=== PATIENT | male | born 1930 | race Caucasian/White ===

== ENCOUNTER 2017-02-26 22:25 | Inpatient (IN) ==
[2017-02-26 23:54] LABS: Basophils % 0.1 %; Hematocrit 45.5 % (37.5-50.1); Hemoglobin 15.6 g/dL (12.9-16.9); Immature Granulocytes % 0.7 % (0-4); Lymphocytes # 0.9 K/mcL (0.6-4.6); Mean Corpuscular HGB Conc 34.3 g/dL (31.6-35.5); Mean Corpuscular Hemoglobin 31.6 pg (28.0-33.3); Mean Corpuscular Volume 92.1 fL (83.0-100.0); Mean Platelet Volume 10.2 fL (9.4-12.4); Monocytes # 1.9 K/mcL (0.0-1.3); Monocytes % 13.5 %; Neutrophils # 11.4 K/mcL (1.6-8.9); Platelet Count 189 K/mcL (140-400); Red Blood Count 4.94 M/mcL (4.19-5.50); Segmented Neutrophils % 79.7 %
[2017-02-27 00:01] LABS: INR 1.5; Prothrombin Time 16.1 Seconds (9.4-12.1)
[2017-02-27 00:04] LABS: Activated Partial Thrombo Time 33.9 Seconds (26.0-36.0)
--- NOTE | 2017-02-27 00:05 | Emergency Department Note ---
Disposition Clinical Impression: Weakness, Elevated troponin Disposition: Home, Self-Care Condition: Good Time of Disposition: 00:29 Weakness HPI - General Chief complaint: ED Weakness Stated complaint: Weakness Can't Walk Time Seen by Provider: 02/26/17 23:20 Source: family Mode of arrival: ambulatory Limitations: no limitations Nursing Notes Reviewed: Yes Vital Signs Reviewed: Yes - History of Present Illness HPI Narrative: 86-year-old male with history of atrial fibrillation and stroke presents with worsening malaise, weakness, and poor appetite over the last 2-5 days. He lives with his elderly and is unable to bear weight to transfer. Family reports that he has a history of right-sided weakness which seems to be gradually worse over these last several days. He also was noted by a separate family member to have an episode of slurred speech 5 days ago which resolved spontaneously. He has had persistent confusion from his baseline over these last few days as well. He has a mild nonproductive cough. He has no chest pain or shortness breath. He does have nausea without vomiting. He does not have any abdominal pain or chest pain. He has difficulty with urination at baseline in which he will struggle to go, but then will finally completely empty his bladder. Also he has a history of chronic constipation and has not had a bowel movement for the last few days. He has not had any recent antibiotics or hospitalization. He was last hospitalized 2 years ago for a fall with a spinal fracture. Pt Subjective Complaint: generalized weakness/fatigue Pain Scale: 0 - Related Data Home Medications Medication Instructions Recorded Confirmed Amlodipine [Amlodipine Besylate] 11/13/15 Apixaban [Eliquis] 11/13/15 Aspirin [Adult Low Dose Aspirin EC] 11/13/15 Furosemide [Lasix] 11/13/15 Metformin 11/13/15 Metoprolol 11/13/15 Niacin 11/13/15 Omeprazole [PriLOSEC] 11/13/15 Oxybutynin [Ditropan] 11/13/15 Oxybutynin [Ditropan] 11/13/15 Simvastatin 11/13/15 Previous Rx's Medication Instructions Recorded Cephalexin [Keflex] 500 mg PO QID 10 Days 01/14/16 Terbinafine HCl [Athlete's Foot] 30 gm TP BID 31 Days 01/14/16 Allergies Allergy/AdvReac Type Severity Reaction Status Date / Time No Known Allergies Allergy Verified 02/26/17 22:36 All systems ED: reviewed and negative except as stated. Past Medical History - Past Medical History Attestation: Yes The following information was validated with the patient. Source: patient Medical history: Reports: CVA, diabetes - Social History Smoking Status: Never smoker Smokeless Tobacco Status: No Alcohol use: Reports: none Physical Exam - Head Head exam: atraumatic, normocephalic, normal inspection - Eye Eye exam: Present: normal appearance, PERRL, EOMI - ENT ENT exam: normal exam, normal oropharynx, mucous membranes moist - Neck Neck exam: Present: normal inspection, full ROM, trachea midline - Chest Chest inspection: Present: normal inspection, symmetric chest wall rise - Respiratory Respiratory exam: Clear to auscultation bilaterally without wheezes rales or rhonchi Cardiovascular Cardiovascular exam: Present: regular rate, normal rhythm, normal heart sounds - Abdominal Exam Abdominal exam: Present: soft, Non-Tender. Absent: tenderness, distention, guarding, rebound, rigidity - Extremities Exam Extremities exam: Present: normal inspection, full ROM - Expanded Lower Extremity Exam Hip/Pelvis exam: Present: normal inspection, full ROM - Back Exam Back exam: Present: normal inspection, full ROM. Absent: tenderness, CVA tenderness (R), CVA tenderness (L) - Neurological Exam Neurological exam: Present: alert, oriented X3, CN II-XII intact. Motor 4 out of 5 in the right lower extremity. 5 out of 5 in all other extremities. No drift. Normal sensory exam in all extremities. No dysarthria, aphasia, or facial droop. - Psychiatric Psychiatric exam: Present: normal affect, normal mood - Skin Skin exam: Present: warm, dry, intact, normal color - General General appearance: alert, in no apparent distress Course - Reevaluation(s) Reevaluation #1: Patient noted to have elevated troponin to 0.4. No CP/SOB. EKG stable from prior. He received aspirin. Head CT and urinalysis are pending, but patient is signed out to Dr. Lange for admission. Time: 00:31 Vital Signs Temperature 98.7 F 02/26/17 22:28 Pulse Rate 94 02/26/17 22:28 Respiratory Rate 18 02/26/17 22:28 Blood Pressure 166/78 02/26/17 22:28 O2 Sat by Pulse Oximetry 97 02/26/17 22:28 Temperature 98.9 F 02/27/17 05:24 Pulse Rate 90 02/27/17 05:24 Respiratory Rate 15 02/27/17 05:24 Blood Pressure 164/80 02/27/17 05:24 O2 Sat by Pulse Oximetry 97 02/27/17 05:24 Oxygen Delivery Oxygen Delivery Room Air Weakness - Lab Data Result diagrams: 02/26/17 23:45 02/26/17 23:45 Lab Results 02/26/17 02/26/17 02/26/17 Range/Units 22:30 23:45 23:45 WBC 14.3 H (4.3-11.1) K/mcL RBC 4.94 (4.19-5.50) M/mcL Hgb 15.6 (12.9-16.9) g/dL Hct 45.5 (37.5-50.1) % MCV 92.1 (83.0-100.0) fL MCH 31.6 (28.0-33.3) pg MCHC 34.3 (31.6-35.5) g/dL RDW 14.0 (11.5-14.5) % Plt Count 189 (140-400) K/mcL MPV 10.2 (9.4-12.4) fL Immature Gran % 0.7 (0-4) % Seg Neutrophils % 79.7 % Lymphocytes % 6.0 % Monocytes % 13.5 % Eosinophils % 0.0 % Basophils % 0.1 % Neutrophils # 11.4 H (1.6-8.9) K/mcL Lymphocytes # 0.9 (0.6-4.6) K/mcL Monocytes # 1.9 H (0.0-1.3) K/mcL Eosinophils # 0.0 (0.0-0.6) K/mcL Basophils # 0.0 (0.0-0.2) K/mcL PT (9.4-12.1) Seconds INR APTT (26.0-36.0) Seconds Sodium 134 L (136-145) mEq/L Potassium 4.8 H (3.5-4.5) mEq/L Chloride 99 (98-109) mEq/L Carbon Dioxide 24 (19-29) mEq/L BUN 18 (8-26) mg/dL Creatinine 1.29 H (0.72-1.25) mg/dL Est GFR ( Amer) > 60 (> 60) Est GFR (Non-Af Amer) 53 L (> 60) BUN/Creatinine Ratio 14 (6-26) Glucose 394 H (70-99) mg/dL POC Glucose 316 H (58-89) Calculated Osmolality 296 (280-300) Calcium 10.9 H (8.6-10.8) mg/dL Total Bilirubin 1.8 H (0.2-1.2) mg/dL AST 37 H (5-34) Units/L ALT 35 (0-55) Units/L Alkaline Phosphatase 65 (38-126) Units/L Troponin I (0-0.03) ng/mL Serum Total Protein 7.5 (6.0-8.3) g/dL Albumin 3.7 (3.5-5.0) g/dL Globulin 3.8 H (2.4-3.5) g/dL Albumin/Globulin Ratio 1.0 L (1.1-2.2) Urine Color (Yellow) Urine Clarity (Clear) Urine pH (5.0-8.0) pH Units Ur Specific Exchange (1.010-1.025) Urine Protein (Neg-Trace) mg/dL Urine Glucose (UA) (Normal) mg/dL Urine Ketones (Negative) mg/dL Urine Blood (Negative) Urine Nitrite (Negative) Urine Bilirubin (Negative) Urine Urobilinogen (Normal) mg/dL Ur Leukocyte Esterase (Negative) Urine Microscopic RBC (0-3) per hpf Urine Microscopic WBC (0-3) per hpf Ur Squamous Epith Cells (None-Few) per lpf Urine Bacteria (None-Few) per hpf Hyaline Casts (None-Few) per lpf Ur Culture Indicated? (NO) 02/26/17 02/26/17 02/27/17 Range/Units 23:45 23:45 00:01 WBC (4.3-11.1) K/mcL RBC (4.19-5.50) M/mcL Hgb (12.9-16.9) g/dL Hct (37.5-50.1) % MCV (83.0-100.0) fL MCH (28.0-33.3) pg MCHC (31.6-35.5) g/dL RDW (11.5-14.5) % Plt Count (140-400) K/mcL MPV (9.4-12.4) fL Immature Gran % (0-4) % Seg Neutrophils % % Lymphocytes % % Monocytes % % Eosinophils % % Basophils % % Neutrophils # (1.6-8.9) K/mcL Lymphocytes # (0.6-4.6) K/mcL Monocytes # (0.0-1.3) K/mcL Eosinophils # (0.0-0.6) K/mcL Basophils # (0.0-0.2) K/mcL PT 16.1 H (9.4-12.1) Seconds INR 1.5 APTT 33.9 (26.0-36.0) Seconds Sodium (136-145) mEq/L Potassium (3.5-4.5) mEq/L Chloride (98-109) mEq/L Carbon Dioxide (19-29) mEq/L BUN (8-26) mg/dL Creatinine (0.72-1.25) mg/dL Est GFR ( Amer) (> 60) Est GFR (Non-Af Amer) (> 60) BUN/Creatinine Ratio (6-26) Glucose (70-99) mg/dL POC Glucose (58-89) Calculated Osmolality (280-300) Calcium (8.6-10.8) mg/dL Total Bilirubin (0.2-1.2) mg/dL AST (5-34) Units/L ALT (0-55) Units/L Alkaline Phosphatase (38-126) Units/L Troponin I 0.46 H* (0-0.03) ng/mL Serum Total Protein (6.0-8.3) g/dL Albumin (3.5-5.0) g/dL Globulin (2.4-3.5) g/dL Albumin/Globulin Ratio (1.1-2.2) Urine Color Yellow (Yellow) Urine Clarity Clear (Clear) Urine pH 6.0 (5.0-8.0) pH Units Ur Specific Exchange 1.023 (1.010-1.025) Urine Protein 30 H (Neg-Trace) mg/dL Urine Glucose (UA) >=1000 H (Normal) mg/dL Urine Ketones Negative (Negative) mg/dL Urine Blood Trace H (Negative) Urine Nitrite Negative (Negative) Urine Bilirubin Negative (Negative) Urine Urobilinogen Normal (Normal) mg/dL Ur Leukocyte Esterase Negative (Negative) Urine Microscopic RBC 3-5 H (0-3) per hpf Urine Microscopic WBC 0-3 (0-3) per hpf Ur Squamous Epith Cells Few (None-Few) per lpf Urine Bacteria None Seen (None-Few) per hpf Hyaline Casts None Seen (None-Few) per lpf Ur Culture Indicated? NO (NO) - EKG Data EKG attestation: Yes I reviewed and interpreted this EKG. EKG results narrative: EKG shows normal sinus rhythm with normal axis and intervals. There is no ST elevation or depression. There are diffuse nonspecific ST changes. These are essentially the same as 04/08/2015. Patient was in atrial flutter at that time however. Attestation Statement - Attestation Attestation: I, Ravi Corbin, examined this patient and my medical decision-making was reviewed with the SMALL ENGINE SPECIALIST/PA/Advanced Practice Nurse/Resident Physician. I agree with the documented findings, disposition and treatment plan as described except to the extent set forth below. 86 yo male presents with concerns of weakness, fatigue and chest pain. Patient is a poor historian and is unable to give a history regarding his symptoms. Family states that he had an acute episode of chest pain a few hours prior to arrival. He states that he had pressure in his chest he became nauseated and did not vomit there is no other associated diaphoresis. Patient did not syncopized. Patient had apparent slurred speech 5 days ago that the family was concerned about possible stroke however he was not evaluated at time and is now at his baseline. Head CT was negative for acute bleed or mass. Laboratory evaluation shows elevated troponin. Patient had a EKG which showed normal sinus rhythm with a rate of 94 without evidence of STEMI. Patient given aspirin in the emergency department. He is on Eliquis and was not started on Heparin in the ED.
[2017-02-27 00:11] LABS: Alanine Aminotransferase 35 Units/L (0-55); Albumin 3.7 g/dL (3.5-5.0); Alkaline Phosphatase 65 Units/L (38-126); Aspartate Amino Transferase 37 Units/L (5-34); BUN/Creatinine Ratio 14 (6-26); Bilirubin,Total 1.8 mg/dL (0.2-1.2); Blood Urea Nitrogen 18 mg/dL (8-26); Calcium 10.9 mg/dL (8.6-10.8); Carbon Dioxide 24 mEq/L (19-29); Chloride 99 mEq/L (98-109); Globulin 3.8 g/dL (2.4-3.5); Glucose 394 mg/dL (70-99); Osmolality,Calculated 296 (280-300); Sodium 134 mEq/L (136-145); Total Protein 7.5 g/dL (6.0-8.3); eGFR For African Americans > 60 (> 60); eGFR For Non-African Americans 53 (> 60)
[2017-02-27 00:12] LABS: Potassium 4.8 mEq/L (3.5-4.5)
[2017-02-27] MEDS ORDERED: Insulin Regular, Human 100 UNIT/ML SQ ONE (00:18)
[2017-02-27] MEDS ORDERED: Aspirin 81 MG TAB.CHEW PO ONE (00:20)
[2017-02-27 00:47] LABS: Bilirubin,Urine Negative (Negative); Blood,Urine Trace (Negative); Clarity,Urine Clear (Clear); Color,Urine Yellow (Yellow); Glucose,Urine (UA) >=1000 mg/dL (Normal); Ketones,Urine Negative (Negative); Leukocyte Esterase,Urine Negative (Negative); Nitrite,Urine Negative (Negative); Protein,Urine 30 mg/dL (Neg-Trace); Specific Gravity,Urine 1.023 (1.010-1.025); Urobilinogen,Urine Normal (Normal)
[2017-02-27 00:50] LABS: Bacteria,Urine None Seen per hpf (None-Few); Hyaline Casts,Urine None Seen per lpf (None-Few); Squamous Epithelial Cell,Urine Few per lpf (None-Few); WBC,Urine 0-3 per hpf (0-3)
[2017-02-27] MEDS ORDERED: Ondansetron 4 MG/2 ML VIAL IVP PRN (04:57)
[2017-02-27] MEDS ORDERED: *HR* Morphine 2 MG/ML SYRINGE IVP PRN (04:57)
[2017-02-27] MEDS ORDERED: D5% in Water 1,000 ML IVC PRN (04:57)
[2017-02-27] MEDS ORDERED: Acetaminophen 325 MG TABLET PO PRN (04:57)
[2017-02-27] MEDS ORDERED: Nitroglycerin 0.4 MG TAB.SUBL SL PRN (04:57)
[2017-02-27] MEDS ORDERED: *HR* Metoprolol 5 MG/5 ML VIAL IVP PRN ×3 (04:57→18:08)
[2017-02-27] MEDS ORDERED: Naloxone 0.4 MG/ML INJ IVP PRN (04:57)
[2017-02-27] MEDS ORDERED: *HR* OxyCODONE Immed Rel 5 MG TABLET PO PRN (04:57)
[2017-02-27] MEDS ORDERED: Dextrose Gel 15 GM PO PRN ×2 (04:57)
[2017-02-27] MEDS ORDERED: *HR* Dextrose 50 % in Water (Syg) 50 ML SYRINGE IVP PRN (04:57)
[2017-02-27] MEDS ORDERED: 0.9 % Sodium Chloride 1,000 ML IVC SCH (05:00)
--- NOTE | 2017-02-27 05:16 | Internal Med History&Physical ---
Date of Encounter: 02/27/17 Time of Encounter: 05:00 Assessment and Plan (1) Generalized muscle weakness Current visit: Yes Status: Acute . (2) Complete immobility due to severe physical disability or frailty Current visit: Yes Status: Acute . (3) Demand ischemia of myocardium Current visit: Yes Status: Acute . (4) Non-ST elevation myocardial infarction (NSTEMI) due to mismatch of myocardial oxygen supply and demand Current visit: Yes Status: Acute . (5) CAD (coronary artery disease), [place] coronary artery Current visit: Yes Status: Acute . Qualifiers: [place] vs. transplanted heart: [place] heart Associated angina: angina presence unspecified Qualified Code(s): I25.10 - Atherosclerotic heart disease of [place] coronary artery without angina pectoris (6) Hx of CABG Current visit: Yes Status: Acute . (7) Atrial fibrillation and flutter Current visit: Yes Status: Acute . (8) FTT (failure to thrive) in adult Current visit: Yes Status: Acute . (9) Cerebrovascular accident, old Current visit: Yes Status: Acute . Internal Medicine - H&P: HPI Chief complaint: Generalized weakness. Unable to walk. Admitted From: Emergency Dept Plans for Post Hospital Care: Home History of present illness: Mr. Parr is a 86 year old male with history significant for CVA (left frontal and pontine infarcts; small vessel disease)/TIAs, PAD/complete occlusion MICHELE/60% stenosis LICA, CAD/CABG/AMI, type II DM, GERD/ s/p ugi bleed, hypertension, dyslipidemia, paroxysmal atrial fibrillation-flutter, OA/ OP/L3 compression fracture, a disturbance with multiple falls, generalized weakness/deconditioning, former smoker, etc.. The patient is admitted to [facility] the emergency department where he presented with concerns of the progressive generalized weakness and inability to walk. The patient has a known history of atrial fibrillation flutter as well as some previous CVA with associated gait disturbance and right-sided weakness. The patient reports worsening malaise generalized weakness and easy fatigability diminishing appetite over the last 5 days or more. He has found progressively that he has been unable to weight-bear or to transfer. Previous to this he was able to motivate himself about his home with a walker. Independent during the same five-day period of time he experienced a period of intermittent but very severe right chest pressure/pain. These episodes would wax and wane but persisted over a three-day period of time. Associated with shortness of air lightheadedness and a general feeling of malaise. Family member witnessed an episode of slurring of speech during that same period of time possible 5 days prior to this presentation which seemed to resolve spontaneously. He was witnessed also to be more confused from his baseline over these same several days.. Some nausea without vomiting a nonproductive cough. Experienced his usual prostatism with urinary retention and chronic constipation. Denied any fevers chills or sweats and denies nervousness a period time any significant changes in medication regimen or compliance. Findings in the ED: Vital signs were stable. Patient afebrile. WBC 14.3 hemoglobin 15.6 platelets 189,000. Differential showed an increase in neutrophils and monocytes. Metabolic panel benign. Noted sodium of 134 potassium 4.8. Creatinine was 1.29 with BUN of 18. GFR 53. Glucose 394 osmolality 296. Calcium 10.9. Total bilirubin 1.8. AST 37. Troponin 0.46. PT 16.1 INR 1.5 PTT 32.9. EKG showed atrial flutter. Controlled rate at 94. Sinus rhythm with normal axis and intervals. No acute ischemic changes. Chest x-ray demonstrated no acute or active cardiopulmonary process. Sternotomy wires unchanged. Atherosclerotic calcifications of the thoracic aorta noted. No evidence of effusion pneumothorax or osseous abnormalities. Lungs clear. Preliminary impression suggests failure to thrive in the adult with significant history of CVA with right repair versus and gait disturbance with progressive downward spiral in independence in activities of daily living. Unable to use walker effectively for day-to-day activities due to the feeling of generalized weakness. Denies any significant mechanical falls during this period. Denies any loss of bowel or bladder function biting of lip but seizure-like activity vision deficits unilateral weakness. CVA/TIA events be investigated. etc. Concurrently patient also reports an episode of 3 days of consecutive intermittent severity right-sided chest pain/pressure. This associated with the shortness of air and a feeling of malaise. Symptoms are concerning for ACS/UA in a patient with increased risk due to diffuse vasculopathy. Screening studies do note SIRS criteria present at admission. The patient is at risk for further acute clinical decline immobility given his advanced age, frailty, findings presenting complaints and comorbid conditions. Workup and treatment will proceed comprehensively. The patient was visited and interviewed and examined. Cumulative laboratory and radiographic data base will be considered and discussed. Pertinent ancillary medical records including ECW and PCI documentation when available was reviewed and considered. Given the patient's presenting concerns, past medical history, clinical findings and symptoms, he is admitted at this time will undergo further evaluation and disposition. Orders were written as per the computerized physician service order clerk system.......................................................................... .................... Consultative opinions will be sought as clinical circumstances justify. Additional consultative opinion has been requested of cardiology and neurology. Pain management needs will be addressed. Laboratory=radiographic data base will be updated as appropriate. Studies include: Cultures of blood urine sputum, pt/inr, aptt, ddimer, cardiac injury panel, BNP, UA, metabolic and hematologic panel, magnesium, phosphorus, ionized calcium, thyroid panel, lipid profile, A1c, C-peptide, CRP,sedimentation rate, blood gas, lactic acid, serologies, etc. Precautions: Aspiration, fall, delirium protocol/surveillance initiated. Orthostatic vital signs. Bladder scan. Postvoid residual. Telemetry with continuous hemodynamic monitoring and pulse oximetry initiated. Empiric antibiotic coverage: pending diagnostic/culture data. Special studies: CT chest/head, MRI head/brain, chest x-ray, telemetry, EKG, echocardiogram. Pulmonary toilet: Incentive spirometry, aerosol bronchodilator, mucolytic, antitussive, supplemental oxygen. Corticosteroid therapy. CPAP/BiPAP supplemental oxygen delivery employed. Aerosol Mucomyst therapy may be employed. Fluid and electrolyte repletion efforts will proceed. Careful attention to fluid balance and renal recovery will be emphasized. Avoidance of nephrotoxic exposure and adverse drug drug interaction in the setting of impaired renal function will be monitored closely. Acute coronary syndrome protocol/surveillance initiated. Aspirin, statin, beta noreen, BERNICE inhibitor. Nitrates. Morphine. Supplemental oxygen. Intravenous heparin drip (low dose ACS) protocol was initiated. Acute [employer]ING [employer]GER injury protocol/surveillance initiated. DVT and PUD prophylaxis initiated: PPI therapy, intermittent pneumatic cuffs/ TEDs. Early ambulation will be encouraged. Immunization updates recommended. Influenza and pneumococcal vaccinations as part of ongoing preventative healthcare recommendations strongly recommended. Smoking cessation counseling briefly addressed. Patient is a former smoker. Advanced care directive discussion briefly addressed. Patient does not declare any healthcare restrictions at this time. Cardiovascular risk appraisal and cardiovascular risk reduction efforts will be emphasized. Physical=occupational therapy consulted to evaluate patient's functional capacity and progress mobility as his circumstances permit. Sliding scale insulin coverage, ADA dietary restraint and schedule an as-needed basis fingerstick glucose assessments were initiated. Nutrition/diabetes education counseling may be considered as circumstances justify. Outpatient medication schedules will be reviewed, confirmed and facilitated as appropriate. Reconciliation of home treatments including adjustments, substitutions and reintroduction into the treatment regimen will address necessary maintenance therapies for chronic pre-existing medical conditions. Plan of care has been reviewed and discussed in detail with the patient. Questions addressed. Hospital course dictated by clinical findings, treatment response and potential consultative interventions. Patient is at risk for further acute clinical decline and morbidity due to advanced age/frailty, presenting chief complaints and comorbid conditions. Condition is serious. Prognosis is guarded. CODE STATUS is reported as full. Past Med Surg Social Fam HX - Past Medical History Source: old records reviewed Medical history: arthritis, atrial fibrillation, CHF, coronary artery disease, CVA, diabetes, GI bleed, hyperlipidemia, hypertension, myocardial infarction, osteoporosis, peripheral artery disease, renal disease (SHANE/urge incontinence. BPH/prostatism.), TIA, other (Unsteadiness of gait/repeated falls.) Psychiatric history: anxiety - Past Surgical History Surgical History: coronary bypass (CABG), other - Social History Smoking Status: Former smoker Smokeless Tobacco Status: No Alcohol use: none, unknown Drug use: none Occupational status: retired Current living situation: Home, With Family Activity Level: Uses cane/walker, Mostly sedentary Recent Out of Country Travel Within the Last 8 Weeks: No Exposure or Possible Exposure to Illness During Travel: No Internal Medicine - H&P: Meds Amlodipine [Amlodipine Besylate] 11/13/15 [History] Apixaban [Eliquis] 11/13/15 [History] Aspirin [Adult Low Dose Aspirin EC] 11/13/15 [History] Furosemide [Lasix] 11/13/15 [History] Metformin 11/13/15 [History] Metoprolol 11/13/15 [History] Niacin 11/13/15 [History] Omeprazole [PriLOSEC] 11/13/15 [History] Oxybutynin [Ditropan] 11/13/15 [History] Oxybutynin [Ditropan] 11/13/15 [History] Simvastatin 11/13/15 [History] Cephalexin [Keflex] 500 mg PO QID 10 Days 01/14/16 [Rx] Terbinafine HCl [Athlete's Foot] 30 gm TP BID 31 Days 01/14/16 [Rx] Allergies No Known Allergies Allergy (Verified 02/26/17 22:36) All Systems PM: A 10-system review of systems was performed and is negative for pertinent findings except as documented above in the HPI. - Constitutional Constitutional: as per HPI, malaise, weakness, other, no chills, no fever(s), no night sweats - EENT Eyes: as per HPI, no change in vision, no discharge, no pain, no photophobia Ears: as per HPI, no ear discharge, no ear pain, no tinnitus Nose, mouth and throat: as per HPI, no dysphagia, no nasal discharge, no neck pain, no sore throat - Cardiovascular Cardiovascular ROS IM: as per HPI, chest pain, dyspnea, other, no diaphoresis, no lightheadedness, no palpitations, no syncope - Respiratory Respiratory: as per HPI, no cough, no dyspnea, no wheezing, no excessive phlegm production - Gastrointestinal Gastrointestinal: as per HPI, no abdominal pain, no diarrhea, no hematemesis, no hematochezia, no melena, no nausea, no vomiting - Genitourinary Genitourinary ROS male: as per HPI - Musculoskeletal Musculoskeletal ROS IM: as per HPI, no numbness, no tingling - Integumentary Integumentary IM: as per HPI, no rash, no unusual bruising - Neurological Neurological ROS: as per HPI, no confusion, no convulsions, no focal weakness, no numbness, no tingling, no tremor(s) - Psychiatric Psychiatric: as per HPI - Endocrine Endocrine IM: as per HPI - Hematologic/Lymphatic Hematologic/Lymphatic: as per HPI, no easy bruising - Allergic/Immunologic Allergic/Immunologic: as per HPI - Constitutional Vitals: Temp Pulse Resp BP Pulse Ox 99.6 F 91 17 181/87 96 02/27/17 01:53 02/27/17 01:53 02/27/17 01:53 02/27/17 01:53 02/27/17 02:07 Vital Signs Temp Pulse Resp BP Pulse Ox 02/27/17 02:07 96 02/27/17 01:53 99.6 F 91 17 181/87 96 02/27/17 01:05 16 192/91 02/26/17 22:28 98.7 F 94 18 166/78 97 Intake and Output 02/26/17 02/26/17 02/27/17 15:59 23:59 07:59 Other: Stool Characteristics Normal for Patient Weight 81.647 kg 86.1 kg Blood Glucose* 316 Patient Weight 02/27/17 23:59 Weight 86.1 kg General appearance: Present: cooperative, mild distress, A&O X 3, answers questions appropriately - Head Head exam: Present: atraumatic, normocephalic - Eye Eye exam: Present: EOMI, PERRL, conjuntiva pink, sclera anicteric Pupils: Present: normal accommodation, PERRL - ENT ENT exam: Present: mucous membranes moist, normal oropharynx - Neck Neck exam general surgery: Present: full ROM, supple, trachea midline. Absent: lymphadenopathy, nuchal rigidity - Respiratory Respiratory exam: Present: decreased breath sounds, CTAB. Absent: accessory muscle use, rales, rhonchi, stridor, wheezes - Cardiovascular Cardiovascular exam: Present: distant heart sounds, RRR, +S1, +S2, tachycardia. Absent: diastolic murmur, gallop, rubs, systolic murmur - GI/Abdominal GI/Abdominal exam: Present: normal bowel sounds, soft, no peritoneal signs. Absent: distended, tenderness - Extremities Exam Extremities exam: Present: full ROM, warm, radial pulses palpable and symetrical. Absent: calf tenderness, cyanotic, pedal edema - Neurological Exam Neurological exam: Present: alert, CN II-XII intact, oriented X3, no focal deficits. Absent: pronater drift, facial droop, speech deficit - Psychiatric Psychiatric exam: Present: normal affect, normal mood - Skin Skin exam: Present: dry, intact, warm. Absent: petechiae, rash, urticaria, vesicles Internal Med - H&P Results - Labs CBC & Chem 7: 02/26/17 23:45 02/26/17 23:45 Labs: Short CBC 02/26/17 Range/Units 23:45 WBC 14.3 H (4.3-11.1) K/mcL Hgb 15.6 (12.9-16.9) g/dL Hct 45.5 (37.5-50.1) % Plt Count 189 (140-400) K/mcL Neutrophils # 11.4 H (1.6-8.9) K/mcL BMP 02/26/17 Range/Units 23:45 Sodium 134 L (136-145) mEq/L Potassium 4.8 H (3.5-4.5) mEq/L Chloride 99 (98-109) mEq/L Carbon Dioxide 24 (19-29) mEq/L BUN 18 (8-26) mg/dL Creatinine 1.29 H (0.72-1.25) mg/dL Glucose 394 H (70-99) mg/dL Calcium 10.9 H (8.6-10.8) mg/dL Cardiac Enzymes 02/26/17 Range/Units 23:45 Troponin I 0.46 H* (0-0.03) ng/mL Liver Function 02/26/17 Range/Units 23:45 Total Bilirubin 1.8 H (0.2-1.2) mg/dL AST 37 H (5-34) Units/L ALT 35 (0-55) Units/L Alkaline Phosphatase 65 (38-126) Units/L Albumin 3.7 (3.5-5.0) g/dL Urine 02/27/17 Range/Units 00:01 Urine Color Yellow (Yellow) Urine Clarity Clear (Clear) Urine pH 6.0 (5.0-8.0) pH Units Ur Specific [place] 1.023 (1.010-1.025) Urine Protein 30 H (Neg-Trace) mg/dL Urine Glucose (UA) >=1000 H (Normal) mg/dL Abnormal lab results WBC 14.3 K/mcL (4.3-11.1) H 02/26/17 23:45 Neutrophils # 11.4 K/mcL (1.6-8.9) H 02/26/17 23:45 Monocytes # 1.9 K/mcL (0.0-1.3) H 02/26/17 23:45 PT 16.1 Seconds (9.4-12.1) H 02/26/17 23:45 Sodium 134 mEq/L (136-145) L 02/26/17 23:45 Potassium 4.8 mEq/L (3.5-4.5) H 02/26/17 23:45 Creatinine 1.29 mg/dL (0.72-1.25) H 02/26/17 23:45 Est GFR (Non-Af Amer) 53 (> 60) L 02/26/17 23:45 Glucose 394 mg/dL (70-99) H 02/26/17 23:45 POC Glucose 316 (58-89) H 02/26/17 22:30 Calcium 10.9 mg/dL (8.6-10.8) H 02/26/17 23:45 Total Bilirubin 1.8 mg/dL (0.2-1.2) H 02/26/17 23:45 AST 37 Units/L (5-34) H 02/26/17 23:45 Troponin I 0.46 ng/mL (0-0.03) H* 02/26/17 23:45 Globulin 3.8 g/dL (2.4-3.5) H 02/26/17 23:45 Albumin/Globulin Ratio 1.0 (1.1-2.2) L 02/26/17 23:45 Urine Protein 30 mg/dL (Neg-Trace) H 02/27/17 00:01 Urine Glucose (UA) >=1000 mg/dL (Normal) H 02/27/17 00:01 Urine Blood Trace (Negative) H 02/27/17 00:01 Urine Microscopic RBC 3-5 per hpf (0-3) H 02/27/17 00:01 Laboratory Results WBC 14.3 K/mcL (4.3-11.1) H 02/26/17 23:45 RBC 4.94 M/mcL (4.19-5.50) 02/26/17 23:45 Hgb 15.6 g/dL (12.9-16.9) 02/26/17 23:45 Hct 45.5 % (37.5-50.1) 02/26/17 23:45 MCV 92.1 fL (83.0-100.0) 02/26/17 23:45 MCH 31.6 pg (28.0-33.3) 02/26/17 23:45 MCHC 34.3 g/dL (31.6-35.5) 02/26/17 23:45 RDW 14.0 % (11.5-14.5) 02/26/17 23:45 Plt Count 189 K/mcL (140-400) 02/26/17 23:45 MPV 10.2 fL (9.4-12.4) 02/26/17 23:45 Immature Gran % 0.7 % (0-4) 02/26/17 23:45 Seg Neutrophils % 79.7 % 02/26/17 23:45 Lymphocytes % 6.0 % 02/26/17 23:45 Monocytes % 13.5 % 02/26/17 23:45 Eosinophils % 0.0 % 02/26/17 23:45 Basophils % 0.1 % 02/26/17 23:45 Neutrophils # 11.4 K/mcL (1.6-8.9) H 02/26/17 23:45 Lymphocytes # 0.9 K/mcL (0.6-4.6) 02/26/17 23:45 Monocytes # 1.9 K/mcL (0.0-1.3) H 02/26/17 23:45 Eosinophils # 0.0 K/mcL (0.0-0.6) 02/26/17 23:45 Basophils # 0.0 K/mcL (0.0-0.2) 02/26/17 23:45 PT 16.1 Seconds (9.4-12.1) H 02/26/17 23:45 INR 1.5 02/26/17 23:45 APTT 33.9 Seconds (26.0-36.0) 02/26/17 23:45 Sodium 134 mEq/L (136-145) L 02/26/17 23:45 Potassium 4.8 mEq/L (3.5-4.5) H 02/26/17 23:45 Chloride 99 mEq/L (98-109) 02/26/17 23:45 Carbon Dioxide 24 mEq/L (19-29) 02/26/17 23:45 BUN 18 mg/dL (8-26) 02/26/17 23:45 Creatinine 1.29 mg/dL (0.72-1.25) H 02/26/17 23:45 Est GFR ( Amer) > 60 (> 60) 02/26/17 23:45 Est GFR (Non-Af Amer) 53 (> 60) L 02/26/17 23:45 BUN/Creatinine Ratio 14 (6-26) 02/26/17 23:45 Glucose 394 mg/dL (70-99) H 02/26/17 23:45 POC Glucose 316 (58-89) H 02/26/17 22:30 Calculated Osmolality 296 (280-300) 02/26/17 23:45 Calcium 10.9 mg/dL (8.6-10.8) H 02/26/17 23:45 Total Bilirubin 1.8 mg/dL (0.2-1.2) H 02/26/17 23:45 AST 37 Units/L (5-34) H 02/26/17 23:45 ALT 35 Units/L (0-55) 02/26/17 23:45 Alkaline Phosphatase 65 Units/L (38-126) 02/26/17 23:45 Troponin I 0.46 ng/mL (0-0.03) H* 02/26/17 23:45 Serum Total Protein 7.5 g/dL (6.0-8.3) 02/26/17 23:45 Albumin 3.7 g/dL (3.5-5.0) 02/26/17 23:45 Globulin 3.8 g/dL (2.4-3.5) H 02/26/17 23:45 Albumin/Globulin Ratio 1.0 (1.1-2.2) L 02/26/17 23:45 Urine Color Yellow (Yellow) 02/27/17 00:01 Urine Clarity Clear (Clear) 02/27/17 00:01 Urine pH 6.0 pH Units (5.0-8.0) 02/27/17 00:01 Ur Specific [place] 1.023 (1.010-1.025) 02/27/17 00:01 Urine Protein 30 mg/dL (Neg-Trace) H 02/27/17 00:01 Urine Glucose (UA) >=1000 mg/dL (Normal) H 02/27/17 00:01 Urine Ketones Negative mg/dL (Negative) 02/27/17 00: Urine Blood Trace (Negative) H 02/27/17 00:01 Urine Nitrite Negative (Negative) 02/27/17 00:01 Urine Bilirubin Negative (Negative) 02/27/17 00:01 Urine Urobilinogen Normal mg/dL (Normal) 02/27/17 00:01 Ur Leukocyte Esterase Negative (Negative) 02/27/17 00:01 Urine Microscopic RBC 3-5 per hpf (0-3) H 02/27/17 00:01 Urine Microscopic WBC 0-3 per hpf (0-3) 02/27/17 00:01 Ur Squamous Epith Cells Few per lpf (None-Few) 02/27/17 00:01 Urine Bacteria None Seen per hpf (None-Few) 02/27/17 00:01 Hyaline Casts None Seen per lpf (None-Few) 02/27/17 00:01 Ur Culture Indicated? NO (NO) 02/27/17 00:01 Impressions Chest X-Ray 02/26/17 22:45 IMPRESSION: No acute cardiopulmonary abnormality. D/ / Vadim Jackson MD / Vadim Jackson MD Interpreting Provider: Vadim Jackson MD Head CT 02/27/17 23:50 IMPRESSION: No acute intracranial abnormality. D/ / Bess Solorzano MD / Bess Solorzano MD Interpreting Provider: Bess Solorzano MD - Impressions ITS Impressions Head CT 02/27/17 23:50
[2017-02-27 05:58] LABS: Magnesium 1.8 mg/dL (1.6-2.6); Phosphorous 1.4 mg/dL (2.3-4.7)
[2017-02-27] MEDS ORDERED: *HR* Enoxaparin 60 MG/0.6 ML SYRINGE SQ SCH (06:00)
[2017-02-27 06:10] LABS: Hemoglobin A1C 6.3 %
[2017-02-27] MEDS ORDERED: *HR* Heparin 5,000 UNIT/ML VIAL IVP PRN ×2 (06:24)
[2017-02-27] MEDS ORDERED: *HR* Heparin 5,000 UNIT/ML VIAL IVP STA (06:24)
[2017-02-27] MEDS ORDERED: Heparin 25,000 UNIT/500 ML D5W 25,000 UNIT/500 ML MLS IVC STA (06:24)
[2017-02-27] MEDS: Insulin LISPRO 300 UNITS/3 ML VIAL SQ SCH ×4 (09:12→22:35)
[2017-02-27] MEDS: Aspirin 81 MG TAB.CHEW PO SCH (09:15)
--- NOTE | 2017-02-27 10:19 | Cardiology Consult Note ---
<ReecePina J - Last Filed: 02/27/17 11:16> Date of Encounter: 02/27/17 Time of Encounter: 09:30 Assessment and Plan (1) Weakness Current Visit: Yes Status: Acute Per cardiology: -Patient admitted with progressively worsening weakness over the past several months. -Per family, weakness has become severe past week. -Of note, family states patient has not been eating or drinking well lately. -Management per primary service. (2) GRACIA (acute kidney injury) Current Visit: Yes Status: Acute Per cardiology: -GRACIA with creatinine 1.29. -Baseline creatinine 0.7-0.9 -May be due to poor diet and poor fluid intake. -Management per primary service. (3) Elevated troponin Current Visit: Yes Status: Acute Per cardiology: -Patient with elevated troponin in the setting of GRACIA, leukocytosis, and hypertension. -Troponins 0.46, 0.27. -Denies current chest pain, -Atypical chest pain at home, admits to chest pain at home that occurs a couple times per week and occurs at rest. -Denies excertional chest pain. Denies increased shortness of breath. -Admits to increased fatigue/weakness. -History of CAD with CABG x 3 vessels at [place] in 2000. states had balloon angioplasty prior to CABG. -On asa, statin, beta noreen, and heparin drip. -Echo pending. -BPs 160-190s systolic. -Do not suspect NSTEMI, suspect demand ischemia related to GRACIA, leukocytosis, and HYpertension. No cardiac rehab warranted at this time. -Further recommendations pending echocardiogram. (4) CAD (coronary artery disease), [place] coronary artery Current Visit: Yes Status: Chronic Per cardiology: -Patient follows with . Last seen in office 05/2016. -Known CAD with CABG x 3 vessels 2000. Balloon angioplasty prior to CABG. -On asa, statin, beta noreen. -Denies current chest pain. -Echocardiogram 06/2016 with LVEF 60%, mild concentric left ventricular hypertrophy, indeterminate diastolic function, moderately dilated left atrium, mild MR, mild TR, no pulmonary hypertension, all wall segments with normal motion. -Echo pending. -Further recommendations pending echo. Qualifiers: [place] vs. transplanted heart: [place] heart Associated angina: angina presence unspecified Qualified Code(s): I25.10 - Atherosclerotic heart disease of [place] coronary artery without angina pectoris (5) Hypertension Current Visit: Yes Status: Chronic Per cardiology: -Known history of HTN -Currently on lopressor 12.5mg BID. -BPs 160-190s systolic. - states BPs at home labile. -Will increase beta noreen and will titrate for better BP control. Qualifiers: Hypertension type: essential hypertension Qualified Code(s): I10 - Essential (primary) hypertension (6) Atrial flutter, paroxysmal Current Visit: Yes Status: Chronic Per cardiology: -Known history of atrial flutter. - states has had atrial flutter on and off since CABG. -On eliquis at home, not getting this amdission, however is on heparin drip. states has only missed last nights dose of eliquis due to being in ER. - admits to recent falls. Denies active bleeding or blood loss. -Echo pending. -Further recommendations pending echo. -Need to address continuance of long-term anticoagulation prior to discharge. (7) Elevated brain natriuretic peptide (BNP) level Current Visit: Yes Status: Acute Per cardiology: -Elevated BNP. -Chest x-ray without any acute process. -Chest CT without over heart failure. -Euvolemic on exam. (8) Tobacco abuse Current Visit: Yes Status: Chronic Per cardiology: -Patient uses chewing tobacco. - states he uses 1 can per day for as long as she can remember. -I spent 3 minutes reviewing tobacco cessation education with patient and family. Discussion w patient/family: The assessment and plan as outlined above was discussed with the patient and/or family members who expressed understanding and agreement. All questions were answered. Thank you for involving us in the care of your patient. Please call with any questions. Discussed and reviewed with . History of Present Illness Consult date: 02/27/17 Requesting physician: Heber Patel Consult reason: ACS/NSTEMI Chief complaint: weakness History of present illness: Mr. Parr is a 86 year old male with a relevant past medical history of CVA with right sided residual weakness, atrial fibrillation, CAD s/p CABG 2000 with 3 vessel bypass, HTN, DM, hyperlipidemia, CHF. Patient was admitted for progressive weakness. Patient seen and examined with and son at bedside. Majority of information obtained is from patient's . states over the last few months, patient has gotten progressively weaker with major decline in function. states patient used to be able to walk to bathroom with assistance of walker, however lately has not been able to. states patient has also been getting confused. states patient always remembers person and place, but gets confused regarding time. states patient has also been falling several times per month. states in the month of January he has fallen twice, one time while in the bathroom and one time fell out if his chair. states anytime patient gets out of his chair she now stands behind him while he's using his walker. states over the past week, his weakness has been so severe that he has been unable to walk at all. reports blood pressures labile at home. reports that patient complains of chest pain while at rest that happens a couple times per week. Patient and deny increased shortness of breath. states patient has been more fatigued lately. states patient has not been eating or drinking much lately. states patient will not eat a meal anymore. States he only wants to eat a few small snacks per day. states he has also had poor oral intake in regards to water. states that the patient tells her that he is full and not thirsty. Past Med Surg Social Fam HX - Past Medical History Attestation: Yes The following information was validated with the patient. Source: patient, old records reviewed, obtained from family Medical history: arthritis, atrial fibrillation, CHF, coronary artery disease, CVA, diabetes, GI bleed, hyperlipidemia, hypertension, myocardial infarction, osteoporosis, peripheral artery disease, renal disease (SHANE/urge incontinence. BPH/prostatism.), TIA, other (Unsteadiness of gait/repeated falls.) Psychiatric history: anxiety - Past Surgical History Surgical History: coronary bypass (CABG), other - Social History Smoking Status: Former smoker Smokeless Tobacco Status: No Alcohol use: none, unknown Drug use: none Medications and Allergies Amlodipine [Norvasc] 5 mg PO DAILY 02/27/17 [History] Apixaban [Eliquis] 2.5 mg PO BID 02/27/17 [History] Cyanocobalamin (B-12) [Vitamin B12] 1,000 mcg SQ Q14D MDD fridays02/27/17 [ History] Furosemide [Lasix] 40 mg PO DAILY PRN 02/27/17 [History] Metformin [Glucophage] 1,000 mg PO BIDWM 02/27/17 [History] Metoprolol [Lopressor] 50 mg PO BID 02/27/17 [History] Multivit-Min/FA/Lycopen/Lutein [Centrum Silver Men Tablet] 1 each PO DAILY 02/27 [History] Niacin [Niacor] 500 mg PO DAILY 02/27/17 [History] Omeprazole [PriLOSEC] 40 mg PO DAILY 02/27/17 [History] Oxybutynin [Ditropan] 5 mg PO BID 02/27/17 [History] Vitamin E Acid Succinate [Vitamin E] 400 units PO DAILY 02/27/17 [History] Allergies No Known Allergies Allergy (Verified 02/26/17 22:36) All Systems Review: A 10-system review of systems was performed and is negative for pertinent findings except as documented above in the HPI. - Constitutional Constitutional: fatigue, weakness - Cardiovascular Cardiovascular: as per HPI, chest pain at rest, dyspnea on exertion Physical Examination Vital Signs, Last 4 Hours Temp Pulse Resp BP Pulse Ox 02/27/17 06:46 98.7 F 90 16 174/78 95 General: Conversant, No Apparent Distress HEENT: Atraumatic, Normocephaly, Mucus Membranes Moist Neck: No JVD, Normal carotid pulses Cardiac: Reg Rate and Rhythm, Normal S1 and S2, No Murmur Lungs: Normal Breath Sounds, No Wheeze, Rales, Rhonchi Neuro: Alert and responsive, No focal deficits noted Abdomen: Soft, Non-Tender Skin: No rashes noted on visualized skin Musculoskeletal: No Chest Wall Tenderness Extremities: No Clubbing, No Cyanosis, No Edema, Normal Pulses Results 02/26/17 23:45 02/26/17 23:45 Lab Results Impressions Chest X-Ray 02/26/17 22:45 IMPRESSION: No acute cardiopulmonary abnormality. D/ / Vadim Jackson MD / Vadim Jackson MD Interpreting Provider: Vadim Jackson MD Chest CT 02/27/17 08:30 IMPRESSION: 1. No acute intrathoracic abnormality. 2. Atherosclerosis. 3. Cholelithiasis. D/ / 02/27/2017 09:26:06 [facility] Provider: Oscar Delarosa MD Head CT 02/27/17 23:50 IMPRESSION: No acute intracranial abnormality. D/ / Bess Solorzano MD / Bess Solorzano MD Interpreting Provider: Bess Solorzano MD Active Medications Acetaminophen (Tylenol) 650 mg PO Q6HR PRN PRN Reason: Mild Pain (1-3) Stop: 08/29/17 04:58 Aspirin (Aspirin) 81 mg PO DAILY RODRIGUEZ Stop: 08/29/17 09:01 Last Admin: 02/27/17 09:15 Dose: 81 mg Dextrose/Water (Dextrose 50% (Syg)) 25 ml IVP AD PRN PRN Reason: Hypoglycemia Stop: 08/29/17 04:58 Docusate Sodium (Colace) 100 mg PO BID PRN PRN Reason: Constipation Stop: 08/29/17 04:58 Glucagon (Glucagen) 1 mg IM ONCE PRN PRN Reason: Hypoglycemia Stop: 08/29/17 04:58 Glucose (Gluctose) 15 gm PO ONCE PRN PRN Reason: Hypoglycemia Stop: 08/29/17 04:58 Glucose (Gluctose) 30 gm PO ONCE PRN PRN Reason: Hypoglycemia Stop: 08/29/17 04:58 Heparin Sodium (Porcine) (Heparin) 4,000 unit IVP Q6HR PRN PRN Reason: SEE COMMENTS Stop: 08/29/17 06:25 Heparin Sodium (Porcine) (Heparin) 2,000 unit IVP Q6H PRN PRN Reason: SEE COMMENTS Stop: 08/29/17 06:25 Dextrose (Dextrose 5%) 1,000 mls @ 100 mls/hr IVC .Q10H PRN PRN Reason: HYPOGLYCEMIA Stop: 08/29/17 04:58 Heparin Sodium/Dextrose (Heparin 25,000 Unit/500 Ml D5w) 25,000 unit in 500 mls @ 20.664 mls/hr IVC .Q24H STA; 12 UNIT/KG/HR PRN Reason: Protocol Stop: 02/28/17 06:23 Sodium Chloride (0.9 % Sodium Chloride) 1,000 mls @ 90 mls/hr IVC .Q11H7M [facility] Stop: 08/29/17 08:33 Insulin Detemir (Levemir) 12 unit 0.15 unit/kg (12 unit) SQ [facility] Stop: 08/29/17 21:01 Insulin Human Lispro (Humalog) 0 units SQ TIDAC [facility] PRN Reason: Protocol Stop: 08/29/17 07:31 Last Admin: 02/27/17 09:12 Dose: Not Given Insulin Human Lispro (Humalog) 0 units SQ [facility] PRN Reason: Protocol Stop: 08/29/17 21:01 Metoprolol Tartrate (Lopressor) 5 mg IVP Q6HR PRN PRN Reason: SEE COMMENTS Stop: 08/29/17 04:58 Metoprolol Tartrate (Lopressor) 12.5 mg PO BID [facility] Stop: 08/29/17 09:01 Last Admin: 02/27/17 09:15 Dose: 12.5 mg Morphine Sulfate (Morphine Sulfate) 2 mg IVP Q4HR PRN PRN Reason: Severe Pain (7-10) Stop: 08/29/17 04:58 Naloxone HCl (Narcan) 0.4 mg IVP Q2MIN PRN PRN Reason: Opioid Reversal Stop: 08/29/17 04:58 Nitroglycerin (Nitroglycerin) 0.4 mg SL Q5MIN PRN PRN Reason: Chest Pain Stop: 08/29/17 04:58 Nitroglycerin (Nitroglycerin) 0.5 inch TP Q6HNTG [facility] Stop: 08/29/17 12:01 Omeprazole (Prilosec) 40 mg PO DAILY@0630 [facility] PRN Reason: Protocol Stop: 08/29/17 06:31 Last Admin: 02/27/17 09:15 Dose: 40 mg Ondansetron HCl (Zofran) 4 mg IVP Q8HR PRN PRN Reason: Nausea And Vomiting Stop: 08/29/17 04:58 Oxycodone HCl (Roxicodone) 5 mg PO Q6HR PRN PRN Reason: Moderate Pain (4-6) Stop: 08/29/17 04:58 Simvastatin (Zocor) 40 mg PO [facility] Stop: 08/29/17 21:01 Laboratory Tests 04/22/15 01/05/17 01/05/17 05:10 09:42 09:42 WBC 6.4 Hgb Creatinine 0.91 0.99 Troponin I B-Natriuretic Peptide 02/26/17 02/26/17 02/26/17 23:45 23:45 23:45 WBC 14.3 H Hgb 15.6 Creatinine 1.29 H Troponin I 0.46 H* B-Natriuretic Peptide 02/27/17 02/27/17 05:33 05:33 WBC Hgb Creatinine Troponin I 0.27 H* B-Natriuretic Peptide 336 H - Imaging and Cardiology Chest Xray: report reviewed Echo: pending, report reviewed Other Results: CT head and CT chest reviewed - EKG Interpretation EKG results cardiology: personally reviewed (ECG with sinus rhythm, HR 94. Previous ECG reviewed with atrial flutter.), other (Telemetry reviewed with average HR 90, sinus rhythm. PVCs noted and 1 couplet PVCs noted.) Consult Discharge Plan - Plan Referrals: Dave Mayo Jr, MD [Primary Care Provider] - 03/07/17 10:00 am <Caren Glynn - Last Filed: 02/27/17 15:00> Date of Encounter: 02/27/17 Assessment and Plan Discussion w patient/family: The assessment and plan as outlined above was discussed with the patient and/or family members who expressed understanding and agreement. All questions were answered. Thank you for involving us in the care of your patient. Please call with any questions. History of Present Illness History of present illness: Mr. Parr is a 86 year old male All Systems Review: A 10-system review of systems was performed and is negative for pertinent findings except as documented above in the HPI. Results 02/26/17 23:45 02/26/17 23:45 - Attending Attestation I examined this patient and my medical decision-making was reviewed with the TEACHERS ASSISTANT/PA/Advanced Practice Nurse/Resident Physician. I agree with the documented findings, disposition and treatment plan. Mr. Parr presents with progressive weakness over the past few months and failure to thrive over the past week with poor oral intake. On admit, he incidentally had elevated troponin in setting of ARF and atypical chest pain. Troponin elevation is challenging to interpret in this setting. We have recommended an echo to help risk stratify. He will remain on heparin gtt, statin, BB and asa. Further recommendations to follow testing.
--- NOTE | 2017-02-27 10:46 | Electrocardiograph Report ---
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
[2017-02-27] MEDS: Nitroglycerin 1 INCH/GM PACKET TP SCH (11:25)
[2017-02-27] MEDS: 0.9 % Sodium Chloride 1,000 ML IVC SCH (11:25)
--- NOTE | 2017-02-27 15:23 | Event Note ---
Addendum entered and electronically signed by Chelsea Rodriguez DO 16:11: Home dose of Norvasc also restarted for HTN. Original Note: <Chelsea Rodriguez - Last Filed: 02/27/17 14:52> Date of Encounter: 02/27/17 Time of Encounter: 14:52 Patient admitted this morning for progressive generalized weakness. A/P 1.Generalized muscle weakness -PT/OT, social work consulted. Awaiting recommendations. Likely discharge to SNF /ECF. 2. Leukocytosis -WBC 14.3 -continue to monitor 3. Elevated troponin -appreciate cardiology input -most likely demand ischemia -on ASA, statin, b-noreen -on heparin drip -echo pending 4. GRACIA -Cr 1.29, baseline 0.8-1.0 -IVF, continue to monitor 5. HTN - restart home dose of lopressor 6. CAD, [place] artery -patient of Dr. Andre 7. atrial flutter, paroxysmal -home medication of Eliquis, currently being held due to heparin drip 8. Hx of CABG - 2000, 3 vessel at [place] <Po Rodriguez - Last Filed: 02/27/17 16:44> Date of Encounter: 02/27/17 I examined this patient and my medical decision-making was reviewed with the LITERARY WRITER/PA/Advanced Practice Nurse/Resident Physician. I agree with the documented findings, disposition and treatment plan as described except to the extent set forth below. Elderly gentleman, Admitted with non-ST elevation myocardial infarction, troponin trending down, likely secondary to demand ischemia. Has generalized weakness and debility Plan: Physical therapy evaluation. Possible transfer to inpatient rehabilitation/senior living facility
[2017-02-27] MEDS: amLODIPine 5 MG TABLET PO SCH (16:42)
[2017-02-27] MEDS: Insulin DETEMIR 100 UNIT/ML X5UNITS SQ SCH (20:03)
[2017-02-27] MEDS ORDERED: *HR* LORazepam 0.5 MG TABLET PO PRN (23:15)
--- NOTE | 2017-02-28 00:18 | Event Note ---
Date of Encounter: 02/28/17 Time of Encounter: 00:18 Paged regarding "patient shaking like he is cold and family is concerned" Went and assessed patient at bedside. and son present. Patient resting comfortably in bed. Speaking and following commands. Covered with several blankets and shiving intermittently. Patient stated that he felt cold despite the blankets. Patient denied feeling warm, CASIANO, SOB, CP, N, V, D, urinary complaints. Patient did not appear in distress. Physical exam benign: Head, neck exam WNL, eyes PEERL, HR RRR, no murmurs, lungs CTAB, no rashes. WBC 14, RR 16, HR 80's to 90's, . Later paged about axillary temp of 103. Rectal temp 104. WBC came back 2.5 at that time. Sepsis workup initiated. Patient started on IV abx, blood cultures drawn, IV fluids cont, lactate drawn, neutropenic precautions ordered, patient placed on cooling blanket, IV electrolytes replenished, tylenol administed. Lab called to confirm WBC, later corrected to 8. Fever persisted. UA negative, CT chest shows no acute changes suggestive of pneumonia, unknown source of infection. No her catheter. Noticed blood pressure low on documentation. Rechecked around 5pm, noted to be around 140/70. Patient was more alert than before. Checked the whole outer body and mouth for signs of skin infections. Non noted. Denies ear pain or pain anywhere on body. Patient did have L powerglide line placed yesterday. Could be source of fever. The area is not red or indurated. Would remove, however, patient is receiving multiple IV medications, fluids and support. His vitals and labs are improving. So, I feel it is best to keep it in for now so patient gets treatment and have day team make decision on new line placement. Plan -Continue sepsis protocol:fluids, IV abx. Awaiting Blood cultures. -Consider removing neutropenic precautions -Continue rectal tylenol q6h till patient temp <100.5 -Consider removing power glide line.
[2017-02-28 00:57] LABS: Hematocrit 37.4 % (37.5-50.1); Immature Platelets 4.6 % (1.1-6.1); Mean Corpuscular HGB Conc 34.8 g/dL (31.6-35.5); Mean Corpuscular Hemoglobin 31.7 pg (28.0-33.3); Mean Corpuscular Volume 91.2 fL (83.0-100.0); Mean Platelet Volume 9.9 fL (9.4-12.4); Platelet Count 143 K/mcL (140-400)
[2017-02-28] MEDS ORDERED: Vancomycin (wt based) 1,000 MG VIAL IVPB SCH (01:00)
[2017-02-28 01:12] LABS: Alanine Aminotransferase 23 Units/L (0-55); Albumin/Globulin Ratio 0.9 (1.1-2.2); Alkaline Phosphatase 85 Units/L (38-126); Aspartate Amino Transferase 25 Units/L (5-34); BUN/Creatinine Ratio 20 (6-26); Bilirubin,Total 2.2 mg/dL (0.2-1.2); Blood Urea Nitrogen 15 mg/dL (8-26); Carbon Dioxide 23 mEq/L (19-29); Chloride 108 mEq/L (98-109); Creatine Kinase 245 Units/L (30-200); Globulin 2.5 g/dL (2.4-3.5); Glucose 134 mg/dL (70-99); Magnesium 0.9 mg/dL (1.6-2.6); Osmolality,Calculated 285 (280-300); Phosphorous 1.4 mg/dL (2.3-4.7); Sodium 136 mEq/L (136-145); eGFR For African Americans > 60 (> 60); eGFR For Non-African Americans > 60 (> 60)
[2017-02-28 01:14] LABS: Calcium 8.2 mg/dL (8.6-10.8); Potassium 3.1 mEq/L (3.5-4.5); Total Protein 4.8 g/dL (6.0-8.3)
[2017-02-28 01:15] LABS: Albumin 2.3 g/dL (3.5-5.0)
[2017-02-28 01:25] LABS: Large Platelets Present (Not Present); Platelet Estimate Normal (Normal)
[2017-02-28] MEDS ORDERED: Vancomycin 1,750 MG in D5% in Water 500 ML IVPB SCH (01:30)
[2017-02-28] MEDS: Piperacillin/Tazobactam 3.375 GM in D5% in Water (Mini-Bag+) 100 ML IVPB SCH ×4 (01:50→23:31)
[2017-02-28] MEDS ORDERED: Magnesium Sulfate 2 GM in D5% in Water 100 ML IVPB ONE (02:14)
[2017-02-28] MEDS ORDERED: Pantoprazole 40 MG VIAL IVP ONE (02:15)
[2017-02-28 02:57] LABS: Lymphocytes # 0.3 K/mcL (0.6-4.6); Neutrophils # 8.3 K/mcL (1.6-8.9)
[2017-02-28] MEDS: Ibuprofen 600 MG TABLET PO ONE ×2 (03:10→04:05)
[2017-02-28] MEDS ORDERED: Acetaminophen 650 MG RECTAL SUPP RC PRN (03:28)
[2017-02-28 05:11] LABS: INR 1.6; Prothrombin Time 17.7 Seconds (9.4-12.1)
[2017-02-28 05:14] LABS: Hematocrit 35.1 % (37.5-50.1); Hemoglobin 12.1 g/dL (12.9-16.9); Mean Corpuscular HGB Conc 34.5 g/dL (31.6-35.5); Mean Corpuscular Hemoglobin 32.7 pg (28.0-33.3); Mean Corpuscular Volume 94.9 fL (83.0-100.0); Platelet Count 137 K/mcL (140-400); Red Cell Distribution Width 14.4 % (11.5-14.5)
[2017-02-28 06:01] LABS: Activated Partial Thrombo Time 112.7 Seconds (26.0-36.0)
[2017-02-28 06:17] LABS: Heparin anti-factor XA UFH 1.04 IU/mL (0.30-0.70)
[2017-02-28 06:39] LABS: BUN/Creatinine Ratio 16 (6-26); Blood Urea Nitrogen 20 mg/dL (8-26); Carbon Dioxide 22 mEq/L (19-29); Chloride 101 mEq/L (98-109); Creatine Kinase 271 Units/L (30-200); Glucose 189 mg/dL (70-99); Osmolality,Calculated 282 (280-300); Potassium 3.8 mEq/L (3.5-4.5); Sodium 132 mEq/L (136-145); eGFR For African Americans > 60 (> 60); eGFR For Non-African Americans 53 (> 60)
[2017-02-28 06:40] LABS: Calcium 9.9 mg/dL (8.6-10.8); Phosphorous 2.3 mg/dL (2.3-4.7)
[2017-02-28] MEDS: Nitroglycerin 1 INCH/GM PACKET TP SCH ×2 (07:55→11:02)
[2017-02-28] MEDS: amLODIPine 5 MG TABLET PO SCH (07:59)
[2017-02-28] MEDS: Insulin LISPRO 300 UNITS/3 ML VIAL SQ SCH ×4 (07:59→23:28)
[2017-02-28] MEDS: Aspirin 81 MG TAB.CHEW PO SCH (07:59)
[2017-02-28] MEDS ORDERED: Piperacillin/Tazobactam 3.375 GM in D5% in Water (Mini-Bag+) 100 ML IVPB SCH (08:00)
[2017-02-28] MEDS: 0.9 % Sodium Chloride 1,000 ML IVC SCH (08:04)
--- NOTE | 2017-02-28 10:01 | Internal Med Progress Note ---
<Chelsea Rodriguez - Last Filed: 02/28/17 09:56> Date of Encounter: 02/28/17 Time of Encounter: 09:57 - Assessment and plan (1) Generalized muscle weakness Current Visit: Yes Status: Acute Assessment and plan: PT/OT, social work consulted. Awaiting recommendations. Likely discharge to SNF/ ECF. Palliative consulted, appreciate recommendations (2) Fever Current Visit: Yes Status: Acute Assessment and plan: Developed fever last night (02/27), MAXIMUM TEMPERATURE 104.3 rectally Most recent temperature 100.[address] from last night shows no acute intracranial abnormality Portable chest x-ray to check for aspiration pneumonia Qualifiers: Fever type: unspecified Qualified Code(s): R50.9 - Fever, unspecified (3) Leukocytosis Current Visit: Yes Status: Acute Assessment and plan: WBC 12.4 bandemia present Also of note, patient's hemoglobin has dropped from 15.6-12.1, platelets have dropped from 189-137 Qualifiers: Leukocytosis type: bandemia Qualified Code(s): D72.825 - Bandemia (4) GRACIA (acute kidney injury) Current Visit: Yes Status: Acute Assessment and plan: Cr 1.29, baseline 0.8-1.0 IVF, continue to monitor (5) Elevated troponin Current Visit: Yes Status: Acute Assessment and plan: appreciate cardiology input most likely demand ischemia on ASA, statin, b-noreen echo pending (6) Right hip pain Current Visit: Yes Status: Acute Assessment and plan: Patient had right hip pain during evaluation by physical therapy. Family states that he fell on this hip approximately 2 weeks ago. X-ray shows diffuse bony mineralization, which slightly limits evaluation for subtle fractures. Otherwise no definite acute fracture or subluxation. (7) Hypertension Current Visit: Yes Status: Chronic Assessment and plan: Continue home Lopressor and Norvasc PRN IV Lopressor Qualifiers: Hypertension type: essential hypertension Qualified Code(s): I10 - Essential (primary) hypertension (8) CAD (coronary artery disease), [place] coronary artery Current Visit: Yes Status: Chronic Assessment and plan: Patient of Dr. Andre Qualifiers: [place] vs. 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 CBC this morning shows bandemia. - Constitutional Vitals: Temp Pulse Resp BP Pulse Ox 100.2 F H 89 16 104/61 99 02/28/17 06:56 02/28/17 06:56 02/28/17 06:56 02/28/17 06:56 02/28/17 06:56 General appearance: Present: cooperative, mild distress, answers questions appropriately - Head Head exam: Present: atraumatic, normocephalic - Eye Eye exam: Present: PERRL, conjuntiva pink, sclera anicteric Pupils: Present: PERRL - Neck Neck exam general surgery: Present: supple - Respiratory Respiratory exam: Present: CTAB - Cardiovascular Cardiovascular exam: Present: RRR, +S1, +S2 - GI/Abdominal GI/Abdominal exam: Present: normal bowel sounds, soft. Absent: tenderness - Extremities Exam Extremities exam: Present: warm. Absent: calf tenderness, cyanotic, pedal edema - Neurological Exam Neurological exam: Present: alert, CN II-XII intact - Skin Skin exam: Present: dry, intact Internal Medicine: Result - Labs CBC & Chem 7: 02/28/17 04:45 02/28/17 06:09 Labs: Short CBC 02/28/17 02/28/17 Range/Units 00:30 04:45 WBC 8.6 12.4 H (4.3-11.1) K/mcL Hgb 13.0 D 12.1 L (12.9-16.9) g/dL Hct 37.4 L 35.1 L (37.5-50.1) % Plt Count 143 137 L (140-400) K/mcL Neutrophils # 8.3 (1.6-8.9) K/mcL BMP 02/28/17 02/28/17 00:30 06:09 Sodium 136 132 L Potassium 3.1 L D 3.8 Chloride 108 101 Carbon Dioxide 23 22 BUN 15 20 Creatinine 0.75 1.29 H D Glucose 134 H 189 H Calcium 8.2 L D 9.9 D Cardiac Enzymes 02/28/17 Range/Units 00:20 Troponin I 0.17 H* (0-0.03) ng/mL Liver Function 02/28/17 Range/Units 00:30 Total Bilirubin 2.2 H (0.2-1.2) mg/dL AST 25 (5-34) Units/L ALT 23 (0-55) Units/L Alkaline Phosphatase 85 (38-126) Units/L Albumin 2.3 L D (3.5-5.0) g/dL - ABG Interpretation ABG results: PT/INR, D-dimer PT 17.7 Seconds (9.4-12.1) H 02/28/17 04:45 - Impressions Impressions Hip X-Ray 02/27/17 16:05 IMPRESSION: Diffuse bony mineralization, which slightly limits evaluation for subtle fractures. Otherwise no definite acute fracture or subluxation. D/ / Juni Mcmahon MD / Juni Mcmahon MD Interpreting Provider: Juni Mcmahon MD Consult Discharge Plan - Plan Referrals: Dave Mayo Jr, MD [Primary Care Provider] - <Po Rodriguez P - Last Filed: 02/28/17 16:40> Date of Encounter: 02/28/17 - Constitutional Vitals: Temp Pulse Resp BP Pulse Ox 98.2 F 89 16 139/76 97 02/28/17 11:01 02/28/17 11:07 02/28/17 11:07 02/28/17 11:07 02/28/17 11:07 Internal Medicine: Result - Labs CBC & Chem 7: 02/28/17 04:45 02/28/17 06:09 Labs: Short CBC 02/28/17 02/28/17 Range/Units 00:30 04:45 WBC 8.6 12.4 H (4.3-11.1) K/mcL Hgb 13.0 D 12.1 L (12.9-16.9) g/dL Hct 37.4 L 35.1 L (37.5-50.1) % Plt Count 143 137 L (140-400) K/mcL Neutrophils # 8.3 (1.6-8.9) K/mcL BMP 02/28/17 02/28/17 00:30 06:09 Sodium 136 132 L Potassium 3.1 L D 3.8 Chloride 108 101 Carbon Dioxide 23 22 BUN 15 20 Creatinine 0.75 1.29 H D Glucose 134 H 189 H Calcium 8.2 L D 9.9 D Cardiac Enzymes 02/28/17 Range/Units 00:20 Troponin I 0.17 H* (0-0.03) ng/mL Liver Function 02/28/17 Range/Units 00:30 Total Bilirubin 2.2 H (0.2-1.2) mg/dL AST 25 (5-34) Units/L ALT 23 (0-55) Units/L Alkaline Phosphatase 85 (38-126) Units/L Albumin 2.3 L D (3.5-5.0) g/dL - ABG Interpretation ABG results: PT/INR, D-dimer PT 17.7 Seconds (9.4-12.1) H 02/28/17 04:45 - Impressions Impressions Hip X-Ray 02/27/17 16:05 IMPRESSION: Diffuse bony mineralization, which slightly limits evaluation for subtle fractures. Otherwise no definite acute fracture or subluxation. D/ / Juni Mcmahon MD / Juni Mcmahon MD Interpreting Provider: Juni Mcmahon MD Chest X-Ray 02/28/17 09:56 IMPRESSION: 1. Low lung volumes without focal consolidations. D/ / 02/28/2017 13:41:09 Kaykay Barber MD / swati Interpreting Provider: Kaykay Barber MD - Attending Attestation I examined this patient and my medical decision-making was reviewed with the [employer] ENGINEER/PA/Advanced Practice Nurse/Resident Physician. I agree with the documented findings, disposition and treatment plan as described except to the extent set forth below. Events noted. Chart reviewed. Spoke with family at length. Palliative care on the board. We will continue present treatment for now. let family decided choice for placement with help of social services coordinator
[2017-02-28 10:26] LABS: Folate 14.3 ng/mL (7.0-31.4)
--- NOTE | 2017-02-28 10:59 | Palliative - Consult Note ---
Date of Encounter: 02/28/17 Time of Encounter: 09:00 - Assessment and Plan (1) Nutrient intake below expected requirement Current Visit: Yes Status: Acute Assessment and plan: Patient reports loss of appetite. Family states that patient likes Ensure. Family reports last known weight was 187 lbs. Current weight 189.2. Protein 4.8 and albumin 2.3. Consult dietary for recommendations. (2) Tobacco abuse Current Visit: Yes Status: Chronic Assessment and plan: Patient heavy oral tobacco user. Reports desire for [place]. Will add low dose nicotine patch for urge management. (3) Right hip pain Current Visit: No Status: Acute Assessment and plan: Patient with hip discomfort. Patient denies at present but reports an ache with stiffness and weakness with mobility. Right hip x-ray revealed bony mineralization with slight limitations. Patient reports management at home with tylenol. Patient with PRN Oxycodone for mild and Morphine IV for sever pain. PT consult supports rehab. (4) Goals of care, counseling/discussion Current Visit: Yes Status: Acute Assessment and plan: Patient alert and open for discussion. Family at bedside providing input for GOC. Goals for patient is to return home with family but patient and family realize that patient would benefit from ECF rehab. Goal if for patient to be able to ambulate safely and with little assist. Patient with good ROM but states that due to his spinal stenosis his lower legs give out at times. Daughter reports having advanced directives and will bring in copies for review and placement into medical file. Patient is DNRCC-A, DNI. Family agrees to ECF placement for rehab with ultimate goal to return home. PT and OT eval supports this decision. Will discuss with SS for placement. Will continue to follow. Palliative-CN HPI - Data of Consult Patient: new to practice Consult date: 02/28/17 Requesting Physician: Po Rodriguez MD Primary Care Provider: Dave Mayo Jr, MD - Consult Narrative Palliative Care/Comfort Measures: Palliative care Reason for consult: Goals of Care History of present illness: Mr. Parr is a 86 year old male admitted with weakness, FTT. Upon this consult the patient is alert and oriented with slight [place]. There are numerous family members at bedside assisting with health history information. The patient currently resides at home in the care of his Belen. Belen is elderly with numerous health issues and has had an increased problem in caring for the patient at home. One daughter and son report that the patient has had a decreased appetite and inability to ambulate safely at home. The family reports that the patient suffered a fall at home about a month ago. Patient is currently medically managed by Dr. Mayo. Patient with a history of spinal stenosis, CVA with residual right sided weakness, osteoporosis, CAD, HTN, DM, CHF. Recent Echo shows an EF 60% with mild left hypertrophy, moderately dilated left atrium. The patient experienced elevated temperature last night which has no resolved. AM white count 8.6 with bandemia. This palliative care consult is for goals of care. CC: Po Rodriguez MD Past Med Surg Social Fam HX - Past Medical History Source: patient, obtained from family Medical history: arthritis, atrial fibrillation, CHF, coronary artery disease, CVA, diabetes, GI bleed, hyperlipidemia, hypertension, myocardial infarction, osteoporosis, peripheral artery disease, renal disease (SHANE/urge incontinence. BPH/prostatism.), TIA, other (Unsteadiness of gait/repeated falls. Spinal stenosis) Psychiatric history: anxiety - Past Surgical History Surgical History: coronary bypass (CABG), other - Social History Smoking Status: Former smoker Smokeless Tobacco Status: No Alcohol use: none, unknown Drug use: none Occupational status: retired Current living situation: Home, With Family Activity Level: Uses cane/walker Recent Out of Country Travel Within the Last 8 Weeks: No Exposure or Possible Exposure to Illness During Travel: No Medications and Allergies Amlodipine [Norvasc] 5 mg PO DAILY 02/27/17 [History] Apixaban [Eliquis] 2.5 mg PO BID 02/27/17 [History] Cyanocobalamin (B-12) [Vitamin B12] 1,000 mcg SQ Q14D MDD fridays02/27/17 [ History] Furosemide [Lasix] 40 mg PO DAILY PRN 02/27/17 [History] Metformin [Glucophage] 1,000 mg PO BIDWM 02/27/17 [History] Metoprolol [Lopressor] 50 mg PO BID 02/27/17 [History] Multivit-Min/FA/Lycopen/Lutein [Centrum Silver Men Tablet] 1 each PO DAILY 02/27 [History] Niacin [Niacor] 500 mg PO DAILY 02/27/17 [History] Omeprazole [PriLOSEC] 40 mg PO DAILY 02/27/17 [History] Oxybutynin [Ditropan] 5 mg PO BID 02/27/17 [History] Vitamin E Acid Succinate [Vitamin E] 400 units PO DAILY 02/27/17 [History] Allergies No Known Allergies Allergy (Verified 02/26/17 22:36) All systems: reviewed and no additional remarkable complaints except as stated ( weakness, loss of appetite, weak ambulation) - Constitutional Constitutional ROS PAL: decreased appetite - EENT Eyes: requires corrective lenses Ears: decreased hearing - Cardiovascular Cardiovascular ROS: irregular heart rhythm - Genitourinary Genitourinary ROS male: urinary frequency - Musculoskeletal Musculoskeletal ROS IM: back pain, muscle weakness - Neurological Neurological ROS: weakness Palliative Care-Exam - Constitutional Vitals: Temp Pulse Resp BP Pulse Ox 100.2 F H 89 16 104/61 99 02/28/17 06:56 02/28/17 06:56 02/28/17 06:56 02/28/17 06:56 02/28/17 06:56 General appearance: Present: cooperative, no acute distress - Head Head Exam: Present: atraumatic, normal inspection, normocephalic - Eye Eye exam: Present: PERRL Pupils: Present: PERRL - ENT ENT exam: Present: mucous membranes moist - Neck Neck exam: Present: full ROM - Respiratory Respiratory exam: Present: decreased breath sounds, CTAB - Expanded Respiratory Exam Location: decreased breath sounds: Left, Right, Lower - Cardiovascular Cardiovascular exam: Present: RRR, +S1, +S2 - Expanded Cardiovascular Exam Peripheral pulses: 1+: Femoral (L) PM, Femoral (R) PM, Posterior Tibialis (L), Posterior Tibialis (R), 2+: Carotid (L) PM, Carotid (R) PM, Radial (L), Radial ( R), Dorsalis Pedis (L) PM, Dorsalis Pedis (R) PM - GI/Abdominal Exam GI/Abdominal exam: Present: soft - Rectal Rectal Exam: Present: deferred - External exam: Present: normal external exam - Extremities Exam Extremities exam: Present: full ROM - Expanded Upper Extremities Exam Shoulder exam: Present: full ROM Upper Arm exam: Present: full ROM Elbow exam: Present: full ROM Hand wrist exam: Present: full ROM - Expanded Lower Extremities Exam Upper Leg exam: Present: full ROM - Back Exam Back exam: Present: full ROM, tenderness, vertebral tenderness - Neurological Exam Neurological exam: Present: alert, CN II-XII intact, oriented X3, reflexes normal - Psychiatric Psychiatric exam: Present: normal affect - Skin Skin exam: Present: pallor, warm Internal Medicine - CN: Reslt - Labs CBC & Chem 7: 02/28/17 04:45 02/28/17 06:09 Labs: Short CBC 02/28/17 02/28/17 Range/Units 00:30 04:45 WBC 8.6 12.4 H (4.3-11.1) K/mcL Hgb 13.0 D 12.1 L (12.9-16.9) g/dL Hct 37.4 L 35.1 L (37.5-50.1) % Plt Count 143 137 L (140-400) K/mcL Neutrophils # 8.3 (1.6-8.9) K/mcL BMP 02/28/17 02/28/17 00:30 06:09 Sodium 136 132 L Potassium 3.1 L D 3.8 Chloride 108 101 Carbon Dioxide 23 22 BUN 15 20 Creatinine 0.75 1.29 H D Glucose 134 H 189 H Calcium 8.2 L D 9.9 D Cardiac Enzymes 02/28/17 Range/Units 00:20 Troponin I 0.17 H* (0-0.03) ng/mL Liver Function 02/28/17 Range/Units 00:30 Total Bilirubin 2.2 H (0.2-1.2) mg/dL AST 25 (5-34) Units/L ALT 23 (0-55) Units/L Alkaline Phosphatase 85 (38-126) Units/L Albumin 2.3 L D (3.5-5.0) g/dL - ABG Interpretation ABG results: PT/INR, D-dimer PT 17.7 Seconds (9.4-12.1) H 02/28/17 04:45 - Impressions Impressions Hip X-Ray 02/27/17 16:05 IMPRESSION: Diffuse bony mineralization, which slightly limits evaluation for subtle fractures. Otherwise no definite acute fracture or subluxation. D/ / Juni Mcmahon MD / Juni Mcmahon MD Interpreting Provider: Juni Mcmahon MD Consult Discharge Plan - Plan Referrals: Dave Mayo Jr, MD [Primary Care Provider] - 03/07/17 10:00 am Palliative Quality Palliative Quality: Screen for Code Status: Yes, Screen for Goals of Care: Yes, Screen for Pain: Yes, If Pain Regimen Started, Initiate Bowel Regimen: Yes, Screen for Nausea/Vomitting: Yes Code Status: 02/27/17 18:52 CODE [Resuscitation Status: Active] [RES] Routine Comment: Resuscitation Status: [id number]
[2017-02-28] MEDS ORDERED: Acetaminophen 325 MG TABLET PO PRN (12:29)
--- NOTE | 2017-02-28 12:42 | ECHO - Doppler Report ---
Echocardiogram Name: Jose G Parr Date of Study: 02/27/2017 Date: 1930 Ht: 71.0 in Medical Record#: [id number] Age: 86 Wt: 189.0 lb Gender: Male BSA: 2.06 Order #: [id number] Location: [facility] Room #: [id number] Reading Physician: Kevin Andre DO, FACLuann, JOSSUE, ANUSHA Cambering Machine Operator: Ania Portillo Ordering Physician: Heber Patel MD Primary Physician: Dave Mayo MD Indications: ACS Impressions: LVEF 55%. Normal LV chamber size and function. Mild concentric left ventricular hypertrophy. Indeterminate diastolic function. Atypical septal motion consistent with post-operative status. Normal right ventricular size. Grossly, right ventricular function appeared mildly reduced. No evidence of pulmonary hypertension. No significant valvular dysfunction. Findings: Study Quality * Technically sub-optimal due to poor echocardiographic windows. ECG Findings * Unable to clearly determine the rhythm. Left Ventricle * LVEF 55%. * Normal LV chamber size and function. * Mild concentric left ventricular hypertrophy. * Indeterminate diastolic function. * Atypical septal motion consistent with post-operative status. Right Ventricle * Normal right ventricular size. Grossly, right ventricular function appeared mildly reduced. Left Atrium * Moderate to severely dilated left atrium. Right Atrium * Moderately dilated right atrium. Interatrial Septum * Interatrial septum not well evaluated. Aortic Valve * Trileaflet aortic valve with normal function. * No aortic stenosis. * Trace aortic regurgitation. Mitral Valve * Normal mitral valve structure and function. * No mitral stenosis. * Trace mitral regurgitation. Tricuspid Valve * Normal tricuspid valve structure and function. * Trace tricuspid regurgitation. * No evidence of pulmonary hypertension. Pulmonic Valve * Normal pulmonic valve structure and function. * Trace pulmonic regurgitation. Aorta * Normally sized aortic root. Pericardium * The pericardium appears normal. IVC * Normal IVC dimensions and inspiratory collapse. Pulmonary Artery * Normal visualized portions of the main pulmonary artery. History Hypertension Diabetes Hypercholesteremia Family History of CAD History of CAD/PTCA Myocardial Infarction Coronary Artery Bypass Graft Congestive Heart Failure 07/14/2016 a Previous Echo was performed. Measurements: BP: 174/ 78 2D Normal Values RVIDd: 3.50 cm <2.7 cm IVSd: 1.30 cm 0.6 - 1.0 cm LVIDd: 4.50 cm 3.7 - 5.6 cm LVPWd: 1.30 cm 0.6 - 1.1 cm LVIDs: 3.20 cm 1.5 - 3.6 cm AO: 3.20 cm < 4.0 cm LA: 4.90 cm 2.0 - 4.0cm %FS: 28.90 cm >25 % LA volume: 83 Mitral Valve Peak E:1.09 m/sec Peak A:.54 m/sec E/A Ratio:2 Peak E' Lat Noah:10 cm/s Peak E' Med Noah:4.19 cm/s E/E' Lat Ratio:10.9 E/E' Med Ratio:26 Aortic Valve AI pressure Half-time: 972.00 msec Tricuspid Valve TV Regurg Peak Grad: 29.00mmHg TV Regurg Peak Noah: 2.71m/sec Updated by Kevin Andre DO, LAUREN, ANUSHA MARCUM on 02/28/2017 12:36:49 PM electronically signed on 02/28/2017 12:37:55 PM with status of [employer] [place]: 1=Normal, 2=Hypokinesis, 3=Akinesis, 4=Dyskinesis, 5=Aneurysmal, 6=Hyperkinetic, X=Not Visualized (Blank)=Missing
--- NOTE | 2017-02-28 14:09 | Cardiology Progress Note ---
Date of Encounter: 02/28/17 Time of Encounter: 13:30 Assessment and Plan (1) Weakness Current Visit: Yes Status: Acute Per cardiology: -Patient admitted with progressively worsening weakness over the past several months. -Per family, weakness has become severe past week. -Of note, family states patient has not been eating or drinking well lately. -Palliative care consulted and code status has been changed to DNR-CCA/DNI. -Management per primary service. (2) GRACIA (acute kidney injury) Current Visit: Yes Status: Acute Per cardiology: -GRACIA with creatinine 1.29. -Baseline creatinine 0.7-0.9 -May be due to poor diet and poor fluid intake. -Management per primary service. (3) Elevated troponin Current Visit: Yes Status: Acute Per cardiology: -Patient with elevated troponin in the setting of GRACIA, leukocytosis, and hypertension. -Troponins 0.46, 0.27, 0.18, 0.17. -Denies current chest pain, -Atypical chest pain at home, admits to chest pain at home that occurs a couple times per week and occurs at rest. -Denies excertional chest pain. Denies increased shortness of breath. -Admits to increased fatigue/weakness at home. -History of CAD with CABG x 3 vessels at [place] in 2000. states had balloon angioplasty prior to CABG. -On asa, statin, beta noreen. Heparin drip has been discontinued per primary service. -Echo 02/27/17 with LVEF 55%, mild concentric left ventricular hypertrophy, indeterminate diastolic function, right ventricular function appeared mildly reduced, no evidence of pulmonary hypertension, no significant valvular dysfunction. -BPs 100-140s systolic. -Do not suspect NSTEMI, suspect demand ischemia related to GRACIA, leukocytosis, and HYpertension. No cardiac rehab warranted at this time. -No further evaluation warranted. -Cardiology will sign off and will follow up as outpatient. Follow up set. (4) CAD (coronary artery disease), [place] coronary artery Current Visit: Yes Status: Chronic Per cardiology: -Patient follows with . Last seen in office 05/2016. -Known CAD with CABG x 3 vessels 2000. Balloon angioplasty prior to CABG. -On asa, statin, beta noreen. -Denies current chest pain. -Echocardiogram 06/2016 with LVEF 60%, mild concentric left ventricular hypertrophy, indeterminate diastolic function, moderately dilated left atrium, mild MR, mild TR, no pulmonary hypertension, all wall segments with normal motion. -Echo as above. Qualifiers: [place] vs. transplanted heart: [place] heart Associated angina: angina presence unspecified Qualified Code(s): I25.10 - Atherosclerotic heart disease of [place] coronary artery without angina pectoris (5) Hypertension Current Visit: Yes Status: Chronic Per cardiology: -Known history of HTN -Currently on beta noreen and calcium channel noreen. -BPs 100-140s systolic. - states BPs at home labile. Qualifiers: Hypertension type: essential hypertension Qualified Code(s): I10 - Essential (primary) hypertension (6) Atrial flutter, paroxysmal Current Visit: Yes Status: Chronic Per cardiology: -Known history of atrial flutter. - states has had atrial flutter on and off since CABG. -On eliquis at home, not getting this amdission, however was on heparin drip, now discontinued. - admits to recent falls. Denies active bleeding or blood loss. - is not currently at bedside. Will discuss with when she arrives regarding skilled nursing anticoagulation. (7) Elevated brain natriuretic peptide (BNP) level Current Visit: Yes Status: Acute Per cardiology: -Elevated BNP. -Chest x-ray without any acute process. -Chest CT without over heart failure. -Euvolemic on exam. (8) Tobacco abuse Current Visit: Yes Status: Chronic Per cardiology: -Patient uses chewing tobacco. - states he uses 1 can per day for as long as she can remember. -I spent 3 minutes reviewing tobacco cessation education with patient and family. Discussion w patient/family: The assessment and plan as outlined above was discussed with the patient and/or family members who expressed understanding and agreement. All questions were answered. Thank you for involving us in the care of your patient. Please call with any questions. Discussed and reviewed with . Subjective Principal diagnosis: weakness Interval history: was admitted for progressive weakness. Troponin was mildly elevated. Echo performed. Overnight, patient had elevated temperature of 104 rectally. Palliative care has been consulted and code status has been changed to DNR-CCA/DNI. Patient denies current chest pain or increased shortness of breath. Objective Vital Signs, Last 4 Hours Temp Pulse Resp BP Pulse Ox 02/28/17 11:07 89 16 139/76 97 02/28/17 11:01 98.2 F General: Conversant, No Apparent Distress HEENT: Atraumatic, Normocephaly, Mucus Membranes Moist Neck: No JVD Cardiac: Reg Rate and Rhythm, Normal S1 and S2, No Murmur Lungs: Normal Breath Sounds, No Wheeze, Rales, Rhonchi Neuro: Alert and responsive, No focal deficits noted (Oriented to person and place. ) Abdomen: Soft, Non-Tender Skin: No rashes noted on visualized skin Musculoskeletal: No Chest Wall Tenderness Extremities: No Clubbing, No Cyanosis, No Edema, Normal Pulses Results 02/28/17 04:45 02/28/17 06:09 Lab Results Impressions Chest CT 02/27/17 08:30 IMPRESSION: 1. No acute intrathoracic abnormality. 2. Atherosclerosis. 3. Cholelithiasis. D/ : / 02/27/2017 09:26:06 Oscar Delarosa MD / rod Interpreting Provider: Oscar Delarosa MD Hip X-Ray 02/27/17 16:05 IMPRESSION: Diffuse bony mineralization, which slightly limits evaluation for subtle fractures. Otherwise no definite acute fracture or subluxation. D/ / Juni Mcmahon MD / Juni Mcmahon MD Interpreting Provider: Juni Mcmahon MD Chest X-Ray 02/28/17 09:56 IMPRESSION: 1. Low lung volumes without focal consolidations. D/ / 02/28/2017 13:41:09 Kaykay Barber MD / swati Interpreting Provider: Kaykay Barber MD Active Medications Acetaminophen (Tylenol) 650 mg PO Q6HR PRN PRN Reason: Mild Pain (1-3) OR FEVER Stop: 08/29/17 04:58 Amlodipine Besylate (Norvasc) 5 mg PO DAILY RODRIGUEZ PRN Reason: Protocol Stop: 08/29/17 16:16 Last Admin: 02/28/17 07:59 Dose: Not Given Aspirin (Aspirin) 81 mg PO DAILY [facility] Stop: 08/29/17 09:01 Last Admin: 02/28/17 07:59 Dose: Not Given Dextrose/Water (Dextrose 50% (Syg)) 25 ml IVP AD PRN PRN Reason: Hypoglycemia Stop: 08/29/17 04:58 Docusate Sodium (Colace) 100 mg PO BID PRN PRN Reason: Constipation Stop: 08/29/17 04:58 Glucagon (Glucagen) 1 mg IM ONCE PRN PRN Reason: Hypoglycemia Stop: 08/29/17 04:58 Glucose (Gluctose) 15 gm PO ONCE PRN PRN Reason: Hypoglycemia Stop: 08/29/17 04:58 Glucose (Gluctose) 30 gm PO ONCE PRN PRN Reason: Hypoglycemia Stop: 08/29/17 04:58 Dextrose (Dextrose 5%) 1,000 mls @ 100 mls/hr IVC .Q10H PRN PRN Reason: HYPOGLYCEMIA Stop: 08/29/17 04:58 Sodium Chloride (0.9 % Sodium Chloride) 1,000 mls @ 90 mls/hr IVC .Q11H7M [facility] Stop: 08/29/17 08:33 Last Admin: 02/28/17 08:04 Dose: 90 mls/hr Piperacillin Sod/Tazobactam (Sod 3.375 gm/ Dextrose) 100 mls @ 25 mls/hr IVPB Q8HR [facility] Stop: 08/30/17 01:07 Last Admin: 02/28/17 08:05 Dose: 25 mls/hr Vancomycin HCl 1,250 mg/ (Dextrose) 250 mls @ 166.67 mls/hr IVPB Q24H [facility] Stop: 08/31/17 01:01 Insulin Detemir (Levemir) 12 unit 0.15 unit/kg (12 unit) SQ HS [facility] Stop: 08/29/17 21:01 Last Admin: 02/27/17 20:03 Dose: 12 unit Insulin Human Lispro (Humalog) 0 units SQ TIDAC [facility] PRN Reason: Protocol Stop: 08/29/17 07:31 Last Admin: 02/28/17 11:03 Dose: Not Given Insulin Human Lispro (Humalog) 0 units SQ HS [facility] PRN Reason: Protocol Stop: 08/29/17 21:01 Last Admin: 02/27/17 22:35 Dose: Not Given Lorazepam (Ativan) 0.5 mg PO Q4HR PRN PRN Reason: Anxiety Stop: 08/29/17 23:16 Metoprolol Tartrate (Lopressor) 50 mg PO BID [facility] Stop: 08/29/17 21:01 Last Admin: 02/28/17 07:59 Dose: Not Given Metoprolol Tartrate (Lopressor) 5 mg IVP Q6HR PRN PRN Reason: SEE COMMENTS Stop: 08/29/17 04:58 Morphine Sulfate (Morphine Sulfate) 2 mg IVP Q4HR PRN PRN Reason: Severe Pain (7-10) Stop: 08/29/17 04:58 Naloxone HCl (Narcan) 0.4 mg IVP Q2MIN PRN PRN Reason: Opioid Reversal Stop: 08/29/17 04:58 Nicotine (Nicoderm) 14 mg TD DAILY [facility] PRN Reason: Protocol Stop: 08/30/17 11:46 Nitroglycerin (Nitroglycerin) 0.4 mg SL Q5MIN PRN PRN Reason: Chest Pain Stop: 08/29/17 04:58 Omeprazole (Prilosec) 40 mg PO DAILY@0630 [facility] PRN Reason: Protocol Stop: 08/29/17 06:31 Last Admin: 02/28/17 07:55 Dose: Not Given Ondansetron HCl (Zofran) 4 mg IVP Q8HR PRN PRN Reason: Nausea And Vomiting Stop: 08/29/17 04:58 Oxycodone HCl (Roxicodone) 5 mg PO Q6HR PRN PRN Reason: Moderate Pain (4-6) Stop: 08/29/17 04:58 Simvastatin (Zocor) 40 mg PO HS [facility] Stop: 08/29/17 21:01 Last Admin: 02/27/17 19:51 Dose: 40 mg Laboratory Tests 02/26/17 02/26/17 02/26/17 23:45 23:45 23:45 WBC 14.3 H Hgb Hct Potassium Creatinine 1.29 H Troponin I 0.46 H* 02/27/17 02/27/17 02/28/17 05:33 10:36 00:20 WBC Hgb Hct Potassium Creatinine Troponin I 0.27 H* 0.18 H* 0.17 H* 02/28/17 02/28/17 02/28/17 00:30 04:45 06:09 WBC 12.4 H Hgb 13.0 D Hct 37.4 L Potassium 3.8 Creatinine 1.29 H D Troponin I - Imaging and Cardiology Chest Xray: report reviewed Echo: report reviewed Other Results: CT chest, CT head report reviewed. - EKG Interpretation EKG results cardiology: other (Telemetry reviewed with average HR 91, sinus rhythm,) Consult Discharge Plan - Plan Referrals: Dave Mayo Jr, MD [Primary Care Provider] -
[2017-02-28] MEDS: Nicotine 14 MG PATCH.TD24 TD SCH (15:18)
[2017-02-28] MEDS: APIXABAN 5 MG TABLET PO SCH (19:53)
[2017-02-28] MEDS: Insulin DETEMIR 100 UNIT/ML X5UNITS SQ SCH (19:53)
[2017-02-28] MEDS ORDERED: Levofloxacin 500 MG/100 ML 500 MG/100 ML BAG IVPB ONE (20:00)
[2017-02-28 20:23] LABS: blaKPC Carbapenem-Resist Gene Not Detected (Not Detect)
[2017-02-28 20:24] LABS: Acinetobacter baumannii by PCR Not Detected (Not Detect); Enterococcus by PCR Not Detected (Not Detect); Staphylococcus aureus by PCR Not Detected (Not Detect); Streptococcus agalactiae(B)PCR Not Detected (Not Detect); Streptococcus by PCR Not Detected (Not Detect); Streptococcus pneumoniae PCR Not Detected (Not Detect); Streptococcus pyogenes (A) PCR Not Detected (Not Detect)
[2017-02-28 20:25] LABS: Candida albicans by PCR Not Detected (Not Detect); Candida glabrata by PCR Not Detected (Not Detect); Candida krusei by PCR Not Detected (Not Detect); Candida parapsilosis by PCR Not Detected (Not Detect); Candida tropicalis by PCR Not Detected (Not Detect); Escherichia coli by PCR Not Detected (Not Detect); Klebsiella oxytoca by PCR Not Detected (Not Detect); Klebsiella pneumoniae by PCR Not Detected (Not Detect); Pseudomonas aeruginosa by PCR Not Detected (Not Detect); Serratia marcescens by PCR Not Detected (Not Detect)
[2017-03-01] MEDS ORDERED: Vancomycin 1,250 MG in D5% in Water 250 ML IVPB SCH (01:00)
[2017-03-01] MEDS: 0.9 % Sodium Chloride 1,000 ML IVC SCH (06:14)
[2017-03-01 06:21] LABS: Prothrombin Time 16.8 Seconds (9.4-12.1)
[2017-03-01 06:22] LABS: Activated Partial Thrombo Time 30.7 Seconds (26.0-36.0); INR 1.5
[2017-03-01 06:36] LABS: Hemoglobin 11.7 g/dL (12.9-16.9); Mean Corpuscular HGB Conc 34.4 g/dL (31.6-35.5); Mean Corpuscular Hemoglobin 32.5 pg (28.0-33.3); Mean Corpuscular Volume 94.4 fL (83.0-100.0); Mean Platelet Volume 11.2 fL (9.4-12.4); Platelet Count 131 K/mcL (140-400); Red Cell Distribution Width 14.2 % (11.5-14.5)
[2017-03-01 06:56] LABS: BUN/Creatinine Ratio 24 (6-26); Blood Urea Nitrogen 25 mg/dL (8-26); Calcium 9.4 mg/dL (8.6-10.8); Carbon Dioxide 23 mEq/L (19-29); Chloride 98 mEq/L (98-109); Glucose 129 mg/dL (70-99); Osmolality,Calculated 276 (280-300); Potassium 3.6 mEq/L (3.5-4.5); Sodium 130 mEq/L (136-145); eGFR For African Americans > 60 (> 60); eGFR For Non-African Americans > 60 (> 60)
[2017-03-01] MEDS: APIXABAN 5 MG TABLET PO SCH (07:53)
[2017-03-01] MEDS: amLODIPine 5 MG TABLET PO SCH (08:05)
[2017-03-01] MEDS: Aspirin 81 MG TAB.CHEW PO SCH (08:05)
[2017-03-01] MEDS: Piperacillin/Tazobactam 3.375 GM in D5% in Water (Mini-Bag+) 100 ML IVPB SCH ×2 (08:06→17:59)
[2017-03-01] MEDS: Nicotine 14 MG PATCH.TD24 TD SCH (08:07)
[2017-03-01] MEDS: Insulin LISPRO 300 UNITS/3 ML VIAL SQ SCH ×3 (08:07→17:32)
[2017-03-01 09:29] LABS: Alanine Aminotransferase 56 Units/L (0-55); Albumin 2.4 g/dL (3.5-5.0); Albumin/Globulin Ratio 0.7 (1.1-2.2); Alkaline Phosphatase 85 Units/L (38-126); Aspartate Amino Transferase 51 Units/L (5-34); Bilirubin,Direct 1.2 mg/dL (0.0-0.5); Bilirubin,Indirect 0.8 mg/dL (0.0-1.2); Globulin 3.4 g/dL (2.4-3.5)
[2017-03-01 09:31] LABS: Total Protein 5.8 g/dL (6.0-8.3)
--- NOTE | 2017-03-01 10:51 | Internal Med Progress Note ---
<Chelsea Rodriguez - Last Filed: 03/01/17 10:58> Date of Encounter: 03/01/17 Time of Encounter: 10:49 - Assessment and plan (1) Sepsis Current Visit: Yes Status: Acute Assessment and plan: Due to Enterobacter cloacae bacteremia IVF IV antibiotics: Vancomycin, Zosyn, Levaquin 2 --Plan to de-escalate antibiotics tomorrow pending no additional bacterial growth of blood cultures GI consultation obtained for MRCP --CT abdomen showed cholelithiasis. There is possible mild, diffuse gallbladder wall thickening. No biliary duct dilation. Small, nonobstructing stone is noted in the distal common bile duct. Qualifiers: Sepsis type: sepsis due to unspecified organism Qualified Code(s): A41.9 - Sepsis, unspecified organism (2) Bacteremia due to Enterobacter species Current Visit: Yes Status: Acute Assessment and plan: Blood cultures positive for Enterobacter cloacae (3) Generalized muscle weakness Current Visit: Yes Status: Acute Assessment and plan: PT/OT, social work consulted. --Recommend discharge to SNF. Palliative consulted, appreciate recommendations (4) Fever Current Visit: Yes Status: Acute Assessment and plan: Developed fever overnight 5/2; MAXIMUM TEMPERATURE 104.3 rectally Most recent temperature 102.[address] shows no acute intracranial abnormality chest x-ray negative Rectal Tylenol when necessary Qualifiers: Fever type: unspecified Qualified Code(s): R50.9 - Fever, unspecified (5) Leukocytosis Current Visit: Yes Status: Resolved Assessment and plan: resolved Qualifiers: Leukocytosis type: bandemia Qualified Code(s): D72.825 - Bandemia (6) GRACIA (acute kidney injury) Current Visit: Yes Status: Resolved Assessment and plan: resolved (7) Elevated troponin Current Visit: Yes Status: Acute Assessment and plan: appreciate cardiology input most likely demand ischemia on ASA, statin, b-noreen Echo: LVEF 55%, mild concentric left ventricular hypertrophy, indeterminate diastolic function, right ventricular function appeared mildly reduced, no evidence of pulmonary hypertension, no significant valvular dysfunction. (8) Right hip pain Current Visit: No Status: Acute Assessment and plan: Patient had right hip pain during evaluation by physical therapy. Family states that he fell on this hip approximately 2 weeks ago. X-ray shows diffuse bony mineralization, which slightly limits evaluation for subtle fractures. Otherwise no definite acute fracture or subluxation. Supportive care: Pain management (9) Hypertension Current Visit: Yes Status: Chronic Assessment and plan: Continue home Lopressor and Norvasc PRN IV Lopressor Qualifiers: Hypertension type: essential hypertension Qualified Code(s): I10 - Essential (primary) hypertension (10) CAD (coronary artery disease), [place] coronary artery Current Visit: Yes Status: Chronic Assessment and plan: Patient of Dr. Andre Qualifiers: [place] vs. transplanted heart: [place] heart Associated angina: angina presence unspecified Qualified Code(s): I25.10 - Atherosclerotic heart disease of [place] coronary artery without angina pectoris (11) Atrial flutter, paroxysmal Current Visit: Yes Status: Chronic Assessment and plan: Home medication Eliquis --Restarted 5/3 PM dose (12) Hx of CABG Current Visit: Yes Status: Acute Assessment and plan: 2000, three-vessel at [place] (13) Anemia Current Visit: Yes Status: Acute Assessment and plan: Hemoglobin has progressively declined since admission 15.6>13.0>12.1>11.7 May be in part dilutional Continue to monitor Qualifiers: Anemia type: unspecified type Qualified Code(s): D64.9 - Anemia, unspecified (14) Thrombocytopenia Current Visit: Yes Status: Acute Assessment and plan: Platelet count has dropped daily since admission 189>143>137>131 May be in part dilutional Continue to monitor - Subjective Interval history: Patient with fever with rigors this morning, MAXIMUM TEMPERATURE in the past 24 hours 102.4 axillary. - Constitutional Vitals: Temp Pulse Resp BP Pulse Ox 102.4 F H 141 22 180/110 99 03/01/17 06:54 03/01/17 06:54 03/01/17 06:54 03/01/17 06:54 03/01/17 06:54 General appearance: Present: cooperative, mild distress, answers questions appropriately - Head Head exam: Present: atraumatic, normocephalic - Eye Eye exam: Present: PERRL, conjuntiva pink, sclera anicteric Pupils: Present: PERRL - Neck Neck exam general surgery: Present: supple - Respiratory Respiratory exam: Present: CTAB - Cardiovascular Cardiovascular exam: Present: irregular rhythm, +S1, +S2, tachycardia - GI/Abdominal GI/Abdominal exam: Present: soft. Absent: tenderness - Extremities Exam Extremities exam: Present: warm. Absent: calf tenderness, cyanotic, pedal edema - Neurological Exam Neurological exam: Present: alert - Skin Skin exam: Present: diaphoretic Internal Medicine: Result - Labs CBC & Chem 7: 03/01/17 05:15 03/01/17 05:15 Labs: Short CBC 03/01/17 Range/Units 05:15 WBC 10.8 (4.3-11.1) K/mcL Hgb 11.7 L (12.9-16.9) g/dL Hct 34.0 L (37.5-50.1) % Plt Count 131 L (140-400) K/mcL BMP 03/01/17 05:15 Sodium 130 L Potassium 3.6 Chloride 98 Carbon Dioxide 23 BUN 25 Creatinine 1.03 Glucose 129 H Calcium 9.4 Liver Function 03/01/17 Range/Units 05:15 Total Bilirubin 2.0 H (0.2-1.2) mg/dL Direct Bilirubin 1.2 H (0.0-0.5) mg/dL AST 51 H (5-34) Units/L ALT 56 H (0-55) Units/L Alkaline Phosphatase 85 (38-126) Units/L Albumin 2.4 L (3.5-5.0) g/dL - ABG Interpretation ABG results: PT/INR, D-dimer PT 16.8 Seconds (9.4-12.1) H 03/01/17 04:00 - Impressions Impressions Chest X-Ray 02/28/17 09:56 IMPRESSION: 1. Low lung volumes without focal consolidations. D/ / 02/28/2017 13:41:09 Kaykay Barber MD / swati Interpreting Provider: Kaykay Barber MD Soft Tissue Neck CT 02/28/17 17:28 IMPRESSION: No acute abnormality of the soft tissue structures of the neck. Extensive atherosclerotic disease. D/ / Debbie Magana MD / Debbie Magana MD Interpreting Provider: Debbie Magana MD Abdomen/Pelvis CT 02/28/17 17:29 IMPRESSION: 1. Cholelithiasis. Small, nonobstructing stone is noted in the distal common bile duct. No biliary duct dilatation. There is possible mild, diffuse gallbladder wall thickening. If there are clinical symptoms of acute cholecystitis, consider right upper quadrant ultrasound for further evaluation. 2. No acute inflammatory process in the chest. D/ / 02/28/2017 19:53:43 Belkis Blanco MD / swati Interpreting Provider: Belkis Blanco MD Chest CT 02/28/17 17:29 IMPRESSION: 1. Cholelithiasis. Small, nonobstructing stone is noted in the distal common bile duct. No biliary duct dilatation. There is possible mild, diffuse gallbladder wall thickening. If there are clinical symptoms of acute cholecystitis, consider right upper quadrant ultrasound for further evaluation. 2. No acute inflammatory process in the chest. D/ / 02/28/2017 19:53:43 Belkis Blanco MD / swati Interpreting Provider: Belkis Blanco MD Consult Discharge Plan - Plan Referrals: Dave Mayo Jr, MD [Primary Care Provider] - <Po Rodriguez P - Last Filed: 03/01/17 17:43> Date of Encounter: 03/01/17 - Constitutional Vitals: Temp Pulse Resp BP Pulse Ox 97.9 F 106 18 127/87 93 03/01/17 17:22 03/01/17 17:22 03/01/17 17:22 03/01/17 17:22 03/01/17 17:22 Internal Medicine: Result - Labs CBC & Chem 7: 03/01/17 05:15 03/01/17 05:15 Labs: Short CBC 03/01/17 Range/Units 05:15 WBC 10.8 (4.3-11.1) K/mcL Hgb 11.7 L (12.9-16.9) g/dL Hct 34.0 L (37.5-50.1) % Plt Count 131 L (140-400) K/mcL BMP 03/01/17 05:15 Sodium 130 L Potassium 3.6 Chloride 98 Carbon Dioxide 23 BUN 25 Creatinine 1.03 Glucose 129 H Calcium 9.4 Liver Function 03/01/17 Range/Units 05:15 Total Bilirubin 2.0 H (0.2-1.2) mg/dL Direct Bilirubin 1.2 H (0.0-0.5) mg/dL AST 51 H (5-34) Units/L ALT 56 H (0-55) Units/L Alkaline Phosphatase 85 (38-126) Units/L Albumin 2.4 L (3.5-5.0) g/dL - ABG Interpretation ABG results: PT/INR, D-dimer PT 16.8 Seconds (9.4-12.1) H 03/01/17 04:00 - Impressions Impressions Chest X-Ray 02/28/17 09:56 IMPRESSION: 1. Low lung volumes without focal consolidations. D/ / 02/28/2017 13:41:09 Kaykay Barber MD / swati Interpreting Provider: Kaykay Barber MD Soft Tissue Neck CT 02/28/17 17:28 IMPRESSION: No acute abnormality of the soft tissue structures of the neck. Extensive atherosclerotic disease. D/ / Debbie Magana MD / Debbie Magana MD Interpreting Provider: Debbie Magana MD Abdomen/Pelvis CT 02/28/17 17:29 IMPRESSION: 1. Cholelithiasis. Small, nonobstructing stone is noted in the distal common bile duct. No biliary duct dilatation. There is possible mild, diffuse gallbladder wall thickening. If there are clinical symptoms of acute cholecystitis, consider right upper quadrant ultrasound for further evaluation. 2. No acute inflammatory process in the chest. D/ / 02/28/2017 19:53:43 Belkis Blanco MD / swati Interpreting Provider: Belkis Blanco MD Chest CT 02/28/17 17:29 IMPRESSION: 1. Cholelithiasis. Small, nonobstructing stone is noted in the distal common bile duct. No biliary duct dilatation. There is possible mild, diffuse gallbladder wall thickening. If there are clinical symptoms of acute cholecystitis, consider right upper quadrant ultrasound for further evaluation. 2. No acute inflammatory process in the chest. D/ / 02/28/2017 19:53:43 Belkis Blanco MD / swati Interpreting Provider: Belkis Blanco MD Abdomen MRI 03/01/17 10:20 IMPRESSION: 1. Choledocholithiasis without significant biliary ductal dilatation. 2. Cholelithiasis with mild gallbladder wall thickening and mild pericholecystic edema. If there is concern for acute cholecystitis, suggest HIDA scan for further evaluation. 3. Small cystic lesions scattered throughout the pancreas measuring up to 6 mm are nonspecific but could relate to side-branch IPMNs, cysts, and/or sequelae of prior pancreatitis. Consider follow-up MRI in 1 year. Findings were discussed with Dr. Tobin at 5 p.m. on 03/01/2017. D/ / Leonardo Sam MD / Leonardo Sam MD Interpreting Provider: Leonardo Sam MD - Attending Attestation I examined this patient and my medical decision-making was reviewed with the ELECTRICAL INSTALLER/PA/Advanced Practice Nurse/Resident Physician. I agree with the documented findings, disposition and treatment plan as described except to the extent set forth below. Noted that gastroenterology/surgery on the board. We will follow the recommendations.
[2017-03-01] MEDS ORDERED: SODIUM CHLORIDE/NAHCO3/KCL/PEG 4,000 ML SOLN.RECON PO ONE (11:22)
[2017-03-01] MEDS: D5% in 0.9% NACL 1,000 ML IVC SCH (11:55)
--- NOTE | 2017-03-01 15:40 | Anesthesia Evaluation PreOp ---
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 echo 3f 55, nl rv) [employer] History: CVA (r side weakness), TIA, Other (L3 fx) Other Medical History: Renal (GRACIA), Diabetes Type II, GERD Anesthesia History: No Prior Anesthetic Complications, Past Anesthesia (cabg) Alcohol Use: none, unknown Drug use: none Medications and Allergies Amlodipine [Norvasc] 5 mg PO DAILY 02/27/17 [History] Apixaban [Eliquis] 2.5 mg PO BID 02/27/17 [History] Cyanocobalamin (B-12) [Vitamin B12] 1,000 mcg SQ Q14D MDD fridays02/27/17 [ History] Furosemide [Lasix] 40 mg PO DAILY PRN 02/27/17 [History] Metformin [Glucophage] 1,000 mg PO BIDWM 02/27/17 [History] Metoprolol [Lopressor] 50 mg PO BID 02/27/17 [History] Multivit-Min/FA/Lycopen/Lutein [Centrum Silver Men Tablet] 1 each PO DAILY 02/27 [History] Niacin [Niacor] 500 mg PO DAILY 02/27/17 [History] Omeprazole [PriLOSEC] 40 mg PO DAILY 02/27/17 [History] Oxybutynin [Ditropan] 5 mg PO BID 02/27/17 [History] Vitamin E Acid Succinate [Vitamin E] 400 units PO DAILY 02/27/17 [History] Allergies No Known Allergies Allergy (Verified 02/26/17 22:36) - Meds/Allergy Pre-op Review Medications Reviewed: Yes Allergies Reviewed: Yes Beta Blockers on Current Med List: Yes If Beta Blockers taken, Date/Time (Last Dose taken): metoprolol at 06:46 Anesthesia Results - Labs 03/01/17 05:15 03/01/17 05:15 - Imaging EKG: report reviewed (sr, lat/inf ischemia) Anesthesia Exam Height: 1.8 Weight: 89 NPO (# of Hours): >8 Anesthesia Assess/Plan ASA Score: 3 Modified Coral Scale for Level of Consciousness: Cooperative, oriented, and tranquil Anesthetic Plan: General Monitoring Plan: Standard Monitors Recovery Plan: PACU <Ravi Rodriguez - Last Filed: 03/01/17 21:16> Date of Encounter: 03/01/17 - Past History Cardiac History: [place] (16 years ago), Cardiac Surgery (16 years ago) - Meds/Allergy Pre-op Review If Beta Blockers taken, Date/Time (Last Dose taken): metoprolol at 06:46 2016 Anesthesia Results - Labs 03/01/17 05:15 03/01/17 05:15 Echo 03/01 Ef-55% Intermediate Diastolic Dysfunction Min valvular dx - Imaging EKG: report reviewed Anesthesia Exam O2 Sat Weight 89.3 kg O2 Sat by Pulse Oximetry 93 O2 Sat by Pulse Oximetry 93 O2 Sat by Pulse Oximetry 92 O2 Sat by Pulse Oximetry 99 O2 Sat by Pulse Oximetry 95 Vital Signs Temp Pulse Resp BP Pulse Ox 98.7 F 94 18 166/78 97 02/26/17 22:28 02/26/17 22:28 02/26/17 22:28 02/26/17 22:28 02/26/17 22:28 Vital Signs/O2 Sat, Most Current Temp Pulse Resp BP Pulse Ox 98.4 F 97 17 124/97 93 03/01/17 19:00 03/01/17 19:00 03/01/17 19:00 03/01/17 19:00 03/01/17 19:00 Height: 5'11'' Pain Scale: 0 - HEENT Pupil (Motor): Pupils equal, EOMI - [employer] LOC: Confused [employer] Motor: Normal RUE, Normal LUE, Normal RLE, Normal LLE, Normal Face [employer] Sensory: Normal: RUE, LUE, RLE, LLE, Face - Cardiac Rhythm: Regular Murmur: None JVD: No Carotid Bruit: No - Pulmonary Breath Sounds: bilateral Clear Respiratory Effort: Symmetrical
--- NOTE | 2017-03-01 17:25 | General Surgery Consult Note ---
Date of Encounter: 03/01/17 Time of Encounter: 17:00 History of Present Illness Consult date: 03/01/17 Requesting physician: Chelsea Rodriguez History of present illness: General Surgery : MRCP personally reviewed with [facility] - evidence cholelithiasis and choledocholithiasis Brief history - full consult to be completed later 86 yo admitted 02/27/17 after presenting to the emergency department with worsening malaise, weakness and poor appetite over the prior several days. 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 Laboratories on admission notable for leukocytosis 14.3; hemoglobin 15.6, hematocrit 45.5; platelet count 189,000. PT 16.1 with INR of 1.5. Bilirubin 1.8 with AST 37, ALP 35, alk phosphatase 65. Troponins were also elevated. The elevated troponins were suggestive of a non-ST elevated myocardial infarction (NSTEMI), however, cardiology has evaluated the patient and diagnosed a demand ischemia related to acute kidney injury, leukocytosis, and hypertension. Over the course of the patient's hospitalization, the patient has demonstrated persistent hyperbilirubinemia and radiographs show cholelithiasis with suggestion of a nonobstructing stone in the common bile duct. Cholelithiasis and choledocholithiasis was confirmed on MRCP completed this afternoon. The patient also demonstrates gram-negative kira bacteremia consistent with an ascending cholangitis likely due to the choledocholithiasis for which the patient is on vancomycin and Zosyn. Consultations with GI and general surgery have been placed. The choledocholithiasis should be addressed via ERCP per gastroenterology. This will facilitate decompression and drainage. Once the patient is deemed medically stable, cholecystectomy will be considered. Labs as of today show resolution of the leukocytosis to 10.8; hemoglobin 11.7 hematocrit 34.0, platelet count has fallen to 131,000. Some of this is reflective of the ascending cholangitis and bacteremia as well as IV fluids (dilution). The patient most recently has a PT of 16.8 and INR of 1.5. Electrolytes are notable for hyponatremia of 130, Renal function appears to have responded to IV fluids with BUN returning to normal at 25, creatinine 1.03 and estimated GFR greater than 60. Bilirubin remains elevated, 2.0, AST 51, AST 56, alkaline phosphatase 85 - consistent with the cholelythiasis, choledocholithiasis and ascending cholangitis. Recommendations: Proceed with ERCP per Dr. Hancock Surgery will follow with you. Past Med Surg Social Fam HX - Past Medical History Medical history: arthritis, atrial fibrillation, CHF, coronary artery disease, CVA, diabetes, GI bleed, hyperlipidemia, hypertension, myocardial infarction, osteoporosis, peripheral artery disease, renal disease (SHANE/urge incontinence. BPH/prostatism.), TIA, other (Unsteadiness of gait/repeated falls. Spinal stenosis) Psychiatric history: anxiety - Past Surgical History Surgical History: coronary bypass (CABG), other - Social History Smoking Status: Former smoker Smokeless Tobacco Status: No Alcohol use: none, unknown Drug use: none Medications and Allergies Amlodipine [Norvasc] 5 mg PO DAILY 02/27/17 [History] Apixaban [Eliquis] 2.5 mg PO BID 02/27/17 [History] Cyanocobalamin (B-12) [Vitamin B12] 1,000 mcg SQ Q14D MDD fridays02/27/17 [ History] Furosemide [Lasix] 40 mg PO DAILY PRN 02/27/17 [History] Metformin [Glucophage] 1,000 mg PO BIDWM 02/27/17 [History] Metoprolol [Lopressor] 50 mg PO BID 02/27/17 [History] Multivit-Min/FA/Lycopen/Lutein [Centrum Silver Men Tablet] 1 each PO DAILY 02/27 [History] Niacin [Niacor] 500 mg PO DAILY 02/27/17 [History] Omeprazole [PriLOSEC] 40 mg PO DAILY 02/27/17 [History] Oxybutynin [Ditropan] 5 mg PO BID 02/27/17 [History] Vitamin E Acid Succinate [Vitamin E] 400 units PO DAILY 02/27/17 [History] Allergies No Known Allergies Allergy (Verified 02/26/17 22:36) Review of Systems All systems PM: A 10-system review of systems was performed and is negative for pertinent findings except as documented above in the HPI. General Surgery Exam Initial Vital Signs Temp Pulse Resp BP Pulse Ox 98.7 F 94 18 166/78 97 02/26/17 22:28 02/26/17 22:28 02/26/17 22:28 02/26/17 22:28 02/26/17 22:28 Exam Initial Vital Signs Temp Pulse Resp BP Pulse Ox 98.7 F 94 18 166/78 97 02/26/17 22:28 02/26/17 22:28 02/26/17 22:28 02/26/17 22:28 02/26/17 22:28 Results - Labs 03/01/17 05:15 03/01/17 05:15 Abnormal lab results RBC 3.60 M/mcL (4.19-5.50) L 03/01/17 05:15 Hgb 11.7 g/dL (12.9-16.9) L 03/01/17 05:15 Hct 34.0 % (37.5-50.1) L 03/01/17 05:15 Plt Count 131 K/mcL (140-400) L 03/01/17 05:15 Band Neutrophils % 14.0 % (0-4) H 02/28/17 00:30 Lymphocytes # 0.3 K/mcL (0.6-4.6) L 02/28/17 00:30 Monocytes # 1.9 K/mcL (0.0-1.3) H 02/26/17 23:45 Large Platelets Present (Not Present) A 02/28/17 00:30 PT 16.8 Seconds (9.4-12.1) H 03/01/17 04:00 Heparin Anti-Xa, Unfract 1.04 IU/mL (0.30-0.70) H* 02/28/17 04:45 Sodium 130 mEq/L (136-145) L 03/01/17 05:15 Glucose 129 mg/dL (70-99) H 03/01/17 05:15 Hemoglobin A1c 6.3 % (-5.6) H 02/27/17 05:33 Calculated Osmolality 276 (280-300) L 03/01/17 05:15 Magnesium 0.9 mg/dL (1.6-2.6) L 02/28/17 00:30 Total Bilirubin 2.0 mg/dL (0.2-1.2) H 03/01/17 05:15 Direct Bilirubin 1.2 mg/dL (0.0-0.5) H 03/01/17 05:15 AST 51 Units/L (5-34) H 03/01/17 05:15 ALT 56 Units/L (0-55) H 03/01/17 05:15 Creatine Kinase 271 Units/L (30-200) H 02/28/17 06:09 Troponin I 0.17 ng/mL (0-0.03) H* 02/28/17 00:20 B-Natriuretic Peptide 336 pg/mL (0-100) H 02/27/17 05:33 Serum Total Protein 5.8 g/dL (6.0-8.3) L D 03/01/17 05:15 Albumin 2.4 g/dL (3.5-5.0) L 03/01/17 05:15 Albumin/Globulin Ratio 0.7 (1.1-2.2) L 03/01/17 05:15 Vitamin B12 1231 pg/mL (213-816) H 02/28/17 06:09 Urine Protein 30 mg/dL (Neg-Trace) H 02/27/17 00:01 Urine Glucose (UA) >=1000 mg/dL (Normal) H 02/27/17 00:01 Urine Blood Trace (Negative) H 02/27/17 00:01 Urine Microscopic RBC 3-5 per hpf (0-3) H 02/27/17 00:01 Enterobacteriac sp PCR DETECTED (Not Detect) A 02/28/17 01:07 E. cloacae complex PCR DETECTED (Not Detect) A 02/28/17 01:07 Diabetes panel 03/01/17 Range/Units 05:15 Sodium 130 L (136-145) mEq/L Potassium 3.6 (3.5-4.5) mEq/L Chloride 98 (98-109) mEq/L Carbon Dioxide 23 (19-29) mEq/L BUN 25 (8-26) mg/dL Creatinine 1.03 (0.72-1.25) mg/dL Glucose 129 H (70-99) mg/dL Calcium 9.4 (8.6-10.8) mg/dL AST 51 H (5-34) Units/L ALT 56 H (0-55) Units/L Alkaline Phosphatase 85 (38-126) Units/L Albumin 2.4 L (3.5-5.0) g/dL Calcium panel 03/01/17 Range/Units 05:15 Calcium 9.4 (8.6-10.8) mg/dL Albumin 2.4 L (3.5-5.0) g/dL Pituitary panel 03/01/17 Range/Units 05:15 Sodium 130 L (136-145) mEq/L Potassium 3.6 (3.5-4.5) mEq/L Chloride 98 (98-109) mEq/L Carbon Dioxide 23 (19-29) mEq/L BUN 25 (8-26) mg/dL Creatinine 1.03 (0.72-1.25) mg/dL Glucose 129 H (70-99) mg/dL Calcium 9.4 (8.6-10.8) mg/dL Adrenal panel 03/01/17 Range/Units 05:15 Sodium 130 L (136-145) mEq/L Potassium 3.6 (3.5-4.5) mEq/L Chloride 98 (98-109) mEq/L Carbon Dioxide 23 (19-29) mEq/L BUN 25 (8-26) mg/dL Creatinine 1.03 (0.72-1.25) mg/dL Glucose 129 H (70-99) mg/dL Calcium 9.4 (8.6-10.8) mg/dL Total Bilirubin 2.0 H (0.2-1.2) mg/dL AST 51 H (5-34) Units/L ALT 56 H (0-55) Units/L Alkaline Phosphatase 85 (38-126) Units/L Albumin 2.4 L (3.5-5.0) g/dL All other labs normal. Consult Discharge Plan - Plan Referrals: Dave Mayo Jr, MD [Primary Care Provider] -
--- NOTE | 2017-03-01 18:31 | Event Note ---
Date of Encounter: 03/01/17 Time of Encounter: 18:00 Pt seen, full consult to follow. Pt with CBD stone/cholcystitis prob cholangitis. For ERCP tonight. Procedure including risks explained to the family ( bleeding ) as patient on Eliquis
[2017-03-01] MEDS ORDERED: Indomethacin 50 MG SUPP.RECT RC ONE ×2 (18:49→21:35)
[2017-03-01] MEDS ORDERED: Levofloxacin 250 MG/50 ML 250 MG/50 ML BAG IVPB SCH (20:00)
[2017-03-01] MEDS ORDERED: *HR* Propofol 200 MG/20 ML VIAL IVP ONE (20:59)
[2017-03-01] MEDS ORDERED: *HR* FentaNYL (PF) 100 MCG/2 ML VIAL ONE (20:59)
[2017-03-01] MEDS ORDERED: Lidocaine -MPF 2% 2 ML VIAL ONE (21:48)
[2017-03-01] MEDS ORDERED: *HR* Succinylcholine 200 MG/10 ML VIAL IVP ONE (21:48)
[2017-03-01] MEDS ORDERED: Ondansetron 4 MG/2 ML VIAL ONE (21:48)
[2017-03-01] MEDS ORDERED: Dexamethasone 4 MG/ML VIAL ONE (21:48)
--- NOTE | 2017-03-01 22:51 | Anesthesia Evaluation Post Op ---
Date of Encounter: 03/01/17 Time of Encounter: 22:50 - Vital Signs Vital Signs: Vital Signs/O2 Sat, Most Current Temp Pulse Resp BP Pulse Ox 98.4 F 97 17 124/97 93 03/01/17 19:00 03/01/17 19:00 03/01/17 19:00 03/01/17 19:00 03/01/17 19:00 - Lungs Lungs: Clear Ascult./Percussion - Airway Airway: Non-obstructed - Cardiovascular Regular Rate - Mental Status Mental Status: Confused, Baseline Status - Pain Pain Scale: 0 Pain Scale used: Numeric (1 - 10) - Nausea Vomiting Nausea Vomiting: Not Present - Hydration Hydration: NPO, Has not voided - Discharge PostOp Status: Transfer Patient to floor
[2017-03-02] MEDS: Levofloxacin 750 MG/150 ML 750 MG/150 ML BAG IVPB SCH ×2 (00:20→20:07)
[2017-03-02] MEDS: Piperacillin/Tazobactam 3.375 GM in D5% in Water (Mini-Bag+) 100 ML IVPB SCH ×3 (00:22→16:58)
[2017-03-02] MEDS ORDERED: *HR* Metoprolol 5 MG/5 ML VIAL IVP ONE ×2 (01:48→02:05)
[2017-03-02] MEDS: Insulin LISPRO 300 UNITS/3 ML VIAL SQ SCH ×5 (02:02→20:49)
[2017-03-02] MEDS: APIXABAN 5 MG TABLET PO SCH ×2 (02:02→08:24)
[2017-03-02] MEDS: Insulin DETEMIR 100 UNIT/ML X5UNITS SQ SCH ×2 (02:03→20:49)
[2017-03-02] MEDS: Vancomycin 1,500 MG in D5% in Water 250 ML IVPB SCH (02:28)
[2017-03-02 06:20] LABS: Hematocrit 35.4 % (37.5-50.1); Hemoglobin 11.9 g/dL (12.9-16.9); Mean Corpuscular HGB Conc 33.6 g/dL (31.6-35.5); Mean Corpuscular Hemoglobin 31.2 pg (28.0-33.3); Mean Corpuscular Volume 92.7 fL (83.0-100.0); Mean Platelet Volume 11.1 fL (9.4-12.4); Platelet Count 127 K/mcL (140-400); Red Blood Count 3.82 M/mcL (4.19-5.50); Red Cell Distribution Width 14.4 % (11.5-14.5)
[2017-03-02 06:29] LABS: INR 1.5; Prothrombin Time 16.6 Seconds (9.4-12.1)
[2017-03-02 06:30] LABS: BUN/Creatinine Ratio 25 (6-26); Blood Urea Nitrogen 34 mg/dL (8-26); Calcium 9.5 mg/dL (8.6-10.8); Carbon Dioxide 22 mEq/L (19-29); Chloride 99 mEq/L (98-109); Glucose 275 mg/dL (70-99); Osmolality,Calculated 289 (280-300); Potassium 4.3 mEq/L (3.5-4.5); Sodium 131 mEq/L (136-145); eGFR For African Americans > 60 (> 60); eGFR For Non-African Americans 51 (> 60)
[2017-03-02 06:33] LABS: Activated Partial Thrombo Time 32.6 Seconds (26.0-36.0)
[2017-03-02 07:00] LABS: Alanine Aminotransferase 72 Units/L (0-55); Albumin 2.2 g/dL (3.5-5.0); Albumin/Globulin Ratio 0.6 (1.1-2.2); Alkaline Phosphatase 126 Units/L (38-126); Aspartate Amino Transferase 73 Units/L (5-34); Bilirubin,Direct 2.5 mg/dL (0.0-0.5); Bilirubin,Indirect 0.7 mg/dL (0.0-1.2); Bilirubin,Total 3.2 mg/dL (0.2-1.2); Globulin 3.6 g/dL (2.4-3.5); Total Protein 5.8 g/dL (6.0-8.3)
[2017-03-02] MEDS: Aspirin 81 MG TAB.CHEW PO SCH (08:22)
[2017-03-02] MEDS: amLODIPine 5 MG TABLET PO SCH (08:24)
[2017-03-02] MEDS: Nicotine 14 MG PATCH.TD24 TD SCH (08:34)
--- NOTE | 2017-03-02 10:58 | Gastroenterology Consult Note ---
<Arash Joe - Last Filed: 03/02/17 10:56> Date of Encounter: 03/02/17 Time of Encounter: 10:00 - Assessment and plan (1) Choledocholithiasis Current Visit: Yes Status: Acute Assessment and plan: ERCP with filling defect consistent with stone seen on cholangiogram, choledocholithiasis was found, complete removal accomplished with biliary sphincterotomy and balloon extraction, one temporary stent placed in the CBD. Recommend gallbladder surgery per Dr. Tobin. Repeat ERCP in 6-8 weeks for stent removal. Continue to monitor LFTs daily. (2) Sepsis Current Visit: Yes Status: Acute Assessment and plan: Continue antibiotics. WBC increased to 12.7 today. Qualifiers: Sepsis type: sepsis due to unspecified organism Qualified Code(s): A41.9 - Sepsis, unspecified organism (3) Anemia Current Visit: Yes Status: Acute Assessment and plan: Continue to monitor CBC and transfuse PRBC as needed. Qualifiers: Anemia type: unspecified type Qualified Code(s): D64.9 - Anemia, unspecified - Time Spent With Patient Total time spent is greater than 50% in coordination of care (as documented) at patient's floor/unit and/or counseling patient: GI History of Present Illness - Data of Consult Patient: new to practice Consult date: 03/02/17 Requesting Physician: Po Rodriguez MD - Consult Narrative Reason for consult: choledocholithiasis History of present illness: Mr. Parr is a 86 year old male with PMHx of arthritis, Afib, CHF, CAD, CABG , CVA, DM, GI bleed, HLD, HTN, RI, TIA who was admitted with weakness and failure to thrive. Admission labs showed WBC 14.3, Hgb 15.6, Plt 189, TB 1.8, AST, 37, ALT 65, Alk phos 65. He reports some nausea and vomiting but denies fevers or chills. CT A/P shows cholelithiasis with small nonobstructing stone in the distal CBD, no biliary duct dilation, mild diffuse gallbladder wall thickening. MRCP consistent with choledocholithiasis without significant biliary ductal dilation. Small cystic lesions scattered throughout the pancreas measuring up to 6 mm which are nonspecific but could relate to side branch IPMNs , cysts, and/or sequela of prior pancreatitis. We were consulted for ERCP. Procedures: EGD 08/31/2011 Dr. Zamorano: Normal NSAIDs: None Anticoagulation: Eliquis Past Med Surg Social Fam HX - Past Medical History Medical history: arthritis, atrial fibrillation, CHF, coronary artery disease, CVA, diabetes, GI bleed, hyperlipidemia, hypertension, myocardial infarction, osteoporosis, peripheral artery disease, renal disease (SHANE/urge incontinence. BPH/prostatism.), TIA, other (Unsteadiness of gait/repeated falls. Spinal stenosis) Psychiatric history: anxiety - Past Surgical History Surgical History: coronary bypass (CABG), other - Social History Smoking Status: Former smoker Smokeless Tobacco Status: No Alcohol use: none, unknown Drug use: none - Gastrointestinal Gastrointestinal: Present: as per HPI - Constitutional Constitutional: as per HPI - EENT Eyes: as per HPI Ears: Present: as per HPI Nose, mouth and throat: Present: as per HPI - Cardiovascular Cardiovascular ROS: Present: as per HPI - Respiratory Respiratory IM: Present: as per HPI - Genitourinary Genitourinary: Absent: change in color, Urinary frequency - Neurological ROS Neurological GI: Present: as per HPI - Hematologic/Lymphatic Hematologic/Lymphatic pediatric: Present: as per HPI - Musculoskeletal Musculoskeletal ROS GI: Present: as per HPI - Integumentary Integumentary GI: Present: as per HPI - Psychiatric ROS Psychiatric GI: Present: as per HPI - Endocrine Endocrine IM: Present: as per HPI - Constitutional Vitals: Temp Pulse Resp BP Pulse Ox 97.5 F L 130 16 165/110 94 03/02/17 10:33 03/02/17 10:33 03/02/17 10:33 03/02/17 10:33 03/02/17 10:33 General appearance: Present: cooperative, A&O X 3, no acute distress, answers questions appropriately - Head Head exam: Present: atraumatic, normocephalic - Eye Eye exam: Present: normal appearance, sclera anicteric - ENT ENT exam: Present: mucous membranes dry - Neck Neck exam general surgery: Present: normal inspection, trachea midline - Respiratory Respiratory exam: Present: decreased breath sounds, CTAB. Absent: rales, rhonchi - Cardiovascular Cardiovascular exam: Present: RRR, +S1, +S2 - GI/Abdominal GI/Abdominal exam: Present: soft, no peritoneal signs. Absent: distended, firm , guarding, tenderness - Rectal Rectal exam: Present: deferred - Extremities Exam Extremities exam: Present: warm - Neurological Exam Neurological exam: Present: no focal deficits - Psychiatric Psychiatric exam: Present: normal affect, normal mood - Skin Skin exam: Present: dry, intact, normal color, warm Results - Labs CBC & Chem 7: 03/02/17 05:53 03/02/17 05:53 Labs: Last Result Calcium 9.5 mg/dL (8.6-10.8) 03/02/17 05:53 Troponin I 0.17 ng/mL (0-0.03) H* 02/28/17 00:20 Vitamin B12 1231 pg/mL (213-816) H 02/28/17 06:09 Folate 14.3 ng/mL (7.0-31.4) 02/28/17 06:09 Entire Visit Hgb 11.9 g/dL (12.9-16.9) L 03/02/17 05:53 Hct 35.4 % (37.5-50.1) L 03/02/17 05:53 PT 16.6 Seconds (9.4-12.1) H 03/02/17 05:53 Total Bilirubin 3.2 mg/dL (0.2-1.2) H D 03/02/17 05:53 AST 73 Units/L (5-34) H 03/02/17 05:53 ALT 72 Units/L (0-55) H 03/02/17 05:53 Folate 14.3 ng/mL (7.0-31.4) 02/28/17 06:09 E. coli (PCR) Not Detected (Not Detect) 02/28/17 01:07 - ABG ABG results: PT/INR, D-dimer PT 16.6 Seconds (9.4-12.1) H 03/02/17 05:53 - Impressions Impressions Abdomen/Pelvis CT 02/28/17 17:29 IMPRESSION: 1. Cholelithiasis. Small, nonobstructing stone is noted in the distal common bile duct. No biliary duct dilatation. There is possible mild, diffuse gallbladder wall thickening. If there are clinical symptoms of acute cholecystitis, consider right upper quadrant ultrasound for further evaluation. 2. No acute inflammatory process in the chest. D/ / 02/28/2017 19:53:43 Belkis Blanco MD / swati Interpreting Provider: Belkis Blanco MD Chest CT 02/28/17 17:29 IMPRESSION: 1. Cholelithiasis. Small, nonobstructing stone is noted in the distal common bile duct. No biliary duct dilatation. There is possible mild, diffuse gallbladder wall thickening. If there are clinical symptoms of acute cholecystitis, consider right upper quadrant ultrasound for further evaluation. 2. No acute inflammatory process in the chest. D/ / 02/28/2017 19:53:43 Belkis Blanco MD / swati Interpreting Provider: Belkis Blanco MD Abdomen MRI 03/01/17 10:20 IMPRESSION: 1. Choledocholithiasis without significant biliary ductal dilatation. 2. Cholelithiasis with mild gallbladder wall thickening and mild pericholecystic edema. If there is concern for acute cholecystitis, suggest HIDA scan for further evaluation. 3. Small cystic lesions scattered throughout the pancreas measuring up to 6 mm are nonspecific but could relate to side-branch IPMNs, cysts, and/or sequelae of prior pancreatitis. Consider follow-up MRI in 1 year. Findings were discussed with Dr. Tobin at 5 p.m. on 03/01/2017. D/ / Leonardo Sam MD / Leonardo Sam MD Interpreting Provider: Leonardo Sam MD Head CT 03/01/17 17:15 IMPRESSION: No acute intracranial abnormality. No significant change compared to prior CT. D/ / Juni Mcmahon MD / Juni Mcmahon MD Interpreting Provider: Juni Mcmahon MD Cath/Invasive Procedure 03/01/17 21:35 IMPRESSION: Intraprocedural fluoroscopic spot images as above. See separate procedure report for more information. D/ / Brad Ng MD / Brad Ng MD Interpreting Provider: Brad Ng MD Consult Discharge Plan - Plan Referrals: Dave Mayo Jr, MD [Primary Care Provider] - <SantiPardeepCelina - Last Filed: 03/02/17 12:07> Date of Encounter: 03/02/17 Time of Encounter: 11:00 - Time Spent With Patient Total time spent is greater than 50% in coordination of care (as documented) at patient's floor/unit and/or counseling patient: GI History of Present Illness - Data of Consult Requesting Physician: Po Rodriguez MD - Consult Narrative History of present illness: Mr. Parr is a 86 year old male - Constitutional Vitals: Temp Pulse Resp BP Pulse Ox 97.5 F L 130 16 165/110 94 03/02/17 10:33 03/02/17 10:33 03/02/17 10:33 03/02/17 10:33 03/02/17 10:33 Results - Labs CBC & Chem 7: 03/02/17 05:53 03/02/17 05:53 Labs: Last Result Calcium 9.5 mg/dL (8.6-10.8) 03/02/17 05:53 Troponin I 0.17 ng/mL (0-0.03) H* 02/28/17 00:20 Vitamin B12 1231 pg/mL (213-816) H 02/28/17 06:09 Folate 14.3 ng/mL (7.0-31.4) 02/28/17 06:09 Entire Visit Hgb 11.9 g/dL (12.9-16.9) L 03/02/17 05:53 Hct 35.4 % (37.5-50.1) L 03/02/17 05:53 PT 16.6 Seconds (9.4-12.1) H 03/02/17 05:53 Total Bilirubin 3.2 mg/dL (0.2-1.2) H D 03/02/17 05:53 AST 73 Units/L (5-34) H 03/02/17 05:53 ALT 72 Units/L (0-55) H 03/02/17 05:53 Folate 14.3 ng/mL (7.0-31.4) 02/28/17 06:09 E. coli (PCR) Not Detected (Not Detect) 02/28/17 01:07 - ABG ABG results: PT/INR, D-dimer PT 16.6 Seconds (9.4-12.1) H 03/02/17 05:53 - Impressions Impressions Abdomen/Pelvis CT 02/28/17 17:29 IMPRESSION: 1. Cholelithiasis. Small, nonobstructing stone is noted in the distal common bile duct. No biliary duct dilatation. There is possible mild, diffuse gallbladder wall thickening. If there are clinical symptoms of acute cholecystitis, consider right upper quadrant ultrasound for further evaluation. 2. No acute inflammatory process in the chest. D/ / 02/28/2017 19:53:43 Belkis Blanco MD / swati Interpreting Provider: Belkis Blanco MD Chest CT 02/28/17 17:29 IMPRESSION: 1. Cholelithiasis. Small, nonobstructing stone is noted in the distal common bile duct. No biliary duct dilatation. There is possible mild, diffuse gallbladder wall thickening. If there are clinical symptoms of acute cholecystitis, consider right upper quadrant ultrasound for further evaluation. 2. No acute inflammatory process in the chest. D/ / 02/28/2017 19:53:43 Belkis Blanco MD / swati Interpreting Provider: Belkis Blanco MD Abdomen MRI 03/01/17 10:20 IMPRESSION: 1. Choledocholithiasis without significant biliary ductal dilatation. 2. Cholelithiasis with mild gallbladder wall thickening and mild pericholecystic edema. If there is concern for acute cholecystitis, suggest HIDA scan for further evaluation. 3. Small cystic lesions scattered throughout the pancreas measuring up to 6 mm are nonspecific but could relate to side-branch IPMNs, cysts, and/or sequelae of prior pancreatitis. Consider follow-up MRI in 1 year. Findings were discussed with Dr. Tobin at 5 p.m. on 03/01/2017. D/ / Leonardo Sam MD / Leonardo Sam MD Interpreting Provider: Leonardo Sam MD Head CT 03/01/17 17:15 IMPRESSION: No acute intracranial abnormality. No significant change compared to prior CT. D/ / Juin Mcmahon MD / Juni Mcmahon MD Interpreting Provider: Juni Mcmahon MD Cath/Invasive Procedure 03/01/17 21:35 IMPRESSION: Intraprocedural fluoroscopic spot images as above. See separate procedure report for more information. D/ / Brad Ng MD / Brad Ng MD Interpreting Provider: Brad Ng MD - Attending Attestation I examined this patient and my medical decision-making was reviewed with the SPECIAL PROCEDURES NURSE/PA/Advanced Practice Nurse/Resident Physician. I agree with the documented findings, disposition and treatment plan as described except to the extent set forth below.
[2017-03-02] MEDS: *HR* Metoprolol 5 MG/5 ML VIAL IVP PRN ×2 (11:00→16:57)
--- NOTE | 2017-03-02 12:44 | Palliative Progress Note ---
Date of Encounter: 03/02/17 Time of Encounter: 11:30 - Assessment and plan (1) Right hip pain Current Visit: No Status: Acute Assessment and plan: Currently denies pain. Right hip pain is a chronic complaint. No use of morphine or oxycodone in the last 24 hours. (2) Nutrient intake below expected requirement Current Visit: Yes Status: Acute Assessment and plan: Dietitian following. NPO at this time pending evaluation from surgeon. (3) Goals of care, counseling/discussion Current Visit: Yes Status: Acute Assessment and plan: Plan for ECF for rehab upon discharge. adult services librarian following. Established code status of DNR/DNI. (4) Constipation by delayed colonic transit Current Visit: Yes Status: Acute Assessment and plan: Soft formed BM yesterday. Continue to monitor. May need to add stimulant if constipation becomes a problem again. - Time Spent With Patient Total time spent is greater than 50% in coordination of care (as documented) at patient's floor/unit and/or counseling patient: - Subjective Interval history: Mr. Parr is sitting up in bed with family at bedside. Denies pain, shortness of breath/difficulty breathing. Notes from MRCP reviewed. - Constitutional Vitals: Abnormal lab results WBC 12.7 K/mcL (4.3-11.1) H 03/02/17 05:53 RBC 3.82 M/mcL (4.19-5.50) L 03/02/17 05:53 Hgb 11.9 g/dL (12.9-16.9) L 03/02/17 05:53 Hct 35.4 % (37.5-50.1) L 03/02/17 05:53 Plt Count 127 K/mcL (140-400) L 03/02/17 05:53 Band Neutrophils % 14.0 % (0-4) H 02/28/17 00:30 Lymphocytes # 0.3 K/mcL (0.6-4.6) L 02/28/17 00:30 Monocytes # 1.9 K/mcL (0.0-1.3) H 02/26/17 23:45 Large Platelets Present (Not Present) A 02/28/17 00:30 PT 16.6 Seconds (9.4-12.1) H 03/02/17 05:53 Heparin Anti-Xa, Unfract 1.04 IU/mL (0.30-0.70) H* 02/28/17 04:45 Sodium 131 mEq/L (136-145) L 03/02/17 05:53 BUN 34 mg/dL (8-26) H 03/02/17 05:53 Creatinine 1.34 mg/dL (0.72-1.25) H 03/02/17 05:53 Est GFR (Non-Af Amer) 51 (> 60) L 03/02/17 05:53 Glucose 275 mg/dL (70-99) H 03/02/17 05:53 POC Glucose 137 (58-89) H 03/01/17 23:27 Hemoglobin A1c 6.3 % (-5.6) H 02/27/17 05:33 Magnesium 0.9 mg/dL (1.6-2.6) L 02/28/17 00:30 Total Bilirubin 3.2 mg/dL (0.2-1.2) H D 03/02/17 05:53 Direct Bilirubin 2.5 mg/dL (0.0-0.5) H 03/02/17 05:53 AST 73 Units/L (5-34) H 03/02/17 05:53 ALT 72 Units/L (0-55) H 03/02/17 05:53 Creatine Kinase 271 Units/L (30-200) H 02/28/17 06:09 Troponin I 0.17 ng/mL (0-0.03) H* 02/28/17 00:20 B-Natriuretic Peptide 336 pg/mL (0-100) H 02/27/17 05:33 Serum Total Protein 5.8 g/dL (6.0-8.3) L 03/02/17 05:53 Albumin 2.2 g/dL (3.5-5.0) L 03/02/17 05:53 Globulin 3.6 g/dL (2.4-3.5) H 03/02/17 05:53 Albumin/Globulin Ratio 0.6 (1.1-2.2) L 03/02/17 05:53 Vitamin B12 1231 pg/mL (213-816) H 02/28/17 06:09 Urine Protein 30 mg/dL (Neg-Trace) H 02/27/17 00:01 Urine Glucose (UA) >=1000 mg/dL (Normal) H 02/27/17 00:01 Urine Blood Trace (Negative) H 02/27/17 00:01 Urine Microscopic RBC 3-5 per hpf (0-3) H 02/27/17 00:01 Enterobacteriac sp PCR DETECTED (Not Detect) A 02/28/17 01:07 E. cloacae complex PCR DETECTED (Not Detect) A 02/28/17 01:07 General appearance: Present: cooperative, no acute distress - Eye Eye exam: Present: EOMI - Respiratory Respiratory exam: Present: rales (left lower lobe.). Absent: accessory muscle use, prolonged expiratory phase, tachypnea - Cardiovascular Cardiovascular exam: Present: RRR, tachycardia (rate 134) - GI/Abdominal GI/Abdominal exam: Present: normal bowel sounds, soft. Absent: distended, firm , guarding, tenderness - Extremities Exam Extremities exam: Present: normal inspection. Absent: pedal edema - Neurological Exam Neurological exam: Present: alert, oriented X3, no focal deficits, strengths equal and symetr throughout - Psychiatric Psychiatric exam: Absent: agitated, anxious, depressed - Skin Skin exam: Present: dry, warm Palliative Quality Palliative Quality: Screen for Code Status: Yes, Screen for Goals of Care: Yes, Screen for Pain: Yes, If Pain Regimen Started, Initiate Bowel Regimen: Yes, Screen for Nausea/Vomitting: Yes Code Status: 02/27/17 18:52 CODE [Resuscitation Status: Active] [RES] Routine Comment: Resuscitation Status: [id number] - Labs CBC & Chem 7: 03/02/17 05:53 03/02/17 05:53 Labs: Laboratory Results - last 24 hr 02/28/17 03/01/17 03/01/17 06:09 07:00 11:12 WBC RBC Hgb Hct MCV MCH MCHC RDW Plt Count MPV PT INR APTT Sodium Potassium Chloride Carbon Dioxide BUN Creatinine Est GFR ( Amer) Est GFR (Non-Af Amer) BUN/Creatinine Ratio Glucose POC Glucose 108 H 76 Calculated Osmolality Calcium Total Bilirubin Direct Bilirubin Indirect Bilirubin AST ALT Alkaline Phosphatase Serum Total Protein Albumin Globulin Albumin/Globulin Ratio Vancomycin Trough Copper 82 03/01/17 03/01/17 03/02/17 17:07 23:27 00:35 WBC RBC Hgb Hct MCV MCH MCHC RDW Plt Count MPV PT INR APTT Sodium Potassium Chloride Carbon Dioxide BUN Creatinine Est GFR ( Amer) Est GFR (Non-Af Amer) BUN/Creatinine Ratio Glucose POC Glucose 128 H 137 H Calculated Osmolality Calcium Total Bilirubin Direct Bilirubin Indirect Bilirubin AST ALT Alkaline Phosphatase Serum Total Protein Albumin Globulin Albumin/Globulin Ratio Vancomycin Trough 12.6 Copper 03/02/17 03/02/17 03/02/17 05:53 05:53 05:53 WBC 12.7 H RBC 3.82 L Hgb 11.9 L Hct 35.4 L MCV 92.7 MCH 31.2 MCHC 33.6 RDW 14.4 Plt Count 127 L MPV 11.1 PT 16.6 H INR 1.5 APTT 32.6 Sodium 131 L Potassium 4.3 Chloride 99 Carbon Dioxide 22 BUN 34 H Creatinine 1.34 H Est GFR ( Amer) > 60 Est GFR (Non-Af Amer) 51 L BUN/Creatinine Ratio 25 Glucose 275 H POC Glucose Calculated Osmolality 289 Calcium 9.5 Total Bilirubin 3.2 H D Direct Bilirubin 2.5 H Indirect Bilirubin 0.7 AST 73 H ALT 72 H Alkaline Phosphatase 126 Serum Total Protein 5.8 L Albumin 2.2 L Globulin 3.6 H Albumin/Globulin Ratio 0.6 L Vancomycin Trough Copper - Impressions Impressions Abdomen/Pelvis CT 02/28/17 17:29 IMPRESSION: 1. Cholelithiasis. Small, nonobstructing stone is noted in the distal common bile duct. No biliary duct dilatation. There is possible mild, diffuse gallbladder wall thickening. If there are clinical symptoms of acute cholecystitis, consider right upper quadrant ultrasound for further evaluation. 2. No acute inflammatory process in the chest. D/ / 02/28/2017 19:53:43 Belkis Blanco MD / swati Interpreting Provider: Belkis Blanco MD Chest CT 02/28/17 17:29 IMPRESSION: 1. Cholelithiasis. Small, nonobstructing stone is noted in the distal common bile duct. No biliary duct dilatation. There is possible mild, diffuse gallbladder wall thickening. If there are clinical symptoms of acute cholecystitis, consider right upper quadrant ultrasound for further evaluation. 2. No acute inflammatory process in the chest. D/ / 02/28/2017 19:53:43 Belkis Blanco MD / swati Interpreting Provider: Belkis Blanco MD Abdomen MRI 03/01/17 10:20 IMPRESSION: 1. Choledocholithiasis without significant biliary ductal dilatation. 2. Cholelithiasis with mild gallbladder wall thickening and mild pericholecystic edema. If there is concern for acute cholecystitis, suggest HIDA scan for further evaluation. 3. Small cystic lesions scattered throughout the pancreas measuring up to 6 mm are nonspecific but could relate to side-branch IPMNs, cysts, and/or sequelae of prior pancreatitis. Consider follow-up MRI in 1 year. Findings were discussed with Dr. Tobin at 5 p.m. on 03/01/2017. D/ / Leonardo Sam MD / Leonardo Sam MD Interpreting Provider: Leonardo Sam MD Head CT 03/01/17 17:15 IMPRESSION: No acute intracranial abnormality. No significant change compared to prior CT. D/ / Juni Mcmahon MD / Juni Mcmahon MD Interpreting Provider: Juni Mcmahon MD Cath/Invasive Procedure 03/01/17 21:35 IMPRESSION: Intraprocedural fluoroscopic spot images as above. See separate procedure report for more information. D/ / Brad Ng MD / Brad Ng MD Interpreting Provider: Brad Ng MD - ABG Interpretation ABG results: PT/INR, D-dimer PT 16.6 Seconds (9.4-12.1) H 03/02/17 05:53 Consult Discharge Plan - Plan Referrals: Dave Mayo Jr, MD [Primary Care Provider] -
--- NOTE | 2017-03-02 13:14 | Internal Med Progress Note ---
<Chelsea Rodriguze - Last Filed: 03/02/17 13:16> Date of Encounter: 03/02/17 Time of Encounter: 13:14 - Assessment and plan (1) Sepsis Current Visit: Yes Status: Acute Assessment and plan: Due to Enterobacter cloacae bacteremia IVF IV antibiotics: Vancomycin, Zosyn, Levaquin ERCP yesterday with complete removal of stones via biliary sphincterotomy and balloon extraction, also temporary stent placed in common bile duct. GI recommend cholecystectomy (per Dr. Tobin) and repeat ERCP in 6-8 weeks for stent removal. Qualifiers: Sepsis type: sepsis due to unspecified organism Qualified Code(s): A41.9 - Sepsis, unspecified organism (2) Bacteremia due to Enterobacter species Current Visit: Yes Status: Acute Assessment and plan: Blood cultures positive for Enterobacter cloacae (3) Generalized muscle weakness Current Visit: Yes Status: Acute Assessment and plan: Plan for ECF for rehabilitation upon discharge to [facility] (4) Fever Current Visit: Yes Status: Resolved Assessment and plan: Resolved Qualifiers: Fever type: unspecified Qualified Code(s): R50.9 - Fever, unspecified (5) Leukocytosis Current Visit: Yes Status: Resolved Assessment and plan: WBC 12.7 today Patient on broad-spectrum antibiotics for sepsis due to bacteremia Qualifiers: Leukocytosis type: bandemia Qualified Code(s): D72.825 - Bandemia (6) GRACIA (acute kidney injury) Current Visit: Yes Status: Resolved Assessment and plan: Resolved (7) Elevated troponin Current Visit: Yes Status: Acute Assessment and plan: appreciate cardiology input most likely demand ischemia on ASA, statin, b-noreen Echo: LVEF 55%, mild concentric left ventricular hypertrophy, indeterminate diastolic function, right ventricular function appeared mildly reduced, no evidence of pulmonary hypertension, no significant valvular dysfunction. (8) Right hip pain Current Visit: No Status: Acute Assessment and plan: Patient had right hip pain during evaluation by physical therapy. Family states that he fell on this hip approximately 2 weeks ago. X-ray shows diffuse bony mineralization, which slightly limits evaluation for subtle fractures. Otherwise no definite acute fracture or subluxation. Supportive care: Pain management (9) Hypertension Current Visit: Yes Status: Chronic Assessment and plan: Continue home Lopressor and Norvasc PRN IV Lopressor Qualifiers: Hypertension type: essential hypertension Qualified Code(s): I10 - Essential (primary) hypertension (10) CAD (coronary artery disease), [place] coronary artery Current Visit: Yes Status: Chronic Assessment and plan: Patient of Dr. Andre Qualifiers: [place] vs. 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 Feeling much improved since yesterday. - Constitutional Vitals: Temp Pulse Resp BP Pulse Ox 97.5 F L 130 16 165/110 94 03/02/17 10:33 03/02/17 10:33 03/02/17 10:33 03/02/17 10:33 03/02/17 10:33 General appearance: Present: cooperative, mild distress, answers questions appropriately - Head Head exam: Present: atraumatic, normocephalic - Eye Eye exam: Present: PERRL, conjuntiva pink, sclera anicteric Pupils: Present: PERRL - ENT ENT exam: Present: mucous membranes moist - Neck Neck exam general surgery: Present: supple - Respiratory Respiratory exam: Present: CTAB - Cardiovascular Cardiovascular exam: Present: RRR, +S1, +S2, tachycardia - GI/Abdominal GI/Abdominal exam: Present: soft. Absent: tenderness - Extremities Exam Extremities exam: Present: warm. Absent: calf tenderness, cyanotic, pedal edema - Neurological Exam Neurological exam: Present: CN II-XII intact, oriented X3, no focal deficits. Absent: pronater drift, facial droop, speech deficit - Skin Skin exam: Present: dry, intact Internal Medicine: Result - Labs CBC & Chem 7: 03/02/17 05:53 03/02/17 05:53 Labs: Short CBC 03/02/17 Range/Units 05:53 WBC 12.7 H (4.3-11.1) K/mcL Hgb 11.9 L (12.9-16.9) g/dL Hct 35.4 L (37.5-50.1) % Plt Count 127 L (140-400) K/mcL BMP 03/02/17 05:53 Sodium 131 L Potassium 4.3 Chloride 99 Carbon Dioxide 22 BUN 34 H Creatinine 1.34 H Glucose 275 H Calcium 9.5 Liver Function 03/02/17 Range/Units 05:53 Total Bilirubin 3.2 H D (0.2-1.2) mg/dL Direct Bilirubin 2.5 H (0.0-0.5) mg/dL AST 73 H (5-34) Units/L ALT 72 H (0-55) Units/L Alkaline Phosphatase 126 (38-126) Units/L Albumin 2.2 L (3.5-5.0) g/dL - ABG Interpretation ABG results: PT/INR, D-dimer PT 16.6 Seconds (9.4-12.1) H 03/02/17 05:53 - Impressions Impressions Abdomen/Pelvis CT 02/28/17 17:29 IMPRESSION: 1. Cholelithiasis. Small, nonobstructing stone is noted in the distal common bile duct. No biliary duct dilatation. There is possible mild, diffuse gallbladder wall thickening. If there are clinical symptoms of acute cholecystitis, consider right upper quadrant ultrasound for further evaluation. 2. No acute inflammatory process in the chest. D/ / 02/28/2017 19:53:43 Belkis Blanco MD / swati Interpreting Provider: Belkis Blanco MD Chest CT 02/28/17 17:29 IMPRESSION: 1. Cholelithiasis. Small, nonobstructing stone is noted in the distal common bile duct. No biliary duct dilatation. There is possible mild, diffuse gallbladder wall thickening. If there are clinical symptoms of acute cholecystitis, consider right upper quadrant ultrasound for further evaluation. 2. No acute inflammatory process in the chest. D/ / 02/28/2017 19:53:43 Belkis Blanco MD / swati Interpreting Provider: Belkis Blanco MD Abdomen MRI 03/01/17 10:20 IMPRESSION: 1. Choledocholithiasis without significant biliary ductal dilatation. 2. Cholelithiasis with mild gallbladder wall thickening and mild pericholecystic edema. If there is concern for acute cholecystitis, suggest HIDA scan for further evaluation. 3. Small cystic lesions scattered throughout the pancreas measuring up to 6 mm are nonspecific but could relate to side-branch IPMNs, cysts, and/or sequelae of prior pancreatitis. Consider follow-up MRI in 1 year. Findings were discussed with Dr. Tobin at 5 p.m. on 03/01/2017. D/ / Leonardo Sam MD / Leonardo Sam MD Interpreting Provider: Leonardo Sam MD Head CT 03/01/17 17:15 IMPRESSION: No acute intracranial abnormality. No significant change compared to prior CT. D/ / Juni Mcmahon MD / Juni Mcmahon MD Interpreting Provider: Juni Mcmahon MD Cath/Invasive Procedure 03/01/17 21:35 IMPRESSION: Intraprocedural fluoroscopic spot images as above. See separate procedure report for more information. D/ / Brad Ng MD / Brad Ng MD Interpreting Provider: Brad Ng MD Consult Discharge Plan - Plan Referrals: Dave Mayo Jr, MD [Primary Care Provider] - <Jennifer,Po P - Last Filed: 03/02/17 16:53> Date of Encounter: 03/02/17 - Constitutional Vitals: Temp Pulse Resp BP Pulse Ox 98.7 F 130 16 184/101 97 03/02/17 15:20 03/02/17 15:20 03/02/17 15:20 03/02/17 15:20 03/02/17 15:20 Internal Medicine: Result - Labs CBC & Chem 7: 03/02/17 05:53 03/02/17 05:53 Labs: Short CBC 03/02/17 Range/Units 05:53 WBC 12.7 H (4.3-11.1) K/mcL Hgb 11.9 L (12.9-16.9) g/dL Hct 35.4 L (37.5-50.1) % Plt Count 127 L (140-400) K/mcL BMP 03/02/17 05:53 Sodium 131 L Potassium 4.3 Chloride 99 Carbon Dioxide 22 BUN 34 H Creatinine 1.34 H Glucose 275 H Calcium 9.5 Liver Function 03/02/17 Range/Units 05:53 Total Bilirubin 3.2 H D (0.2-1.2) mg/dL Direct Bilirubin 2.5 H (0.0-0.5) mg/dL AST 73 H (5-34) Units/L ALT 72 H (0-55) Units/L Alkaline Phosphatase 126 (38-126) Units/L Albumin 2.2 L (3.5-5.0) g/dL - ABG Interpretation ABG results: PT/INR, D-dimer PT 16.6 Seconds (9.4-12.1) H 03/02/17 05:53 - Impressions Impressions Abdomen/Pelvis CT 02/28/17 17:29 IMPRESSION: 1. Cholelithiasis. Small, nonobstructing stone is noted in the distal common bile duct. No biliary duct dilatation. There is possible mild, diffuse gallbladder wall thickening. If there are clinical symptoms of acute cholecystitis, consider right upper quadrant ultrasound for further evaluation. 2. No acute inflammatory process in the chest. D/ / 02/28/2017 19:53:43 Belkis Blanco MD / swati Interpreting Provider: Belkis Blanco MD Chest CT 02/28/17 17:29 IMPRESSION: 1. Cholelithiasis. Small, nonobstructing stone is noted in the distal common bile duct. No biliary duct dilatation. There is possible mild, diffuse gallbladder wall thickening. If there are clinical symptoms of acute cholecystitis, consider right upper quadrant ultrasound for further evaluation. 2. No acute inflammatory process in the chest. D/ / 02/28/2017 19:53:43 Belkis Blanco MD / swati Interpreting Provider: Belkis Blanco MD Abdomen MRI 03/01/17 10:20 IMPRESSION: 1. Choledocholithiasis without significant biliary ductal dilatation. 2. Cholelithiasis with mild gallbladder wall thickening and mild pericholecystic edema. If there is concern for acute cholecystitis, suggest HIDA scan for further evaluation. 3. Small cystic lesions scattered throughout the pancreas measuring up to 6 mm are nonspecific but could relate to side-branch IPMNs, cysts, and/or sequelae of prior pancreatitis. Consider follow-up MRI in 1 year. Findings were discussed with Dr. Tobin at 5 p.m. on 03/01/2017. D/ / Leonardo Sam MD / Leonardo Sam MD Interpreting Provider: Leonardo Sam MD Head CT 03/01/17 17:15 IMPRESSION: No acute intracranial abnormality. No significant change compared to prior CT. D/ / Juni Mcmahon MD / Juni Mcmahon MD Interpreting Provider: Juni Mcmahon MD Cath/Invasive Procedure 03/01/17 21:35 IMPRESSION: Intraprocedural fluoroscopic spot images as above. See separate procedure report for more information. D/ / Brad Ng MD / Brad Ng MD Interpreting Provider: Brad Ng MD - Attending Attestation I examined this patient and my medical decision-making was reviewed with the SUPERVISING LAW ENFORCEMENT ANALYST/PA/Advanced Practice Nurse/Resident Physician. I agree with the documented findings, disposition and treatment plan as described except to the extent set forth below. Patient seen and examined. Chart is reviewed. Patient underwent ERCP yesterday. Patient improved dramatically as compared to yesterday. Surgery on board. We will follow surgical recommendations
--- NOTE | 2017-03-02 17:47 | Electrocardiograph Report ---
[place] [id number] Test Date: 2017-03-02 Pat Name: Jose G Parr Department: 111 Room: 2NE16 Gender: M Memory Care Program Director: [facility] : 1930 Requested By: Blair Lange Order Number: [id number] Reading MD: Latoya Lomax Measurements Intervals [place] Rate: 130 P: [place]: 0 QRS: 60 QRSD: 94 T: 13 QT: 289 QTc: 366 Interpretive Statements ATRIAL FLUTTER/TACHYCARDIA WITH RAPID VENTRICULAR RESPONSE NONSPECIFIC ST \T\ T-WAVE ABNORMALITY ABNORMAL RHYTHM ECG Electronically Signed On 03-02-2017 17:45:31 EDT by Latoya Lomax
--- NOTE | 2017-03-02 19:37 | General Surgery Progress Note ---
Date of Encounter: 03/02/17 Time of Encounter: 17:35 Subjective Patient reports: feels better Narrative: General Surgery: called to see patient by Jennifer to discuss surgical intervention. The patient underwent ERCP with choledocholithiasis last evening. As a result of that manipulation, white count increased to 12.7, hemoglobin remained stable at 11.9 with hematocrit of 5.4. Platelet count was also diminished at 127,000. Electrolytes were stable but BUN had increased to 34 and creatinine 1.34. Estimated GFR was also diminished at 51. Total bilirubin increased to 3.2; AST 73, a LT 72, alkaline phosphatase 126. PT-INR are still elevated at 16.6/1.5 respectively. Review of orders indicated the patient was still receiving Apixaban BID. I presented to the patient's hospital room where a multitude of family members were present. I discussed surgical plans with the patient and the attendant family. I have recommended continued medical management allowing the ascending cholangitis resolved now that drainage has been accomplished via ERCP. A.m. laboratories will be checked , the patient will be examined, and if the patient is medically stable surgical intervention will be considered. The patient is a reasonable candidate for laparoscopic cholecystectomy with the patient and his family are aware that open cholecystectomy may become necessary. Risks of such surgery include hemorrhage, infection, abdominal abscess, bile leak, injury to adjacent ducts, vessels, organs, and bowel. Postcholecystectomy diarrhea is also possible. The patient has significant cardiac comorbidities increasing his risk of dysrhythmia, DE and cardiac arrest. Patient also has a history of stroke with an increased risk of an intraoperative stroke. The patient is currently anticoagulated (Apixaban). This will be discontinued pending surgery in the next few days. I will continue to follow this patient with you and make further recommendations in the AM. Objective Vital Signs - Last 8 Hours Temp Pulse Resp BP Pulse Ox 03/02/17 15:20 98.7 F 130 16 184/101 97 Intake and Output 03/02/17 03/02/17 03/02/17 07:59 15:59 23:59 Intake Total 100 / 100 100 / 100 20 / 20 Output Total 0 / 0 Balance 100 / 100 100 / 100 20 / 20 Intake: IV Fluids 100 / 100 100 / 100 Zosyn 3.375 GM In 100 / 100 100 / 100 Dextrose 5% (Minibag+) 100 ML 100 ML @ 25 mls/hr IVPB Q8HR [id number] Rx#: [id number] Oral 0 / 0 20 / 20 Output: Urine 0 / 0 Other: Meal NPO Dinner Percent of Meal Consumed 15% # Urine Diapers 1 1 1 Weight 90.2 kg Blood Glucose* 235 269 227 Patient Weight 03/02/17 23:59 Weight 90.2 kg - Labs 03/02/17 05:53 03/02/17 05:53 Diabetes panel 03/02/17 Range/Units 05:53 Sodium 131 L (136-145) mEq/L Potassium 4.3 (3.5-4.5) mEq/L Chloride 99 (98-109) mEq/L Carbon Dioxide 22 (19-29) mEq/L BUN 34 H (8-26) mg/dL Creatinine 1.34 H (0.72-1.25) mg/dL Glucose 275 H (70-99) mg/dL Calcium 9.5 (8.6-10.8) mg/dL AST 73 H (5-34) Units/L ALT 72 H (0-55) Units/L Alkaline Phosphatase 126 (38-126) Units/L Albumin 2.2 L (3.5-5.0) g/dL Calcium panel 03/02/17 Range/Units 05:53 Calcium 9.5 (8.6-10.8) mg/dL Albumin 2.2 L (3.5-5.0) g/dL Pituitary panel 03/02/17 Range/Units 05:53 Sodium 131 L (136-145) mEq/L Potassium 4.3 (3.5-4.5) mEq/L Chloride 99 (98-109) mEq/L Carbon Dioxide 22 (19-29) mEq/L BUN 34 H (8-26) mg/dL Creatinine 1.34 H (0.72-1.25) mg/dL Glucose 275 H (70-99) mg/dL Calcium 9.5 (8.6-10.8) mg/dL Adrenal panel 03/02/17 Range/Units 05:53 Sodium 131 L (136-145) mEq/L Potassium 4.3 (3.5-4.5) mEq/L Chloride 99 (98-109) mEq/L Carbon Dioxide 22 (19-29) mEq/L BUN 34 H (8-26) mg/dL Creatinine 1.34 H (0.72-1.25) mg/dL Glucose 275 H (70-99) mg/dL Calcium 9.5 (8.6-10.8) mg/dL Total Bilirubin 3.2 H D (0.2-1.2) mg/dL AST 73 H (5-34) Units/L ALT 72 H (0-55) Units/L Alkaline Phosphatase 126 (38-126) Units/L Albumin 2.2 L (3.5-5.0) g/dL Consult Discharge Plan - Plan Referrals: Dave Mayo Jr, MD [Primary Care Provider] -
[2017-03-03] MEDS: Piperacillin/Tazobactam 3.375 GM in D5% in Water (Mini-Bag+) 100 ML IVPB SCH ×3 (00:19→16:48)
[2017-03-03] MEDS: *HR* Metoprolol 5 MG/5 ML VIAL IVP PRN (03:05)
[2017-03-03] MEDS: Vancomycin 1,500 MG in D5% in Water 250 ML IVPB SCH (03:05)
[2017-03-03 04:38] LABS: Hematocrit 33.9 % (37.5-50.1); Hemoglobin 11.6 g/dL (12.9-16.9); Mean Corpuscular HGB Conc 34.2 g/dL (31.6-35.5); Mean Corpuscular Hemoglobin 31.5 pg (28.0-33.3); Mean Corpuscular Volume 92.1 fL (83.0-100.0); Platelet Count 135 K/mcL (140-400); Red Blood Count 3.68 M/mcL (4.19-5.50)
[2017-03-03 04:42] LABS: INR 1.5
[2017-03-03] MEDS ORDERED: dilTIAZem HCl 60 MG TABLET PO ONE (04:43)
[2017-03-03 04:45] LABS: Activated Partial Thrombo Time 28.1 Seconds (26.0-36.0)
[2017-03-03 04:53] LABS: Amylase 10 Units/L (25-125); Lipase 8 Units/L (8-78)
[2017-03-03 04:54] LABS: Alanine Aminotransferase 54 Units/L (0-55); Albumin 2.1 g/dL (3.5-5.0); Albumin/Globulin Ratio 0.6 (1.1-2.2); Alkaline Phosphatase 119 Units/L (38-126); Aspartate Amino Transferase 34 Units/L (5-34); BUN/Creatinine Ratio 24 (6-26); Blood Urea Nitrogen 27 mg/dL (8-26); Calcium 9.4 mg/dL (8.6-10.8); Carbon Dioxide 25 mEq/L (19-29); Chloride 99 mEq/L (98-109); Globulin 3.4 g/dL (2.4-3.5); Glucose 250 mg/dL (70-99); Osmolality,Calculated 284 (280-300); Potassium 3.9 mEq/L (3.5-4.5); Sodium 130 mEq/L (136-145); Total Protein 5.5 g/dL (6.0-8.3); eGFR For African Americans > 60 (> 60); eGFR For Non-African Americans > 60 (> 60)
[2017-03-03] MEDS ORDERED: *HR* Metoprolol 5 MG/5 ML VIAL IVP ONE ×2 (06:16→06:18)
[2017-03-03 06:41] LABS: Magnesium 1.7 mg/dL (1.6-2.6)
[2017-03-03] MEDS: Insulin LISPRO 300 UNITS/3 ML VIAL SQ SCH ×4 (07:53→21:02)
[2017-03-03] MEDS: Aspirin 81 MG TAB.CHEW PO SCH (07:54)
[2017-03-03] MEDS: amLODIPine 5 MG TABLET PO SCH (07:55)
[2017-03-03] MEDS: Nicotine 14 MG PATCH.TD24 TD SCH (07:58)
--- NOTE | 2017-03-03 10:23 | General Surgery Progress Note ---
Date of Encounter: 03/03/17 Time of Encounter: 09:05 Subjective Patient reports: no new complaints, feels better Narrative: General Surgery : progress note / consultation Brief history: 86-year-old male admitted, 02/27/17, to presenting to [facility] with worsening malaise, weakness, anorexia with poor oral intake over the prior several days leading up to his presentation. The patient was found to be dehydrated with significant elevation BUN, creatinine with diminished estimated GFR. The patient had elevated LFTs including hyperbilirubinemia. Troponins were also elevated. The patient was admitted and managed medically with reversal of the acute kidney injury and resulting improvement of BUN, creatinine, and estimated GFR. The elevated troponins were evaluated by cardiology and deemed to be related to demand ischemia related to the GRACIA, hepatobiliary disease and hypertension. A gram negative kira bacteremia was also diagnosed consistent with ascending cholangitis due to choledocholithiasis. Patient underwent ERCP with choledocholithotomy, 03/02/2017. LFTs have normalized but hyperbilirubinemia persists. Since the ERCp, the patient has felt well with no abdominal pain, N/V, fevers or chills. The patient is tolerating diet. The malaise and weakness have diminished. CT on admission which was personally reviewed and demonstrated bilateral lower lobe dependent atelectasis; normal-appearing stomach, small bowel, and colon; appendix was visualized and appeared normal; there was no identified free fluid in the abdomen or pelvis; cholelithiasis with a small nonobstructing stone noted in the distal common bile duct without associated biliary duct dilatation; possible mild diffuse gallbladder wall thickening was also described. On MRCP ( which was also personally reviewed with [facility]) the mild gallbladder wall thickening was confirmed along with mild pericholecystic edema. Multiple filling defects were evident in the distal common duct as well as multiple stones within the gallbladder. Surgical Consultation was placed along with Gastroenterology to assist in the care/management of this patient. The ERCP has been completed with choledocholithotomy as noted above. The patient tolerated the procedure well and is now awaiting cholecystectomy. Unfortunately, Apixaban , had been resumed. The anticoagulation will delay surgery until 03/04/2017. 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 Surgical history: Balloon angioplasty followed by CABG, 2000; inguinal hernia surgery in the remote past Allergies: No known drug allergies Medications: Home meds were previously enumerated Social history: Patient is , lives at home with the ally; he admits to smoking a pipe about 40 years ago; he continues to use smokeless tobacco. Patient admits to a rare alcoholic beverage, no illicit drug use On physical examination: Elderly, frail, 86-year-old male, currently in no acute distress. He still appears to be slightly jaundiced (scleral icterus) The patient is afebrile, 97.6; pulse currently 84 but has been as high as 136 early this a.m.; it is irregularly irregular. Respirations 18, BP 158/91. The patient was significantly hypertensive early this AM with recorded BP 174 /107 Lungs: Clear Cardiac: Rate irregularly irregular as noted above Abdomen: Soft, nontender; no obvious intra-abdominal masses, no rebound. Active bowel sounds. Extremities: No obvious clubbing cyanosis or edema. Current Laboratories: White count 13.3, hemoglobin 11.6, hematocrit 33.9; platelet count 135,000 (thrombocytopenia improving) Sodium 130, potassium 3.9, BUN 27, creatinine 1.13, estimated GFR greater than 60 Magnesium 1.7, total bilirubin 2.0, AST 34, ALP 54, alkaline phosphatase 119 PT/INR 16.0/1.5 Impression: 86 yo with multiple medical comorbidities referred to surgical services after presenting to the emergency department with worsening malaise, weakness, anorexia with associated dehydration, GRACIA, gram-negative bacteremia due to a ascending cholangitis due to choledocholithiasis. The choledocholithiasis has been addressed. Patient status has improved as a result. The patient is awaiting cholecystectomy. The patient is a reasonable candidate for laparoscopic cholecystectomy but understands that an open cholecystectomy may become necessary. Surgery include hemorrhage, infection, intra-abdominal abscess, bile leak, injury to adjacent ducts, vessels, organs, or bowel. Postcholecystectomy diarrhea may result. Patient is also considered at increased risk of cardiac dysrhythmia, recurrent AZ, respiratory failure, stroke and recurrent kidney failure. This is discussed in great detail with the patient and his attendant family (several family members present, including the patient 's ). The administration of Apixaban increases the risk of intra operative and post op hemorrhage. The medication has been stopped as of last evening - surgery to be delayed until AM to reduce the risk of hemorrhage but minimize the time off anticoagulation and the risk of a recurrent stroke. The patient expressed understanding and is willing to proceed with surgery in the AM. The family present also expressed understanding of the treatment plan. Consent has been obtained Objective Vital Signs - Last 8 Hours Temp Pulse Resp BP Pulse Ox 03/03/17 06:59 97.6 F 133 15 152/91 97 03/03/17 05:00 132 142/83 95 03/03/17 03:45 84 181/103 03/03/17 03:40 97.6 F 132 174/107 96 Intake and Output 03/02/17 03/03/17 03/03/17 23:59 07:59 15:59 Intake Total 120 / 120 100 / 100 250 / 250 Output Total 0 / 0 0 / 0 Balance 120 / 120 100 / 100 250 / 250 Intake: IV Fluids 100 / 100 100 / 100 250 / 250 Zosyn 3.375 GM In 100 / 100 100 / 100 Dextrose 5% (Minibag+) 100 ML 100 ML @ 25 mls/hr IVPB Q8HR [facility] Rx#: [id number] Vancocin 1,500 MG In 250 / 250 Dextrose 5% 250 ML @ 166. 667 mls/hr IVPB Q24H [facility] Rx#:[id number] Oral 20 / 20 0 / 0 Output: Urine 0 / 0 0 / 0 Other: Meal Dinner Percent of Meal Consumed 15% Stool Size Smear Stool Color Brown # Urine Diapers 1 1 # Bowel Movement Diapers 1 Weight 90.5 kg Blood Glucose* 270 248 Patient Weight 03/03/17 23:59 Weight 90.5 kg - Labs 03/03/17 04:14 03/03/17 04:14 Diabetes panel 03/03/17 Range/Units 04:14 Sodium 130 L (136-145) mEq/L Potassium 3.9 (3.5-4.5) mEq/L Chloride 99 (98-109) mEq/L Carbon Dioxide 25 (19-29) mEq/L BUN 27 H (8-26) mg/dL Creatinine 1.13 (0.72-1.25) mg/dL Glucose 250 H (70-99) mg/dL Calcium 9.4 (8.6-10.8) mg/dL AST 34 (5-34) Units/L ALT 54 (0-55) Units/L Alkaline Phosphatase 119 (38-126) Units/L Albumin 2.1 L (3.5-5.0) g/dL Calcium panel 03/03/17 Range/Units 04:14 Calcium 9.4 (8.6-10.8) mg/dL Albumin 2.1 L (3.5-5.0) g/dL Pituitary panel 03/03/17 Range/Units 04:14 Sodium 130 L (136-145) mEq/L Potassium 3.9 (3.5-4.5) mEq/L Chloride 99 (98-109) mEq/L Carbon Dioxide 25 (19-29) mEq/L BUN 27 H (8-26) mg/dL Creatinine 1.13 (0.72-1.25) mg/dL Glucose 250 H (70-99) mg/dL Calcium 9.4 (8.6-10.8) mg/dL Adrenal panel 03/03/17 Range/Units 04:14 Sodium 130 L (136-145) mEq/L Potassium 3.9 (3.5-4.5) mEq/L Chloride 99 (98-109) mEq/L Carbon Dioxide 25 (19-29) mEq/L BUN 27 H (8-26) mg/dL Creatinine 1.13 (0.72-1.25) mg/dL Glucose 250 H (70-99) mg/dL Calcium 9.4 (8.6-10.8) mg/dL Total Bilirubin 2.0 H (0.2-1.2) mg/dL AST 34 (5-34) Units/L ALT 54 (0-55) Units/L Alkaline Phosphatase 119 (38-126) Units/L Albumin 2.1 L (3.5-5.0) g/dL - VTE Documentation of Mechanical Device: Intermittent pneumatic compression device Consult Discharge Plan - Plan Referrals: Dave Mayo Jr, MD [Primary Care Provider] -
[2017-03-03] MEDS: D5% in 0.9% NACL 1,000 ML IVC SCH (10:30)
[2017-03-03] MEDS ORDERED: Aminoglycoside Consult 1 EACH MC ONE (12:00)
--- NOTE | 2017-03-03 12:28 | Internal Med Progress Note ---
Date of Encounter: 03/03/17 Time of Encounter: 12:17 - Assessment and plan (1) Sepsis Current Visit: Yes Status: Acute Assessment and plan: Due to Enterobacter cloacae bacteremia IVF IV antibiotics: Vancomycin, Zosyn, Levaquin ERCP yesterday with complete removal of stones via biliary sphincterotomy and balloon extraction, also temporary stent placed in common bile duct. GI recommend cholecystectomy (per Dr. Tobin) and repeat ERCP in 6-8 weeks for stent removal. 03/03/2017 Day 4: Zosyn/levofloxacin Status post ERCP with stent placement. Vancomycin stopped today in view of absence of gram-positive organisms in the blood. Enterobacter cloaca bacteremia: Likely source gallbladder. Noted that patient is scheduled for surgery tomorrow. Qualifiers: Sepsis type: sepsis due to unspecified organism Qualified Code(s): A41.9 - Sepsis, unspecified organism (2) Atrial fibrillation and flutter Current Visit: Yes Status: Acute Assessment and plan: Reconsults with cardiology for further recommendations (3) Bacteremia due to Enterobacter species Current Visit: Yes Status: Acute Assessment and plan: Blood cultures positive for Enterobacter cloacae (4) Hypertension Current Visit: Yes Status: Chronic Assessment and plan: Continue home Lopressor and Norvasc PRN IV Lopressor DVT prophylaxis: EPCD. Medical decision making: This patient has a moderate to severe risk of worsening in spite of being on appropriate treatment due to underlying multiple comorbidities. Qualifiers: Hypertension type: essential hypertension Qualified Code(s): I10 - Essential (primary) hypertension - Subjective Interval history: Patient seen and examined. Chart reviewed. The gentleman denies any abdominal pain, nausea, vomiting, dizziness or diarrhea - Constitutional Vitals: Temp Pulse Resp BP Pulse Ox 97.6 F 89 15 150/76 99 03/03/17 11:22 03/03/17 11:22 03/03/17 11:22 03/03/17 11:22 03/03/17 11:22 General appearance: Present: cooperative, mild distress, answers questions appropriately - Head Head exam: Present: atraumatic, normocephalic - Eye Eye exam: Present: PERRL, conjuntiva pink, sclera anicteric Pupils: Present: PERRL - Neck Neck exam general surgery: Present: supple, trachea midline. Absent: lymphadenopathy - Respiratory Respiratory exam: Present: CTAB. Absent: accessory muscle use, rales, rhonchi, wheezes - Cardiovascular Cardiovascular exam: Present: RRR, +S1, +S2. Absent: diastolic murmur, gallop, rubs, systolic murmur - GI/Abdominal GI/Abdominal exam: Present: normal bowel sounds, soft, no peritoneal signs. Absent: distended, tenderness - Extremities Exam Extremities exam: Present: warm, radial pulses palpable and symetrical. Absent : calf tenderness, cyanotic, pedal edema - Neurological Exam Neurological exam: Present: CN II-XII intact, oriented X3, no focal deficits. Absent: pronater drift, facial droop, speech deficit - Skin Skin exam: Present: dry, intact Internal Medicine: Result - Labs CBC & Chem 7: 03/03/17 04:14 03/03/17 04:14 Labs: Short CBC 03/03/17 Range/Units 04:14 WBC 13.3 H (4.3-11.1) K/mcL Hgb 11.6 L (12.9-16.9) g/dL Hct 33.9 L (37.5-50.1) % Plt Count 135 L (140-400) K/mcL BMP 03/03/17 04:14 Sodium 130 L Potassium 3.9 Chloride 99 Carbon Dioxide 25 BUN 27 H Creatinine 1.13 Glucose 250 H Calcium 9.4 Liver Function 03/03/17 Range/Units 04:14 Total Bilirubin 2.0 H (0.2-1.2) mg/dL AST 34 (5-34) Units/L ALT 54 (0-55) Units/L Alkaline Phosphatase 119 (38-126) Units/L Albumin 2.1 L (3.5-5.0) g/dL - ABG Interpretation ABG results: PT/INR, D-dimer PT 16.0 Seconds (9.4-12.1) H 03/03/17 04:14 - VTE Documentation of Mechanical Device: Intermittent pneumatic compression device Consult Discharge Plan - Plan Referrals: Dave Mayo Jr, MD [Primary Care Provider] -
--- NOTE | 2017-03-03 14:18 | Cardiology Progress Note ---
Date of Encounter: 03/03/17 Time of Encounter: 14:20 Assessment and Plan (1) Sepsis Current Visit: Yes Status: Acute Per Cardiology: Management per primary service. Has Enterobacter cloacae bacteremia-- ERCP yesterday with "complete removal of stones via biliary sphincterotomy and balloon extraction, also temporary stent placed in common bile duct. GI recommend cholecystectomy (per Dr. Tobin) and repeat ERCP in 6-8 weeks for stent removal". On Zosyn/levofloxacin. Pending surgery tomorrow. Qualifiers: Sepsis type: sepsis due to unspecified organism Qualified Code(s): A41.9 - Sepsis, unspecified organism (2) Atrial flutter, paroxysmal Current Visit: Yes Status: Chronic Per cardiology: Seen by Cardiology during stay-- re-consulted for aflutter with rvr. Known history of atrial flutter. states has had atrial flutter on and off since CABG. Upon review of records, it appears patient has not received his by mouth beta noreen intermittently the past few days. Per discussion with family, it appears due to patient not taking by mouth due to procedures and mental status changes. Currently rate controlled in the 90s with average heart rate the past 4 hours 89. Will increase Lopressor to 75 mg by mouth twice a day. Current systolic blood pressures in the 150s to 160s. Recommend titrate beta noreen to optimize heart rate and blood pressure control. Highly recommend if patient not taking by mouth BB to utilize IV beta noreen or possibly IV Cardizem drip if warranted. Anticipate may have recurrent A. fib flutter with RVR with pending surgery and interruption in medical regimen. Regarding long-term AC-- previous records reviewed: "Discussed with regarding long-term anticoagulation. Patient had [id number] score of 7 (age, HTN, CVA, DM, and vascular disease). 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 Plan is for patient to go to nursing facility after discharge. Explained to of increased risk of stroke with atrial fibrillation while off anticoagulation. also educated on increased risk of bleeding while on anticoagulation. At this point, wishes to continue with home dose eliquis, especially since patient will being going to nursing facility and will have 24 hour monitoring. Eliquis restarted." and family agreeable to hold anticoagulation for now and aware of increased stroke risk. They prefer to resume postoperatively. (3) CAD (coronary artery disease), jamul coronary artery Current Visit: Yes Status: Chronic Per cardiology: Patient follows with Dr. Andre. Last seen in office 05/2016. Known CAD with CABG x 3 vessels 2000. Balloon angioplasty prior to CABG. On asa, statin, beta noreen. Denies current chest pain. Echocardiogram 06/2016 with LVEF 60%, mild concentric left ventricular hypertrophy, indeterminate diastolic function, moderately dilated left atrium, mild MR, mild TR, no pulmonary hypertension, all wall segments with normal motion. On statin, asa, and BB. Qualifiers: [place] vs. transplanted heart: jamul heart Associated angina: angina presence unspecified Qualified Code(s): I25.10 - Atherosclerotic heart disease of jamul coronary artery without angina pectoris Discussion w patient/family: The assessment and plan as outlined above was discussed with the patient and/or family members who expressed understanding and agreement. All questions were answered. Thank you for involving us in the care of your patient. Please call with any questions. Palliative care following, patient is DNR/CCA/DNI. Discussed and reviewed with Dr. Glynn. Subjective Principal diagnosis: a-flutter Interval history: Cardiology asked to reevaluate patient for recurrent a flutter with RVR. Patient seen with family at bedside. Majority of history obtained from and sons. The report recurrent atrial flutter with RVR yesterday. The report he missed some pills over the past day or 2 due to procedures and patient mental status change with not taking medicines. They report he underwent ERCP yesterday with pending gallbladder removal tomorrow. They indicate anticoagulation currently on hold. Patient denies any chest pain, short of breath, palpitations. Currently alert and oriented 3. Rate controlled atrial flutter in the 80s to 90s on telemetry currently. Objective Vital Signs, Last 4 Hours Temp Pulse Resp BP Pulse Ox 03/03/17 11:22 97.6 F 89 15 150/76 99 General: Conversant, No Apparent Distress HEENT: Atraumatic, Normocephaly Cardiac: Reg Rate and Rhythm, Normal S1 and S2, No Murmur Lungs: Normal Breath Sounds, No Wheeze, Rales, Rhonchi Extremities: No Edema Results 03/03/17 04:14 03/03/17 04:14 Lab Results Laboratory Tests 03/03/17 03/03/17 04:14 04:14 INR 1.5 Potassium 3.9 Magnesium 1.7 ITS Impressions Chest X-Ray 02/26/17 22:45 IMPRESSION: No acute cardiopulmonary abnormality. D/ / Vadim Jackson MD / Vadim Jackson MD Interpreting Provider: Vadim Jackson MD Chest CT 02/27/17 08:30 IMPRESSION: 1. No acute intrathoracic abnormality. 2. Atherosclerosis. 3. Cholelithiasis. D/ / 02/27/2017 09:26:06 Oscar Delarosa MD / rod Interpreting Provider: Oscar Delarosa MD Hip X-Ray 02/27/17 16:05 IMPRESSION: Diffuse bony mineralization, which slightly limits evaluation for subtle fractures. Otherwise no definite acute fracture or subluxation. D/ / Juni Mcmahon MD / Juni Mcmahon MD Interpreting Provider: Juni Mcmahon MD Head CT 02/27/17 23:50 IMPRESSION: No acute intracranial abnormality. D/ / Bess Solorzano MD / Bess Solorzano MD Interpreting Provider: Bess Solorzano MD Chest X-Ray 02/28/17 09:56 IMPRESSION: 1. Low lung volumes without focal consolidations. D/ / 02/28/2017 13:41:09 Kaykay Barber MD / swati Interpreting Provider: Kaykay Barber MD Soft Tissue Neck CT 02/28/17 17:28 IMPRESSION: No acute abnormality of the soft tissue structures of the neck. Extensive atherosclerotic disease. D/ / Debbie Magana MD / Debbie Magana MD Interpreting Provider: Debbie Magana MD Abdomen/Pelvis CT 02/28/17 17:29 IMPRESSION: 1. Cholelithiasis. Small, nonobstructing stone is noted in the distal common bile duct. No biliary duct dilatation. There is possible mild, diffuse gallbladder wall thickening. If there are clinical symptoms of acute cholecystitis, consider right upper quadrant ultrasound for further evaluation. 2. No acute inflammatory process in the chest. D/ / 02/28/2017 19:53:43 Belkis Blanco MD / swati Interpreting Provider: Belkis Blanco MD Chest CT 02/28/17 17:29 IMPRESSION: 1. Cholelithiasis. Small, nonobstructing stone is noted in the distal common bile duct. No biliary duct dilatation. There is possible mild, diffuse gallbladder wall thickening. If there are clinical symptoms of acute cholecystitis, consider right upper quadrant ultrasound for further evaluation. 2. No acute inflammatory process in the chest. D/ / 02/28/2017 19:53:43 Belkis Blanco MD / swati Interpreting Provider: Belkis Blanco MD Abdomen MRI 03/01/17 10:20 IMPRESSION: 1. Choledocholithiasis without significant biliary ductal dilatation. 2. Cholelithiasis with mild gallbladder wall thickening and mild pericholecystic edema. If there is concern for acute cholecystitis, suggest HIDA scan for further evaluation. 3. Small cystic lesions scattered throughout the pancreas measuring up to 6 mm are nonspecific but could relate to side-branch IPMNs, cysts, and/or sequelae of prior pancreatitis. Consider follow-up MRI in 1 year. Findings were discussed with Dr. Tobin at 5 p.m. on 03/01/2017. D/ / Leonardo Sam MD / Leonardo Sam MD Interpreting Provider: Leonardo Sam MD Head CT 03/01/17 17:15 IMPRESSION: No acute intracranial abnormality. No significant change compared to prior CT. D/ / Juni Mcmahon MD / Juni Mcmahon MD Interpreting Provider: Juni Mcmahon MD Cath/Invasive Procedure 03/01/17 21:35 IMPRESSION: Intraprocedural fluoroscopic spot images as above. See separate procedure report for more information. D/ / Brad Ng MD / Brad Ng MD Interpreting Provider: Brad Ng MD Intake & Output 02/28/17 03/01/17 03/02/17 03/03/17 23:59 23:59 23:59 23:59 Intake Total 1990.1 / 1990.1 300 / 300 720 / 720 1640 / 1640 Output Total 250 / 250 0 / 0 0 / 0 0 / 0 Balance 1741.1 / 1741.1 300 / 300 720 / 720 1640 / 1640 Weight 89.3 kg 90.2 kg 90.5 kg Active Medications Acetaminophen (Tylenol) 650 mg PO Q6HR PRN PRN Reason: Mild Pain (1-3) OR FEVER Stop: 08/29/17 04:58 Last Admin: 03/01/17 07:02 Dose: 650 mg Amlodipine Besylate (Norvasc) 5 mg PO DAILY [facility] PRN Reason: Protocol Stop: 08/29/17 16:16 Last Admin: 03/03/17 07:55 Dose: 5 mg Aspirin (Aspirin) 81 mg PO DAILY [facility] Stop: 08/29/17 09:01 Last Admin: 03/03/17 07:54 Dose: 81 mg Dextrose/Water (Dextrose 50% (Syg)) 25 ml IVP AD PRN PRN Reason: Hypoglycemia Stop: 08/29/17 04:58 Docusate Sodium (Colace) 100 mg PO BID PRN PRN Reason: Constipation Stop: 08/29/17 04:58 Last Admin: 03/01/17 07:52 Dose: 100 mg Glucagon (Glucagen) 1 mg IM ONCE PRN PRN Reason: Hypoglycemia Stop: 08/29/17 04:58 Glucose (Gluctose) 15 gm PO ONCE PRN PRN Reason: Hypoglycemia Stop: 08/29/17 04:58 Glucose (Gluctose) 30 gm PO ONCE PRN PRN Reason: Hypoglycemia Stop: 08/29/17 04:58 Hydralazine HCl (Hydralazine) 10 mg IVP Q6HR PRN PRN Reason: Hypertension Stop: 09/02/17 03:53 Last Admin: 03/03/17 04:07 Dose: 10 mg Dextrose (Dextrose 5%) 1,000 mls @ 100 mls/hr IVC .Q10H PRN PRN Reason: HYPOGLYCEMIA Stop: 08/29/17 04:58 Piperacillin Sod/Tazobactam (Sod 3.375 gm/ Dextrose) 100 mls @ 25 mls/hr IVPB Q8HR [facility] Stop: 08/30/17 01:07 Last Admin: 03/03/17 07:53 Dose: 25 mls/hr Dextrose/Sodium Chloride (D5% And 0.9% Nacl 1000 Ml) 1,000 mls @ 70 mls/hr IVC .[id number] [facility] Stop: 08/31/17 11:31 Last Admin: 03/03/17 10:30 Dose: 70 mls/hr Levofloxacin/Dextrose (Levaquin Premix 750mg/150 Ml) 750 mg in 150 mls @ 100 mls/hr IVPB Q48H [facility] PRN Reason: Protocol Stop: 09/03/17 20:01 Insulin Detemir (Levemir) 12 unit 0.15 unit/kg (12 unit) SQ HS [facility] Stop: 08/29/17 21:01 Last Admin: 03/02/17 20:49 Dose: 12 unit Insulin Human Lispro (Humalog) 0 units SQ TIDAC [facility] PRN Reason: Protocol Stop: 08/29/17 07:31 Last Admin: 03/03/17 11:36 Dose: 8 units Insulin Human Lispro (Humalog) 0 units SQ HS [facility] PRN Reason: Protocol Stop: 08/29/17 21:01 Last Admin: 03/02/17 20:49 Dose: 5 units Lorazepam (Ativan) 0.5 mg PO Q4HR PRN PRN Reason: Anxiety Stop: 08/29/17 23:16 Metoprolol Tartrate (Lopressor) 50 mg PO BID [facility] Stop: 08/29/17 21:01 Last Admin: 03/03/17 07:54 Dose: 50 mg Metoprolol Tartrate (Lopressor) 5 mg IVP Q6HR PRN PRN Reason: SBP >160 or HR >100 Stop: 08/29/17 04:58 Last Admin: 03/03/17 03:05 Dose: 5 mg Morphine Sulfate (Morphine Sulfate) 2 mg IVP Q4HR PRN PRN Reason: Severe Pain (7-10) Stop: 08/29/17 04:58 Last Admin: 02/28/17 17:35 Dose: 2 mg Naloxone HCl (Narcan) 0.4 mg IVP Q2MIN PRN PRN Reason: Opioid Reversal Stop: 08/29/17 04:58 Nicotine (Nicoderm) 14 mg TD DAILY [facility] PRN Reason: Protocol Stop: 08/30/17 11:46 Last Admin: 03/03/17 07:58 Dose: 14 mg Nitroglycerin (Nitroglycerin) 0.4 mg SL Q5MIN PRN PRN Reason: Chest Pain Stop: 08/29/17 04:58 Omeprazole (Prilosec) 40 mg PO DAILY@0630 [facility] PRN Reason: Protocol Stop: 08/29/17 06:31 Last Admin: 03/03/17 04:54 Dose: 40 mg Ondansetron HCl (Zofran) 4 mg IVP Q8HR PRN PRN Reason: Nausea And Vomiting Stop: 08/29/17 04:58 Last Admin: 03/01/17 09:03 Dose: 4 mg Oxycodone HCl (Roxicodone) 5 mg PO Q6HR PRN PRN Reason: Moderate Pain (4-6) Stop: 08/29/17 04:58 Simvastatin (Zocor) 40 mg PO HS [facility] Stop: 08/29/17 21:01 Last Admin: 03/02/17 20:08 Dose: 40 mg - EKG Interpretation EKG results cardiology: other (Telemetry reviewed and shows atrial flutter, average heart rate the past 4 hours 89. Appears to be atrial flutter in the 90s currently.) - VTE Documentation of Mechanical Device: Intermittent pneumatic compression device Consult Discharge Plan - Plan Referrals: Dave Mayo Jr, MD [Primary Care Provider] -
[2017-03-03] MEDS: Insulin DETEMIR 100 UNIT/ML X5UNITS SQ SCH (21:01)
[2017-03-04] MEDS: Piperacillin/Tazobactam 3.375 GM in D5% in Water (Mini-Bag+) 100 ML IVPB SCH ×3 (00:03→17:10)
[2017-03-04] MEDS: D5% in 0.9% NACL 1,000 ML IVC SCH (01:42)
[2017-03-04 03:45] LABS: Hematocrit 33.7 % (37.5-50.1); Hemoglobin 11.4 g/dL (12.9-16.9); Mean Corpuscular HGB Conc 33.8 g/dL (31.6-35.5); Mean Corpuscular Hemoglobin 31.1 pg (28.0-33.3); Mean Corpuscular Volume 91.8 fL (83.0-100.0); Mean Platelet Volume 10.4 fL (9.4-12.4); Platelet Count 140 K/mcL (140-400); Red Blood Count 3.67 M/mcL (4.19-5.50); Red Cell Distribution Width 13.9 % (11.5-14.5)
[2017-03-04 03:53] LABS: INR 1.3; Prothrombin Time 14.3 Seconds (9.4-12.1)
[2017-03-04 03:55] LABS: Activated Partial Thrombo Time 28.2 Seconds (26.0-36.0)
[2017-03-04 03:58] LABS: Alanine Aminotransferase 84 Units/L (0-55); Albumin/Globulin Ratio 0.6 (1.1-2.2); Alkaline Phosphatase 193 Units/L (38-126); Aspartate Amino Transferase 75 Units/L (5-34); BUN/Creatinine Ratio 21 (6-26); Bilirubin,Total 2.9 mg/dL (0.2-1.2); Blood Urea Nitrogen 18 mg/dL (8-26); Calcium 9.4 mg/dL (8.6-10.8); Carbon Dioxide 27 mEq/L (19-29); Chloride 104 mEq/L (98-109); Globulin 3.2 g/dL (2.4-3.5); Glucose 134 mg/dL (70-99); Osmolality,Calculated 284 (280-300); Potassium 3.9 mEq/L (3.5-4.5); Sodium 135 mEq/L (136-145); Total Protein 5.2 g/dL (6.0-8.3); eGFR For African Americans > 60 (> 60); eGFR For Non-African Americans > 60 (> 60)
[2017-03-04 03:59] LABS: Albumin/Globulin Ratio 0.6 (1.1-2.2); Bilirubin,Direct 2.1 mg/dL (0.0-0.5); Bilirubin,Indirect 0.8 mg/dL (0.0-1.2); Bilirubin,Total 2.9 mg/dL (0.2-1.2); Globulin 3.1 g/dL (2.4-3.5); Total Protein 5.1 g/dL (6.0-8.3)
[2017-03-04] MEDS ORDERED: *HR* Propofol 200 MG/20 ML VIAL IVP ONE (07:16)
[2017-03-04] MEDS ORDERED: *HR* FentaNYL (PF) 100 MCG/2 ML VIAL ONE (07:16)
[2017-03-04] MEDS ORDERED: *HR* Succinylcholine 200 MG/10 ML VIAL IVP ONE (07:17)
[2017-03-04] MEDS ORDERED: Dexamethasone 4 MG/ML VIAL ONE (07:17)
[2017-03-04] MEDS ORDERED: Ondansetron 4 MG/2 ML VIAL ONE (07:17)
[2017-03-04] MEDS ORDERED: *HR* Phenylephrine 10 MG/ML VIAL ONE (07:17)
[2017-03-04] MEDS ORDERED: Lidocaine -MPF 2% 2 ML VIAL ONE (07:17)
[2017-03-04] MEDS ORDERED: *HR* Rocuronium Bromide 50 MG/5 ML VIAL ONE (07:17)
[2017-03-04] MEDS ORDERED: Neostigmine Methylsulfate 3 MG/3 ML SYRINGE ONE (07:17)
[2017-03-04] MEDS ORDERED: Bupivacaine/EPI 1:200k 0.25%PF 30 ML VIAL ONE (07:27)
[2017-03-04] MEDS: *HR* Metoprolol 5 MG/5 ML VIAL IVP PRN ×4 (07:27→14:31)
--- NOTE | 2017-03-04 07:35 | Anesthesia Evaluation PreOp ---
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: CVA (residual right sided weakness) Other Medical History: Diabetes Type II, GERD Anesthesia History: No Prior Anesthetic Complications, Past Anesthesia Alcohol Use: none, unknown Drug use: none Medications and Allergies Amlodipine [Norvasc] 5 mg PO DAILY 02/27/17 [History] Apixaban [Eliquis] 2.5 mg PO BID 02/27/17 [History] Cyanocobalamin (B-12) [Vitamin B12] 1,000 mcg SQ Q14D MDD fridays02/27/17 [ History] Furosemide [Lasix] 40 mg PO DAILY PRN 02/27/17 [History] Metformin [Glucophage] 1,000 mg PO BIDWM 02/27/17 [History] Metoprolol [Lopressor] 50 mg PO BID 02/27/17 [History] Multivit-Min/FA/Lycopen/Lutein [Centrum Silver Men Tablet] 1 each PO DAILY 02/27 [History] Niacin [Niacor] 500 mg PO DAILY 02/27/17 [History] Omeprazole [PriLOSEC] 40 mg PO DAILY 02/27/17 [History] Oxybutynin [Ditropan] 5 mg PO BID 02/27/17 [History] Vitamin E Acid Succinate [Vitamin E] 400 units PO DAILY 02/27/17 [History] Allergies No Known Allergies Allergy (Verified 02/26/17 22:36) - Meds/Allergy Pre-op Review Medications Reviewed: Yes Allergies Reviewed: Yes Beta Blockers on Current Med List: Yes If Beta Blockers taken, Date/Time (Last Dose taken): 03/04/2017 at 0727 Anesthesia Results - Labs 03/04/17 03:20 03/04/17 03:20 Laboratory Tests 03/04/17 03:20 PT 14.3 H INR 1.3 APTT 28.2 - Imaging EKG: report reviewed (03/02/2017 A-Flutter/Tachycardia with RVR, NSST abnormality) Additional studies: 02/27/2017 Echo LVEF 55% mild concentric LVH indeterminate diastolic function atypical septal motion c/w post-operative status no significant valvular dysfunction Anesthesia Exam Vital Signs/O2 Sat/Glucose, Most Recent Temp Pulse Resp BP Pulse Ox 99.0 F 93 15 173/97 97 03/04/17 07:00 03/04/17 07:00 03/04/17 07:00 03/04/17 07:00 03/04/17 07:00 Blood Glucose* 118 Height: 5'11''/1.8 m Weight: 203 lbs/92.1 kg NPO (# of Hours): 8 Pain Scale: 0 - HEENT Pupil (Motor): EOMI Mallampati: II Teeth: Edentulous Denture Type: Upper: Complete, Lower: Complete Oral Opening: Greater than 3 - RESEARCH ADMINISTRATOR LOC: Oriented RESEARCH ADMINISTRATOR Motor: Normal LUE, Normal LLE, Normal Face, Deficit RUE, Deficit RLE RESEARCH ADMINISTRATOR Sensory: Normal: RUE, LUE, RLE, LLE, Face - Cardiac Rhythm: Regular Murmur: None - Pulmonary Breath Sounds: bilateral Clear Respiratory Effort: Symmetrical Anesthesia Assess/Plan ASA Score: 4 Modified Coral Scale for Level of Consciousness: Cooperative, oriented, and tranquil Anesthetic Plan: General, Precautions (Patient and understand that he is at increased risk for perioperative complications including myocardial infarct, arrhythmias, CVA, post op vent support/ICU stay, and . Patient and wish to proceed.) Monitoring Plan: Standard Monitors Recovery Plan: PACU
[2017-03-04] MEDS ORDERED: *HR* Morphine 2 MG/ML SYRINGE IVP PRN (07:58)
--- NOTE | 2017-03-04 08:41 | Internal Med Progress Note ---
Date of Encounter: 03/04/17 Time of Encounter: 07:15 - Assessment and plan (1) Sepsis Current Visit: Yes Status: Acute Assessment and plan: Due to Enterobacter cloacae bacteremia IVF IV antibiotics: Vancomycin, Zosyn, Levaquin ERCP yesterday with complete removal of stones via biliary sphincterotomy and balloon extraction, also temporary stent placed in common bile duct. GI recommend cholecystectomy (per Dr. Tobni) and repeat ERCP in 6-8 weeks for stent removal. 03/03/2017 Day 4: Zosyn/levofloxacin Status post ERCP with stent placement. Vancomycin stopped today in view of absence of gram-positive organisms in the blood. Enterobacter cloaca bacteremia: Likely source gallbladder. Noted that patient is scheduled for surgery tomorrow. 03/04/2017 Day 5 : Zosyn/Levofloxacin Status post ERCP with stent placement. Noted that patient does not have any abdominal tenderness. Patient has worsening bilirubin and transaminitis. Patient is scheduled for surgery today. We will monitor closely after the surgery. Patient is stated intravenous metoprolol before going to surgery. We will try to get by mouth medications appropriately after surgery Qualifiers: Sepsis type: sepsis due to unspecified organism Qualified Code(s): A41.9 - Sepsis, unspecified organism (2) Atrial fibrillation and flutter Current Visit: Yes Status: Acute Assessment and plan: Reconsults with cardiology for further recommendations (3) Bacteremia due to Enterobacter species Current Visit: Yes Status: Acute Assessment and plan: Blood cultures positive for Enterobacter cloacae (4) Hypertension Current Visit: Yes Status: Chronic Assessment and plan: Continue home Lopressor and Norvasc PRN IV Lopressor DVT prophylaxis: EPCD. Medical decision making: This patient has a moderate to severe risk of worsening in spite of being on appropriate treatment due to underlying multiple comorbidities. Qualifiers: Hypertension type: essential hypertension Qualified Code(s): I10 - Essential (primary) hypertension - Subjective Interval history: Patient seen and examined. Chart reviewed. The gentleman denies any abdominal pain, nausea, vomiting, dizziness or diarrhea 03/04/2017 Seen and examined. Chart reviewed. Patient denies chest pain, shortness of breath, abdominal pain, nausea or vomiting. Noted that patient is getting ready to go for surgery. - Constitutional Vitals: Temp Pulse Resp BP Pulse Ox 99.0 F 93 15 173/97 97 03/04/17 07:00 03/04/17 07:00 03/04/17 07:00 03/04/17 07:00 03/04/17 07:00 General appearance: Present: cooperative, mild distress, answers questions appropriately - Head Head exam: Present: atraumatic, normocephalic - Eye Eye exam: Present: PERRL, conjuntiva pink, sclera anicteric Pupils: Present: PERRL - Neck Neck exam general surgery: Present: supple, trachea midline. Absent: lymphadenopathy - Respiratory Respiratory exam: Present: CTAB. Absent: accessory muscle use, rales, rhonchi, wheezes - Cardiovascular Cardiovascular exam: Present: RRR, +S1, +S2. Absent: diastolic murmur, gallop, rubs, systolic murmur - GI/Abdominal GI/Abdominal exam: Present: normal bowel sounds, soft, no peritoneal signs. Absent: distended, tenderness - Extremities Exam Extremities exam: Present: warm, radial pulses palpable and symetrical. Absent : calf tenderness, cyanotic, pedal edema - Neurological Exam Neurological exam: Present: CN II-XII intact, oriented X3, no focal deficits. Absent: pronater drift, facial droop, speech deficit - Skin Skin exam: Present: dry, intact Internal Medicine: Result - Labs CBC & Chem 7: 03/04/17 03:20 03/04/17 03:20 Labs: Short CBC 03/04/17 Range/Units 03:20 WBC 10.1 (4.3-11.1) K/mcL Hgb 11.4 L (12.9-16.9) g/dL Hct 33.7 L (37.5-50.1) % Plt Count 140 (140-400) K/mcL BMP 03/04/17 03:20 Sodium 135 L Potassium 3.9 Chloride 104 Carbon Dioxide 27 BUN 18 Creatinine 0.86 Glucose 134 H Calcium 9.4 Liver Function 03/04/17 03/04/17 Range/Units 03:20 03:20 Total Bilirubin 2.9 H 2.9 H (0.2-1.2) mg/dL Direct Bilirubin 2.1 H (0.0-0.5) mg/dL AST 76 H 75 H (5-34) Units/L ALT 85 H 84 H (0-55) Units/L Alkaline Phosphatase 193 H 193 H (38-126) Units/L Albumin 2.0 L 2.0 L (3.5-5.0) g/dL - ABG Interpretation ABG results: PT/INR, D-dimer PT 14.3 Seconds (9.4-12.1) H 03/04/17 03:20 - VTE Documentation of Mechanical Device: Intermittent pneumatic compression device Consult Discharge Plan - Plan Referrals: Dave Mayo Jr, MD [Primary Care Provider] -
--- NOTE | 2017-03-04 09:01 | Cardiology Progress Note ---
Date of Encounter: 03/04/17 Time of Encounter: 06:50 Assessment and Plan (1) Sepsis Current Visit: Yes Status: Acute Per Cardiology: Management per primary service. Has Enterobacter cloacae bacteremia-- ERCP "complete removal of stones via biliary sphincterotomy and balloon extraction, also temporary stent placed in common bile duct. GI recommend cholecystectomy ( per Dr. Tobin) and repeat ERCP in 6-8 weeks for stent removal". On Zosyn/ levofloxacin. For surgery today. Qualifiers: Sepsis type: sepsis due to unspecified organism Qualified Code(s): A41.9 - Sepsis, unspecified organism (2) Atrial flutter, paroxysmal Current Visit: Yes Status: Chronic Per cardiology: Seen by Cardiology during stay-- re-consulted for aflutter with rvr. Known history of atrial flutter. states has had atrial flutter on and off since CABG. Upon review of records, it appears patient has not received his by mouth beta noreen intermittently the past few days. Per discussion with family, it appears due to patient not taking by mouth due to procedures and mental status changes. Currently rate controlled in the 90s with average heart rate the past 12 hrs 91, aflutter. On Lopressor to 75 mg by mouth twice a day. PO meds on hold for surgery-- IV Lopressor 5mg given this am (SBP 170's). Recommend titrate beta noreen to optimize heart rate and blood pressure control. Highly recommend if patient not taking by mouth BB to utilize IV beta noreen or possibly IV Cardizem drip if warranted. Anticipate may have recurrent A. fib flutter with RVR with pending surgery and interruption in medical regimen. Will continue to monitor rate control after surgery, resume PO meds when able. Regarding emt intermediate AC-- previous records reviewed: "Discussed with regarding emt intermediate anticoagulation. Patient had [id number] score of 7 (age, HTN, CVA, DM, and vascular disease). Ideally would continue jail anticoagulation, however patient has been falling. Plan is for patient to go to nursing facility after discharge. Explained to of increased risk of stroke with atrial fibrillation while off anticoagulation. also educated on increased risk of bleeding while on anticoagulation. At this point, wishes to continue with home dose eliquis, especially since patient will being going to nursing facility and will have 24 hour monitoring. Eliquis restarted." and family agreeable to hold anticoagulation for now and aware of increased stroke risk. They prefer to resume postoperatively. (3) CAD (coronary artery disease), [place] coronary artery Current Visit: Yes Status: Chronic Per cardiology: Patient follows with Dr. Andre. Last seen in office 05/2016. Known CAD with CABG x 3 vessels 2000. Balloon angioplasty prior to CABG. On asa, statin, beta noreen. Denies current chest pain. Echocardiogram 06/2016 with LVEF 60%, mild concentric left ventricular hypertrophy, indeterminate diastolic function, moderately dilated left atrium, mild MR, mild TR, no pulmonary hypertension, all wall segments with normal motion. On statin, asa, and BB. Qualifiers: [place] vs. transplanted heart: [place] heart Associated angina: angina presence unspecified Qualified Code(s): I25.10 - Atherosclerotic heart disease of [place] coronary artery without angina pectoris Discussion w patient/family: The assessment and plan as outlined above was discussed with the patient and/or family members who expressed understanding and agreement. All questions were answered. Thank you for involving us in the care of your patient. Please call with any questions. Palliative care following, patient is DNR/CCA/DNI. Discussed and reviewed with Dr. Glynn. Subjective Principal diagnosis: a-flutter Interval history: Patient seen with family at bedside. Patient prepping for OR. Patient denies any chest pain, short of breath, palpitations. Currently alert and oriented 3. Rate controlled atrial flutter in the 80s to 90s on telemetry currently. Objective Vital Signs, Last 4 Hours Temp Pulse Resp BP Pulse Ox 03/04/17 07:00 99.0 F 93 15 173/97 97 General: Conversant, No Apparent Distress Cardiac: No Murmur, Other (irregularly irregular) Lungs: Normal Breath Sounds, No Wheeze, Rales, Rhonchi Results 03/04/17 03:20 03/04/17 03:20 Lab Results Laboratory Tests 03/04/17 03:20 Hgb 11.4 L Hct 33.7 L Active Medications Acetaminophen (Tylenol) 650 mg PO Q6HR PRN PRN Reason: Mild Pain (1-3) OR FEVER Stop: 08/29/17 04:58 Last Admin: 03/01/17 07:02 Dose: 650 mg Amlodipine Besylate (Norvasc) 5 mg PO DAILY RODRIGUEZ PRN Reason: Protocol Stop: 08/29/17 16:16 Last Admin: 03/03/17 07:55 Dose: 5 mg Aspirin (Aspirin) 81 mg PO DAILY [facility] Stop: 08/29/17 09:01 Last Admin: 03/03/17 07:54 Dose: 81 mg Dextrose/Water (Dextrose 50% (Syg)) 25 ml IVP AD PRN PRN Reason: Hypoglycemia Stop: 08/29/17 04:58 Docusate Sodium (Colace) 100 mg PO BID PRN PRN Reason: Constipation Stop: 08/29/17 04:58 Last Admin: 03/01/17 07:52 Dose: 100 mg Glucagon (Glucagen) 1 mg IM ONCE PRN PRN Reason: Hypoglycemia Stop: 08/29/17 04:58 Glucose (Gluctose) 15 gm PO ONCE PRN PRN Reason: Hypoglycemia Stop: 08/29/17 04:58 Glucose (Gluctose) 30 gm PO ONCE PRN PRN Reason: Hypoglycemia Stop: 08/29/17 04:58 Dextrose (Dextrose 5%) 1,000 mls @ 100 mls/hr IVC .Q10H PRN PRN Reason: HYPOGLYCEMIA Stop: 08/29/17 04:58 Piperacillin Sod/Tazobactam (Sod 3.375 gm/ Dextrose) 100 mls @ 25 mls/hr IVPB Q8HR [facility] Stop: 08/30/17 01:07 Last Infusion: 03/04/17 08:33 Dose: Infused Dextrose/Sodium Chloride (D5% And 0.9% Nacl 1000 Ml) 1,000 mls @ 70 mls/hr IVC .[id number] [facility] Stop: 08/31/17 11:31 Last Admin: 03/04/17 01:42 Dose: 70 mls/hr Levofloxacin/Dextrose (Levaquin Premix 750mg/150 Ml) 750 mg in 150 mls @ 100 mls/hr IVPB Q48H [facility] PRN Reason: Protocol Stop: 09/03/17 20:01 Insulin Detemir (Levemir) 12 unit 0.15 unit/kg (12 unit) SQ HS [facility] Stop: 08/29/17 21:01 Last Admin: 03/03/17 21:01 Dose: 12 unit Insulin Human Lispro (Humalog) 0 units SQ TIDAC [facility] PRN Reason: Protocol Stop: 08/29/17 07:31 Last Admin: 03/03/17 16:54 Dose: 6 units Insulin Human Lispro (Humalog) 0 units SQ HS [facility] PRN Reason: Protocol Stop: 08/29/17 21:01 Last Admin: 03/03/17 21:02 Dose: Not Given Lorazepam (Ativan) 0.5 mg PO Q4HR PRN PRN Reason: Anxiety Stop: 08/29/17 23:16 Metoprolol Tartrate (Lopressor) 5 mg IVP Q6HR PRN PRN Reason: SBP >160 or HR >100 Stop: 08/29/17 04:58 Last Admin: 03/04/17 07:27 Dose: 5 mg Metoprolol Tartrate (Lopressor) 75 mg PO BID [facility] Stop: 08/29/17 21:01 Last Admin: 03/03/17 21:01 Dose: 75 mg Morphine Sulfate (Morphine Sulfate) 2 mg IVP Q4HR PRN PRN Reason: Severe Pain (7-10) Stop: 08/29/17 04:58 Last Admin: 02/28/17 17:35 Dose: 2 mg Morphine Sulfate (Morphine Sulfate) 2 mg IVP Q5MIN PRN; Protocol PRN Reason: Pain Stop: 09/03/17 07:59 Naloxone HCl (Narcan) 0.4 mg IVP Q2MIN PRN PRN Reason: Opioid Reversal Stop: 08/29/17 04:58 Nicotine (Nicoderm) 14 mg TD DAILY [facility] PRN Reason: Protocol Stop: 08/30/17 11:46 Last Admin: 03/03/17 07:58 Dose: 14 mg Nitroglycerin (Nitroglycerin) 0.4 mg SL Q5MIN PRN PRN Reason: Chest Pain Stop: 08/29/17 04:58 Omeprazole (Prilosec) 40 mg PO DAILY@0630 [facility] PRN Reason: Protocol Stop: 08/29/17 06:31 Last Admin: 03/03/17 04:54 Dose: 40 mg Ondansetron HCl (Zofran) 4 mg IVP Q8HR PRN PRN Reason: Nausea And Vomiting Stop: 08/29/17 04:58 Last Admin: 03/01/17 09:03 Dose: 4 mg Oxycodone HCl (Roxicodone) 5 mg PO Q6HR PRN PRN Reason: Moderate Pain (4-6) Stop: 08/29/17 04:58 Simvastatin (Zocor) 40 mg PO HS RODRIGUEZ Stop: 08/29/17 21:01 Last Admin: 03/03/17 21:01 Dose: 40 mg - EKG Interpretation EKG results cardiology: other (Tele shows avg hr 91, aflutter) - VTE Documentation of Mechanical Device: Intermittent pneumatic compression device Consult Discharge Plan - Plan Referrals: Dave Mayo Jr, MD [Primary Care Provider] -
[2017-03-04] MEDS ORDERED: *HR* Morphine 10 MG/ML VIAL ONE (09:11)
[2017-03-04] MEDS ORDERED: *HR* Metoprolol 5 MG/5 ML VIAL IVP ONE ×2 (09:19→10:06)
[2017-03-04] MEDS ORDERED: Ringers Solution, Lactated 500 ML IVC ONE (09:51)
--- NOTE | 2017-03-04 10:02 | Operative Note ---
Date of procedure: 03/04/17 Pre-op diagnosis: Acute cholecystitis, cholelithiasis, ascending cholangitis Post-op diagnosis: same Procedure: Laparoscopic cholecystectomy Complications: None apparent Anesthesia: GETA Local Anesthetics: 0.25% Sensorcaine HCL with Epinephrine 1:200,000 SubQ (cc) ( 30 mL) Surgeon: Rony Tobin Estimated blood loss (cc): 150 IV fluids (cc): 700 Specimen: Gallbladder; aerobic and anaerobic cultures gallbladder contents Condition: stable Disposition: PACU Procedure in Detail: The patient was brought to the operating room where he was placed supine upon the operating room table. The patient was appropriately identified as to person and procedure. The accuracy of this information was confirmed by the procedure team. The patient was then intubated and anesthetized under the supervision of Dr. Alejandro Ivy. The abdomen was prepped and draped in usual sterile fashion. Several milliliters of 0.25% bupivacaine with 1-200,000 units epinephrine was infiltrated into the infraumbilical skin. A small transverse incision was made, dissection was carried to the fascia. Additional bupivacaine with epinephrine was infiltrated into the fascia. The fascia was then incised, grasped, and elevated. An 11 mm Xcel port was established. The rigid laparoscope was placed within the obturator to visualize passage through the layers of the anterior abdominal wall. Once the abdominal cavity was accessed, the obturator was replaced by the rigid laparoscope, the abdomen was insufflated with gaseous carbon dioxide. There was no obvious visible injury from establishing this port. Under direct visualization 3 additional ports were placed along the right costal margin in the subxiphoid, midclavicular, and anterior axillary line. Each of these port sites was infiltrated with the bupivacaine with epinephrine solution. On exposure of the gallbladder, it was acutely inflamed and hemorrhagic. It was necessary to aspirate approximately 90 mL of a turbid bile and pus. Aerobic and anaerobic cultures of this fluid were obtained and sent to microbiology. The gallbladder was grasped with endoscopic Kochers and retracted cephalad. The acute inflammatory changes extended to the luna hepatis. 2 facilitate exposure was necessary to place a 12 mm port midway between the xiphoid and the umbilicus. This would facilitate use of an endoscopic paddle retractor to expose the luna hepatis. The hepatoduodenal ligament was dissected, the cystic duct was identified and skeletonized. Cystic duct was clipped twice distally, once proximally and divided. The cystic artery was identified, twice proximally, once distally and divided. The gallbladder was then dissected from the liver bed using Ethicon Harmonic percy. Once from the liver bed, the gallbladder was placed in an endoscopic pouch and removed through the infraumbilical opening. It was necessary to widen the infraumbilical opening to allow extraction of an acutely inflamed thick walled gallbladder containing multiple large stones. The specimen was collected and sent to pathology. The liver bed was inspected for adequate hemostasis. Accumulated fluid and clot was removed with the endoscopic suction device. Hemostasis was aided with the application of Raad hemostatic agent to the liver bed. Once hemostasis was assured, the instrumentation was removed, the pneumoperitoneum was evacuated. The fascia of the infraumbilical opening was closed with interrupted [id number] 0 Vicryl using S retractors. The skin edges of the port sites were then approximated with subcuticular 4-0 Vicryl. The incisions were sealed with Dermabond dermal adhesive. The patient was taken to recovery in stable condition. Needle, sponge, and instrument counts were correct at the close of the case. Total volume of 0.25% bupivacaine with 1-200,000 units epinephrine used during the surgery, 30 mL.
--- NOTE | 2017-03-04 10:29 | Anesthesia Evaluation Post Op ---
Date of Encounter: 03/04/17 Time of Encounter: 10:29 - Vital Signs Vital Signs: Vital Signs/O2 Sat, Most Current Temp Pulse Resp BP Pulse Ox 97.4 F L 134 16 140/90 94 03/04/17 09:49 03/04/17 10:19 03/04/17 10:19 03/04/17 10:19 03/04/17 10:19 - Lungs Lungs: Clear Ascult./Percussion - Airway Airway: Non-obstructed - Cardiovascular Regular Rate - Mental Status Mental Status: Alert & Oriented, Answers Appropriately - Pain Pain Scale: 0 Pain Scale used: Numeric (1 - 10) - Nausea Vomiting Nausea Vomiting: Not Present - Hydration Hydration: NPO, Has not voided - Discharge PostOp Status: Transfer Patient to floor
[2017-03-04] MEDS: Insulin LISPRO 300 UNITS/3 ML VIAL SQ SCH ×3 (11:01→21:32)
[2017-03-04] MEDS: Aspirin 81 MG TAB.CHEW PO SCH (11:02)
[2017-03-04] MEDS: amLODIPine 5 MG TABLET PO SCH (11:02)
[2017-03-04] MEDS: Nicotine 14 MG PATCH.TD24 TD SCH (11:02)
[2017-03-04] MEDS ORDERED: Naloxone 0.4 MG/ML INJ IVP PRN (11:07)
[2017-03-04] MEDS ORDERED: *HR* HYDROmorphone (PF) 1 MG/ML SYRINGE IVP PRN (11:07)
[2017-03-04] MEDS ORDERED: D5% in Water 1,000 ML IVC PRN (11:07)
[2017-03-04] MEDS ORDERED: *HR* OxyCODONE/APAP 5/325 TABLET PO PRN (11:07)
[2017-03-04] MEDS ORDERED: *HR* Dextrose 50 % in Water (Syg) 50 ML SYRINGE IVP PRN (11:07)
[2017-03-04] MEDS ORDERED: Ondansetron 4 MG/2 ML VIAL IVP PRN (11:07)
[2017-03-04] MEDS ORDERED: Acetaminophen 325 MG TABLET PO PRN (11:07)
[2017-03-04] MEDS ORDERED: *HR* LORazepam 0.5 MG TABLET PO PRN (11:07)
[2017-03-04] MEDS ORDERED: Nitroglycerin 0.4 MG TAB.SUBL SL PRN (11:07)
[2017-03-04] MEDS ORDERED: Dextrose Gel 15 GM PO PRN ×2 (11:07)
[2017-03-04] MEDS: Albuterol 2.5 MG/3 ML NEBULIZER IH SCH ×3 (11:29→21:02)
[2017-03-04] MEDS ORDERED: Insulin LISPRO 300 UNITS/3 ML VIAL SQ SCH (13:45)
--- NOTE | 2017-03-04 13:58 | Event Note ---
Date of Encounter: 03/04/17 Time of Encounter: 13:30 - Cardiology Event Note Patient reevaluated and is status post surgery. Denies any concerns or complaints. Noted to be a flutter with RVR in the 130s. Discussed with primary service recommend resume by mouth meds if able. If not, proceed with IV beta noreen for rate control. Consider Cardizem drip if needed. We'll continue to monitor. Recommend resume anticoagulation once okay per surgery.
[2017-03-04] MEDS: Ringers Solution, Lactated 1,000 ML IVC SCH (14:22)
--- NOTE | 2017-03-04 17:56 | Electrocardiograph Report ---
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
[2017-03-04] MEDS ORDERED: Levofloxacin 750 MG/150 ML 750 MG/150 ML BAG IVPB SCH (20:00)
[2017-03-04] MEDS: Insulin DETEMIR 100 UNIT/ML X5UNITS SQ SCH (21:32)
[2017-03-05] MEDS: Piperacillin/Tazobactam 3.375 GM in D5% in Water (Mini-Bag+) 100 ML IVPB SCH ×4 (00:38→23:50)
[2017-03-05] MEDS ORDERED: Melatonin 3 MG TABLET PO PRN (01:02)
[2017-03-05] MEDS: Ringers Solution, Lactated 1,000 ML IVC SCH (03:11)
[2017-03-05] MEDS: Albuterol 2.5 MG/3 ML NEBULIZER IH SCH ×4 (04:49→21:52)
[2017-03-05 05:14] LABS: INR 1.4; Prothrombin Time 15.3 Seconds (9.4-12.1)
[2017-03-05 05:37] LABS: Alanine Aminotransferase 86 Units/L (0-55); Albumin/Globulin Ratio 0.6 (1.1-2.2); Alkaline Phosphatase 178 Units/L (38-126); Aspartate Amino Transferase 55 Units/L (5-34); BUN/Creatinine Ratio 22 (6-26); Bilirubin,Total 2.1 mg/dL (0.2-1.2); Blood Urea Nitrogen 22 mg/dL (8-26); Calcium 9.3 mg/dL (8.6-10.8); Carbon Dioxide 25 mEq/L (19-29); Chloride 105 mEq/L (98-109); Glucose 239 mg/dL (70-99); Osmolality,Calculated 289 (280-300); Potassium 4.5 mEq/L (3.5-4.5); Sodium 134 mEq/L (136-145); Total Protein 4.9 g/dL (6.0-8.3); eGFR For African Americans > 60 (> 60); eGFR For Non-African Americans > 60 (> 60)
[2017-03-05 05:38] LABS: Albumin 1.9 g/dL (3.5-5.0)
[2017-03-05] MEDS: Aspirin 81 MG TAB.CHEW PO SCH (08:13)
[2017-03-05] MEDS: amLODIPine 5 MG TABLET PO SCH (08:14)
[2017-03-05] MEDS: Nicotine 14 MG PATCH.TD24 TD SCH (08:15)
[2017-03-05] MEDS: Insulin LISPRO 300 UNITS/3 ML VIAL SQ SCH ×4 (08:16→21:09)
[2017-03-05 08:34] LABS: Basophils % 0.4 %; Eosinophils # 0.1 K/mcL (0.0-0.6); Eosinophils % 0.8 %; Hematocrit 32.1 % (37.5-50.1); Hemoglobin 10.8 g/dL (12.9-16.9); Immature Granulocytes % 3.5 % (0-4); Lymphocytes # 1.4 K/mcL (0.6-4.6); Lymphocytes % 12.9 %; Mean Corpuscular HGB Conc 33.6 g/dL (31.6-35.5); Mean Corpuscular Hemoglobin 31.5 pg (28.0-33.3); Mean Corpuscular Volume 93.6 fL (83.0-100.0); Mean Platelet Volume 10.7 fL (9.4-12.4); Monocytes # 1.3 K/mcL (0.0-1.3); Monocytes % 11.8 %; Neutrophils # 7.8 K/mcL (1.6-8.9); Platelet Count 184 K/mcL (140-400); Red Blood Count 3.43 M/mcL (4.19-5.50); Red Cell Distribution Width 14.2 % (11.5-14.5); Segmented Neutrophils % 70.6 %
--- NOTE | 2017-03-05 08:42 | Internal Med Progress Note ---
Date of Encounter: 03/05/17 Time of Encounter: 08:37 - Assessment and plan (1) Sepsis Current Visit: Yes Status: Acute Assessment and plan: Due to Enterobacter cloacae bacteremia IVF IV antibiotics: Vancomycin, Zosyn, Levaquin ERCP yesterday with complete removal of stones via biliary sphincterotomy and balloon extraction, also temporary stent placed in common bile duct. GI recommend cholecystectomy (per Dr. Tobin) and repeat ERCP in 6-8 weeks for stent removal. 03/03/2017 Day 4: Zosyn/levofloxacin Status post ERCP with stent placement. Vancomycin stopped today in view of absence of gram-positive organisms in the blood. Enterobacter cloaca bacteremia: Likely source gallbladder. Noted that patient is scheduled for surgery tomorrow. 03/04/2017 Day 5 : Zosyn/Levofloxacin Status post ERCP with stent placement. Noted that patient does not have any abdominal tenderness. Patient has worsening bilirubin and transaminitis. Patient is scheduled for surgery today. We will monitor closely after the surgery. Patient is stated intravenous metoprolol before going to surgery. We will try to get by mouth medications appropriately after surgery 03/05/2017 admitted with generalized weakness Blood culture positive for Enterobacter cloacae : likely source hepatobillary. Day 6 : Zosyn /Levofloxacin S/P ERCP with sent for Decompression : Day 3 S/P cholecystectomy : Day 1 Dr Tobin on board. Diet resumed. Denies any abdominal pain, nausea, vomiting or diarrhea. Bowel sounds present. IV fluids stopped. Encourage oral intake. Physical therapy to see patient. Qualifiers: Sepsis type: sepsis due to unspecified organism Qualified Code(s): A41.9 - Sepsis, unspecified organism (2) Atrial fibrillation and flutter Current Visit: Yes Status: Acute Assessment and plan: Reconsults with cardiology for further recommendations 03/05/2017 cardiology on board medications ajustment by cardiology anticoagulation : per surgeryand cardiology/on EPCD for DVT prophylaxis. (3) Bacteremia due to Enterobacter species Current Visit: Yes Status: Acute Assessment and plan: Blood cultures positive for Enterobacter cloacae (4) Hypertension Current Visit: Yes Status: Chronic Assessment and plan: Continue home Lopressor and Norvasc PRN IV Lopressor DVT prophylaxis: EPCD. Medical decision making: This patient has a moderate to severe risk of worsening in spite of being on appropriate treatment due to underlying multiple comorbidities. Qualifiers: Hypertension type: essential hypertension Qualified Code(s): I10 - Essential (primary) hypertension - Subjective Interval history: Patient seen and examined. Chart reviewed. The gentleman denies any abdominal pain, nausea, vomiting, dizziness or diarrhea 03/04/2017 Seen and examined. Chart reviewed. Patient denies chest pain, shortness of breath, abdominal pain, nausea or vomiting. Noted that patient is getting ready to go for surgery. 03/05/2017 Seen and examined. Chart reviewed. Patient is comfortably lying in the bed. Patient denies abdominal pain, nausea, vomiting and diarrhea. Family at bedside. - Constitutional Vitals: Temp Pulse Resp BP Pulse Ox 98.4 F 87 16 150/70 94 03/05/17 06:49 03/05/17 06:49 03/05/17 06:49 03/05/17 06:49 03/05/17 06:49 General appearance: Present: cooperative, A&O X 3, answers questions appropriately - Head Head exam: Present: atraumatic, normocephalic - Eye Eye exam: Present: PERRL, conjuntiva pink, sclera anicteric Pupils: Present: PERRL - Neck Neck exam general surgery: Present: supple, trachea midline. Absent: lymphadenopathy - Respiratory Respiratory exam: Present: CTAB. Absent: accessory muscle use, rales, rhonchi, wheezes - Cardiovascular Cardiovascular exam: Present: RRR, +S1, +S2. Absent: diastolic murmur, gallop, rubs, systolic murmur - GI/Abdominal GI/Abdominal exam: Present: normal bowel sounds, soft, no peritoneal signs. Absent: distended, tenderness - Extremities Exam Extremities exam: Present: warm, radial pulses palpable and symetrical. Absent : calf tenderness, cyanotic, pedal edema - Neurological Exam Neurological exam: Present: CN II-XII intact, oriented X3, no focal deficits. Absent: pronater drift, facial droop, speech deficit - Skin Skin exam: Present: dry, intact Internal Medicine: Result - Labs CBC & Chem 7: 03/05/17 08:25 03/05/17 04:13 Labs: Short CBC 03/05/17 Range/Units 08:25 WBC 11.0 (4.3-11.1) K/mcL Hgb 10.8 L (12.9-16.9) g/dL Hct 32.1 L (37.5-50.1) % Plt Count 184 (140-400) K/mcL Neutrophils # 7.8 (1.6-8.9) K/mcL BMP 03/05/17 04:13 Sodium 134 L Potassium 4.5 Chloride 105 Carbon Dioxide 25 BUN 22 Creatinine 0.99 Glucose 239 H Calcium 9.3 Liver Function 03/05/17 Range/Units 04:13 Total Bilirubin 2.1 H (0.2-1.2) mg/dL AST 55 H (5-34) Units/L ALT 86 H (0-55) Units/L Alkaline Phosphatase 178 H (38-126) Units/L Albumin 1.9 L (3.5-5.0) g/dL - ABG Interpretation ABG results: PT/INR, D-dimer PT 15.3 Seconds (9.4-12.1) H 03/05/17 04:13 - VTE Documentation of Mechanical Device: Intermittent pneumatic compression device Consult Discharge Plan - Plan Referrals: Dave Mayo Jr, MD [Primary Care Provider] -
--- NOTE | 2017-03-05 09:23 | Cardiology Progress Note ---
Date of Encounter: 03/05/17 Time of Encounter: 08:30 Assessment and Plan (1) Bacteremia due to Enterobacter species Current Visit: Yes Status: Acute Per cardiology: -Bacteremia noted per blood cultures. -Patient is status post cholecystecomy on 03/04/17. -Patient now taking po medications. -PO medications were held due to impending surgery and procedures, may be contributing to tachycardia. -Management per primary and surgical services. (2) Atrial flutter, paroxysmal Current Visit: Yes Status: Chronic Per cardiology: -Seen by Cardiology during stay, re-consulted for aflutter with rvr. -Known history of atrial flutter. states has had atrial flutter on and off since CABG. -Upon review of records, it appears patient had not been receiving his by mouth beta noreen intermittently the past few days, possibly due to procedure and surgery. -Currently rate controlled, average HR 86, atrial flutter. On Lopressor to 75 mg by mouth twice a day. -Regarding [facility] AC-- previous records reviewed: "Discussed with regarding buttermaker anticoagulation. Patient had [id number] score of 7 (age, HTN, CVA, DM, and vascular disease). Ideally would continue buttermaker anticoagulation, however patient has been falling. Plan is for patient to go to nursing facility after discharge. Explained to of increased risk of stroke with atrial fibrillation while off anticoagulation. also educated on increased risk of bleeding while on anticoagulation. At this point, wishes to continue with home dose eliquis, especially since patient will being going to nursing facility and will have 24 hour monitoring. Eliquis restarted." - and family agreeable to hold anticoagulation for now and aware of increased stroke risk. They prefer to resume postoperatively. -Recommend titrate beta noreen to optimize heart rate and blood pressure control. -Recommend resuming eliquis, once deemed appropriate from surgery services. -Cardiology will sign off and will follow in outpatient setting, follow up set. (3) Weakness Current Visit: Yes Status: Acute Per cardiology: -Patient admitted with progressively worsening weakness over the past several months. -Per family, weakness has become severe past week. -Of note, family states patient has not been eating or drinking well lately. -Palliative care consulted and code status has been changed to DNR-CCA/DNI. -Management per primary service. (4) CAD (coronary artery disease), [place] coronary artery Current Visit: Yes Status: Chronic Per cardiology: -Patient follows with Dr. Andre. Last seen in office 05/2016. -Known CAD with CABG x 3 vessels 2000. Balloon angioplasty prior to CABG. -On asa, statin, beta noreen. -Denies current chest pain. -Echocardiogram 06/2016 with LVEF 60%, mild concentric left ventricular hypertrophy, indeterminate diastolic function, moderately dilated left atrium, mild MR, mild TR, no pulmonary hypertension, all wall segments with normal motion. -Will continue to follow in outpatient setting. Qualifiers: [place] vs. transplanted heart: [place] heart Associated angina: angina presence unspecified Qualified Code(s): I25.10 - Atherosclerotic heart disease of [place] coronary artery without angina pectoris Discussion w patient/family: The assessment and plan as outlined above was discussed with the patient and/or family members who expressed understanding and agreement. All questions were answered. Thank you for involving us in the care of your patient. Please call with any questions. Discussed and reviewed with Dr.John Lomax. Subjective Principal diagnosis: a-flutter Interval history: was admitted for progressive weakness. Troponin was mildly elevated. Echo performed. Cardiology had previously signed off and was re- consulted for a.flutter with RVR. Patient is status post cholecystectomy 03/04/17 , some of patient's PO medications had been held for pending surgery. Overnight , average HR 86. Patient states he is feeling well this morning. Family state he is eating well and taking oral medications now. Objective Vital Signs, Last 4 Hours Temp Pulse Resp BP Pulse Ox 03/05/17 06:49 98.4 F 87 16 150/70 94 General: Conversant, No Apparent Distress HEENT: Atraumatic, Normocephaly, Mucus Membranes Moist Neck: No JVD, Normal carotid pulses Cardiac: Other (Irregularly, irregular) Lungs: Normal Breath Sounds, No Wheeze, Rales, Rhonchi Neuro: Alert and responsive, Other (Oriented to person and place. ) Abdomen: Soft, Non-Tender Skin: No rashes noted on visualized skin Musculoskeletal: No Chest Wall Tenderness Extremities: No Clubbing, No Cyanosis, No Edema, Normal Pulses Results 03/05/17 08:25 03/05/17 04:13 Lab Results Active Medications Acetaminophen (Tylenol) 650 mg PO Q6HR PRN PRN Reason: Pain Stop: 11/01/17 04:58 Albuterol Sulfate (Proventil Neb) 2.5 mg IH [id number] RODRIGUEZ PRN Reason: Protocol Stop: 09/03/17 11:08 Last Admin: 03/05/17 04:49 Dose: 2.5 mg Amlodipine Besylate (Norvasc) 5 mg PO DAILY RODRIGUEZ PRN Reason: Protocol Stop: 08/29/17 16:16 Last Admin: 03/05/17 08:14 Dose: 5 mg Aspirin (Aspirin) 81 mg PO DAILY [facility] Stop: 08/29/17 09:01 Last Admin: 03/05/17 08:13 Dose: 81 mg Dextrose/Water (Dextrose 50% (Syg)) 25 ml IVP AD PRN PRN Reason: Hypoglycemia Stop: 08/29/17 04:58 Docusate Sodium (Colace) 100 mg PO BID PRN PRN Reason: Constipation Stop: 08/29/17 04:58 Glucagon (Glucagen) 1 mg IM ONCE PRN PRN Reason: Hypoglycemia Stop: 08/29/17 04:58 Glucose (Gluctose) 15 gm PO ONCE PRN PRN Reason: Hypoglycemia Stop: 08/29/17 04:58 Glucose (Gluctose) 30 gm PO ONCE PRN PRN Reason: Hypoglycemia Stop: 09/03/17 11:08 Hydromorphone HCl (Dilaudid) 0.5 mg IVP Q1H PRN PRN Reason: pain not relieved by oral meds Stop: 09/03/17 11:08 Dextrose (Dextrose 5%) 1,000 mls @ 100 mls/hr IVC .Q10H PRN PRN Reason: HYPOGLYCEMIA Stop: 08/29/17 04:58 Piperacillin Sod/Tazobactam (Sod 3.375 gm/ Dextrose) 100 mls @ 25 mls/hr IVPB Q8H [facility] Stop: 09/03/17 16:01 Last Admin: 03/05/17 08:15 Dose: 25 mls/hr Lactated Ringer's (Lactated Ringers) 1,000 mls @ 80 mls/hr IVC .[id number] [facility] Stop: 09/03/17 11:08 Last Admin: 03/05/17 03:11 Dose: 80 mls/hr Insulin Detemir (Levemir) 12 unit 0.15 unit/kg (12 unit) SQ HS RODRIGUEZ Stop: 08/29/17 21:01 Last Admin: 03/04/17 21:32 Dose: 12 unit Insulin Human Lispro (Humalog) 0 units SQ TIDAC RODRIGUEZ PRN Reason: Protocol Stop: 09/03/17 16:31 Last Admin: 03/05/17 08:16 Dose: 6 units Insulin Human Lispro (Humalog) 0 units SQ HS RODRIGUEZ PRN Reason: Protocol Stop: 09/03/17 21:01 Last Admin: 03/04/17 21:32 Dose: 5 units Lorazepam (Ativan) 0.5 mg PO Q4HR PRN PRN Reason: Anxiety Stop: 08/29/17 23:16 Last Admin: 03/04/17 21:31 Dose: 0.5 mg Melatonin (Melatonin) 3 mg PO HS PRN PRN Reason: Insomnia Stop: 09/04/17 01:03 Last Admin: 03/05/17 01:24 Dose: 3 mg Metoprolol Tartrate (Lopressor) 5 mg IVP Q6HR PRN PRN Reason: SBP >160 or HR >100 Stop: 08/29/17 04:58 Last Admin: 03/04/17 14:31 Dose: 5 mg Metoprolol Tartrate (Lopressor) 75 mg PO BID [facility] Stop: 08/29/17 21:01 Last Admin: 03/05/17 08:14 Dose: 75 mg Naloxone HCl (Narcan) 0.4 mg IVP Q2MIN PRN PRN Reason: Opioid Reversal Stop: 08/29/17 04:58 Nicotine (Nicoderm) 14 mg TD DAILY [facility] PRN Reason: Protocol Stop: 08/30/17 11:46 Last Admin: 03/05/17 08:15 Dose: 14 mg Nitroglycerin (Nitroglycerin) 0.4 mg SL Q5MIN PRN PRN Reason: Chest Pain Stop: 08/29/17 04:58 Omeprazole (Prilosec) 40 mg PO DAILY@0630 [facility] PRN Reason: Protocol Stop: 08/29/17 06:31 Last Admin: 03/05/17 06:24 Dose: 40 mg Ondansetron HCl (Zofran) 4 mg IVP Q4H PRN PRN Reason: Nausea And Vomiting Stop: 08/29/17 04:58 Oxycodone/Acetaminophen (Percocet 5/325) 1 each PO Q6HR PRN PRN Reason: pain not relieved by Tylenol Stop: 09/03/17 11:08 Simvastatin (Zocor) 40 mg PO HS RODRIGUEZ Stop: 08/29/17 21:01 Last Admin: 03/04/17 21:31 Dose: 40 mg Laboratory Tests 03/05/17 03/05/17 04:13 08:25 Hgb 10.8 L Creatinine 0.99 - Imaging and Cardiology Chest Xray: report reviewed Echo: report reviewed - EKG Interpretation EKG results cardiology: personally reviewed (03/03/17 with a.flutter with RVR, HR 133. 5/11/14 with SR, HR 94.), other (Telemetry reviewed with average HR 86, atrial flutter. Maximum HR 98. Longest pause 1.5 seconds. PVCs and couplets noted. 1 triplet PVC noted.) - VTE Documentation of Mechanical Device: Intermittent pneumatic compression device Consult Discharge Plan - Plan Referrals: Dave Mayo Jr, MD [Primary Care Provider] -
--- NOTE | 2017-03-05 10:13 | Event Note ---
Date of Encounter: 03/05/17 Time of Encounter: 10:11 Mr. Parr is s/p lap birgit, POD 1. Alert and oriented today. Denies pain, shortness of breath, N/V. Family at bedside. PT evaluation pending. Plan for discharge to [facility] for rehab when medically stable. Code status established. Palliative care team will follow at a distance. Please call if needed. Thank you.
--- NOTE | 2017-03-05 13:34 | General Surgery Progress Note ---
Date of Encounter: 03/05/17 Time of Encounter: 13:26 Subjective Patient reports: feels better, pain is less Narrative: General Surgery - POD#1 - the patient feeling better, indicates pain has resolved. He does admit to pain with cough. afebrile, 97.8; pulse 91 irregula; respirations 16, blood pressure 1 lungs: Clear to auscultation abdomen: Soft, multiple tenderness particularly infraumbilical port site. Ports clean and dry and healing nicely. Active bowel sounds aboratories: White count 11.0;hemoglobin 10.8, hematocrit 32.1; platelet count 184,000 PT 15.3, INR 1.4 - increased despite no administration of anticoagulation sodium 134, potassium 4.5, b1 22, creatinine 0.99. accu-Chek 239 total bilirubin 2.1; AST 55,ALT 86; alkaline phosphatase 178 Impression: Acceptable postoperative state. hyponatremia without obvious sequelae thrombocytopenia resolved mild anemia related to IVF and minimal intra operative blood loss Anorexia without nausea or vomiting - common post op and expected to resolve with additiional healing. Atrial fibrillation - stable Recommendation: Defer resuming oral anticoagulation one more day Repeat labs in a.m. (LFTs) Increase activity as tolerated Possible transfer to ECF in AM - if continues to show appropriate recovery. Objective Vital Signs - Last 8 Hours Temp Pulse Resp BP Pulse Ox 03/05/17 11:26 97.8 F 91 16 149/78 96 03/05/17 06:49 98.4 F 87 16 150/70 94 Intake and Output 03/04/17 03/05/17 03/05/17 23:59 07:59 15:59 Intake Total 340 / 340 1100 / 1100 120 / 120 Output Total 100 / 100 100 / 100 Balance 240 / 240 1000 / 1000 120 / 120 Intake: IV Fluids 100 / 100 1100 / 1100 Lactated Ringers 1,000 ML 1000 / 1000 @ 80 mls/hr IVC .[id number] RODRIGUEZ Rx#:[id number] Zosyn 3.375 GM In 100 / 100 100 / 100 Dextrose 5% (Minibag+) 100 ML 100 ML @ 25 mls/hr IVPB Q8H RODRIGUEZ Rx#: [id number] Oral 240 / 240 120 / 120 Output: Urine 100 / 100 100 / 100 Other: Meal Dinner Breakfast Percent of Meal Consumed 25% 75% # Voids 4 # Urine Diapers 1 Weight 97.6 kg Blood Glucose* 290 218 169 Patient Weight 03/05/17 23:59 Weight 97.6 kg - Labs 03/05/17 08:25 03/05/17 04:13 Diabetes panel 03/05/17 Range/Units 04:13 Sodium 134 L (136-145) mEq/L Potassium 4.5 (3.5-4.5) mEq/L Chloride 105 (98-109) mEq/L Carbon Dioxide 25 (19-29) mEq/L BUN 22 (8-26) mg/dL Creatinine 0.99 (0.72-1.25) mg/dL Glucose 239 H (70-99) mg/dL Calcium 9.3 (8.6-10.8) mg/dL AST 55 H (5-34) Units/L ALT 86 H (0-55) Units/L Alkaline Phosphatase 178 H (38-126) Units/L Albumin 1.9 L (3.5-5.0) g/dL Calcium panel 03/05/17 Range/Units 04:13 Calcium 9.3 (8.6-10.8) mg/dL Albumin 1.9 L (3.5-5.0) g/dL Pituitary panel 03/05/17 Range/Units 04:13 Sodium 134 L (136-145) mEq/L Potassium 4.5 (3.5-4.5) mEq/L Chloride 105 (98-109) mEq/L Carbon Dioxide 25 (19-29) mEq/L BUN 22 (8-26) mg/dL Creatinine 0.99 (0.72-1.25) mg/dL Glucose 239 H (70-99) mg/dL Calcium 9.3 (8.6-10.8) mg/dL Adrenal panel 03/05/17 Range/Units 04:13 Sodium 134 L (136-145) mEq/L Potassium 4.5 (3.5-4.5) mEq/L Chloride 105 (98-109) mEq/L Carbon Dioxide 25 (19-29) mEq/L BUN 22 (8-26) mg/dL Creatinine 0.99 (0.72-1.25) mg/dL Glucose 239 H (70-99) mg/dL Calcium 9.3 (8.6-10.8) mg/dL Total Bilirubin 2.1 H (0.2-1.2) mg/dL AST 55 H (5-34) Units/L ALT 86 H (0-55) Units/L Alkaline Phosphatase 178 H (38-126) Units/L Albumin 1.9 L (3.5-5.0) g/dL - VTE Documentation of Mechanical Device: Intermittent pneumatic compression device Consult Discharge Plan - Plan Referrals: Dave Mayo Jr, MD [Primary Care Provider] -
[2017-03-05] MEDS: Insulin DETEMIR 100 UNIT/ML X5UNITS SQ SCH (21:09)
[2017-03-06] MEDS: Albuterol 2.5 MG/3 ML NEBULIZER IH SCH ×4 (03:33→22:37)
[2017-03-06 04:58] LABS: Basophils # 0.1 K/mcL (0.0-0.2); Basophils % 0.6 %; Eosinophils # 0.3 K/mcL (0.0-0.6); Eosinophils % 3.1 %; Hematocrit 31.1 % (37.5-50.1); Hemoglobin 10.4 g/dL (12.9-16.9); Immature Granulocytes % 7.3 % (0-4); Lymphocytes # 1.7 K/mcL (0.6-4.6); Mean Corpuscular HGB Conc 33.4 g/dL (31.6-35.5); Mean Corpuscular Hemoglobin 31.4 pg (28.0-33.3); Monocytes # 1.1 K/mcL (0.0-1.3); Monocytes % 11.2 %; Platelet Count 203 K/mcL (140-400); Red Blood Count 3.31 M/mcL (4.19-5.50); Segmented Neutrophils % 60.8 %
[2017-03-06 05:00] LABS: INR 1.3; Prothrombin Time 14.1 Seconds (9.4-12.1)
[2017-03-06 05:19] LABS: Alanine Aminotransferase 62 Units/L (0-55); Albumin/Globulin Ratio 0.6 (1.1-2.2); Alkaline Phosphatase 191 Units/L (38-126); Aspartate Amino Transferase 28 Units/L (5-34); BUN/Creatinine Ratio 21 (6-26); Bilirubin,Total 1.9 mg/dL (0.2-1.2); Blood Urea Nitrogen 18 mg/dL (8-26); Calcium 9.5 mg/dL (8.6-10.8); Carbon Dioxide 27 mEq/L (19-29); Chloride 105 mEq/L (98-109); Globulin 3.2 g/dL (2.4-3.5); Glucose 150 mg/dL (70-99); Osmolality,Calculated 285 (280-300); Sodium 135 mEq/L (136-145); Total Protein 5.2 g/dL (6.0-8.3); eGFR For African Americans > 60 (> 60); eGFR For Non-African Americans > 60 (> 60)
[2017-03-06 05:45] LABS: Platelet Estimate Normal (Normal)
[2017-03-06] MEDS: amLODIPine 5 MG TABLET PO SCH (08:39)
[2017-03-06] MEDS: Aspirin 81 MG TAB.CHEW PO SCH (08:39)
[2017-03-06] MEDS: Insulin LISPRO 300 UNITS/3 ML VIAL SQ SCH ×4 (08:40→22:01)
[2017-03-06] MEDS: Nicotine 14 MG PATCH.TD24 TD SCH (08:40)
[2017-03-06] MEDS: Piperacillin/Tazobactam 3.375 GM in D5% in Water (Mini-Bag+) 100 ML IVPB SCH ×2 (08:40→16:27)
[2017-03-06] MEDS ORDERED: Furosemide 20 MG/2 ML VIAL IVP ONE (13:47)
--- NOTE | 2017-03-06 14:26 | General Surgery Progress Note ---
Date of Encounter: 03/06/17 Time of Encounter: 13:30 Subjective Patient reports: feels better Narrative: General Surgery : POD #2 - patient feeling well, voicing no complaints. Blood pressure has been high Afebrile, 98.3; pulse 83 irreg, respirations 16, blood pressure currently 166 /90 - earlier this morning 173/84 and 183/93 Lungs: Clear to auscultation, no obvious abdominal pain with deep inspiration Abdomen: Soft, nontender. Active bowel sounds. Port sites clean and dry and healing nicely. Laboratories: White count 9.8, hemoglobin 10.4 with hematocrit 31.1. Platelet count 203,000. PT 14.1, INR 1.3 Sodium 135, potassium 4.0, BUN 18, Cr 0.85 Bili 1.9; AST has normalized to 28, ALP 62, alkaline phosphatase 191. Pathology: Pending Impression: Postoperative day 2, status post laparoscopic cholecystectomy for acute cholecystitis, cholelithiasis, ascending cholangitis - doing well postop Persistent Hyperbilirubinemia - improving slowly Abnormal LFTs - improving Atrial fibrillation - appears stable Hypertension - currently not well controlled Hyperglycemia/diabetes - better control with sliding scale and continued recovery Hypoproteinemia - improving with resumption and improvement oral intake Objective Vital Signs - Last 8 Hours Temp Pulse Resp BP Pulse Ox 03/06/17 11:01 98.3 F 83 16 166/90 98 03/06/17 10:56 16 94 03/06/17 07:04 98.1 F 94 16 183/93 98 Intake and Output 03/05/17 03/06/17 03/06/17 23:59 07:59 15:59 Intake Total 100 / 100 100 / 100 240 / 240 Output Total 0 / 0 0 / 0 Balance 100 / 100 100 / 100 240 / 240 Intake: IV Fluids 100 / 100 100 / 100 Zosyn 3.375 GM In 100 / 100 100 / 100 Dextrose 5% (Minibag+) 100 ML 100 ML @ 25 mls/hr IVPB Q8H RODRIGUEZ Rx#: [id number] Oral 0 / 0 0 / 0 240 / 240 Output: Urine 0 / 0 0 / 0 Other: Meal Dinner Lunch Percent of Meal Consumed 20% 75% # Urine Diapers 1 1 1 Weight 97 kg Blood Glucose* 197 122 178 Patient Weight 03/06/17 23:59 Weight 97 kg - Labs 03/06/17 04:30 03/06/17 04:30 Diabetes panel 03/06/17 Range/Units 04:30 Sodium 135 L (136-145) mEq/L Potassium 4.0 (3.5-4.5) mEq/L Chloride 105 (98-109) mEq/L Carbon Dioxide 27 (19-29) mEq/L BUN 18 (8-26) mg/dL Creatinine 0.85 (0.72-1.25) mg/dL Glucose 150 H (70-99) mg/dL Calcium 9.5 (8.6-10.8) mg/dL AST 28 (5-34) Units/L ALT 62 H (0-55) Units/L Alkaline Phosphatase 191 H (38-126) Units/L Albumin 2.0 L (3.5-5.0) g/dL Calcium panel 03/06/17 Range/Units 04:30 Calcium 9.5 (8.6-10.8) mg/dL Albumin 2.0 L (3.5-5.0) g/dL Pituitary panel 03/06/17 Range/Units 04:30 Sodium 135 L (136-145) mEq/L Potassium 4.0 (3.5-4.5) mEq/L Chloride 105 (98-109) mEq/L Carbon Dioxide 27 (19-29) mEq/L BUN 18 (8-26) mg/dL Creatinine 0.85 (0.72-1.25) mg/dL Glucose 150 H (70-99) mg/dL Calcium 9.5 (8.6-10.8) mg/dL Adrenal panel 03/06/17 Range/Units 04:30 Sodium 135 L (136-145) mEq/L Potassium 4.0 (3.5-4.5) mEq/L Chloride 105 (98-109) mEq/L Carbon Dioxide 27 (19-29) mEq/L BUN 18 (8-26) mg/dL Creatinine 0.85 (0.72-1.25) mg/dL Glucose 150 H (70-99) mg/dL Calcium 9.5 (8.6-10.8) mg/dL Total Bilirubin 1.9 H (0.2-1.2) mg/dL AST 28 (5-34) Units/L ALT 62 H (0-55) Units/L Alkaline Phosphatase 191 H (38-126) Units/L Albumin 2.0 L (3.5-5.0) g/dL - VTE Documentation of Mechanical Device: Intermittent pneumatic compression device Consult Discharge Plan - Plan Referrals: Dave Mayo Jr, MD [Primary Care Provider] -
--- NOTE | 2017-03-06 15:28 | Internal Med Progress Note ---
Date of Encounter: 03/06/17 Time of Encounter: 08:30 - Assessment and plan (1) Hypertension Current Visit: Yes Status: Chronic Assessment and plan: Uncontrolled today. Currently on PO Metoprolol and Norvasc. PRN Hydralazine. Lasix dose x 1 today. Qualifiers: Hypertension type: essential hypertension Qualified Code(s): I10 - Essential (primary) hypertension (2) Cholecystitis, acute Current Visit: Yes Status: Acute Assessment and plan: S/P cholecystectomy. Advancing diet. (3) Bacteremia due to Enterobacter species Current Visit: Yes Status: Acute Assessment and plan: Source felt to be biliary. Pt is s/p cholecystectomy and CBD stent placement. Repeat blood cx done today to assess for clearance. Continue IV abx pending results of these cultures. Anticipate change to PO Levaquin to complete total 14 days of abx. (4) Great toe pain Current Visit: Yes Status: Acute Assessment and plan: ? toenail versus other (? gout). Podiatry consult today. Qualifiers: Laterality: right Qualified Code(s): M79.674 - Pain in right toe(s) (5) Choledocholithiasis Current Visit: Yes Status: Acute Assessment and plan: S/P stent placement. (6) Anemia Current Visit: Yes Status: Acute Assessment and plan: Following H/H. Has remained stable over last few days. Qualifiers: Anemia type: other cause Other causes of anemia: chronic disease, other Qualified Code(s): D63.8 - Anemia in other chronic diseases classified elsewhere (7) Atrial fibrillation Current Visit: Yes Status: Chronic Assessment and plan: Restart anticoagulation today. Qualifiers: Atrial fibrillation type: chronic Qualified Code(s): I48.2 - Chronic atrial fibrillation - Subjective Interval history: Mr. Parr is currently admitted for acute Enterobacter bacteremia related to acute cholecystitis/biliary disease. He is high risk due to potential for continued/worsening infection, post op and IV medications. Mr. Parr has not been sleeping well at night and is sleeping this AM. He has a new issue of pain in his R great toe. Hurts just to touch the skin. No trauma noted. No fever or chills. Less abdominal pain. - Constitutional Vitals: Temp Pulse Resp BP Pulse Ox 98.3 F 83 16 166/90 98 03/06/17 11:01 03/06/17 11:01 03/06/17 11:01 03/06/17 11:01 03/06/17 11:01 General appearance: Present: cooperative, A&O X 3, answers questions appropriately - Head Head exam: Present: normocephalic - Eye Eye exam: Present: conjuntiva pink - ENT ENT exam: Present: mucous membranes moist - Respiratory Respiratory exam: Present: decreased breath sounds, CTAB. Absent: rhonchi, wheezes - Cardiovascular Cardiovascular exam: Present: RRR. Absent: systolic murmur, tachycardia - GI/Abdominal GI/Abdominal exam: Present: hypoactive bowel sounds, soft, tenderness - Extremities Exam Extremities exam: Present: warm. Absent: pedal edema Additional comments: Tender to palpation of R great toe - no obvious trauma or wound. No pain at MTP. Pulses palpable. - Neurological Exam Neurological exam: Present: alert, oriented X3 - Psychiatric Psychiatric exam: Present: normal affect, normal mood - Skin Skin exam: Present: warm. Absent: rash Internal Medicine: Result - Labs CBC & Chem 7: 03/06/17 04:30 03/06/17 04:30 Labs: Short CBC 03/06/17 Range/Units 04:30 WBC 9.8 (4.3-11.1) K/mcL Hgb 10.4 L (12.9-16.9) g/dL Hct 31.1 L (37.5-50.1) % Plt Count 203 (140-400) K/mcL Neutrophils # 6.0 (1.6-8.9) K/mcL BMP 03/06/17 04:30 Sodium 135 L Potassium 4.0 Chloride 105 Carbon Dioxide 27 BUN 18 Creatinine 0.85 Glucose 150 H Calcium 9.5 Liver Function 03/06/17 Range/Units 04:30 Total Bilirubin 1.9 H (0.2-1.2) mg/dL AST 28 (5-34) Units/L ALT 62 H (0-55) Units/L Alkaline Phosphatase 191 H (38-126) Units/L Albumin 2.0 L (3.5-5.0) g/dL - ABG Interpretation ABG results: PT/INR, D-dimer PT 14.1 Seconds (9.4-12.1) H 03/06/17 04:30 - VTE Documentation of Mechanical Device: Intermittent pneumatic compression device Consult Discharge Plan - Plan Referrals: Dave Mayo Jr, MD [Primary Care Provider] -
--- NOTE | 2017-03-06 16:29 | Podiatry Consult Note ---
Date of Encounter: 03/07/17 Time of Encounter: 15:50 Assessment and Plan (1) Pain of right great toe Current visit: Yes Status: Acute Right great toe pain secondary to onychomycosis of right great toe nail. Debridement of toe nail #1 right foot with nail gear grinder and nipper to alleviate pressure and prevent ulceration, no complications. Pain alleviated after debridement of toe nail. Recommend patient f/u with Rope Laying Machine Operator for next scheduled nail care appointment in [place] or with Podiatry here at [facility]. Per patient has a Rope Laying Machine Operator in [place] and will f/u with them. 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 Parr is a 86 year old male admitted to [facility] for generalized weakness. Patient has a medical history significant for arthritis, afib, CHF, CAD, CVA, DM , GI Bleed, hyperlipidemia, HTN, VA, Osteoporosis, PAD, renal disease, TIE and anxiety. Patient is lying in bed with spouse, daughter and son in law at bedside. Podiatry was consulted for a painful right great toe nail that started one day ago. Patient denies any injury or trauma. Per patient has a Rope Laying Machine Operator in [place] he goes to for diabetic foot care. He was last seen one month ago. Past Med Surg Social Fam HX - Past Medical History Medical history: arthritis, atrial fibrillation, CHF, coronary artery disease, CVA, diabetes, GI bleed, hyperlipidemia, hypertension, myocardial infarction, osteoporosis, peripheral artery disease, renal disease (SHANE/urge incontinence. BPH/prostatism.), TIA, other (Unsteadiness of gait/repeated falls. Spinal stenosis) Psychiatric history: anxiety - Past Surgical History Surgical History: coronary bypass (CABG), other - Social History Smoking Status: Former smoker Smokeless Tobacco Status: No Alcohol use: none, unknown Drug use: none Medications and Allergies Amlodipine [Norvasc] 5 mg PO DAILY 02/27/17 [History] Apixaban [Eliquis] 2.5 mg PO BID 02/27/17 [History] Cyanocobalamin (B-12) [Vitamin B12] 1,000 mcg SQ Q14D MDD fridays02/27/17 [ History] Furosemide [Lasix] 40 mg PO DAILY PRN 02/27/17 [History] Metformin [Glucophage] 1,000 mg PO BIDWM 02/27/17 [History] Metoprolol [Lopressor] 50 mg PO BID 02/27/17 [History] Multivit-Min/FA/Lycopen/Lutein [Centrum Silver Men Tablet] 1 each PO DAILY 02/27 [History] Niacin [Niacor] 500 mg PO DAILY 02/27/17 [History] Omeprazole [PriLOSEC] 40 mg PO DAILY 02/27/17 [History] Oxybutynin [Ditropan] 5 mg PO BID 02/27/17 [History] Vitamin E Acid Succinate [Vitamin E] 400 units PO DAILY 02/27/17 [History] Allergies No Known Allergies Allergy (Verified 02/26/17 22:36) All Systems Reviewed: A 10-system review of systems was performed and is negative for pertinent findings except as documented above in the HPI. Physical Exam - Constitutional Vitals: Temp Pulse Resp BP Pulse Ox 98.9 F 94 16 170/91 99 03/06/17 16:15 03/06/17 16:15 03/06/17 16:15 03/06/17 16:15 03/06/17 16:15 General appearance: cooperative, no acute distress Exam: Dermatologic: NAIL PATHOLOGY: Nails #1 through #5 bilaterally are thick, discolored, and mycotic. No signs of bacterial infection.. No erythema, no swelling, no open area, no tenderness upon palpation to the right great toe. ULCER: No signs of ulceration or open wound of either foot Podiatry General Exam: General appearance: alert awake oriented X 1. Calm and pleasant, no acute distress.. Vascular: Pedal pulses +1/4 DP/PT , No evidence of cyanosis, pallor or rubor, Edema graded at 1+/4, Skin temperature warm, Homans Sign negative, capillary refill time is immediate to digits.. Neurologic: Intact epicritic sensation as evidenced by the SWMF 5.07. Musculoskeletal: Muscle strength 5/5 and equal bilaterally.. Integument: Skin with decreased turgor, decreased subcutaneous tissue, skin thin and shiny with trophic changes associated with comorbidities as described in history. Erythema to the posterior heel, left, no open area. Results - Labs Result Diagrams: 03/07/17 08:15 03/07/17 08:15 Labs: Abnormal lab results RBC 3.31 M/mcL (4.19-5.50) L 03/06/17 04:30 Hgb 10.4 g/dL (12.9-16.9) L 03/06/17 04:30 Hct 31.1 % (37.5-50.1) L 03/06/17 04:30 Immature Gran % 7.3 % (0-4) H 03/06/17 04:30 Band Neutrophils % 14.0 % (0-4) H 02/28/17 00:30 Large Platelets Present (Not Present) A 02/28/17 00:30 PT 14.1 Seconds (9.4-12.1) H 03/06/17 04:30 Heparin Anti-Xa, Unfract 1.04 IU/mL (0.30-0.70) H* 02/28/17 04:45 Sodium 135 mEq/L (136-145) L 03/06/17 04:30 Glucose 150 mg/dL (70-99) H 03/06/17 04:30 POC Glucose 178 (58-89) H 03/06/17 11:05 Hemoglobin A1c 6.3 % (-5.6) H 02/27/17 05:33 Total Bilirubin 1.9 mg/dL (0.2-1.2) H 03/06/17 04:30 Direct Bilirubin 2.1 mg/dL (0.0-0.5) H 03/04/17 03:20 ALT 62 Units/L (0-55) H 03/06/17 04:30 Alkaline Phosphatase 191 Units/L (38-126) H 03/06/17 04:30 Creatine Kinase 271 Units/L (30-200) H 02/28/17 06:09 Troponin I 0.17 ng/mL (0-0.03) H* 02/28/17 00:20 B-Natriuretic Peptide 336 pg/mL (0-100) H 02/27/17 05:33 Serum Total Protein 5.2 g/dL (6.0-8.3) L 03/06/17 04:30 Albumin 2.0 g/dL (3.5-5.0) L 03/06/17 04:30 Albumin/Globulin Ratio 0.6 (1.1-2.2) L 03/06/17 04:30 Amylase 10 Units/L (25-125) L 03/03/17 04:14 Vitamin B12 1231 pg/mL (213-816) H 02/28/17 06:09 Urine Protein 30 mg/dL (Neg-Trace) H 02/27/17 00:01 Urine Glucose (UA) >=1000 mg/dL (Normal) H 02/27/17 00:01 Urine Blood Trace (Negative) H 02/27/17 00:01 Urine Microscopic RBC 3-5 per hpf (0-3) H 02/27/17 00:01 Enterobacteriac sp PCR DETECTED (Not Detect) A 02/28/17 01:07 E. cloacae complex PCR DETECTED (Not Detect) A 02/28/17 01:07 H & H 03/06/17 Range/Units 04:30 Hgb 10.4 L (12.9-16.9) g/dL Hct 31.1 L (37.5-50.1) % All other labs normal. Consult Discharge Plan - Plan Referrals: Dave Mayo Jr, MD [Primary Care Provider] -
[2017-03-06] MEDS: *HR* Metoprolol 5 MG/5 ML VIAL IVP PRN (17:12)
[2017-03-06] MEDS: APIXABAN 5 MG TABLET PO SCH (21:59)
[2017-03-06] MEDS: Insulin DETEMIR 100 UNIT/ML X5UNITS SQ SCH (22:00)
[2017-03-07] MEDS: Piperacillin/Tazobactam 3.375 GM in D5% in Water (Mini-Bag+) 100 ML IVPB SCH ×3 (00:30→17:46)
[2017-03-07] MEDS: Albuterol 2.5 MG/3 ML NEBULIZER IH SCH ×3 (04:05→15:14)
[2017-03-07] MEDS: Insulin LISPRO 300 UNITS/3 ML VIAL SQ SCH ×4 (08:18→21:48)
[2017-03-07] MEDS: Aspirin 81 MG TAB.CHEW PO SCH (08:19)
[2017-03-07] MEDS: APIXABAN 5 MG TABLET PO SCH ×2 (08:19→21:45)
[2017-03-07] MEDS: amLODIPine 5 MG TABLET PO SCH (08:19)
[2017-03-07] MEDS: Nicotine 14 MG PATCH.TD24 TD SCH (08:20)
[2017-03-07 08:33] LABS: Hematocrit 33.1 % (37.5-50.1); Hemoglobin 11.3 g/dL (12.9-16.9); Mean Corpuscular HGB Conc 34.1 g/dL (31.6-35.5); Mean Corpuscular Hemoglobin 31.9 pg (28.0-33.3); Mean Corpuscular Volume 93.5 fL (83.0-100.0); Mean Platelet Volume 9.9 fL (9.4-12.4); Platelet Count 235 K/mcL (140-400); Red Blood Count 3.54 M/mcL (4.19-5.50); Red Cell Distribution Width 14.1 % (11.5-14.5)
[2017-03-07 08:49] LABS: Alanine Aminotransferase 49 Units/L (0-55); Albumin 2.1 g/dL (3.5-5.0); Albumin/Globulin Ratio 0.6 (1.1-2.2); Alkaline Phosphatase 216 Units/L (38-126); Aspartate Amino Transferase 22 Units/L (5-34); BUN/Creatinine Ratio 21 (6-26); Bilirubin,Total 1.6 mg/dL (0.2-1.2); Blood Urea Nitrogen 18 mg/dL (8-26); Calcium 9.7 mg/dL (8.6-10.8); Carbon Dioxide 27 mEq/L (19-29); Chloride 103 mEq/L (98-109); Globulin 3.3 g/dL (2.4-3.5); Glucose 171 mg/dL (70-99); Magnesium 1.6 mg/dL (1.6-2.6); Osmolality,Calculated 288 (280-300); Potassium 3.9 mEq/L (3.5-4.5); Sodium 136 mEq/L (136-145); Total Protein 5.4 g/dL (6.0-8.3); eGFR For African Americans > 60 (> 60); eGFR For Non-African Americans > 60 (> 60)
[2017-03-07 09:10] LABS: Eosinophils # 0.4 K/mcL (0.0-0.6); Lymphocytes # 1.5 K/mcL (0.6-4.6); Monocytes # 0.4 K/mcL (0.0-1.3); Neutrophils # 6.9 K/mcL (1.6-8.9); Platelet Estimate Normal (Normal); Reactive Lymphocytes Present (Not Present); Toxic Granulation Present (Not Present)
--- NOTE | 2017-03-07 11:38 | General Surgery Progress Note ---
Date of Encounter: 03/07/17 Time of Encounter: 11:32 Subjective Patient reports: no new complaints Narrative: General Surgery - POD #3 - patient feeling well, voicing no complaints. BP and pulse increased during the night - Cardizem initiated. Patient tolerating diet; no nausea, vomiting, or abdominal pain Lungs: clear Abdomen: Soft, minimal right upper quadrant abdominal tenderness, no obvious intra-abdominal masses. Active bowel sounds. Port sites continue to heal without swelling, erythema or drainage. Laboratories: White count 9.1, hemoglobin 11.3 with hematocrit 33.1; platelet count 235,000. Electrolytes, BUN, creatinine within normal limits; sodium 136 Bilirubin 1.6, AST 22, ALP 49, alkaline phosphatase 216 Pathology: Pending Impression: POD #3 - status post laparoscopic cholecystectomy for acute cholecystitis, cholelithiasis, ascending cholangitis. Patient continues to do well postoperatively. Post operative hyperbilirubinemia continues to improve Hyponatremia resolved LFTs have returned to normal Atrial fibrillation Hypertension - diltiazem initiated Hyperglycemia/diabetes - accuchecks 171 - 201 Repeat blood cultures pending Objective Vital Signs - Last 8 Hours Temp Pulse Resp BP Pulse Ox 03/07/17 09:45 16 95 03/07/17 06:49 98.5 F 94 16 139/77 95 03/07/17 04:05 18 95 Intake and Output 03/06/17 03/07/17 03/07/17 23:59 07:59 15:59 Intake Total 120 / 120 100 / 100 240 / 240 Balance 120 / 120 100 / 100 240 / 240 Intake: IV Fluids 0 / 0 100 / 100 Zosyn 3.375 GM In 0 / 0 100 / 100 Dextrose 5% (Minibag+) 100 ML 100 ML @ 25 mls/hr IVPB Q8H [facility] Rx#: [id number] Oral 120 / 120 0 / 0 240 / 240 Other: Meal Lunch Breakfast Percent of Meal Consumed 25% 75% # Urine Diapers 1 1 Weight 95.2 kg Blood Glucose* 194 201 Patient Weight 03/07/17 23:59 Weight 95.2 kg - Labs 03/07/17 08:15 03/07/17 08:15 Diabetes panel 03/07/17 Range/Units 08:15 Sodium 136 (136-145) mEq/L Potassium 3.9 (3.5-4.5) mEq/L Chloride 103 (98-109) mEq/L Carbon Dioxide 27 (19-29) mEq/L BUN 18 (8-26) mg/dL Creatinine 0.86 (0.72-1.25) mg/dL Glucose 171 H (70-99) mg/dL Calcium 9.7 (8.6-10.8) mg/dL AST 22 (5-34) Units/L ALT 49 (0-55) Units/L Alkaline Phosphatase 216 H (38-126) Units/L Albumin 2.1 L (3.5-5.0) g/dL Calcium panel 03/07/17 Range/Units 08:15 Calcium 9.7 (8.6-10.8) mg/dL Albumin 2.1 L (3.5-5.0) g/dL Pituitary panel 03/07/17 Range/Units 08:15 Sodium 136 (136-145) mEq/L Potassium 3.9 (3.5-4.5) mEq/L Chloride 103 (98-109) mEq/L Carbon Dioxide 27 (19-29) mEq/L BUN 18 (8-26) mg/dL Creatinine 0.86 (0.72-1.25) mg/dL Glucose 171 H (70-99) mg/dL Calcium 9.7 (8.6-10.8) mg/dL Adrenal panel 03/07/17 Range/Units 08:15 Sodium 136 (136-145) mEq/L Potassium 3.9 (3.5-4.5) mEq/L Chloride 103 (98-109) mEq/L Carbon Dioxide 27 (19-29) mEq/L BUN 18 (8-26) mg/dL Creatinine 0.86 (0.72-1.25) mg/dL Glucose 171 H (70-99) mg/dL Calcium 9.7 (8.6-10.8) mg/dL Total Bilirubin 1.6 H (0.2-1.2) mg/dL AST 22 (5-34) Units/L ALT 49 (0-55) Units/L Alkaline Phosphatase 216 H (38-126) Units/L Albumin 2.1 L (3.5-5.0) g/dL - VTE Documentation of Mechanical Device: Intermittent pneumatic compression device Consult Discharge Plan - Plan Referrals: Dave Mayo Jr, MD [Primary Care Provider] -
[2017-03-07] MEDS: Furosemide 40 MG TABLET PO SCH (13:12)
[2017-03-07] MEDS ORDERED: Albuterol 2.5 MG/3 ML NEBULIZER IH PRN (15:33)
--- NOTE | 2017-03-07 18:31 | Internal Med Progress Note ---
Date of Encounter: 03/07/17 Time of Encounter: 11:00 - Assessment and plan (1) Hypertension Current Visit: Yes Status: Chronic Assessment and plan: Better controlled today. Continue current management for now. Qualifiers: Hypertension type: essential hypertension Qualified Code(s): I10 - Essential (primary) hypertension (2) Cholecystitis, acute Current Visit: Yes Status: Acute Assessment and plan: S/P cholecystectomy. Stable at this time. (3) Bacteremia due to Enterobacter species Current Visit: Yes Status: Acute Assessment and plan: Source felt to be biliary. Pt is s/p cholecystectomy and CBD stent placement. Repeat blood cultures pending. If negative anticipate d/c to SNF with PO abx. (4) Great toe pain Current Visit: Yes Status: Acute Assessment and plan: Appreciate podiatry input. Feels better. Qualifiers: Laterality: right Qualified Code(s): M79.674 - Pain in right toe(s) (5) Choledocholithiasis Current Visit: Yes Status: Acute Assessment and plan: S/P stent placement. (6) Anemia Current Visit: Yes Status: Acute Assessment and plan: Following H/H. Has remained stable over last few days. Qualifiers: Anemia type: other cause Other causes of anemia: chronic disease, other Qualified Code(s): D63.8 - Anemia in other chronic diseases classified elsewhere (7) Atrial fibrillation Current Visit: Yes Status: Chronic Assessment and plan: Had recurrent flutter last night. Continue rate control Qualifiers: Atrial fibrillation type: chronic Qualified Code(s): I48.2 - Chronic atrial fibrillation - Subjective Interval history: Mr. Parr is currently admitted for acute Enterobacter bacteremia related to acute cholecystitis/biliary disease. He is high risk due to potential for continued/worsening infection, post op and IV medications. Mr. Parr is doing better today. 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 He had rapid a flutter last night but NSR now. Pain is controlled in abdomen. Awaiting blood cultures. - Constitutional Vitals: Temp Pulse Resp BP Pulse Ox 97.7 F 65 16 142/73 98 03/07/17 15:25 03/07/17 15:25 03/07/17 15:25 03/07/17 15:25 03/07/17 15:25 General appearance: Present: cooperative, A&O X 3, answers questions appropriately - Head Head exam: Present: normocephalic - Eye Eye exam: Present: conjuntiva pink - ENT ENT exam: Present: mucous membranes moist - Respiratory Respiratory exam: Present: decreased breath sounds, CTAB. Absent: wheezes - Cardiovascular Cardiovascular exam: Present: RRR. Absent: systolic murmur, tachycardia - GI/Abdominal GI/Abdominal exam: Present: soft, tenderness - Extremities Exam Extremities exam: Present: pedal edema, warm - Neurological Exam Neurological exam: Present: alert, oriented X3, no focal deficits - Psychiatric Psychiatric exam: Present: normal affect, normal mood - Skin Skin exam: Present: warm. Absent: rash Internal Medicine: Result - Labs CBC & Chem 7: 03/07/17 08:15 03/07/17 08:15 Labs: Short CBC 03/07/17 Range/Units 08:15 WBC 9.1 (4.3-11.1) K/mcL Hgb 11.3 L (12.9-16.9) g/dL Hct 33.1 L (37.5-50.1) % Plt Count 235 (140-400) K/mcL Neutrophils # 6.9 (1.6-8.9) K/mcL BMP 03/07/17 08:15 Sodium 136 Potassium 3.9 Chloride 103 Carbon Dioxide 27 BUN 18 Creatinine 0.86 Glucose 171 H Calcium 9.7 Liver Function 03/07/17 Range/Units 08:15 Total Bilirubin 1.6 H (0.2-1.2) mg/dL AST 22 (5-34) Units/L ALT 49 (0-55) Units/L Alkaline Phosphatase 216 H (38-126) Units/L Albumin 2.1 L (3.5-5.0) g/dL - ABG Interpretation ABG results: PT/INR, D-dimer PT 14.1 Seconds (9.4-12.1) H 03/06/17 04:30 - VTE Documentation of Mechanical Device: Intermittent pneumatic compression device Consult Discharge Plan - Plan Referrals: Dave Mayo Jr, MD [Primary Care Provider] - Kevin Andre DO [Partnered Physician] - 03/27/17 1:00 pm
[2017-03-07] MEDS: Insulin DETEMIR 100 UNIT/ML X5UNITS SQ SCH (21:47)
[2017-03-08] MEDS: Piperacillin/Tazobactam 3.375 GM in D5% in Water (Mini-Bag+) 100 ML IVPB SCH ×2 (00:50→09:43)
[2017-03-08 05:26] LABS: Hematocrit 34.9 % (37.5-50.1); Hemoglobin 11.8 g/dL (12.9-16.9); Mean Corpuscular HGB Conc 33.8 g/dL (31.6-35.5); Mean Corpuscular Volume 94.6 fL (83.0-100.0); Mean Platelet Volume 9.8 fL (9.4-12.4); Platelet Count 272 K/mcL (140-400); Red Blood Count 3.69 M/mcL (4.19-5.50); Red Cell Distribution Width 14.1 % (11.5-14.5)
[2017-03-08 05:33] LABS: Alanine Aminotransferase 48 Units/L (0-55); Albumin 2.2 g/dL (3.5-5.0); Albumin/Globulin Ratio 0.7 (1.1-2.2); Alkaline Phosphatase 253 Units/L (38-126); Aspartate Amino Transferase 27 Units/L (5-34); BUN/Creatinine Ratio 21 (6-26); Bilirubin,Total 1.3 mg/dL (0.2-1.2); Blood Urea Nitrogen 18 mg/dL (8-26); Calcium 9.7 mg/dL (8.6-10.8); Carbon Dioxide 28 mEq/L (19-29); Chloride 102 mEq/L (98-109); Globulin 3.2 g/dL (2.4-3.5); Glucose 171 mg/dL (70-99); Osmolality,Calculated 286 (280-300); Sodium 135 mEq/L (136-145); Total Protein 5.4 g/dL (6.0-8.3); eGFR For African Americans > 60 (> 60); eGFR For Non-African Americans > 60 (> 60)
--- NOTE | 2017-03-08 08:50 | Electrocardiograph Report ---
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
[2017-03-08] MEDS: Nicotine 14 MG PATCH.TD24 TD SCH (09:41)
[2017-03-08] MEDS: APIXABAN 5 MG TABLET PO SCH ×2 (09:42→22:11)
[2017-03-08] MEDS: Aspirin 81 MG TAB.CHEW PO SCH (09:42)
[2017-03-08] MEDS: Furosemide 40 MG TABLET PO SCH (09:42)
[2017-03-08] MEDS: amLODIPine 5 MG TABLET PO SCH (09:43)
[2017-03-08] MEDS: Insulin LISPRO 300 UNITS/3 ML VIAL SQ SCH ×4 (09:45→22:12)
--- NOTE | 2017-03-08 09:51 | Discharge Summary ---
Date of Encounter: 03/08/17 Time of Encounter: 07:45 - Discharge Diagnosis (1) Cholecystitis, acute Priority: Primary Status: Acute (2) Hypertension Priority: Secondary Status: Chronic Qualifiers: Hypertension type: essential hypertension Qualified Code(s): I10 - Essential (primary) hypertension (3) Bacteremia due to Enterobacter species Priority: Primary Status: Acute (4) Great toe pain Priority: Secondary Status: Acute Qualifiers: Laterality: right Qualified Code(s): M79.674 - Pain in right toe(s) (5) Choledocholithiasis Priority: Primary Status: Acute (6) Anemia Priority: Secondary Status: Acute Qualifiers: Anemia type: other cause Other causes of anemia: chronic disease, other Qualified Code(s): D63.8 - Anemia in other chronic diseases classified elsewhere (7) Atrial fibrillation Priority: Secondary Status: Chronic Qualifiers: Atrial fibrillation type: chronic Qualified Code(s): I48.2 - Chronic atrial fibrillation (8) Atrial flutter, paroxysmal Priority: Secondary Status: Chronic (9) CAD (coronary artery disease), [place] coronary artery Priority: Secondary Status: Chronic Qualifiers: [place] vs. 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: without long-term use Qualified Code(s): E11.65 - Type 2 diabetes mellitus with hyperglycemia (11) Sepsis Priority: Primary Status: Resolved Comments: Enterobacter cloacae Qualifiers: Sepsis type: sepsis due to unspecified organism Qualified Code(s): A41.9 - Sepsis, unspecified organism - Discharge Medications Prescriptions: LORazepam [Ativan] 0.5 mg PO Q4HR PRN #10 tablet PRN Reason: Anxiety OxyCODONE/APAP 5/325 [Percocet 5/325 MG] 1 each PO Q6HR PRN #10 tablet PRN Reason: pain not relieved by Tylenol Levofloxacin [Levaquin] 750 mg PO DAILY #5 tablet Home Medications: Apixaban [Eliquis] 2.5 mg PO BID 02/27/17 [History] Cyanocobalamin (B-12) [Vitamin B12] 1,000 mcg SQ Q14D MDD fridays02/27/17 [ History] Furosemide [Lasix] 40 mg PO DAILY PRN 02/27/17 [History] Multivit-Min/FA/Lycopen/Lutein [Centrum Silver Men Tablet] 1 each PO DAILY 02/27 [History] Omeprazole [PriLOSEC] 40 mg PO DAILY 02/27/17 [History] Oxybutynin [Ditropan] 5 mg PO BID 02/27/17 [History] Vitamin E Acid Succinate [Vitamin E] 400 units PO DAILY 02/27/17 [History] amLODIPine [Norvasc] 5 mg PO DAILY 02/27/17 [History] Acetaminophen [Tylenol] 650 mg PO Q6HR PRN #0 tablet 03/08/17 [Rx] Albuterol Neb [Proventil Neb] 2.5 mg IH [id number] PRN #0 inhsol 03/08/17 [Rx] Apixaban [Eliquis] 2.5 mg PO BID tablet 03/08/17 [Rx] Aspirin 81 mg PO DAILY tab.chew 03/08/17 [Rx] Docusate [Colace] 100 mg PO BID PRN #0 capsule 03/08/17 [Rx] Insulin DETEMIR [Levemir] 12 unit SQ HS [id number] 03/08/17 [Rx] LORazepam [Ativan] 0.5 mg PO Q4HR PRN #10 tablet 03/08/17 [Rx] Levofloxacin [Levaquin] 750 mg PO DAILY #5 tablet 03/08/17 [Rx] Metoprolol [Lopressor] 100 mg PO BID tablet 03/08/17 [Rx] Nicotine Patch [Nicoderm] 14 mg TD DAILY patch.td24 03/08/17 [Rx] Nitroglycerin 0.4 mg SL Q5MIN PRN #0 tab.subl 03/08/17 [Rx] OxyCODONE/APAP 5/325 [Percocet 5/325 MG] 1 each PO Q6HR PRN #10 tablet 03/08/17 [Rx] Simvastatin [Zocor] 40 mg PO HS tablet 03/08/17 [Rx] Allergies/Adverse Reactions: Allergies No Known Allergies Allergy (Verified 02/26/17 22:36) Procedures/tests Complete & Pending: Procedures Performed prior 72 hours Category Date Time Status ECG 12 lead ECG [ECG] Routine Y 03/06/17 17:30 Completed Date of admission: 02/27/17 12:28 Primary care physician: Dave Mayo Jr, MD Consults: 02/27/17 14:57 Consult to Lumber Racker [CONS] Routine Reason for SW Consult: discharge planning 02/28/17 08:06 Consult to Palliative Care [CONS] Routine Comment: Consulting Provider: Palliative Care Eliana Reason for Consult: Advanced age, NSTEMI, Frequent falls Call Completed: Yes 02/28/17 11:31 consult to seed potato arranger [Consult to Nutrition] [CONS] Routine Comment: Consulting Provider: NUTRITION Reason for Dietary Consult: PO Supplementation 03/01/17 13:02 Consult to Surgery [CONS] Routine Consulting Provider: Surgery Fern[facility] Surg - Crista Reason for Consult: Enterobacter cloacae bacterermia, cholelithiasis; GI on board, MRCP ordered Time Notified: 13:04 Call Completed: Yes 03/03/17 09:54 Consult to Cardiology [CONS] Routine Comment: Consulting Provider: Cardiology Eliana Reason for Consult: persistent A flutter Call Completed: Yes 03/06/17 11:21 Consult to Podiatry [CONS] Routine Consulting Provider: Podiatry [facility] Reason for Consult: ingrown toe nail. Call Completed: Yes Discharging clinician: Boone Merino Anticipated date of discharge: 03/08/17 - Patient Status Disposition: Transfer SNF Condition: Good Functional capacity at discharge: uses cane/walker Overall status at discharge: patient is progressing back to baseline - Discharge Instructions Follow Up With: Dave Mayo Jr, MD [Primary Care Provider] - Kevin Andre DO [Partnered Physician] - 03/27/17 1:00 pm - Diet and Activity Activity: as per physical therapy Diet: low fat, low cholesterol Hospital course: Mr. Parr is a 86 year old male brought to ED due to progressive weakness and inability to ambulate. He was evaluated and subsequently admitted for further work up. Mr. Parr was admitted to [facility]. He initially had a recorded temperature of 104.3 and blood cultures grew Enterobacter cloace. CT showed cholelithiasis and a stone in the distal CBD. He underwent ERCP and had stent placement. He was evaluated by Dr. Tobin and had cholecystectomy on 03/04/17 and tolerated it well. Mr Parr had issues with atrial flutter post operatively and medications were adjusted for rate control. Initially his Eliquis was held but was restarted on 03/06/17. He was continued on IV abx. Repeat blood cultures have been negative at 48hours. He did developed R great toe pain and was seen by podiatry with improvement after nail debridement. Mr. Parr slowly was improving. He was seen by PT/OT and needs SNF and he is agreeable. On 03/08/17 he is alert and oriented. He is afebrile with stable vitals. At this time he is ok for discharge to SNF. - Time Spent with Patient Total time spent providing and/or coordinating discharge services: 41min - Constitutional Vitals: Temp Pulse Resp BP Pulse Ox 98 F 83 16 186/85 96 03/08/17 06:39 03/08/17 06:39 03/08/17 06:39 03/08/17 06:39 03/08/17 06:39 General appearance: Present: cooperative, A&O X 3, answers questions appropriately - Head Head exam: Present: normocephalic - Eye Eye exam: Present: conjuntiva pink - ENT ENT exam: Present: mucous membranes moist - Respiratory Respiratory exam: Present: decreased breath sounds, CTAB - Cardiovascular Cardiovascular exam: Present: irregular rhythm. Absent: tachycardia - GI/Abdominal GI/Abdominal exam: Present: soft, tenderness - Extremities Exam Extremities exam: Present: pedal edema, warm - Neurological Exam Neurological exam: Present: alert, oriented X3 - Skin Skin exam: Present: warm. Absent: rash - VTE Documentation of Mechanical Device: Intermittent pneumatic compression device
--- NOTE | 2017-03-08 10:35 | Physician Discharge Referral ---
ExtendedCare Referral Info Provider in Charge: Boone Merino DO Provider in Charge after Transfer: PCP Institutional Level of Care: Skilled - Diagnosis (1) Cholecystitis, acute Priority: Primary Status: Acute (2) Hypertension Priority: Secondary Status: Chronic (3) Bacteremia due to Enterobacter species Priority: Primary Status: Acute (4) Great toe pain Priority: Secondary Status: Acute (5) Choledocholithiasis Priority: Primary Status: Acute (6) Anemia Priority: Secondary Status: Acute (7) Atrial fibrillation Priority: Secondary Status: Chronic (8) Atrial flutter, paroxysmal Priority: Secondary Status: Chronic (9) CAD (coronary artery disease), [place] coronary artery Priority: Secondary Status: Chronic (10) Diabetes mellitus Priority: Secondary Status: Acute (11) Sepsis Priority: Primary Status: Resolved Expected Duration of Placement: Less than 30 days Prognosis: Good Aware of Diagnosis: Patient, Family Aware of Prognosis: Patient, Family - Transfer Medications Prescriptions: LORazepam [Ativan] 0.5 mg PO Q4HR PRN #10 tablet PRN Reason: Anxiety OxyCODONE/APAP 5/325 [Percocet 5/325 MG] 1 each PO Q6HR PRN #10 tablet PRN Reason: pain not relieved by Tylenol Levofloxacin [Levaquin] 750 mg PO DAILY #5 tablet Home Medications: Apixaban [Eliquis] 2.5 mg PO BID 02/27/17 [History] Cyanocobalamin (B-12) [Vitamin B12] 1,000 mcg SQ Q14D MDD fridays02/27/17 [ History] Furosemide [Lasix] 40 mg PO DAILY PRN 02/27/17 [History] Multivit-Min/FA/Lycopen/Lutein [Centrum Silver Men Tablet] 1 each PO DAILY 02/27 [History] Omeprazole [PriLOSEC] 40 mg PO DAILY 02/27/17 [History] Oxybutynin [Ditropan] 5 mg PO BID 02/27/17 [History] Vitamin E Acid Succinate [Vitamin E] 400 units PO DAILY 02/27/17 [History] amLODIPine [Norvasc] 5 mg PO DAILY 02/27/17 [History] Acetaminophen [Tylenol] 650 mg PO Q6HR PRN #0 tablet 03/08/17 [Rx] Albuterol Neb [Proventil Neb] 2.5 mg IH [id number] PRN #0 inhsol 03/08/17 [Rx] Apixaban [Eliquis] 2.5 mg PO BID tablet 03/08/17 [Rx] Aspirin 81 mg PO DAILY tab.chew 03/08/17 [Rx] Docusate [Colace] 100 mg PO BID PRN #0 capsule 03/08/17 [Rx] Insulin DETEMIR [Levemir] 12 unit SQ HS [id number] 03/08/17 [Rx] LORazepam [Ativan] 0.5 mg PO Q4HR PRN #10 tablet 03/08/17 [Rx] Levofloxacin [Levaquin] 750 mg PO DAILY #5 tablet 03/08/17 [Rx] Metoprolol [Lopressor] 100 mg PO BID tablet 03/08/17 [Rx] Nicotine Patch [Nicoderm] 14 mg TD DAILY patch.td24 03/08/17 [Rx] Nitroglycerin 0.4 mg SL Q5MIN PRN #0 tab.subl 03/08/17 [Rx] OxyCODONE/APAP 5/325 [Percocet 5/325 MG] 1 each PO Q6HR PRN #10 tablet 03/08/17 [Rx] Simvastatin [Zocor] 40 mg PO HS tablet 03/08/17 [Rx] Allergies/Adverse Reactions: Allergies No Known Allergies Allergy (Verified 02/26/17 22:36) - Respiratory Orders Oxygen / L per min (Keep saturation greater than 90%) Smoking Cessation: Smoking cessation has been advised. For more information, call the [place] Tobacco Quit Line at 0-796-QKXM-NOW. - Lab Orders Lab Orders: 2 Step Mantoux Test per State regulation - Ancillary Orders May use pressure relief devices daily prn, May consult with Dentist, Wool Fleece Grader, Info Specialist PRN - Advance Directives Code Status: DNR-Arrest/Don't Intubate - History and Physical History/Physical reviewed & approved w/add comments: Pt s/p cholecystectomy. - Mobility Orders Ambulate - Rehabiliation Orders Rehab Potential: Good Rehab Orders: Evaluation for Physical Therapy, Evaluation for Occupational Therapy - Treatments Skin tear care topically daily PRN per policy, May check for fecal impaction rectally daily PRN, Fleet enema rectally every other day PRN cleansing purposes - Diet Orders No Concentrated Sweets, Cardiac CERTIFICATION: I certify that the transfer of the above named patient to an Extended Care Facility is necessary for the continuing treatment of the diagnosis listed. The above information is true and accurate reflection of patient's current condition. Confidential - Redisclosure prohibited without a patient's written consent.
[2017-03-08] MEDS ORDERED: levoFLOXacin 500 MG TABLET PO ONE ×2 (10:41→18:45)
--- NOTE | 2017-03-08 11:52 | General Surgery Progress Note ---
Date of Encounter: 03/08/17 Time of Encounter: 11:41 Subjective Patient reports: no new complaints Narrative: General Surgery: POD #4 - patient feeling well, voicing no complaints. The patient is currently sleeping, family indicates that he has been stable with no new complaints or abdominal pain. Recent blood cultures are reported negative for growth. Afebrile, a 7.8; pulse 65-94, irregular; respirations 15, blood pressure 139/ 81. SPO2 on room air 96%. Lungs: Clear Cardiac: Irregular rate, A. fib Abdomen: Soft, nontender. Active bowel sounds Laboratories: White count 9.1, hemoglobin 11.8 with hematocrit 34.9- improved as patient diuresis and the IV fluids administered during this hospitalization including resuscitation are being mobilized. Sodium 137, stable but low. Potassium 4.0, BUN 18, creatinine 0.87. Bilirubin continues to improve, 1.3; AST 27, ALT 48. Alkaline phosphatase continues to rise 253. Operative cultures of the purulent bile encountered within the gallbladder - normal skin ross, no pathogens identified. Likely a disparate findings as the cultures were obtained during the laparoscopic cholecystectomy via endoscopic aspirating needle. Impression: Postoperative day 4, status post laparoscopic cholecystectomy for acute cholecystitis, cholelithiasis and ascending cholangitis. Patient continues to improve. Rising alkaline phosphatase of uncertain etiology, will evaluate further via CT abd/pelvis prior to transfer to [facility] Stable hyponatremia, 135, without obvious sequela Atrial fibrillation - ventricular rate appears controlled Hypertension - better control with diltiazem Objective Vital Signs - Last 8 Hours Temp Pulse Resp BP Pulse Ox 03/08/17 06:39 98 F 83 16 186/85 96 03/08/17 05:00 98.1 F 90 17 167/86 95 Intake and Output 03/07/17 03/08/17 03/08/17 23:59 07:59 15:59 Intake Total 100 / 100 100 / 100 Output Total 400 / 400 Balance 100 / 100 -300 / -300 Intake: IV Fluids 100 / 100 100 / 100 Zosyn 3.375 GM In 100 / 100 100 / 100 Dextrose 5% (Minibag+) 100 ML 100 ML @ 25 mls/hr IVPB Q8H RODRIGUEZ Rx#: [id number] Output: Urine 400 / 400 Other: # Urine Diapers 1 Blood Glucose* 273 140 - Labs 03/08/17 04:35 03/08/17 04:35 Diabetes panel 03/08/17 Range/Units 04:35 Sodium 135 L (136-145) mEq/L Potassium 4.0 (3.5-4.5) mEq/L Chloride 102 (98-109) mEq/L Carbon Dioxide 28 (19-29) mEq/L BUN 18 (8-26) mg/dL Creatinine 0.87 (0.72-1.25) mg/dL Glucose 171 H (70-99) mg/dL Calcium 9.7 (8.6-10.8) mg/dL AST 27 (5-34) Units/L ALT 48 (0-55) Units/L Alkaline Phosphatase 253 H (38-126) Units/L Albumin 2.2 L (3.5-5.0) g/dL Calcium panel 03/08/17 Range/Units 04:35 Calcium 9.7 (8.6-10.8) mg/dL Albumin 2.2 L (3.5-5.0) g/dL Pituitary panel 03/08/17 Range/Units 04:35 Sodium 135 L (136-145) mEq/L Potassium 4.0 (3.5-4.5) mEq/L Chloride 102 (98-109) mEq/L Carbon Dioxide 28 (19-29) mEq/L BUN 18 (8-26) mg/dL Creatinine 0.87 (0.72-1.25) mg/dL Glucose 171 H (70-99) mg/dL Calcium 9.7 (8.6-10.8) mg/dL Adrenal panel 03/08/17 Range/Units 04:35 Sodium 135 L (136-145) mEq/L Potassium 4.0 (3.5-4.5) mEq/L Chloride 102 (98-109) mEq/L Carbon Dioxide 28 (19-29) mEq/L BUN 18 (8-26) mg/dL Creatinine 0.87 (0.72-1.25) mg/dL Glucose 171 H (70-99) mg/dL Calcium 9.7 (8.6-10.8) mg/dL Total Bilirubin 1.3 H (0.2-1.2) mg/dL AST 27 (5-34) Units/L ALT 48 (0-55) Units/L Alkaline Phosphatase 253 H (38-126) Units/L Albumin 2.2 L (3.5-5.0) g/dL - VTE Documentation of Mechanical Device: Intermittent pneumatic compression device Consult Discharge Plan - Plan Referrals: Rony Tobin MD [Non-Partnered Physician] - 03/16/17 2:50 pm Dave Mayo Jr, MD [Primary Care Provider] - Kevin Andre DO [Partnered Physician] - 03/27/17 1:00 pm Prescriptions: LORazepam [Ativan] 0.5 mg PO Q4HR PRN #10 tablet PRN Reason: Anxiety OxyCODONE/APAP 5/325 [Percocet 5/325 MG] 1 each PO Q6HR PRN #10 tablet PRN Reason: pain not relieved by Tylenol Levofloxacin [Levaquin] 750 mg PO DAILY #5 tablet
--- NOTE | 2017-03-08 16:40 | General Surgery Progress Note ---
Date of Encounter: 03/08/17 Time of Encounter: 16:34 Subjective Narrative: General Surgery - CT abd/pelvis personally reviewed with [facility]. Findings are consistent with laparoscopic cholecystectomy for acute cholecystitis, cholelithiasis with ascending cholangitis. Small bilateral pleural effusions with basilar atelectasis is noted. These are expected to resolve as the patient continues to heal. A small amount of heterogeneous material in the gallbladder fossa consistent with hematoma is noted. A trace amount of free fluid is seen around the liver consistent with the recent surgery. A stent is evident within the common bile duct. The reading radiologist felt that the findings were consistent with postsurgical changes, postsurgical hematoma but early developing abscess cannot be excluded. I am aware of these results. The findings are most consistent with hematoma due to the acute inflammatory changes within and surrounding the gallbladder at the time of surgery. Impression: The rising alkaline phosphatase is noted but does not appear related to the CT findings in the gallbladder fossa. The patient is deemed stable for transfer to ECF/rehab. The findings were discussed with family. Follow up with me as outpatient, 03/16/2017. Objective Intake and Output 03/08/17 03/08/17 03/08/17 07:59 15:59 23:59 Intake Total 100 / 100 Output Total 400 / 400 Balance -300 / -300 Intake: IV Fluids 100 / 100 Zosyn 3.375 GM In 100 / 100 Dextrose 5% (Minibag+) 100 ML 100 ML @ 25 mls/hr IVPB Q8H [id number] Rx#: [id number] Output: Urine 400 / 400 Other: # Urine Diapers 1 Blood Glucose* 140 - Labs 03/08/17 04:35 03/08/17 04:35 Diabetes panel 03/08/17 Range/Units 04:35 Sodium 135 L (136-145) mEq/L Potassium 4.0 (3.5-4.5) mEq/L Chloride 102 (98-109) mEq/L Carbon Dioxide 28 (19-29) mEq/L BUN 18 (8-26) mg/dL Creatinine 0.87 (0.72-1.25) mg/dL Glucose 171 H (70-99) mg/dL Calcium 9.7 (8.6-10.8) mg/dL AST 27 (5-34) Units/L ALT 48 (0-55) Units/L Alkaline Phosphatase 253 H (38-126) Units/L Albumin 2.2 L (3.5-5.0) g/dL Calcium panel 03/08/17 Range/Units 04:35 Calcium 9.7 (8.6-10.8) mg/dL Albumin 2.2 L (3.5-5.0) g/dL Pituitary panel 03/08/17 Range/Units 04:35 Sodium 135 L (136-145) mEq/L Potassium 4.0 (3.5-4.5) mEq/L Chloride 102 (98-109) mEq/L Carbon Dioxide 28 (19-29) mEq/L BUN 18 (8-26) mg/dL Creatinine 0.87 (0.72-1.25) mg/dL Glucose 171 H (70-99) mg/dL Calcium 9.7 (8.6-10.8) mg/dL Adrenal panel 03/08/17 Range/Units 04:35 Sodium 135 L (136-145) mEq/L Potassium 4.0 (3.5-4.5) mEq/L Chloride 102 (98-109) mEq/L Carbon Dioxide 28 (19-29) mEq/L BUN 18 (8-26) mg/dL Creatinine 0.87 (0.72-1.25) mg/dL Glucose 171 H (70-99) mg/dL Calcium 9.7 (8.6-10.8) mg/dL Total Bilirubin 1.3 H (0.2-1.2) mg/dL AST 27 (5-34) Units/L ALT 48 (0-55) Units/L Alkaline Phosphatase 253 H (38-126) Units/L Albumin 2.2 L (3.5-5.0) g/dL - VTE Documentation of Mechanical Device: Intermittent pneumatic compression device Consult Discharge Plan - Plan Referrals: Rony Tboin MD [Non-Partnered Physician] - 03/16/17 2:50 pm Dave Mayo Jr, MD [Primary Care Provider] - Kevin Andre DO [Partnered Physician] - 03/27/17 1:00 pm Prescriptions: LORazepam [Ativan] 0.5 mg PO Q4HR PRN #10 tablet PRN Reason: Anxiety OxyCODONE/APAP 5/325 [Percocet 5/325 MG] 1 each PO Q6HR PRN #10 tablet PRN Reason: pain not relieved by Tylenol Levofloxacin [Levaquin] 750 mg PO DAILY #5 tablet
[2017-03-08] MEDS: Insulin DETEMIR 100 UNIT/ML X5UNITS SQ SCH (23:59)
[2017-03-09 03:30] LABS: Hematocrit 35.7 % (37.5-50.1); Hemoglobin 12.1 g/dL (12.9-16.9); Mean Corpuscular HGB Conc 33.9 g/dL (31.6-35.5); Mean Corpuscular Hemoglobin 31.7 pg (28.0-33.3); Mean Corpuscular Volume 93.5 fL (83.0-100.0); Mean Platelet Volume 9.7 fL (9.4-12.4); Platelet Count 275 K/mcL (140-400); Red Blood Count 3.82 M/mcL (4.19-5.50); Red Cell Distribution Width 14.2 % (11.5-14.5)
[2017-03-09 03:40] LABS: Alanine Aminotransferase 43 Units/L (0-55); Albumin 2.4 g/dL (3.5-5.0); Albumin/Globulin Ratio 0.7 (1.1-2.2); Alkaline Phosphatase 263 Units/L (38-126); Aspartate Amino Transferase 32 Units/L (5-34); BUN/Creatinine Ratio 20 (6-26); Bilirubin,Total 1.4 mg/dL (0.2-1.2); Blood Urea Nitrogen 16 mg/dL (8-26); Calcium 10.3 mg/dL (8.6-10.8); Carbon Dioxide 26 mEq/L (19-29); Chloride 102 mEq/L (98-109); Globulin 3.6 g/dL (2.4-3.5); Glucose 97 mg/dL (70-99); Osmolality,Calculated 283 (280-300); Potassium 4.3 mEq/L (3.5-4.5); Sodium 136 mEq/L (136-145); eGFR For African Americans > 60 (> 60); eGFR For Non-African Americans > 60 (> 60)
[2017-03-09] MEDS: Nicotine 14 MG PATCH.TD24 TD SCH (08:06)
[2017-03-09] MEDS: Insulin LISPRO 300 UNITS/3 ML VIAL SQ SCH ×2 (08:06→12:06)
[2017-03-09] MEDS: APIXABAN 5 MG TABLET PO SCH (08:07)
[2017-03-09] MEDS: Furosemide 40 MG TABLET PO SCH (08:07)
[2017-03-09] MEDS: Aspirin 81 MG TAB.CHEW PO SCH (08:07)
[2017-03-09] MEDS: amLODIPine 5 MG TABLET PO SCH (08:08)
[2017-03-09] MEDS ORDERED: levoFLOXacin 750 MG TABLET PO ONE (10:37)
[2017-03-09 11:14] VITALS: BP 153/70
--- NOTE | 2017-03-09 14:10 | Internal Med Progress Note ---
Date of Encounter: 03/09/17 Time of Encounter: 09:00 - Assessment and plan (1) Cholecystitis, acute Current Visit: Yes Status: Resolved Assessment and plan: S/P cholecystectomy. Stable at this time. (2) Hypertension Current Visit: Yes Status: Chronic Assessment and plan: Better controlled today. Continue current management for now. Qualifiers: Hypertension type: essential hypertension Qualified Code(s): I10 - Essential (primary) hypertension (3) Bacteremia due to Enterobacter species Current Visit: Yes Status: Acute Assessment and plan: Source felt to be biliary. Pt is s/p cholecystectomy and CBD stent placement. Repeat blood cultures negative. (4) Great toe pain Current Visit: Yes Status: Resolved Assessment and plan: Appreciate podiatry input. Feels better. Qualifiers: Laterality: right Qualified Code(s): M79.674 - Pain in right toe(s) (5) Choledocholithiasis Current Visit: Yes Status: Resolved Assessment and plan: S/P stent placement. (6) Anemia Current Visit: Yes Status: Chronic Assessment and plan: Following H/H. Has remained stable over last few days. Qualifiers: Anemia type: other cause Other causes of anemia: chronic disease, other Qualified Code(s): D63.8 - Anemia in other chronic diseases classified elsewhere (7) Atrial fibrillation Current Visit: Yes Status: Chronic Assessment and plan: Monitor and rate control. Qualifiers: Atrial fibrillation type: chronic Qualified Code(s): I48.2 - Chronic atrial fibrillation (8) Atrial flutter, paroxysmal Current Visit: Yes Status: Chronic Assessment and plan: On Eliquis (9) CAD (coronary artery disease), [place] coronary artery Current Visit: Yes Status: Chronic Assessment and plan: Patient of Dr. Andre Qualifiers: [place] vs. transplanted heart: [place] heart Associated angina: angina presence unspecified Qualified Code(s): I25.10 - Atherosclerotic heart disease of [place] coronary artery without angina pectoris (10) Diabetes mellitus Current Visit: Yes Status: Acute Qualifiers: Diabetes mellitus type: type 2 Diabetes mellitus complication status: with hyperglycemia Diabetes mellitus usp insulin use: without longwall foreman use Qualified Code(s): E11.65 - Type 2 diabetes mellitus with hyperglycemia - Subjective Interval history: Mr. Parr is currently admitted for acute Enterobacter bacteremia related to acute cholecystitis/biliary disease. Mr. Parr feels OK. His CT last evening was consistent with postoperative changes. He had no issues last night. Family at bedside and agreeable with plan for d/c today. - Constitutional Vitals: Temp Pulse Resp BP Pulse Ox 98.5 F 54 15 153/70 95 03/09/17 11:07 03/09/17 11:07 03/09/17 11:07 03/09/17 11:07 03/09/17 11:07 General appearance: Present: cooperative, A&O X 3, answers questions appropriately - Head Head exam: Present: normocephalic - Eye Eye exam: Present: conjuntiva pink - ENT ENT exam: Present: mucous membranes moist - Respiratory Respiratory exam: Present: decreased breath sounds. Absent: wheezes - Cardiovascular Cardiovascular exam: Present: RRR. Absent: tachycardia - GI/Abdominal GI/Abdominal exam: Present: soft, no peritoneal signs - Extremities Exam Extremities exam: Present: warm. Absent: tenderness - Neurological Exam Neurological exam: Present: alert, oriented X3 - Psychiatric Psychiatric exam: Present: normal affect, normal mood - Skin Skin exam: Present: warm. Absent: rash Internal Medicine: Result - Labs CBC & Chem 7: 03/09/17 03:14 03/09/17 03:14 Labs: Short CBC 03/09/17 Range/Units 03:14 WBC 10.3 (4.3-11.1) K/mcL Hgb 12.1 L (12.9-16.9) g/dL Hct 35.7 L (37.5-50.1) % Plt Count 275 (140-400) K/mcL BMP 03/09/17 03:14 Sodium 136 Potassium 4.3 Chloride 102 Carbon Dioxide 26 BUN 16 Creatinine 0.82 Glucose 97 Calcium 10.3 Liver Function 03/09/17 Range/Units 03:14 Total Bilirubin 1.4 H (0.2-1.2) mg/dL AST 32 (5-34) Units/L ALT 43 (0-55) Units/L Alkaline Phosphatase 263 H (38-126) Units/L Albumin 2.4 L (3.5-5.0) g/dL - ABG Interpretation ABG results: PT/INR, D-dimer PT 14.1 Seconds (9.4-12.1) H 03/06/17 04:30 - Impressions Impressions Abdomen/Pelvis CT 03/08/17 14:30 IMPRESSION: There is a small amount of heterogeneous material in the gallbladder fossa containing foci of gas. Given the short interval postsurgical time frame these findings likely related to small amount of postsurgical hematoma. Early developing abscess not excluded. Stent is seen within the common bile duct. No evidence of biliary obstruction. There is a trace amount of free fluid anterior to the liver which is likely postsurgical. Bilateral pleural effusions and adjacent atelectasis, increased compared to prior. Enlarged heterogeneous prostate. D/ / Fiordaliza Solis MD / Fiordaliza Solis MD Interpreting Provider: Fiordaliza Solis MD - VTE Documentation of Mechanical Device: Intermittent pneumatic compression device Consult Discharge Plan - Plan Instructions: Coronary Artery Disease (DC), Atrial Flutter (DC) Referrals: Rony Tobin MD [Non-Partnered Physician] - 03/16/17 2:50 pm Dave Mayo Jr, MD [Primary Care Provider] - Kevin Andre DO [Partnered Physician] - 03/27/17 1:00 pm Prescriptions: LORazepam [Ativan] 0.5 mg PO Q4HR PRN #10 tablet PRN Reason: Anxiety OxyCODONE/APAP 5/325 [Percocet 5/325 MG] 1 each PO Q6HR PRN #10 tablet PRN Reason: pain not relieved by Tylenol Levofloxacin [Levaquin] 750 mg PO DAILY #5 tablet
== END 2017-03-09 14:45 | DRG 853 ==
LOC: EMEROO 22:25 → 2NENU 22:25 → SUATTDRO 02-27 12:28
PROVIDERS: ADMIT Internal Medicine; ATTEND Internal Medicine

== ENCOUNTER 2017-08-04 13:43 | Observation (INO) ==
[2017-08-04] MEDS ORDERED: Naloxone 0.4 MG/ML INJ IVP PRN (16:19)
[2017-08-04] MEDS ORDERED: Acetaminophen 325 MG TABLET PO PRN (16:19)
[2017-08-04] MEDS ORDERED: Nitroglycerin 0.4 MG TAB.SUBL SL PRN (16:28)
[2017-08-04] MEDS ORDERED: Furosemide 20 MG/2 ML VIAL IVP ONE (16:32)
[2017-08-04] MEDS ORDERED: Furosemide 40 MG TABLET PO PRN (16:36)
--- NOTE | 2017-08-04 16:41 | Internal Med History&Physical ---
Date of Encounter: 08/04/17 Time of Encounter: 16:37 Assessment and Plan (1) Atrial flutter with rapid ventricular response Current visit: Yes Status: Acute Patient presented to [place] ED with elevated HR, found to have Aflutter with RVR, HR 144. Patient has history of known afib/aflutter. Patient was given adenocard and started on Cardizem drip. He was transferred to [facility] and on arrival, HR in the 50s. Cardizem drip was stopped. Patient's reports his PCP recently reduced his metoprolol from 100mg BID to 25mg BID. Continuous chocolate dipper Continue home dose of Eliquis. Increase metoprolol to 50mg BID. Stop amlodipine and start Cardizem 120mg daily. Serial troponins. (2) Type 2 diabetes mellitus Current visit: Yes Status: Acute Hold metformin check blood sugars AHCS sliding scale correction dose ACHS hypoglycemic protocol. Qualifiers: Diabetes mellitus complication status: with unspecified complications Diabetes mellitus intermediate project manager insulin use: without custodial use Qualified Code( s): E11.8 - Type 2 diabetes mellitus with unspecified complications (3) CAD (coronary artery disease) Current visit: Yes Status: Acute Patient with CAD s/p CABG. Patient denies any chest pain today. Troponin 0.01. Continue aspirin, beta noreen, statin. Qualifiers: Coronary Disease-Associated Artery/Lesion type: [place] artery [place] vs. transplanted heart: [place] heart Associated angina: angina presence unspecified Qualified Code(s): I25.10 - Atherosclerotic heart disease of [place] coronary artery without angina pectoris (4) Constipation by delayed colonic transit Current visit: Yes Status: Acute (5) DVT prophylaxis Current visit: Yes Status: Acute anti-embolic stockings patient on Eliquis for afib, additional pharmacologic prophylaxis. Internal Medicine - H&P: HPI Chief complaint: elevated heart rate Admitted From: Hospital to Hospital Transfer Plans for Post Hospital Care: Home History of present illness: Mr. Parr is a 87 year old male with hyperlipidemia, hypertension, history of CVA, coronary artery disease status post CABG, CHF, atrial fibrillation, diabetes, presented to [facility] ED today with elevated heart rate. Patient's family reports that he was lightheaded on standing this morning. Patient denies any other symptoms. Home health nurse noted patient's heart rate is elevated and the squad was called. Patient denies headache, chest pain, outpatient, shortness of breath, nausea, vomiting, abdominal pain. He denies any fever, chills or sweats. He does report constipation and has not had a bowel movement in 3 days. Evaluation in [place] ED revealed patient was in a flutter with RVR with heart rate of 144 on EKG. Chest x-ray was stable portable study. BNP elevated at 336, but actually stable from previous value. Troponin was negative at 0.01. Other labs were grossly normal. Patient was given adenocard and started on a Cardizem drip at [place]. On arrival here, patient's HR was in the 50s and cardizem drip was stopped. On exam, patient alert and oriented in no acute distress. Heart had regular rate and rhythm, lungs were clear bilaterally with mild crackles in left base. Abdomen was nontender, with positive bowel sounds. No peripheral edema. Past Med Surg Social Fam HX - Past Medical History Medical history: arthritis, atrial fibrillation, CHF, coronary artery disease, CVA, diabetes, GI bleed, hyperlipidemia, hypertension, myocardial infarction, osteoporosis, peripheral artery disease, renal disease, TIA Psychiatric history: anxiety - Past Surgical History Surgical History: cholecystectomy, coronary bypass (CABG), herniorrhaphy, other - Social History Smoking Status: Former smoker Smokeless Tobacco Status: No Alcohol use: none, unknown Drug use: none - Family History Mother Living Status: Hx Family Cardiac Disorders: Yes Hx Family Endocrine Disorder: Yes (diabetes) Father Living Status: Hx Family Cardiac Disorders: Yes Internal Medicine - H&P: Meds Cyanocobalamin (B-12) [Vitamin B12] 1,000 mcg SQ Q14D MDD fridays02/27/17 [ History] Furosemide [Lasix] 40 mg PO DAILY PRN 02/27/17 [History] Multivit-Min/FA/Lycopen/Lutein [Centrum Silver Men Tablet] 1 each PO DAILY 02/27 [History] Omeprazole [PriLOSEC] 40 mg PO DAILY 02/27/17 [History] Oxybutynin [Ditropan] 5 mg PO BID 02/27/17 [History] amLODIPine [Norvasc] 5 mg PO BID 02/27/17 [History] Acetaminophen [Tylenol] 650 mg PO Q6HR PRN #0 tablet 03/08/17 [Rx] Apixaban [Eliquis] 2.5 mg PO BID tablet 03/08/17 [Rx] Docusate [Colace] 100 mg PO BID PRN #0 capsule 03/08/17 [Rx] Nitroglycerin 0.4 mg SL Q5MIN PRN #0 tab.subl 03/08/17 [Rx] Simvastatin [Zocor] 40 mg PO HS tablet 03/08/17 [Rx] Metoprolol [Lopressor] 100 mg PO BID 04/18/17 [History] metFORMIN [Glucophage] 500 mg PO BIDWM 04/18/17 [History] Niacin [Niaspan] 500 mg PO DAILY 05/11/17 [History] 3 Allergy/AdvReac Type Severity Reaction Status Date / Time No Known Allergies Allergy Verified 05/11/17 12:30 All Systems PM: A 10-system review of systems was performed and is negative for pertinent findings except as documented above in the HPI. - Constitutional Constitutional: no chills, no fever(s), no night sweats - EENT Eyes: no change in vision, no discharge, no pain, no photophobia Ears: no ear discharge, no ear pain, no tinnitus Nose, mouth and throat: no dysphagia, no nasal discharge, no neck pain, no sore throat - Cardiovascular Cardiovascular ROS IM: lightheadedness, no chest pain, no diaphoresis, no dyspnea, no palpitations, no syncope - Respiratory Respiratory: no cough, no dyspnea, no wheezing, no excessive phlegm production - Gastrointestinal Gastrointestinal: no abdominal pain, no diarrhea, no hematemesis, no hematochezia, no melena, no nausea, no vomiting - Musculoskeletal Musculoskeletal ROS IM: no numbness, no tingling - Integumentary Integumentary IM: no rash, no unusual bruising - Neurological Neurological ROS: no confusion, no convulsions, no focal weakness, no numbness, no tingling, no tremor(s) - Hematologic/Lymphatic Hematologic/Lymphatic: no easy bruising - Constitutional Vitals: Temp Pulse Resp BP Pulse Ox 97.3 F L 60 18 124/62 100 08/04/17 15:11 08/04/17 15:11 08/04/17 15:11 08/04/17 15:11 08/04/17 15:11 General appearance: Present: A&O X 3, pleasant, no acute distress - Head Head exam: Present: atraumatic, normocephalic - Eye Eye exam: Present: PERRL, conjuntiva pink, sclera anicteric Pupils: Present: PERRL - Neck Neck exam general surgery: Present: supple, trachea midline. Absent: lymphadenopathy - Respiratory Respiratory exam: Present: CTAB. Absent: accessory muscle use, rales, rhonchi, wheezes Additional comments: mild crackles left base - Cardiovascular Cardiovascular exam: Present: RRR, +S1, +S2. Absent: diastolic murmur, gallop, rubs, systolic murmur - GI/Abdominal GI/Abdominal exam: Present: normal bowel sounds, soft, no peritoneal signs. Absent: distended, tenderness - Extremities Exam Extremities exam: Present: warm, radial pulses palpable and symmetrical. Absent : calf tenderness, cyanotic, pedal edema - Neurological Exam Neurological exam: Present: CN II-XII intact, oriented X3, no focal deficits. Absent: pronater drift, facial droop, speech deficit - Skin Skin exam: Present: dry, intact Internal Med - H&P Results - Labs Labs: Labs from Eliana Escobedo Hgb 14.1 Hct 40.4 WBC 9.0 Plt 208 Na 136 K 4.0 Cl 105 CO2 21 BUN 13 Cr 0.91 Glu 120 BNP 336 Trop 0.01
[2017-08-04] MEDS ORDERED: Dextrose Gel 15 GM PO PRN ×2 (16:48)
[2017-08-04] MEDS ORDERED: *HR* Dextrose 50 % in Water (Syg) 50 ML SYRINGE IVP PRN (16:48)
[2017-08-04] MEDS ORDERED: D5% in Water 1,000 ML IVC PRN (16:48)
--- NOTE | 2017-08-04 16:54 | Event Note ---
Date of Encounter: 08/04/17 Time of Encounter: 16:51 Patient seen and examined with nurse practitioner. Patient presents with atrial flutter with rapid ventricular response. Will continue his home beta noreen dose which has been decreased in March of this year by his primary care physician because of side effects in the form of increased weakness and sleepiness. We will switch his Norvasc to Cardizem 120 mg daily. His own eloquence for stroke prophylaxis. He has few rales in the bases. Will give a dose of IV Lasix. We will get to view chest x-ray in the morning to rule out subtle pneumonia. He is to not incubate do not resuscitate. Observation admission
[2017-08-04] MEDS: APIXABAN 5 MG TABLET PO SCH (20:04)
[2017-08-04] MEDS: Nicotine 7 MG PATCH.TD24 TD SCH (20:06)
[2017-08-04] MEDS ORDERED: amLODIPine 5 MG TABLET PO SCH (21:00)
[2017-08-04] MEDS: Insulin LISPRO 300 UNITS/3 ML VIAL SQ SCH (22:00)
[2017-08-05] MEDS: APIXABAN 5 MG TABLET PO SCH ×2 (07:54→20:00)
[2017-08-05] MEDS: Sennosides 8.6 MG TABLET PO SCH (07:54)
[2017-08-05] MEDS: Diltiazem CD (24hr) 120 MG CAPSULE PO SCH (07:55)
[2017-08-05] MEDS: Insulin LISPRO 300 UNITS/3 ML VIAL SQ SCH ×4 (07:57→20:08)
[2017-08-05 08:03] LABS: Basophils % 0.2 %; Eosinophils # 0.2 K/mcL (0.0-0.6); Eosinophils % 2.6 %; Hemoglobin 11.9 g/dL (12.9-16.9); Immature Granulocytes % 0.2 % (0-4); Lymphocytes # 2.8 K/mcL (0.6-4.6); Lymphocytes % 32.2 %; Mean Corpuscular Volume 91.1 fL (83.0-100.0); Mean Platelet Volume 9.7 fL (9.4-12.4); Monocytes # 1.1 K/mcL (0.0-1.3); Monocytes % 12.6 %; Neutrophils # 4.5 K/mcL (1.6-8.9); Platelet Count 178 K/mcL (140-400); Red Blood Count 3.84 M/mcL (4.19-5.50); Red Cell Distribution Width 15.8 % (11.5-14.5); Segmented Neutrophils % 52.2 %
[2017-08-05 08:19] LABS: BUN/Creatinine Ratio 16 (6-26); Blood Urea Nitrogen 16 mg/dL (8-26); Calcium 10.7 mg/dL (8.6-10.8); Carbon Dioxide 22 mEq/L (19-29); Chloride 106 mEq/L (98-109); Chol/HDL Ratio 3.9 (0-4.9); Cholesterol 104 mg/dL (< 200); Glucose 113 mg/dL (70-99); HDL Cholesterol 27 mg/dL (40-59); LDL Cholesterol,Calculated 47 mg/dL (0-99); Osmolality,Calculated 284 (280-300); Sodium 136 mEq/L (136-145); Triglycerides 149 mg/dL (< 150); eGFR For African Americans > 60 (> 60); eGFR For Non-African Americans > 60 (> 60)
[2017-08-05] MEDS ORDERED: *HR* Metoprolol 5 MG/5 ML VIAL IVP ONE (08:36)
[2017-08-05] MEDS: *HR* Metoprolol 5 MG/5 ML VIAL IVP SCH ×2 (08:38→08:54)
[2017-08-05] MEDS ORDERED: Lactulose Oral Soln 20 GM/30 ML UDC PO ONE (09:25)
--- NOTE | 2017-08-05 09:28 | Internal Med Progress Note ---
Date of Encounter: 08/05/17 Time of Encounter: 09:26 - Assessment and plan (1) Atrial flutter with rapid ventricular response Current Visit: Yes Status: Acute Assessment and plan: Unclear trigger Cardizem drip drop his heart rate down to the 50s Continue metoprolol 100 mg twice a day, was started on Cardizem 120 mg daily Order a urinary analysis Cardiology consult Continue eliquis (2) Weakness Current Visit: No Status: Acute (3) Elevated troponin Current Visit: No Status: Acute Assessment and plan: Likely secondary to demand ischemia (4) Hx of CABG Current Visit: No Status: Acute (5) Hypertension Current Visit: No Status: Chronic Assessment and plan: Stable, amlodipine was discontinued Qualifiers: Hypertension type: essential hypertension Qualified Code(s): I10 - Essential (primary) hypertension (6) Type 2 diabetes mellitus Current Visit: Yes Status: Acute Assessment and plan: Insulin sliding scale Qualifiers: Diabetes mellitus complication status: with unspecified complications Diabetes mellitus mcfp insulin use: without manager long term care use Qualified Code( s): E11.8 - Type 2 diabetes mellitus with unspecified complications - Subjective Interval history: Very somnolent, not able to provide any history, was able to mention that he is not in pain, unable to complete review of systems - Constitutional Vitals: Temp Pulse Resp BP Pulse Ox 98.1 F 113 17 137/68 96 08/05/17 07:29 08/05/17 07:29 08/05/17 07:29 08/05/17 07:29 08/05/17 07:29 General appearance: Present: A&O X 0, pleasant, no acute distress - Head Head exam: Present: atraumatic, normocephalic - Eye Eye exam: Present: PERRL, conjuntiva pink, sclera anicteric Pupils: Present: PERRL - Neck Neck exam general surgery: Present: supple, trachea midline. Absent: lymphadenopathy - Respiratory Respiratory exam: Present: CTAB. Absent: accessory muscle use, rales, rhonchi, wheezes - Cardiovascular Cardiovascular exam: Present: irregular rhythm, RRR, +S1, +S2, tachycardia. Absent: diastolic murmur, gallop, rubs, systolic murmur - GI/Abdominal GI/Abdominal exam: Present: normal bowel sounds, soft, no peritoneal signs. Absent: distended, tenderness - Extremities Exam Extremities exam: Present: pedal edema (+1 pitting edema in both lower extremities), warm, radial pulses palpable and symmetrical. Absent: calf tenderness, cyanotic - Neurological Exam Neurological exam: Present: CN II-XII intact, no focal deficits. Absent: oriented X3, pronater drift, facial droop, speech deficit - Skin Skin exam: Present: dry, intact Internal Medicine: Result - Labs CBC & Chem 7: 08/05/17 07:53 08/05/17 07:53 Labs: Short CBC 08/05/17 Range/Units 07:53 WBC 8.6 (4.3-11.1) K/mcL Hgb 11.9 L D (12.9-16.9) g/dL Hct 35.0 L (37.5-50.1) % Plt Count 178 (140-400) K/mcL Neutrophils # 4.5 (1.6-8.9) K/mcL BMP 08/05/17 07:53 Sodium 136 Potassium 4.0 Chloride 106 Carbon Dioxide 22 BUN 16 Creatinine 0.97 Glucose 113 H Calcium 10.7 Cardiac Enzymes 08/04/17 08/04/17 08/05/17 Range/Units 16:55 22:57 07:53 Troponin I 0.04 H* 0.03 0.02 (0-0.03) ng/mL Consult Discharge Plan - Plan Referrals: Dave Mayo Jr, MD [Primary Care Provider] -
--- NOTE | 2017-08-05 13:09 | Cardiology Consult Note ---
Date of Encounter: 08/05/17 Time of Encounter: 13:10 Assessment and Plan (1) Atrial fibrillation and flutter Current Visit: No Status: Acute Per Cardiology: Known hx of Paroxysmal aflutter. Recurrent aflutter RVR this am, s/p 1 dose of IV Lopressor 5mg. Currently aflutter in the 70s. On Lopressor 50mg PO BID and Cardizem CD 120mg PO daily (new start). Home med of Lopressor 50mg PO BID. SBP 110's - 130's. Recommend titrate CCB and BB as needed and as able. Discussed with Dr. Singh, will s/o, re-consult PRN, will schedule f/u sooner. On Eliquis 2,5mg PO BID for AC. Has hx of CVA. H&H stable. 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 (3) Demand ischemia of myocardium Current Visit: No Status: Acute Per Cardiology: Initial troponin very mild 0.04, second 2 negative. Recent echo 02/2017 showed EF 55%, no significant valvular dysfxn, no PHTN. No cardiac rehab C/S warranted , do not suspect NSEMI. Suspect demand ischemia-- aflutter with RVR. (4) Hx of CABG Current Visit: No Status: Chronic Per Cardiology: Hx CAD with CABG x 3 2000. Hx of angioplasty prior to CABG. CP free. Discussion w patient/family: The assessment and plan as outlined above was discussed with the patient and/or family members who expressed understanding and agreement. All questions were answered. Thank you for involving us in the care of your patient. Please call with any questions. History of Present Illness Consult date: 08/05/17 Requesting physician: Kiran Hernandez Consult reason: Afib RVR History of present illness: Mr. Parr is a 87 year old male with a relevant PMH CVA with residual R sided weakness, atiral fib, CAD with hx CABG 2000 x 3, HTN, DM, HLD, CHF. Patient is DNR/DNI/CCA. Seen by Cardiology as C/S 02/2017. Last saw Dr. Andre as outpatient 06/2017. Cardiology c/s for AFib RVR. Patient seen with family at bedside. Majority of history obtained from . Patient and deny any chest pain, palpitations, shortness of breath. She confirms Lopressor 5omg PO BID home dose and Cardizem is new. She denies any awareness of any active bleeding or blood loss and confirms taking Eliquis at home. Report pending EGD possibly with GI for "belching". She reports he has pending urine cx as inpatient. Past Med Surg Social Fam HX - Past Medical History Attestation: Yes The following information was validated with the patient. Source: patient, old records reviewed, obtained from family Medical history: arthritis, atrial fibrillation, CHF, coronary artery disease, CVA, diabetes, GI bleed, hyperlipidemia, hypertension, myocardial infarction, osteoporosis, peripheral artery disease, renal disease, TIA Psychiatric history: anxiety - Past Surgical History Surgical History: cholecystectomy, coronary bypass (CABG), herniorrhaphy, other - Social History Smoking Status: Former smoker Smokeless Tobacco Status: No Alcohol use: none, unknown Drug use: none - Family History Mother Living Status: Hx Family Cardiac Disorders: Yes Hx Family Endocrine Disorder: Yes (diabetes) Father Living Status: Hx Family Cardiac Disorders: Yes Medications and Allergies Cyanocobalamin (B-12) [Vitamin B12] 1,000 mcg SQ Q14D MDD fridays02/27/17 [ History] Furosemide [Lasix] 40 mg PO DAILY PRN 02/27/17 [History] Multivit-Min/FA/Lycopen/Lutein [Centrum Silver Men Tablet] 1 each PO DAILY 02/27 [History] Omeprazole [PriLOSEC] 40 mg PO DAILY 02/27/17 [History] Oxybutynin [Ditropan] 5 mg PO BID 02/27/17 [History] amLODIPine [Norvasc] 5 mg PO BID 02/27/17 [History] Acetaminophen [Tylenol] 650 mg PO Q6HR PRN #0 tablet 03/08/17 [Rx] Apixaban [Eliquis] 2.5 mg PO BID tablet 03/08/17 [Rx] Docusate [Colace] 100 mg PO BID PRN #0 capsule 03/08/17 [Rx] Nitroglycerin 0.4 mg SL Q5MIN PRN #0 tab.subl 03/08/17 [Rx] Simvastatin [Zocor] 40 mg PO HS tablet 03/08/17 [Rx] Metoprolol [Lopressor] 100 mg PO BID 04/18/17 [History] metFORMIN [Glucophage] 500 mg PO BIDWM 04/18/17 [History] Niacin [Niaspan] 500 mg PO DAILY 05/11/17 [History] 3 Allergy/AdvReac Type Severity Reaction Status Date / Time No Known Allergies Allergy Verified 05/11/17 12:30 All Systems Review: A 10-system review of systems was performed and is negative for pertinent findings except as documented above in the HPI. - Constitutional Constitutional: fatigue - Cardiovascular Cardiovascular: as per HPI Physical Examination Vital Signs, Last 4 Hours Temp Pulse Resp BP Pulse Ox 08/05/17 11:43 98.5 F 98 18 112/72 97 General: Conversant, No Apparent Distress HEENT: Atraumatic, Normocephaly, Mucus Membranes Moist Neck: No JVD, Normal carotid pulses Cardiac: No Murmur, Other (irregularly irregular) Lungs: Normal Breath Sounds, No Wheeze, Rales, Rhonchi Neuro: Alert and responsive, Other (has right sided weakness, reports minimal activity, pleasent, A&Ox3 currently) Abdomen: Soft, Non-Tender Skin: No rashes noted on visualized skin Musculoskeletal: No Chest Wall Tenderness Extremities: No Edema, Normal Pulses Results 08/05/17 07:53 08/05/17 07:53 Lab Results Laboratory Tests 08/04/17 08/04/17 08/05/17 16:55 22:57 07:53 Creatinine 0.97 Est GFR (Non-Af Amer) > 60 Troponin I 0.04 H* 0.03 08/05/17 07:53 Creatinine Est GFR (Non-Af Amer) Troponin I 0.02 Intake & Output 08/02/17 08/03/17 08/04/17 08/05/17 23:59 23:59 23:59 23:59 Intake Total 0 / 0 240 / 240 Output Total 150 / 150 Balance -150 / -150 240 / 240 Weight 75.6 kg Active Medications Acetaminophen (Tylenol) 650 mg PO Q6HR PRN PRN Reason: Mild Pain (1-3) Stop: 02/03/18 16:20 Apixaban (Eliquis) 2.5 mg PO BID [facility] Stop: 02/03/18 21:01 Last Admin: 08/05/17 07:54 Dose: 2.5 mg Atorvastatin Calcium (Lipitor) 20 mg PO HS [facility] PRN Reason: Protocol Stop: 02/03/18 21:01 Last Admin: 08/04/17 20:04 Dose: 20 mg Dextrose/Water (Dextrose 50% (Syg)) 25 ml IVP AD PRN PRN Reason: Hypoglycemia Stop: 02/03/18 16:49 Diltiazem HCl (Cardizem Cd) 120 mg PO DAILY [facility] Stop: 02/04/18 09:01 Last Admin: 08/05/17 07:55 Dose: 120 mg Docusate Sodium (Colace) 100 mg PO BID PRN PRN Reason: Constipation Stop: 02/03/18 16:20 Furosemide (Lasix) 40 mg PO DAILY PRN PRN Reason: Edema Stop: 02/03/18 16:37 Glucagon (Glucagen) 1 mg IM ONCE PRN PRN Reason: Hypoglycemia Stop: 02/03/18 16:49 Glucose (Gluctose) 15 gm PO ONCE PRN PRN Reason: Hypoglycemia Stop: 02/03/18 16:49 Glucose (Gluctose) 30 gm PO ONCE PRN PRN Reason: Hypoglycemia Stop: 02/03/18 16:49 Dextrose (Dextrose 5%) 1,000 mls @ 100 mls/hr IVC .Q10H PRN PRN Reason: HYPOGLYCEMIA Stop: 02/03/18 16:49 Insulin Human Lispro (Humalog) 0 units SQ TIDAC [facility] PRN Reason: Protocol Stop: 02/04/18 07:31 Last Admin: 08/05/17 12:11 Dose: 2 units Insulin Human Lispro (Humalog) 0 units SQ [facility] PRN Reason: Protocol Stop: 02/03/18 21:01 Last Admin: 08/04/17 22:00 Dose: Not Given Metoprolol Tartrate (Lopressor) 50 mg PO BID [facility] Stop: 02/03/18 21:01 Last Admin: 08/05/17 07:55 Dose: 50 mg Metoprolol Tartrate (Lopressor) 5 mg IVP Q5MIN [facility] Stop: 08/07/17 08:31 Last Admin: 08/05/17 08:54 Dose: 5 mg Naloxone HCl (Narcan) 0.4 mg IVP Q2MIN PRN PRN Reason: Opioid Reversal Stop: 02/03/18 16:20 Nicotine (Nicoderm) 7 mg TD Q24H [facility] PRN Reason: Protocol Stop: 02/03/18 19:16 Last Admin: 08/04/17 20:06 Dose: 7 mg Nitroglycerin (Nitroglycerin) 0.4 mg SL Q5MIN PRN PRN Reason: Chest Pain Stop: 02/03/18 16:29 Omeprazole (Prilosec) 40 mg PO DAILY [facility] Stop: 02/04/18 09:01 Last Admin: 08/05/17 07:55 Dose: 40 mg Oxybutynin Chloride (Ditropan) 5 mg PO BID [facility] PRN Reason: Protocol Stop: 02/03/18 21:01 Last Admin: 08/05/17 07:54 Dose: 5 mg Senna (Senna) 8.6 mg PO DAILY [facility] Stop: 02/04/18 09:01 Last Admin: 08/05/17 07:54 Dose: 8.6 mg - Imaging and Cardiology Echo: report reviewed - EKG Interpretation EKG results cardiology: other (Tele shows avg HR past 12 hrs 100, aflutter, currently aflutter 70's) Consult Discharge Plan - Plan Referrals: Dave Mayo Jr, MD [Primary Care Provider] -
[2017-08-05 18:23] LABS: Bilirubin,Urine Small (Negative); Blood,Urine Negative (Negative); Clarity,Urine Cloudy (Clear); Color,Urine Dark Yellow (Yellow); Glucose,Urine (UA) Normal (Normal); Ketones,Urine Negative (Negative); Leukocyte Esterase,Urine Negative (Negative); Nitrite,Urine Negative (Negative); PH,Urine 5.5 pH Units (5.0-8.0); Protein,Urine Trace mg/dL (Neg-Trace); Specific Gravity,Urine 1.029 (1.010-1.025); Urobilinogen,Urine Normal (Normal)
[2017-08-05 18:25] LABS: Bacteria,Urine None Seen per hpf (None-Few); Hyaline Casts,Urine None Seen per lpf (None-Few); RBC,Urine 0-3 per hpf (0-3); Squamous Epithelial Cell,Urine Moderate per lpf (None-Few); WBC,Urine 0-3 per hpf (0-3)
[2017-08-05] MEDS: Nicotine 7 MG PATCH.TD24 TD SCH (20:03)
[2017-08-06 04:52] LABS: Hematocrit 34.6 % (37.5-50.1); Hemoglobin 11.9 g/dL (12.9-16.9); Mean Corpuscular HGB Conc 34.4 g/dL (31.6-35.5); Mean Corpuscular Hemoglobin 31.2 pg (28.0-33.3); Mean Corpuscular Volume 90.6 fL (83.0-100.0); Platelet Count 194 K/mcL (140-400); Red Blood Count 3.82 M/mcL (4.19-5.50); Red Cell Distribution Width 15.4 % (11.5-14.5)
[2017-08-06 05:06] LABS: BUN/Creatinine Ratio 18 (6-26); Blood Urea Nitrogen 19 mg/dL (8-26); Calcium 10.6 mg/dL (8.6-10.8); Carbon Dioxide 25 mEq/L (19-29); Chloride 104 mEq/L (98-109); Glucose 187 mg/dL (70-99); Osmolality,Calculated 283 (280-300); Sodium 133 mEq/L (136-145); eGFR For African Americans > 60 (> 60); eGFR For Non-African Americans > 60 (> 60)
[2017-08-06] MEDS: Sennosides 8.6 MG TABLET PO SCH (08:46)
[2017-08-06] MEDS: APIXABAN 5 MG TABLET PO SCH (08:46)
[2017-08-06] MEDS: Insulin LISPRO 300 UNITS/3 ML VIAL SQ SCH ×2 (08:47→10:59)
[2017-08-06] MEDS: Diltiazem CD (24hr) 120 MG CAPSULE PO SCH (08:47)
[2017-08-06] MEDS ORDERED: Lactulose Oral Soln 20 GM/30 ML UDC PO ONE (09:48)
--- NOTE | 2017-08-06 09:51 | Discharge Summary ---
Date of Encounter: 08/06/17 Time of Encounter: 09:49 - Discharge Diagnosis (1) Atrial flutter with rapid ventricular response Priority: Primary Status: Acute (2) Weakness Priority: Secondary Status: Acute (3) Elevated troponin Priority: Secondary Status: Acute Comments: Secondary to demand ischemia (4) Hx of CABG Priority: Secondary Status: Chronic (5) Hypertension Priority: Secondary Status: Chronic Qualifiers: Hypertension type: essential hypertension Qualified Code(s): I10 - Essential (primary) hypertension (6) Type 2 diabetes mellitus Priority: Secondary Status: Acute Qualifiers: Diabetes mellitus complication status: with unspecified complications Diabetes mellitus technician terminal and repeater insulin use: without snf use Qualified Code( s): E11.8 - Type 2 diabetes mellitus with unspecified complications - Discharge Medications Prescriptions: Diltiazem CD (24hr) [Cardizem CD] 120 mg PO DAILY #30 cap.er.24h Docusate [Colace] 100 mg PO BID PRN #60 capsule PRN Reason: Constipation Metoprolol [Lopressor] 50 mg PO BID #60 tablet Home Medications: Cyanocobalamin (B-12) [Vitamin B12] 1,000 mcg SQ Q14D MDD fridays02/27/17 [ History] Furosemide [Lasix] 40 mg PO DAILY PRN 02/27/17 [History] Multivit-Min/FA/Lycopen/Lutein [Centrum Silver Men Tablet] 1 each PO DAILY 02/27 [History] Omeprazole [PriLOSEC] 40 mg PO DAILY 02/27/17 [History] Oxybutynin [Ditropan] 5 mg PO BID 02/27/17 [History] amLODIPine [Norvasc] 5 mg PO BID 02/27/17 [History] Acetaminophen [Tylenol] 650 mg PO Q6HR PRN #0 tablet 03/08/17 [Rx] Apixaban [Eliquis] 2.5 mg PO BID tablet 03/08/17 [Rx] Docusate [Colace] 100 mg PO BID PRN #0 capsule 03/08/17 [Rx] Nitroglycerin 0.4 mg SL Q5MIN PRN #0 tab.subl 03/08/17 [Rx] Simvastatin [Zocor] 40 mg PO HS tablet 03/08/17 [Rx] metFORMIN [Glucophage] 500 mg PO BIDWM 04/18/17 [History] Niacin [Niaspan] 500 mg PO DAILY 05/11/17 [History] Diltiazem CD (24hr) [Cardizem CD] 120 mg PO DAILY #30 cap.er.24h 08/06/17 [Rx] Docusate [Colace] 100 mg PO BID PRN #60 capsule 08/06/17 [Rx] Metoprolol [Lopressor] 50 mg PO BID #60 tablet 08/06/17 [Rx] Allergies/Adverse Reactions: 3 Allergy/AdvReac Type Severity Reaction Status Date / Time No Known Allergies Allergy Verified 05/11/17 12:30 Procedures/tests Complete & Pending: Procedures Performed prior 72 hours Category Date Time Status ECG 12 lead ECG [ECG] Routine Y 08/04/17 16:19 Completed Date of admission: 08/04/17 14:45 Primary care physician: Dave Mayo Jr, MD Consults: 08/04/17 15:29 Consult to Nutrition [CONS] Routine Comment: Consulting Provider: NUTRITION Reason for Dietary Consult: MST Score - Patient Status Disposition: Home Health Service Condition: Fair Overall status at discharge: patient is progressing back to baseline - Discharge Instructions Follow Up With: Dave Mayo Jr, MD [Primary Care Provider] - Additional Instructions: Follow-up with primary care physician within the next 7 days. Follow-up with cardiology within the next 2 weeks. Continue metoprolol 50 mediums twice a day , start Cardizem 120 mg daily. - Diet and Activity Activity: increase activity as tolerated Diet: low fat, low cholesterol Hospital course: Mr. Parr is a 87 year old male with a past medical history of hyperlipidemia , hypertension, history of CVA, coronary artery disease status post CABG, diastolic CHF, atrial fibrillation, diabetes, presented to [facility] ED with elevated heart rate. Patient's family reported that he was lightheaded on standing. Home health nurse noted patient's heart rate was elevated and the squad was called. Patient denied headache, chest pain, , shortness of breath, nausea, vomiting, abdominal pain. He denied any fever, chills or sweats. He did report constipation for 3 days. Evaluation in [place] ED revealed patient was in a flutter with RVR with heart rate of 144 on EKG. Chest x-ray did not show any acute cardiopulmonary disease. BNP elevated at 336, but actually stable from previous value. Troponin was negative at 0.01, increased to 0.04 and came down. After the patient's HR dropped to the 50s, cardizem drip was stopped. Cardiology was consulted and the patient was continued on management dose of metoprolol 50 mg twice a day, Cardizem 120 mg daily was added. He is currently stable and ready to be discharged home - Time Spent with Patient Total time spent providing and/or coordinating discharge services: Greater than 30 minutes (40 min) - Constitutional Vitals: Temp Pulse Resp BP Pulse Ox 97.9 F 94 17 120/74 98 08/06/17 07:08 08/06/17 07:08 08/06/17 07:08 08/06/17 07:08 08/06/17 08:56 General appearance: Present: A&O X 2, pleasant, no acute distress - Head Head exam: Present: atraumatic, normocephalic - Eye Eye exam: Present: PERRL, conjuntiva pink, sclera anicteric Pupils: Present: PERRL - Neck Neck exam general surgery: Present: supple, trachea midline. Absent: lymphadenopathy - Respiratory Respiratory exam: Present: CTAB. Absent: accessory muscle use, rales, rhonchi, wheezes - Cardiovascular Cardiovascular exam: Present: RRR, +S1, +S2. Absent: diastolic murmur, gallop, rubs, systolic murmur - GI/Abdominal GI/Abdominal exam: Present: normal bowel sounds, soft, no peritoneal signs. Absent: distended, tenderness - Extremities Exam Extremities exam: Present: warm, radial pulses palpable and symmetrical. Absent : calf tenderness, cyanotic, pedal edema - Neurological Exam Neurological exam: Present: CN II-XII intact, no focal deficits. Absent: oriented X3, pronater drift, facial droop, speech deficit - Skin Skin exam: Present: dry, intact
--- NOTE | 2017-08-06 09:58 | Physician Discharge Referral ---
Home Health/Hosp Referral Info Transfer to: Home Health Provider in Charge Post Discharge: PCP - Diagnosis (1) Atrial flutter with rapid ventricular response Status: Acute (2) Weakness Status: Acute (3) Elevated troponin Status: Acute (4) Hx of CABG Status: Chronic (5) Hypertension Status: Chronic (6) Type 2 diabetes mellitus Status: Acute - Respiratory Orders Smoking Cessation: Smoking cessation has been advised. For more information, call the [place] Tobacco Quit Line at 1-662-YWKI-NOW. - Services Needed Following services are medically necessary services: Home Health Aide, Physical Therapy, Occupational Therapy Home Care Orders: Follow-up with primary care physician within the next 7 days. Follow-up with cardiology within the next 2 weeks. Continue metoprolol 50 mediums twice a day , start Cardizem 120 mg daily. - Transfer Medications Prescriptions: Diltiazem CD (24hr) [Cardizem CD] 120 mg PO DAILY #30 cap.er.24h Docusate [Colace] 100 mg PO BID PRN #60 capsule PRN Reason: Constipation Metoprolol [Lopressor] 50 mg PO BID #60 tablet Home Medications: Cyanocobalamin (B-12) [Vitamin B12] 1,000 mcg SQ Q14D MDD fridays02/27/17 [ History] Furosemide [Lasix] 40 mg PO DAILY PRN 02/27/17 [History] Multivit-Min/FA/Lycopen/Lutein [Centrum Silver Men Tablet] 1 each PO DAILY 02/27 [History] Omeprazole [PriLOSEC] 40 mg PO DAILY 02/27/17 [History] Oxybutynin [Ditropan] 5 mg PO BID 02/27/17 [History] amLODIPine [Norvasc] 5 mg PO BID 02/27/17 [History] Acetaminophen [Tylenol] 650 mg PO Q6HR PRN #0 tablet 03/08/17 [Rx] Apixaban [Eliquis] 2.5 mg PO BID tablet 03/08/17 [Rx] Docusate [Colace] 100 mg PO BID PRN #0 capsule 03/08/17 [Rx] Nitroglycerin 0.4 mg SL Q5MIN PRN #0 tab.subl 03/08/17 [Rx] Simvastatin [Zocor] 40 mg PO HS tablet 03/08/17 [Rx] metFORMIN [Glucophage] 500 mg PO BIDWM 04/18/17 [History] Niacin [Niaspan] 500 mg PO DAILY 05/11/17 [History] Diltiazem CD (24hr) [Cardizem CD] 120 mg PO DAILY #30 cap.er.24h 08/06/17 [Rx] Docusate [Colace] 100 mg PO BID PRN #60 capsule 08/06/17 [Rx] Metoprolol [Lopressor] 50 mg PO BID #60 tablet 08/06/17 [Rx] Allergies/Adverse Reactions: 3 Allergy/AdvReac Type Severity Reaction Status Date / Time No Known Allergies Allergy Verified 05/11/17 12:30 Certification: Further, I certify that my clinical findings support that this patient is homebound (i.e. absences from home require considerable and taxing effort and are for medical reasons or [employer] services or infrequently or short duration when for other reasons) because: Homebound Reason: Patient requires assistance of a person or device to safely leave home Attestation: My signature below is to certify that this patient is under my care and that I, or nurse practitioner, or a physician's editorial assistant working with me, has a face-to -face encounter with this patient.
[2017-08-06 10:42] VITALS: BP 148/79
[2017-08-06] MEDS ORDERED: FLUARIX QUAD 2017-18 36MOS UP/PF 0.5 ML SYRINGE IM ONE (10:55)
--- NOTE | 2017-08-06 19:31 | Electrocardiograph Report ---
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
--- NOTE | 2017-08-07 16:33 | Electrocardiograph Report ---
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
== END 2017-08-06 12:01 | disposition home health service (06) ==
LOC: 2ANU
PROVIDERS: ADMIT Hospitalist; ATTEND Internal Medicine

== ENCOUNTER 2019-03-13 05:59 | Inpatient (IN) ==
--- NOTE | 2019-03-13 04:32 | Internal Med History&Physical ---
<Lawson Lynch - Last Filed: 03/13/19 05:00> Date of Encounter: 03/13/19 Time of Encounter: 03:15 Internal Medicine - H&P: HPI Chief complaint: Shortness of breath Admitted From: Hospital to Hospital Transfer Plans for Post Hospital Care: Home History of present illness: Mr. Parr is a 88 year old male with PMHx of afib on eliquis, CHF, CAD, DM, HLD, CVA, DE presents with complaints of shortness of breath as a transfer from [facility]. Patient has been short of breath with non-productive cough and subjective fever for the past 4 days. At [place], his vitals were significant for temp of 100, tachycardic at 105, hypertensive at 165/79. He was hypoxic on arrival at 88% on RA but saturated to 94% on 3L. Labs significant for WBC 12.5, glucose 198, phos 2.4, Mg 1.3, Alk Phos 158. UA showed protein, glucose, ketones, blood, few bacteria. CXR concerning for mild pulmonary edema, trace pleural effusion, and mild unchanged cardiomegaly. Patient was given dose of IV rocephin and azithromycin, 1 liter maintenance IVF, replaced magnesium, blood cultures x2. Patient is confused during my exam. He is A&O x0 and unable to answer questions. According to nurse, EMS said he was more oriented at [place], and became confused en route to [facility]. Past Med Surg Social Fam HX - Past Medical History Medical history: arthritis, atrial fibrillation, CHF, coronary artery disease, CVA, diabetes, GI bleed, hyperlipidemia, hypertension, myocardial infarction, osteoporosis, peripheral artery disease, renal disease, TIA Additional medical history: [place] Psychiatric history: anxiety - Past Surgical History Surgical History: cholecystectomy, coronary bypass (CABG), herniorrhaphy, other - Social History Smoking Status: Former smoker Smokeless Tobacco Status: No Alcohol use: none, unknown Drug use: none - Family History Mother Living Status: Hx Family Cardiac Disorders: Yes Hx Family Endocrine Disorder: Yes (diabetes) Father Living Status: Hx Family Cardiac Disorders: Yes Internal Medicine - H&P: Meds Furosemide [Lasix] 40 mg PO DAILY PRN 02/27/17 [History] Multivit-Min/FA/Lycopen/Lutein [Centrum Silver Men Tablet] 1 each PO DAILY 02/27/17 [History] Omeprazole [PriLOSEC] 40 mg PO DAILY 02/27/17 [History] Oxybutynin [Ditropan] 5 mg PO BID 02/27/17 [History] amLODIPine [Norvasc] 5 mg PO BID 02/27/17 [History] Apixaban [Eliquis] 2.5 mg PO BID tablet 03/08/17 [Rx] metFORMIN [Glucophage] 500 mg PO BIDWM 04/18/17 [History] Metoprolol [Lopressor] 25 mg PO BID 03/13/19 [History] Allergy/AdvReac Type Severity Reaction Status Date / Time No Known Allergies Allergy Verified 05/11/17 12:30 ROS unobtainable: due to mental status All Systems PM: A 10-system review of systems was performed and is negative for pertinent findings except as documented above in the HPI. - Constitutional Vitals: Temp Pulse Resp BP Pulse Ox 99.3 F 86 16 142/62 95 03/13/19 01:04 03/13/19 01:04 03/13/19 01:04 03/13/19 01:04 03/13/19 01:04 General appearance: Present: A&O X 0, no acute distress Exam: Patient is confused and not able to answer questions. - Eye Eye exam: Present: EOMI, PERRL. Absent: conjunctival injection - Respiratory Respiratory exam: Present: rales (lung bases bilaterally) - Cardiovascular Cardiovascular exam: Present: RRR - GI/Abdominal GI/Abdominal exam: Present: normal bowel sounds, soft. Absent: tenderness - Extremities Exam Extremities exam: Present: pedal edema (+2 pitting edema in LE 2/3 up legs b ilaterally), warm, radial pulses palpable and symmetrical. Absent: calf tenderness - Neurological Exam Neurological exam: Present: altered, CN II-XII intact, no focal deficits, strengths equal and symetr throughout. Absent: pronater drift, facial droop - Skin Skin exam: Present: dry, warm - Assessment and Plan (1) Sepsis Current Visit: Yes Status: Acute Assessment and plan: Likely 2/2 pneumonia HR 105 > 86 now Temp 100 > 99.3 now Lactate 2.0 Patient on empiric antibiotics Hold IVF due to CHF with lung crackles and pitting edema Blood cultures x2 Repeat labs Qualifiers: Sepsis type: sepsis due to unspecified organism Qualified Code(s): A41.9 - Sepsis, unspecified organism (2) Community acquired pneumonia Current Visit: Yes Status: Acute Assessment and plan: Crackles on lung exam WBC 12.5, temp of 100, HR of 105, SpO2 88% on RA on arrival Initial lactate of 2.0 CXR showed mild pulm edema, trace pleural effusion, mild unchanged cardiomegaly Given one dose of rocephin and azithromycin at [place] Patient now saturating at 96% on 3L Continue IV azithromycin and rochephin Repeat CBC, BMP, lactic acid Blood cultures x2 drawn Qualifiers: Laterality: unspecified laterality Qualified Code(s): J18.9 - Pneumonia, unspecified organism (3) Confusion Current Visit: Yes Status: Acute Assessment and plan: According to EMS, patient became confused en route to [facility] from [place] He is A&O x0 He is on eliquis with INR of 1.[address] head to rule out brain bleed Hold eliquis until CT results May be 2/2 pneumonia or sundowning effect No family present to confirm patient's baseline (4) Type 2 diabetes mellitus Current Visit: Yes Status: Chronic Assessment and plan: Patient's blood glucose of 198 Will start low dose SS with glucose checks TICAC and HS Diabetic/cardiac diet Qualifiers: Diabetes mellitus exterminator insulin use: without alf use Diabetes mellitus complication status: with unspecified complications Qualified Co de(s): E11.8 - Type 2 diabetes mellitus with unspecified complications (5) Atrial fibrillation Current Visit: No Status: Chronic Assessment and plan: Patient HR is regular on my exam Holding eliquis until brain bleed is ruled out Continue home metoprolol for rate control Qualifiers: Qualified Code(s): I48.2 - Chronic atrial fibrillation (6) DVT prophylaxis Current Visit: No Status: Acute Assessment and plan: SCDs Hold home eliquis until brain bleed is ruled out (7) CHF (congestive heart failure) Current Visit: Yes Status: Acute Assessment and plan: Patient with crackles in lung bases and +2 pitting edema in LE bilaterally Chest x-ray shows mild pulm edema with trace pleural effusion, mild unchanged cardiomegaly Will continue home lasix Cautious with IV fluids Qualifiers: Heart failure chronicity: unspecified Qualified Code(s): I50.9 - Heart failure, unspecified - Time Spent With Patient Total time spent is greater than 50% in coordination of care (as documented) at patient's floor/unit and/or counseling patient: <Jamal Mason - Last Filed: 03/13/19 06:15> Date of Encounter: 03/13/19 Time of Encounter: 05:10 ROS unobtainable: due to mental status - Constitutional Constitutional: no lethargy, no malaise - EENT Eyes: no blurry vision, no change in vision, no photophobia Ears: no ear pain Nose, mouth and throat: no nasal congestion, no sinus pressure, no sore throat - Cardiovascular Cardiovascular ROS IM: dyspnea, dyspnea on exertion, no chest pain - Respiratory Respiratory: cough, chest congestion, change in phlegm color, no hemoptysis, no excessive phlegm production, no pain with cough - Gastrointestinal Gastrointestinal: no abdominal pain, no diarrhea, no hematemesis, no hematochezia, no melena, no vomiting - Genitourinary Genitourinary ROS male: no dysuria, no flank pain - Musculoskeletal Musculoskeletal ROS IM: no arthralgias, no back pain - Integumentary Integumentary IM: no skin ulcer, no unusual bruising, no jaundice - Neurological Neurological ROS: no dizziness, no focal weakness, no frequent falls, no headache(s) - Psychiatric Psychiatric: no anxiety, no depression - Endocrine Endocrine IM: no polydipsia, no polyuria - Allergic/Immunologic Allergic/Immunologic: no GI upset with certain foods - Constitutional Vitals: Temp Pulse Resp BP Pulse Ox 97.7 F 76 15 127/57 99 03/13/19 04:15 03/13/19 04:15 03/13/19 04:15 03/13/19 04:15 03/13/19 04:15 General appearance: Present: cooperative, A&O X 2, pleasant - Head Head exam: Present: atraumatic, normal inspection - Eye Eye exam: Present: EOMI, PERRL. Absent: scleral icterus Pupils: Present: normal accommodation - ENT ENT exam: Present: mucous membranes dry, normal exam, normal oropharynx - Neck Neck exam general surgery: Present: supple, trachea midline. Absent: tenderness, nuchal rigidity - Respiratory Respiratory exam: Present: rales. Absent: chest wall tenderness, decreased breath sounds, respiratory distress, rhonchi, wheezes - Cardiovascular Cardiovascular exam: Present: distant heart sounds, RRR, +S1, +S2. Absent: diastolic murmur, systolic murmur - GI/Abdominal GI/Abdominal exam: Present: normal bowel sounds, soft. Absent: guarding, rebound, tenderness - Extremities Exam Extremities exam: Present: cyanotic, full ROM, pedal edema. Absent: joint swelling - Back Exam Back exam: Present: normal inspection. Absent: CVA tenderness (L), CVA tenderness (R) - Neurological Exam Neurological exam: Present: altered, CN II-XII intact, oriented X3, no focal deficits, strengths equal and symetr throughout - Psychiatric Psychiatric exam: Present: agitated - Skin Skin exam: Present: dry, intact, warm Internal Med - H&P Results - Labs CBC & Chem 7: 03/13/19 04:54 Labs: Short CBC 03/13/19 Range/Units 04:54 WBC 13.4 H (4.3-11.1) K/mcL Hgb 10.4 L D (12.9-16.9) g/dL Hct 32.9 L (37.5-50.1) % Plt Count 191 (140-400) K/mcL Neutrophils # 10.9 H (1.6-8.9) K/mcL - Impressions ITS Impressions Head CT 03/13/19 03:56 IMPRESSION: No acute intracranial abnormality. Stable focal right frontal encephalomalacia, global parenchymal volume loss and chronic microvascular ischemic disease. D/ / Juni Pressley / Juni Pressley Interpreting Provider: Juni Pressley - Assessment and Plan (1) Atrial fibrillation Current Visit: No Status: Chronic Qualifiers: Qualified Code(s): I48.2 - Chronic atrial fibrillation (2) Type 2 diabetes mellitus Current Visit: Yes Status: Chronic Qualifiers: Diabetes mellitus exterminator insulin use: without exterminator use Diabetes mellitus complication status: with unspecified complications Qualified Code(s): E11.8 - Type 2 diabetes mellitus with unspecified complications (3) DVT prophylaxis Current Visit: No Status: Acute (4) Community acquired pneumonia Current Visit: Yes Status: Acute Qualifiers: Laterality: unspecified laterality Qualified Code(s): J18.9 - Pneumonia, unspecified organism (5) Sepsis Current Visit: Yes Status: Acute Qualifiers: Sepsis type: sepsis due to unspecified organism Qualified Code(s): A41.9 - Sepsis, unspecified organism (6) Confusion Current Visit: Yes Status: Acute (7) CHF (congestive heart failure) Current Visit: Yes Status: Acute Qualifiers: Heart failure chronicity: unspecified Qualified Code(s): I50.9 - Heart failure, unspecified - Time Spent With Patient Total time spent is greater than 50% in coordination of care (as documented) at patient's floor/unit and/or counseling patient: - Attending Attestation I discussed the patient CHICKEN RANCH, past medical history, review of systems, lab data, imaging data, and exam findings with Dr. Lynch. I then saw and examined patient independently as well. I took the phone call from [facility] and discussed the patient case with ER staff. Patient is hemodynamically stable, alert and oriented 2 now, and appears moderately dehydrated. His repeat lactic acid came back elevated 3.2. We will give him another liter bolus and monitor him clinically. He is not fluid overloaded as was noted by Dr. Lynch and his concern. CT the headache came back negative. Clinically, he appears a little dry and we'll give him a fluid bolus and monitor him closely. He has no significant work of breathing. He is resting in bed comfortably. I will ask the daytime colleagues to follow him closely and further assess for signs sympto ms of pneumonia and sepsis. Other than my comments above and documented exam findings, I agree with Dr. Lynch's assessment and plan.
[2019-03-13 05:14] LABS: Basophils % 0.2 %; Eosinophils % 0.1 %; Hematocrit 32.9 % (37.5-50.1); Hemoglobin 10.4 g/dL (12.9-16.9); Immature Granulocytes % 0.7 % (0-4); Lymphocytes % 7.1 %; Mean Corpuscular HGB Conc 31.6 g/dL (31.6-35.5); Mean Corpuscular Hemoglobin 29.5 pg (28.0-33.3); Mean Corpuscular Volume 93.5 fL (83.0-100.0); Mean Platelet Volume 9.6 fL (9.4-12.4); Monocytes # 1.4 K/mcL (0.0-1.3); Monocytes % 10.5 %; Neutrophils # 10.9 K/mcL (1.6-8.9); Platelet Count 191 K/mcL (140-400); Red Blood Count 3.52 M/mcL (4.19-5.50); Red Cell Distribution Width 14.8 % (11.5-14.5); Segmented Neutrophils % 81.4 %
[2019-03-13 05:19] LABS: INR 1.5; Prothrombin Time 16.8 Seconds (9.4-12.1)
[2019-03-13 05:30] LABS: Magnesium 1.7 mg/dL (1.6-2.6); Phosphorous 2.8 mg/dL (2.7-4.5)
[~2019-03-13 05:59] MED LIST: *HR* Dextrose 50 % in Water (Syg) 50 ML SYRINGE IVP PRN; D5% in Water 1,000 ML IVC PRN; Dextrose Gel 15 GM/37.5 ML TUBE PO PRN; Furosemide 40 MG TABLET PO PRN; Naloxone 0.4 MG/ML INJ IVP PRN
[2019-03-13] MEDS ORDERED: 0.9 % Sodium Chloride 1,000 ML IVC ONE (06:09)
[2019-03-13 09:10] LABS: BUN/Creatinine Ratio 25 (6-26); Blood Urea Nitrogen 20 mg/dL (8-23); Calcium 8.9 mg/dL (8.6-10.3); Carbon Dioxide 24 mEq/L (23-29); Chloride 106 mEq/L (98-107); Glucose 122 mg/dL (70-105); Osmolality,Calculated 290 (280-300); Potassium 3.9 mEq/L (3.5-5.1); Sodium 138 mEq/L (136-145); eGFR For Non-African Americans > 60 (> 60)
[2019-03-13] MEDS: Insulin LISPRO 300 UNITS/3 ML VIAL SQ SCH ×4 (09:25→21:00)
[2019-03-13] MEDS: Apixaban 5 MG TABLET PO SCH ×2 (10:04→21:01)
[2019-03-13] MEDS: cefTRIAXone 1,000 MG in Water for inj. (sterile) 20 ML 10 ML IVP SCH (10:05)
--- NOTE | 2019-03-13 14:17 | Event Note ---
Date of Encounter: 03/13/19 Time of Encounter: 09:00 patient was seen and examined at bedside.when asked why he went to [facility] he cannot recall. he is Axox0. currently he has no complaints denies CP or Sb has had no fever or chills. Axox0, moves all extremities, follows simple commands RRR s1 and s2 decreased breath sounds Blt, no wheezing occasional crackles. NAD, speaks in 2-3 word sentences, uncooperative with providing history or with physical exam. A/P sepsis secondary to CAP - continue with ABx and follow labs lactic acidosis- resolved AFib currently rate controlled continue home medications- eliquis resumed as head CT was negative for ICH aspiration, fall precautions. will get Pt/OT will contact family for further information about the patient
[2019-03-13] MEDS ORDERED: Azithromycin 500 MG in D5% in Water 250 ML IVPB SCH (22:00)
[2019-03-14] MEDS ORDERED: *HR* Metoprolol 5 MG/5 ML VIAL IVP ONE (05:09)
[2019-03-14] MEDS: Insulin LISPRO 300 UNITS/3 ML VIAL SQ SCH ×4 (09:19→20:13)
[2019-03-14] MEDS: cefTRIAXone 1,000 MG in Water for inj. (sterile) 20 ML 10 ML IVP SCH (09:27)
[2019-03-14] MEDS: Apixaban 5 MG TABLET PO SCH ×2 (09:27→20:07)
--- NOTE | 2019-03-14 11:43 | Internal Med Progress Note ---
Hospitalist Progress Note - Encounter Date of Encounter: 03/14/19 Time of Encounter: 09:00 - Subjective Interval History: Patient was seen and examined at bedside. Has no complaints. Denies any shortness of breath, fever, chills, chest pain or palpitations. Family was seen at bedside yesterday and as per and family at bedside he has had poor valdo ry that comes and goes. has no appetite and hardly ever eats. he has lost interest in doing things that he used to enjoy. does not walk nor does he feel the need to walk. they report that he is very unmotivated and this has been progressively worsening over the years. mental status they report that its at his baseline. he does have moemnts of confusion that he is Axox3 then shortly after he is Axox0. As per patient does not want to go to a facility for physical therapy. She would like help with home health aide and home physical therapy. This was discussed with the social work on the floor who will facilitate this for the family. I discussed CODE STATUS extensively with at bedside and as per she reports that he would not like to be connected to mechanical ventillator nor does he want any artificial life support or CPR. code status was updated to DNR CCA DNI - Exam Vitals: Temp Pulse Resp BP Pulse Ox 98.3 F 84 16 190/82 94 03/14/19 08:49 03/14/19 08:49 03/14/19 08:49 03/14/19 08:35 03/14/19 08:49 Exam: General: Patient is alert, oriented 0 no acute distress, Head: atraumatic, normocephalic, Eye: Anicteric, no conjunctival injection ENT: mucous membranes moist, normal external ear exam Neck: normal inspection, trachea midline, full ROM, no carotid bruits Chest: normal inspection, symmetric chest rise Respiratory: Decreased breath sounds bilaterally, occasional crackles in the posterior lung arevalo left greater than right. Cardiovascular: Regular rate and rhythm. s1 and s2 No clicks, rubs, gallops, or murmors. Abdomen: Bowel sounds present normoactive x-4 quadrants. Abdomen is soft, nondistended. no Epigastric tenderness. No guarding or rebound. No o rganomegaly noted, obese musculoskeletal: Spontaneously moving all extremities. no edema, no calf te nderness Skin: warm, dry, intact. Neuro: Alert and oriented x0 Sensation light touch intact. Cranial nerves 2-12 is intact. Not aphasic, is moving all extremities without any difficulty, follows simple commands. Psych: Patient's affect is normal - Assessment and Plan (1) Atrial fibrillation Current Visit: No Status: Chronic (2) Type 2 diabetes mellitus Current Visit: Yes Status: Chronic (3) DVT prophylaxis Current Visit: No Status: Acute (4) Community acquired pneumonia Current Visit: Yes Status: Inactive (5) Sepsis Current Visit: Yes Status: Inactive (6) Confusion Current Visit: Yes Status: Acute (7) CHF (congestive heart failure) Current Visit: Yes Status: Acute - Summary of Assessment and Plan Summary of Assessment and Plan: Sepsis secondary to CAP: Continue with ceftriaxone, urine antigens were negative so azithromycin was discontinued. Lactic acid trended down to 2.2. Acute hypoxic respiratory failure secondary to CAP and acute on chronic HFpEF: Continue with antibiotics at as above, taper off oxygen, Acute on chronic heart failure preserved ejection fraction:BNP 430, CXR with left sided effusion, continue with Lasix IV 40 mg daily. Metoprolol, will repeat echocardiogram. Strict intake and output, daily weight. Echocardiogram in 2017 with EF of 55% and Indeterminate diastolic function. 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 Stable focal right frontal encephalomalacia, global parenchymal volume loss and chronic microvascular ischemic disease. Psych consulted will follow recommendations, fall, aspiration, precautions, elevate HOB Poor appetite: Nutrition consulted Functional decline: Physical therapy and occupational therapy consulted. Case management and social work on board DVT prophylaxis: on eliquis CODE STATUS: DNR CCA DNI - Time Spent with Patient Total time spent is greater than 50% in coordination of care (as documented) at patient's floor/unit and/or counseling patient: 25 - 35 minutes Plan of Care Discussed with: family Internal Medicine: Result - Labs CBC & Chem 7: 03/13/19 04:54 03/13/19 08:21 - ABG Interpretation ABG results: PT/INR, D-dimer PT 16.8 Seconds (9.4-12.1) H 03/13/19 04:54 Consult Discharge Plan - Plan Referrals: NONE,PCP [Primary Care Provider] - (1) Atrial fibrillation Qualifiers: Qualified Code(s): I48.2 - Chronic atrial fibrillation (2) Type 2 diabetes mellitus Qualifiers: Diabetes mellitus intermediate card tender insulin use: without intermediate card tender use Diabetes mellitus complication status: with unspecified complications Qualified Code(s): E11.8 - Type 2 diabetes mellitus with unspecified complications (4) Community acquired pneumonia Qualifiers: Laterality: unspecified laterality Qualified Code(s): J18.9 - Pneumonia, unspecified organism (5) Sepsis Qualifiers: Sepsis type: sepsis due to unspecified organism Qualified Code(s): A41.9 - Sepsis, unspecified organism (7) CHF (congestive heart failure) Qualifiers: Heart failure chronicity: unspecified Qualified Code(s): I50.9 - Heart failure, unspecified
[2019-03-14] MEDS ORDERED: Furosemide 40 MG/4 ML VIAL IVP ONE (11:55)
[2019-03-14 12:32] LABS: Hemoglobin 10.4 g/dL (12.9-16.9); Mean Corpuscular HGB Conc 32.5 g/dL (31.6-35.5); Mean Corpuscular Hemoglobin 30.1 pg (28.0-33.3); Mean Corpuscular Volume 92.8 fL (83.0-100.0); Mean Platelet Volume 10.5 fL (9.4-12.4); Platelet Count 186 K/mcL (140-400); Red Blood Count 3.45 M/mcL (4.19-5.50); Red Cell Distribution Width 14.9 % (11.5-14.5)
[2019-03-14 12:50] LABS: BUN/Creatinine Ratio 21 (6-26); Blood Urea Nitrogen 16 mg/dL (8-23); Calcium 9.6 mg/dL (8.6-10.3); Carbon Dioxide 24 mEq/L (23-29); Chloride 105 mEq/L (98-107); Glucose 94 mg/dL (70-105); Osmolality,Calculated 283 (280-300); Potassium 4.1 mEq/L (3.5-5.1); Sodium 136 mEq/L (136-145); eGFR For Non-African Americans > 60 (> 60)
[2019-03-14] MEDS ORDERED: Nicotine 14 MG PATCH.TD24 TD SCH (15:00)
[2019-03-14] MEDS: Nicotine 14 MG PATCH.TD24 TD SCH (20:52)
[2019-03-14] MEDS ORDERED: Melatonin 3 MG TABLET PO PRN (22:58)
[2019-03-15 02:13] LABS: Hematocrit 30.9 % (37.5-50.1); Hemoglobin 10.1 g/dL (12.9-16.9); Mean Corpuscular HGB Conc 32.7 g/dL (31.6-35.5); Mean Corpuscular Hemoglobin 29.1 pg (28.0-33.3); Mean Platelet Volume 10.4 fL (9.4-12.4); Platelet Count 205 K/mcL (140-400); Red Blood Count 3.47 M/mcL (4.19-5.50); Red Cell Distribution Width 14.8 % (11.5-14.5)
[2019-03-15 02:31] LABS: BUN/Creatinine Ratio 19 (6-26); Blood Urea Nitrogen 19 mg/dL (8-23); Calcium 9.1 mg/dL (8.6-10.3); Carbon Dioxide 26 mEq/L (23-29); Chloride 104 mEq/L (98-107); Glucose 178 mg/dL (70-105); Osmolality,Calculated 291 (280-300); Potassium 3.8 mEq/L (3.5-5.1); Sodium 137 mEq/L (136-145); eGFR For Non-African Americans > 60 (> 60)
[2019-03-15] MEDS: Nicotine 14 MG PATCH.TD24 TD SCH (08:52)
[2019-03-15] MEDS: Apixaban 5 MG TABLET PO SCH (08:53)
[2019-03-15] MEDS: Insulin LISPRO 300 UNITS/3 ML VIAL SQ SCH ×2 (08:54→12:04)
[2019-03-15] MEDS ORDERED: Furosemide 40 MG TABLET PO SCH (09:00)
[2019-03-15] MEDS ORDERED: Cefdinir 300 MG CAPSULE PO SCH (09:00)
--- NOTE | 2019-03-15 10:16 | Consult Note ---
Date of Encounter: 03/15/19 Time of Encounter: 10:13 Assessment & Recommendation (1) Neurocognitive disorder Current visit: Yes Status: Acute Assessment & Recommendation: Patient's history of progressive memory loss and confusion and mild agitation at night and lack of appetite are more consistent with a neurocognitive disorder/dementia than a major depressive disorder. He does not meet criteria for inpatient psychiatric hospitalization as he is not suicidal or homicidal or acutely or presenting a danger to himself. I did discuss with him and his possible medication options including Aricept to help slow the decline in progression of his dementia and the possibility of Celexa which is an antidepressant with some studies supportive of its use in dementia with behavioral disturbances though this is an off label indication. At this time they are not interested in medications or referral to outpatient therapy. The is grateful for referrals for home health. Consideration to palliative care he be given based on his medical prognosis. History of Present Illness Requesting Physician: Lilliam Shaffer MD Reason for consult: Depression History of present illness: Mr. Parr is a 88 year old male with PMHx of afib on eliquis, CHF, CAD, DM, HLD, CVA, [place] presents with complaints of shortness of breath as a transfer from [facility]. Psychiatry was consult for "geriatric depression with loss of appetite not eating lack of interest." He is noted to the 75% dinner yesterday in 50% of breakfast today. I spoke with the patient with his and son in the room with his consent. They are a pedro family. He reports that he is not feeling depressed however the family disagree with this. He denies any suicidal thoughts, ideations, or plans. No homicidal ideations. He denies auditory or visual hallucinations or psychotic symptoms. His acknowledge that he feels down about the loss in his functioning. He was not interested in psychiatric medications or counseling. I spoke with the patient's outside of the room with his permission. She stated that she does not feel that he is necessarily depressed but sees more symptoms of dementia. She reports a pattern of increased confusion at night time walking around the house at times confused as to where he is talking about wanting to go home, talking about where furniture that they have had for years came from believing they had just bought it, she said on one or 2 occasions he has asked with history outside of their home is. She says he has never expressed depressed mood or suicidal thoughts. She verified he has no history of suicide attempts. She says she has never discussed the dementia concerns with her primary care physician and he has never been tried on a medication for this. She also felt the medications for depression would not be helpful but said she would further discuss the options with him. CC: Lilliam Shaffer MD Past Med Surg Social Fam HX - Past Medical History Medical history: arthritis, atrial fibrillation, CHF, coronary artery disease, C VA, diabetes, GI bleed, hyperlipidemia, hypertension, myocardial infarction, osteoporosis, peripheral artery disease, renal disease, TIA - Past Psychiatric History Psychiatric history: Reports: no psych history Past psychiatric history details: Both the patient and his verify no history of psychiatric treatment. No prior hospitalizations. No outpatient linkage. No medication trials. He has never had a suicide attempt or self injury. Family psychiatric history: No Family History of Suicide: None - Past Surgical History Surgical History: cholecystectomy, coronary bypass (CABG), herniorrhaphy, other - Social History Smoking Status: Former smoker Smokeless Tobacco Status: No Alcohol use: none, unknown Drug use: none Occupational status: retired Current living situation: Home, With Family Activity Level: Wheelchair bound Recent Out of Country Travel Within the Last 8 Weeks: No Exposure or Possible Exposure to Illness During Travel: No Additional social history: Patient's says that she takes care of him. She said that their children help when they can but that they have their own lives going on. - Family History Mother Living Status: Hx Family Cardiac Disorders: Yes Hx Family Endocrine Disorder: Yes (diabetes) Father Living Status: Hx Family Cardiac Disorders: Yes Medications & Allergies Furosemide [Lasix] 40 mg PO DAILY PRN 02/27/17 [History] Multivit-Min/FA/Lycopen/Lutein [Centrum Silver Men Tablet] 1 each PO DAILY 02/27/17 [History] Omeprazole [PriLOSEC] 40 mg PO DAILY 02/27/17 [History] Oxybutynin [Ditropan] 5 mg PO BID 02/27/17 [History] amLODIPine [Norvasc] 5 mg PO BID 02/27/17 [History] metFORMIN [Glucophage] 1,000 mg PO BIDWM 04/18/17 [History] Apixaban [Eliquis] 2.5 mg PO BID 03/13/19 [History] Atorvastatin Calcium [Lipitor] 20 mg PO HS 03/13/19 [History] Cyanocobalamin (B-12) [Vitamin B12] 1,000 mcg IM Q2W 03/13/19 [History] Metoprolol [Lopressor] 25 mg PO BID 03/13/19 [History] Allergy/AdvReac Type Severity Reaction Status Date / Time No Known Allergies Allergy Verified 03/13/19 09:28 Review of Systems Constitutional: Reports: weakness Eyes: Denies: eye pain Ears, Nose, Throat: Denies: ear pain Cardiovascular: Reports: dyspnea on exertion Respiratory: Reports: dyspnea Gastrointestinal: Denies: abdominal pain Genitourinary male: Reports: urgency, frequency Musculoskeletal: Reports: back pain, joint pain Integumentary: Denies: rash Neurological: Reports: confusion, memory loss Psychiatric: Reports: confusion, memory loss. Denies: suicidal ideation, homicidal ideation, auditory hallucinations, visual hallucinations Endocrine: Reports: fatigue Hematologic/Lymphatic: Denies: easy bleeding Allergic/Immunologic: Denies: facial swelling Psychiatry Exam - Constitutional Vitals: Temp Pulse Resp BP Pulse Ox 98.6 F 85 16 185/88 93 03/15/19 06:44 03/15/19 06:44 03/15/19 06:44 03/15/19 06:44 03/15/19 06:44 General appearance: age & developmentally appropriate - Musculoskeletal Gait: other (In bed) Station: relaxed Strength & Tone: mild weakness - Psychiatric Patient Orientation: Yes Person, Yes Place, Yes Circumstance Level of alertness: Alert Behavior: calm Psychomotor activity: Normal Eye Contact: Maintains Eye Contact Mood Description: Euthymic/stable Patient description of mood: Okay Affect description: blunted Speech Volume: Soft/Quiet Speech pattern: normal rate Language & Vocabulary: consistent with education Thought Process: Linear, Goal Oriented Thought Content: Yes Intact Perceptual Disturbances: No Auditory hallucinations, No Visual hallucinations Attention Span Ability: Capable of Focused Attention Memory Description: Immediate Impaired, Recent Impaired, Remote Intact Patient Reliability: Questionable Historian Fund of knowledge: Yes average Intelligence Estimate: Average Judgment: Fair Insight: Partial Results - Drug Levels and Toxicology Drug Levels and Toxicology: Vital Signs Temp Pulse Resp BP Pulse Ox 03/15/19 06:44 98.6 F 85 16 185/88 93 03/15/19 03:27 99.2 F 85 15 154/67 92 03/14/19 18:46 98.4 F 89 15 185/78 94 03/14/19 14:53 170/89 03/14/19 14:10 97.9 F 87 20 179/85 94 Intake and Output 03/14/19 03/15/19 03/15/19 23:59 07:59 15:59 Intake Total 120 / 120 0 / 120 120 / 120 Balance 120 / 120 0 / 120 120 / 120 Intake: Oral 120 / 120 0 / 120 120 / 120 Other: Meal Dinner Breakfast Percent of Meal Consumed 75% 50% # Voids 1 # Urine Diapers 1 Weight 75.7 kg Blood Glucose* 195 131 Patient Weight 03/15/19 23:59 Weight 75.7 kg - Labs Labs: Laboratory Last Values WBC 7.7 K/mcL (4.3-11.1) 03/15/19 00:51 RBC 3.47 M/mcL (4.19-5.50) L 03/15/19 00:51 Hgb 10.1 g/dL (12.9-16.9) L 03/15/19 00:51 Hct 30.9 % (37.5-50.1) L 03/15/19 00:51 MCV 89.0 fL (83.0-100.0) 03/15/19 00:51 MCH 29.1 pg (28.0-33.3) 03/15/19 00:51 MCHC 32.7 g/dL (31.6-35.5) 03/15/19 00:51 RDW 14.8 % (11.5-14.5) H 03/15/19 00:51 Plt Count 205 K/mcL (140-400) 03/15/19 00:51 MPV 10.4 fL (9.4-12.4) 03/15/19 00:51 Immature Gran % 0.7 % (0-4) 03/13/19 04:54 Seg Neutrophils % 81.4 % 03/13/19 04:54 7.1 % 03/13/19 04:54 10.5 % 03/13/19 04:54 0.1 % 03/13/19 04:54 0.2 % 03/13/19 04:54 10.9 K/mcL (1.6-8.9) H 03/13/19 04:54 1.0 K/mcL (0.6-4.6) 03/13/19 04:54 1.4 K/mcL (0.0-1.3) H 03/13/19 04:54 0.0 K/mcL (0.0-0.6) 03/13/19 04:54 0.0 K/mcL (0.0-0.2) 03/13/19 04:54 PT 16.8 Seconds (9.4-12.1) H 03/13/19 04:54 INR 1.5 03/13/19 04:54 Sodium 137 mEq/L (136-145) 03/15/19 00:51 Potassium 3.8 mEq/L (3.5-5.1) 03/15/19 00:51 Chloride 104 mEq/L (98-107) 03/15/19 00:51 Carbon Dioxide 26 mEq/L (23-29) 03/15/19 00:51 BUN 19 mg/dL (8-23) 03/15/19 00:51 0.99 mg/dL (0.70-1.30) 03/15/19 00:51 Est GFR ( Amer) > 60 (> 60) 03/15/19 00:51 Est GFR (Non-Af Amer) > 60 (> 60) 03/15/19 00:51 19 (6-26) 03/15/19 00:51 Glucose 178 mg/dL (70-105) H 03/15/19 00:51 POC Glucose 131 mg/dL (70-99) H 03/15/19 06:50 291 (280-300) 03/15/19 00:51 Lactic Acid 2.2 mmol/L (0.5-2.2) 03/13/19 09:37 Calcium 9.1 mg/dL (8.6-10.3) 03/15/19 00:51 Phosphorus 2.8 mg/dL (2.7-4.5) 03/13/19 04:54 Magnesium 1.7 mg/dL (1.6-2.6) 03/13/19 04:54 B-Natriuretic Peptide 430 pg/mL (Less than 100) H 03/13/19 04:54 Hemolyzed 03/13/19 08:21 Consult Discharge Plan - Plan Referrals: NONE,PCP [Primary Care Provider] -
--- NOTE | 2019-03-15 11:41 | Discharge Summary ---
Date of Encounter: 03/15/19 Time of Encounter: 11:38 - Discharge Diagnosis (1) Community acquired pneumonia Priority: Primary Status: Inactive Qualifiers: Laterality: unspecified laterality Qualified Code(s): J18.9 - Pneumonia, unspecified organism (2) Atrial fibrillation Priority: Secondary Status: Chronic Qualifiers: Atrial fibrillation type: chronic Qualified Code(s): I48.2 - Chronic atrial fibrillation (3) Type 2 diabetes mellitus Priority: Secondary Status: Chronic Qualifiers: Diabetes mellitus care home insulin use: without care home use Diabetes mellitus complication status: with unspecified complications Qualified Code(s): E11.8 - Type 2 diabetes mellitus with unspecified complications (4) DVT prophylaxis Priority: Secondary Status: Acute (5) Sepsis Priority: Secondary Status: Inactive Qualifiers: Sepsis type: sepsis due to unspecified organism Qualified Code(s): A41.9 - Sepsis, unspecified organism (6) Confusion Priority: Secondary Status: Acute (7) CHF (congestive heart failure) Priority: Secondary Status: Acute Qualifiers: Heart failure chronicity: unspecified Qualified Code(s): I50.9 - Heart failure, unspecified (8) Dementia Priority: Secondary Status: Acute Qualifiers: Dementia type: unspecified type Dementia behavioral disturbance: without behavioral disturbance Qualified Code(s): F03.90 - Unspecified dementia without behavioral disturbance Hospital course: "Mr. Parr is a 88 year old male with PMHx of afib on eliquis, CHF, CAD, DM, HLD, CVA, [place] presents with complaints of shortness of breath as a transfer from [facility]. Patient has been short of breath with non-productive cough and subjective fever for the past 4 days. At [place], his vitals were significant for temp of 100, tachycardic at 105, hypertensive at 165/79. He was hypoxic on arrival at 88% on RA but saturated to 94% on 3L. Labs significant for WBC 12.5, glucose 198, phos 2.4, Mg 1.3, Alk Phos 158. UA showed protein, glucose, ketones, blood, few bacteria. CXR concerning for mild pulmonary edema, trace pleural effusion, and mild unchanged cardiomegaly. Patient was given dose of IV rocephin and azithromycin, 1 liter maintenance IVF, replaced magnesium, blood cultures x2. Patient is confused during my exam. He is A&O x0 and unable to answer questions. According to nurse, EMS said he was more oriented at [place], and became confused en route to [facility]." patient presented with above presentation and was admitted for sepsis secondary to CAP and CHF exacerbation. Sepsis secondary to CAP: was tretaed with IV Abx and transitioned to PO, lactic acidosis resolved, urine antigens negative, Bcx NGTD- remained Afebrile through out hospitalization. Acute hypoxic respiratory failure secondary to CAP and acute on chronic HFpEF: Continue with antibiotics at as above, tapered off oxygen Acute on chronic heart failure preserved ejection fraction:BNP 430, CXR with left sided effusion, was treated with lasix IV daily and transitioned to PO 20 mg dose to take daily instead of PRN and follow up with OP director of graduate medical education to titrate dose. continue with Metoprolol Echocardiogram in 2016 with EF of 55% and Indeterminate diastolic function. Echo on 03/15 with LVEF 60%. Mild concentric left ventricular hypertrophy. Normal right ventricular structure and function. 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 Stable focal right frontal encephalomalacia, global parenchymal volume loss and chronic microvascular ischemic disease. Psych consulted will follow recommendations appreciated, will also referral to Op neurology. family declined dementia medication nor celexa. Poor appetite: Nutrition consulted and recs followed Functional decline: Physical therapy and occupational therapy consulted. Case management and social work on board- referral for [employer], Pt, OT made. tobacco use disorder: was provided with nicotine patch on discharge. CODE STATUS: DNR CCA DNI as per my discussion with head CT: IMPRESSION: No acute intracranial abnormality. Stable focal right frontal encephalomalacia, global parenchymal volume loss and chronic microvascular ischemic disease. Discharge discussed with: patient, family, nurse, social work, case management, cisco consultant Time spent discussing smoking cessation with patient: more than 10 minutes - Time Spent with Patient Total time spent providing and/or coordinating discharge services: Time spent: Greater than 30 minutes (35) - Discharge Medications Prescriptions: New Nicotine Patch [Nicoderm] 14 mg TD DAILY #30 patch.td24 Cefdinir [Omnicef] 300 mg PO BID 5 Days #10 capsule Furosemide [Lasix] 20 mg PO DAILY #30 tablet Continued Oxybutynin [Ditropan] 5 mg PO BID Omeprazole [PriLOSEC] 40 mg PO DAILY amLODIPine [Norvasc] 5 mg PO BID Multivit-Min/FA/Lycopen/Lutein [Centrum Silver Men Tablet] 1 each PO DAILY metFORMIN [Glucophage] 1,000 mg PO BIDWM Apixaban [Eliquis] 2.5 mg PO BID Atorvastatin Calcium [Lipitor] 20 mg PO HS Cyanocobalamin (B-12) [Vitamin B12] 1,000 mcg IM Q2W Metoprolol [Lopressor] 25 mg PO BID Discontinued Furosemide [Lasix] 40 mg PO DAILY PRN PRN Reason: Edema Home Medications: Multivit-Min/FA/Lycopen/Lutein [Centrum Silver Men Tablet] 1 each PO DAILY 02/27/17 [History] Omeprazole [PriLOSEC] 40 mg PO DAILY 02/27/17 [History] Oxybutynin [Ditropan] 5 mg PO BID 02/27/17 [History] amLODIPine [Norvasc] 5 mg PO BID 02/27/17 [History] metFORMIN [Glucophage] 1,000 mg PO BIDWM 04/18/17 [History] Apixaban [Eliquis] 2.5 mg PO BID 03/13/19 [History] Atorvastatin Calcium [Lipitor] 20 mg PO HS 03/13/19 [History] Cyanocobalamin (B-12) [Vitamin B12] 1,000 mcg IM Q2W 03/13/19 [History] Metoprolol [Lopressor] 25 mg PO BID 03/13/19 [History] Cefdinir [Omnicef] 300 mg PO BID 5 Days #10 capsule 03/15/19 [Rx] Furosemide [Lasix] 20 mg PO DAILY #30 tablet 03/15/19 [Rx] Nicotine Patch [Nicoderm] 14 mg TD DAILY #30 patch.td24 03/15/19 [Rx] Allergies/Adverse Reactions: Allergy/AdvReac Type Severity Reaction Status Date / Time No Known Allergies Allergy Verified 03/13/19 09:28 Date of admission: 03/13/19 05:59 Primary care physician: PCP NONE Consults: 03/13/19 01:16 Consult to Pastoral Services [CONS] Routine Comment: 03/14/19 11:51 Consult to Psychiatry [CONS] Routine Consulting Provider: Psychiatry [facility] Reason consult: Other Other reason and/or additional details: geriatric depression has lost appetite, is not eating at all, not interested in the things he was interested, Call Completed: Yes 03/14/19 11:54 Consult to Nutrition [CONS] Routine Comment: Consulting Provider: NUTRITION Reason for Dietary Consult: PO Supplementation - Constitutional Vitals: Temp Pulse Resp BP Pulse Ox 98.1 F 88 17 178/77 92 03/15/19 10:54 03/15/19 10:54 03/15/19 10:54 03/15/19 10:54 03/15/19 10:54 General appearance: Present: cooperative, A&O X 2, pleasant Exam: General: Patient is alert, oriented 0 no acute distress, Head: atraumatic, normocephalic, Eye: Anicteric, no conjunctival injection ENT: mucous membranes moist, normal external ear exam Neck: normal inspection, trachea midline, full ROM, no carotid bruits Chest: normal inspection, symmetric chest rise Respiratory: Decreased breath sounds bilaterally, occasional crackles in the posterior lung arevalo left greater than right- improved Cardiovascular: Regular rate and rhythm. s1 and s2 No clicks, rubs, gallops, or murmors. Abdomen: Bowel sounds present normoactive x-4 quadrants. Abdomen is soft, nondistended. no Epigastric tenderness. No guarding or rebound. No organomegaly noted, obese musculoskeletal: Spontaneously moving all extremities. no edema, no calf tenderness Skin: warm, dry, intact. Neuro: Alert and oriented to person, does not know date or time, does know that he is in the hospital. Sensation light touch intact. Cranial nerves 2-12 is intact. Not aphasic, is moving all extremities without any difficulty, follows simple commands. Psych: Patient's affect is normal - Patient Status Disposition: Home Health Service Condition: Fair Functional capacity at discharge: uses cane/walker Overall status at discharge: patient is progressing back to baseline - Discharge Instructions Follow Up With: NONE,PCP [Primary Care Provider] - Nam Dubois MD [Partnered Physician] - Ravi Lomax MD [Partnered Physician] - - Diet and Activity Activity: as per physical therapy Diet: diabetic diet, low salt diet
--- NOTE | 2019-03-15 11:55 | Physician Discharge Referral ---
Home Health/Hosp Referral Info Transfer to: Home Health Provider in Charge Post Discharge: PCP - Diagnosis (1) Community acquired pneumonia Priority: Primary Status: Inactive (2) Atrial fibrillation Priority: Secondary Status: Chronic (3) Type 2 diabetes mellitus Priority: Secondary Status: Chronic (4) DVT prophylaxis Priority: Secondary Status: Acute (5) Sepsis Priority: Secondary Status: Inactive (6) Confusion Priority: Secondary Status: Acute (7) CHF (congestive heart failure) Priority: Secondary Status: Acute (8) Dementia Priority: Secondary Status: Acute - Respiratory Orders Smoking Cessation: Smoking cessation has been advised. For more information, call the [place] Tobacco Quit Line at 9-567-FNWL-NOW. - Diet/Nutrition Diet/Nutrition Orders: Cardiac (diabteic, fluid restricted) - Activity Activity Orders: Ambulate - Services Needed Following services are medically necessary services: Nursing, Home Health Aide, Physical Therapy - Transfer Medications Prescriptions: Furosemide [Lasix] 40 mg PO DAILY #30 tablet Nicotine Patch [Nicoderm] 14 mg TD DAILY #30 patch.td24 Cefdinir [Omnicef] 300 mg PO BID 5 Days #10 capsule Home Medications: Multivit-Min/FA/Lycopen/Lutein [Centrum Silver Men Tablet] 1 each PO DAILY 02/27/17 [History] Omeprazole [PriLOSEC] 40 mg PO DAILY 02/27/17 [History] Oxybutynin [Ditropan] 5 mg PO BID 02/27/17 [History] amLODIPine [Norvasc] 5 mg PO BID 02/27/17 [History] metFORMIN [Glucophage] 1,000 mg PO BIDWM 04/18/17 [History] Apixaban [Eliquis] 2.5 mg PO BID 03/13/19 [History] Atorvastatin Calcium [Lipitor] 20 mg PO HS 03/13/19 [History] Cyanocobalamin (B-12) [Vitamin B12] 1,000 mcg IM Q2W 03/13/19 [History] Metoprolol [Lopressor] 25 mg PO BID 03/13/19 [History] Cefdinir [Omnicef] 300 mg PO BID 5 Days #10 capsule 03/15/19 [Rx] Furosemide [Lasix] 40 mg PO DAILY #30 tablet 03/15/19 [Rx] Nicotine Patch [Nicoderm] 14 mg TD DAILY #30 patch.td24 03/15/19 [Rx] Allergies/Adverse Reactions: Allergy/AdvReac Type Severity Reaction Status Date / Time No Known Allergies Allergy Verified 03/13/19 09:28 Certification: Further, I certify that my clinical findings support that this patient is homebound (i.e. absences from home require considerable and taxing effort and are for medical reasons or voodoo services or infrequently or short duration when for other reasons) because: Homebound Reason: Patient requires assistance of a person or device to safely leave home Attestation: My signature below is to certify that this patient is under my care and that I, or nurse practitioner, or a physician's patient support assistant working with me, has a [id number] encounter with this patient.
[2019-03-15 15:08] VITALS: BP 171/72
== END 2019-03-15 16:35 | disposition home health service (06) | DRG 871 ==
LOC: 3ANU → SUATTDRO 05:59 → 3ANU 03-14 23:01
PROVIDERS: ADMIT Pediatrics; ATTEND Internal Medicine

== ENCOUNTER 2019-08-12 18:38 | Inpatient (IN) ==
[2019-08-12] MEDS ORDERED: 0.9 % Sodium Chloride 1,000 ML IVC ONE (18:53)
[2019-08-12] MEDS ORDERED: Ibuprofen 600 MG TABLET PO ONE (18:53)
[2019-08-12 19:31] LABS: Basophils % 0.1 %; Eosinophils % 0.4 %; Hematocrit 35.8 % (37.5-50.1); Hemoglobin 11.4 g/dL (12.9-16.9); Immature Granulocytes % 0.3 % (0-4); Lymphocytes # 0.5 K/mcL (0.6-4.6); Lymphocytes % 6.4 %; Mean Corpuscular HGB Conc 31.8 g/dL (31.6-35.5); Mean Corpuscular Hemoglobin 28.4 pg (28.0-33.3); Mean Corpuscular Volume 89.1 fL (83.0-100.0); Mean Platelet Volume 10.2 fL (9.4-12.4); Monocytes # 0.8 K/mcL (0.0-1.3); Monocytes % 11.7 %; Neutrophils # 5.7 K/mcL (1.6-8.9); Platelet Count 179 K/mcL (140-400); Red Blood Count 4.02 M/mcL (4.19-5.50); Red Cell Distribution Width 18.1 % (11.5-14.5); Segmented Neutrophils % 81.1 %
[2019-08-12 19:42] LABS: INR 1.5; Prothrombin Time 16.9 Seconds (9.4-12.1)
[2019-08-12 19:42] LABS: Bilirubin,Urine Negative (Negative); Blood,Urine Negative (Negative); Clarity,Urine Cloudy (Clear); Color,Urine Yellow (Yellow); Glucose,Urine (UA) Normal (Normal); Ketones,Urine Negative (Negative); Leukocyte Esterase,Urine Negative (Negative); Nitrite,Urine Negative (Negative); PH,Urine 7.5 pH Units (5.0-8.0); Protein,Urine Trace mg/dL (Neg-Trace); Specific Gravity,Urine 1.012 (1.010-1.025)
[2019-08-12 19:45] LABS: Bacteria,Urine None Seen per hpf (None-Few); Hyaline Casts,Urine None Seen per lpf (None-Few); Squamous Epithelial Cell,Urine Many per lpf (None-Few); WBC,Urine 0-3 per hpf (0-3)
[2019-08-12 20:05] LABS: Alanine Aminotransferase 135 Units/L (7-52); Albumin/Globulin Ratio 1.5 (1.1-2.2); Alkaline Phosphatase 326 Units/L (34-104); Aspartate Amino Transferase 206 Units/L (13-39); BUN/Creatinine Ratio 20 (6-26); Bilirubin,Direct 2.2 mg/dL (0.0-0.2); Bilirubin,Indirect 0.9 mg/dL (0.0-1.2); Bilirubin,Total 3.1 mg/dL (0.3-1.0); Blood Urea Nitrogen 15 mg/dL (8-23); Calcium 10.8 mg/dL (8.6-10.3); Carbon Dioxide 27 mEq/L (23-29); Chloride 102 mEq/L (98-107); Globulin 2.7 g/dL (2.4-3.5); Glucose 127 mg/dL (70-105); Osmolality,Calculated 284 (280-300); Potassium 4.2 mEq/L (3.5-5.1); Sodium 136 mEq/L (136-145); Total Protein 6.7 g/dL (6.4-8.9); Troponin I 0.04 ng/mL (< 0.04); eGFR For African Americans > 60 (> 60); eGFR For Non-African Americans > 60 (> 60)
[2019-08-12] MEDS ORDERED: Isovue-370 500 ML BOTTLE IVP ONE (20:07)
[2019-08-12] MEDS ORDERED: Aspirin 81 MG TAB.CHEW PO ONE (20:27)
[2019-08-12] MEDS ORDERED: cefTRIAXone 1,000 MG in Water for inj. (sterile) 10 ML IVP ONE (21:03)
[2019-08-12] MEDS ORDERED: Azithromycin 500 MG in D5% in Water 250 ML IVPB ONE (21:03)
[2019-08-13] MEDS ORDERED: Nitroglycerin 0.4 MG TAB.SUBL SL PRN (01:04)
[2019-08-13] MEDS ORDERED: Naloxone 0.4 MG/ML INJ IVP PRN (01:04)
[2019-08-13] MEDS ORDERED: Morphine Sulfate 2 MG/ML SYRINGE IVP PRN (01:04)
[2019-08-13] MEDS ORDERED: Azithromycin 500 MG in 0.9 % Sodium Chloride 250 ML IVPB ONE (01:04)
[2019-08-13] MEDS ORDERED: Ringers Solution, Lactated 1,000 ML IVC SCH (01:15)
[2019-08-13] MEDS ORDERED: cefTRIAXone 2,000 MG in Water for inj. (sterile) 20 ML IVP SCH ×2 (02:00→09:00)
[2019-08-13 02:42] LABS: Basophils % 0.1 %; Eosinophils % 0.3 %; Hematocrit 31.7 % (37.5-50.1); Immature Granulocytes % 0.6 % (0-4); Lymphocytes # 0.3 K/mcL (0.6-4.6); Lymphocytes % 4.9 %; Mean Corpuscular HGB Conc 31.5 g/dL (31.6-35.5); Mean Corpuscular Hemoglobin 28.5 pg (28.0-33.3); Mean Corpuscular Volume 90.3 fL (83.0-100.0); Mean Platelet Volume 10.1 fL (9.4-12.4); Monocytes # 0.6 K/mcL (0.0-1.3); Monocytes % 9.1 %; Neutrophils # 5.9 K/mcL (1.6-8.9); Platelet Count 153 K/mcL (140-400); Red Blood Count 3.51 M/mcL (4.19-5.50); Red Cell Distribution Width 17.8 % (11.5-14.5); White Blood Count 6.9 K/mcL (4.3-11.1)
[2019-08-13 02:52] LABS: INR 1.6; Prothrombin Time 18.4 Seconds (9.4-12.1)
[2019-08-13 02:58] LABS: Alanine Aminotransferase 144 Units/L (7-52); Albumin 3.5 g/dL (3.5-5.7); Albumin/Globulin Ratio 1.5 (1.1-2.2); Alkaline Phosphatase 263 Units/L (34-104); Aspartate Amino Transferase 177 Units/L (13-39); BUN/Creatinine Ratio 20 (6-26); Bilirubin,Total 3.1 mg/dL (0.3-1.0); Blood Urea Nitrogen 15 mg/dL (8-23); Calcium 9.8 mg/dL (8.6-10.3); Carbon Dioxide 23 mEq/L (23-29); Chloride 104 mEq/L (98-107); Chol/HDL Ratio 2.4 (0-4.9); Cholesterol 96 mg/dL (< 200); Globulin 2.3 g/dL (2.4-3.5); Glucose 125 mg/dL (70-105); HDL Cholesterol 40 mg/dL (40-59); LDL Cholesterol,Calculated 45 mg/dL (0-99); Magnesium 1.2 mg/dL (1.6-2.6); Osmolality,Calculated 282 (280-300); Phosphorous 2.4 mg/dL (2.7-4.5); Potassium 3.9 mEq/L (3.5-5.1); Sodium 135 mEq/L (136-145); Total Protein 5.8 g/dL (6.4-8.9); Triglycerides 55 mg/dL (< 150); eGFR For African Americans > 60 (> 60); eGFR For Non-African Americans > 60 (> 60)
[2019-08-13 13:35] LABS: Hepatitis B Surface Antigen Nonreactive (Nonreactive)
[2019-08-13 14:05] LABS: Hepatitis B Core IgM Nonreactive (Nonreactive)
[2019-08-13 14:07] LABS: Hepatitis A Antibody IgM Nonreactive (Nonreactive); Hepatitis C Virus Antibody Nonreactive (Nonreactive)
[2019-08-13] MEDS ORDERED: Furosemide 20 MG TABLET PO PRN (17:25)
[2019-08-13] MEDS ORDERED: Dextrose Gel 15 GM/37.5 ML TUBE PO PRN ×2 (17:33)
[2019-08-13] MEDS ORDERED: D5% in Water 1,000 ML IVC PRN (17:33)
[2019-08-13] MEDS ORDERED: *HR* Dextrose 50 % in Water (Syg) 50 ML SYRINGE IVP PRN (17:33)
[2019-08-13] MEDS ORDERED: amLODIPine 5 MG TABLET PO SCH (21:00)
[2019-08-13] MEDS: Apixaban 2.5 MG TABLET PO SCH (21:58)
[2019-08-13] MEDS: Azithromycin 500 MG in 0.9 % Sodium Chloride 250 ML IVPB SCH (22:06)
[2019-08-14 04:47] LABS: Magnesium 1.8 mg/dL (1.6-2.6); Phosphorous 2.7 mg/dL (2.7-4.5)
[2019-08-14] MEDS: Insulin LISPRO 300 UNITS/3 ML VIAL SQ SCH ×3 (08:17→16:05)
[2019-08-14] MEDS: amLODIPine 5 MG TABLET PO SCH (10:43)
[2019-08-14] MEDS: Apixaban 2.5 MG TABLET PO SCH ×2 (10:43→20:53)
[2019-08-14] MEDS: cefTRIAXone 1,000 MG in Water for inj. (sterile) 10 ML IVP SCH (10:45)
[2019-08-14 11:19] LABS: Basophils % 0.5 %; Eosinophils # 0.2 K/mcL (0.0-0.6); Eosinophils % 3.8 %; Hematocrit 34.3 % (37.5-50.1); Hemoglobin 11.1 g/dL (12.9-16.9); Immature Granulocytes % 0.3 % (0-4); Lymphocytes # 1.3 K/mcL (0.6-4.6); Lymphocytes % 19.7 %; Mean Corpuscular HGB Conc 32.4 g/dL (31.6-35.5); Mean Corpuscular Hemoglobin 27.9 pg (28.0-33.3); Mean Corpuscular Volume 86.2 fL (83.0-100.0); Mean Platelet Volume 10.3 fL (9.4-12.4); Monocytes % 15.1 %; Neutrophils # 3.8 K/mcL (1.6-8.9); Platelet Count 166 K/mcL (140-400); Red Blood Count 3.98 M/mcL (4.19-5.50); Red Cell Distribution Width 17.4 % (11.5-14.5); Segmented Neutrophils % 60.6 %; White Blood Count 6.3 K/mcL (4.3-11.1)
[2019-08-14 11:55] LABS: Alanine Aminotransferase 105 Units/L (7-52); Albumin 3.6 g/dL (3.5-5.7); Albumin/Globulin Ratio 1.4 (1.1-2.2); Alkaline Phosphatase 267 Units/L (34-104); Aspartate Amino Transferase 76 Units/L (13-39); BUN/Creatinine Ratio 17 (6-26); Bilirubin,Direct 1.7 mg/dL (0.0-0.2); Bilirubin,Indirect 0.9 mg/dL (0.0-1.2); Bilirubin,Total 2.6 mg/dL (0.3-1.0); Blood Urea Nitrogen 13 mg/dL (8-23); Calcium 10.3 mg/dL (8.6-10.3); Carbon Dioxide 26 mEq/L (23-29); Chloride 103 mEq/L (98-107); Globulin 2.6 g/dL (2.4-3.5); Glucose 109 mg/dL (70-105); Osmolality,Calculated 285 (280-300); Sodium 137 mEq/L (136-145); Total Protein 6.2 g/dL (6.4-8.9); eGFR For African Americans > 60 (> 60); eGFR For Non-African Americans > 60 (> 60)
[2019-08-14] MEDS: Azithromycin 500 MG in 0.9 % Sodium Chloride 250 ML IVPB SCH (20:53)
[2019-08-15] MEDS: Insulin LISPRO 300 UNITS/3 ML VIAL SQ SCH ×3 (07:23→16:26)
[2019-08-15] MEDS: Apixaban 2.5 MG TABLET PO SCH ×2 (09:19→20:00)
[2019-08-15] MEDS: amLODIPine 5 MG TABLET PO SCH (09:19)
[2019-08-15] MEDS: cefTRIAXone 1,000 MG in Water for inj. (sterile) 10 ML IVP SCH (09:28)
[2019-08-15] MEDS: Azithromycin 500 MG in 0.9 % Sodium Chloride 250 ML IVPB SCH (20:01)
[2019-08-15] MEDS: Nicotine 7 MG PATCH.TD24 TD SCH (23:00)
[2019-08-15] MEDS: Melatonin 3 MG TABLET PO PRN (23:55)
[2019-08-16 04:38] LABS: Klebsiella pneumoniae by PCR DETECTED (Not Detect)
[2019-08-16] MEDS: Insulin LISPRO 300 UNITS/3 ML VIAL SQ SCH ×3 (08:52→16:53)
[2019-08-16] MEDS: amLODIPine 5 MG TABLET PO SCH (09:25)
[2019-08-16] MEDS: Apixaban 2.5 MG TABLET PO SCH ×2 (09:26→21:19)
[2019-08-16] MEDS: Nicotine 7 MG PATCH.TD24 TD SCH (09:26)
[2019-08-16 09:32] LABS: Basophils % 0.2 %; Eosinophils # 0.3 K/mcL (0.0-0.6); Eosinophils % 5.9 %; Hematocrit 31.6 % (37.5-50.1); Immature Granulocytes % 0.2 % (0-4); Lymphocytes # 1.5 K/mcL (0.6-4.6); Mean Corpuscular HGB Conc 31.6 g/dL (31.6-35.5); Mean Corpuscular Hemoglobin 28.2 pg (28.0-33.3); Mean Corpuscular Volume 89.3 fL (83.0-100.0); Mean Platelet Volume 9.6 fL (9.4-12.4); Monocytes # 0.7 K/mcL (0.0-1.3); Monocytes % 14.4 %; Neutrophils # 2.4 K/mcL (1.6-8.9); Platelet Count 181 K/mcL (140-400); Red Blood Count 3.54 M/mcL (4.19-5.50); Red Cell Distribution Width 17.4 % (11.5-14.5); Segmented Neutrophils % 49.3 %; White Blood Count 4.9 K/mcL (4.3-11.1)
[2019-08-16] MEDS: cefTRIAXone 1,000 MG in Water for inj. (sterile) 10 ML IVP SCH (12:21)
[2019-08-16] MEDS: Melatonin 3 MG TABLET PO PRN (21:20)
[2019-08-16] MEDS: Azithromycin 500 MG in 0.9 % Sodium Chloride 250 ML IVPB SCH (21:24)
[2019-08-16] MEDS ORDERED: Melatonin 3 MG TABLET PO ONE ×2 (23:23→23:43)
[2019-08-16] MEDS ORDERED: *HR* LORazepam 0.5 MG TABLET PO ONE (23:31)
[2019-08-17] MEDS ORDERED: *HR* LORazepam 0.5 MG TABLET PO ONE (01:11)
[2019-08-17] MEDS: amLODIPine 5 MG TABLET PO SCH (10:03)
[2019-08-17] MEDS: Nicotine 7 MG PATCH.TD24 TD SCH (10:03)
[2019-08-17] MEDS: Apixaban 2.5 MG TABLET PO SCH ×2 (10:03→21:33)
[2019-08-17] MEDS: Insulin LISPRO 300 UNITS/3 ML VIAL SQ SCH ×3 (10:04→17:36)
[2019-08-17] MEDS: cefTRIAXone 1,000 MG in Water for inj. (sterile) 10 ML IVP SCH (14:20)
[2019-08-17] MEDS: Azithromycin 500 MG in 0.9 % Sodium Chloride 250 ML IVPB SCH (21:34)
[2019-08-17] MEDS: Melatonin 3 MG TABLET PO PRN (21:34)
[2019-08-18] MEDS: Insulin LISPRO 300 UNITS/3 ML VIAL SQ SCH ×3 (07:49→16:31)
[2019-08-18 08:23] LABS: Basophils % 0.4 %; Eosinophils # 0.3 K/mcL (0.0-0.6); Eosinophils % 5.8 %; Hematocrit 33.7 % (37.5-50.1); Hemoglobin 10.8 g/dL (12.9-16.9); Immature Granulocytes % 0.2 % (0-4); Lymphocytes # 1.6 K/mcL (0.6-4.6); Lymphocytes % 29.9 %; Mean Corpuscular Hemoglobin 27.1 pg (28.0-33.3); Mean Corpuscular Volume 84.5 fL (83.0-100.0); Mean Platelet Volume 9.9 fL (9.4-12.4); Monocytes # 0.8 K/mcL (0.0-1.3); Monocytes % 14.6 %; Neutrophils # 2.7 K/mcL (1.6-8.9); Platelet Count 203 K/mcL (140-400); Red Blood Count 3.99 M/mcL (4.19-5.50); Red Cell Distribution Width 17.1 % (11.5-14.5); Segmented Neutrophils % 49.1 %; White Blood Count 5.5 K/mcL (4.3-11.1)
[2019-08-18] MEDS: Apixaban 2.5 MG TABLET PO SCH ×2 (08:25→20:40)
[2019-08-18] MEDS: amLODIPine 5 MG TABLET PO SCH (08:26)
[2019-08-18] MEDS: Nicotine 7 MG PATCH.TD24 TD SCH (08:27)
[2019-08-18] MEDS: cefTRIAXone 1,000 MG in Water for inj. (sterile) 10 ML IVP SCH (08:28)
[2019-08-18 08:42] LABS: BUN/Creatinine Ratio 22 (6-26); Blood Urea Nitrogen 16 mg/dL (8-23); Calcium 10.3 mg/dL (8.6-10.3); Carbon Dioxide 27 mEq/L (23-29); Chloride 106 mEq/L (98-107); Glucose 106 mg/dL (70-105); Osmolality,Calculated 290 (280-300); Potassium 3.7 mEq/L (3.5-5.1); Sodium 139 mEq/L (136-145); eGFR For African Americans > 60 (> 60); eGFR For Non-African Americans > 60 (> 60)
[2019-08-18] MEDS ORDERED: Cyanocobalamin (B-12) 1,000 MCG/ML VIAL IM ONE (09:33)
[2019-08-18] MEDS: Melatonin 3 MG TABLET PO PRN (20:40)
[2019-08-18 23:27] LABS: Acinetobacter baumannii by PCR Not Detected (Not Detect); Candida albicans by PCR Not Detected (Not Detect); Candida glabrata by PCR Not Detected (Not Detect); Candida krusei by PCR Not Detected (Not Detect); Candida parapsilosis by PCR Not Detected (Not Detect); Candida tropicalis by PCR Not Detected (Not Detect); Enterobacter cloacae Cmplx PCR Not Detected (Not Detect); Enterococcus by PCR Not Detected (Not Detect); Escherichia coli by PCR Not Detected (Not Detect); Klebsiella oxytoca by PCR Not Detected (Not Detect); Proteus by PCR Not Detected (Not Detect); Pseudomonas aeruginosa by PCR Not Detected (Not Detect); Serratia marcescens by PCR Not Detected (Not Detect); Staphylococcus aureus by PCR Not Detected (Not Detect); Staphylococcus by PCR Not Detected (Not Detect); Streptococcus agalactiae(B)PCR Not Detected (Not Detect); Streptococcus by PCR Not Detected (Not Detect); Streptococcus pneumoniae PCR Not Detected (Not Detect); Streptococcus pyogenes (A) PCR Not Detected (Not Detect); blaKPC Carbapenem-Resist Gene Not Detected (Not Detect)
[2019-08-19] MEDS: Insulin LISPRO 300 UNITS/3 ML VIAL SQ SCH (08:39)
[2019-08-19] MEDS: amLODIPine 5 MG TABLET PO SCH (08:57)
[2019-08-19] MEDS: Nicotine 7 MG PATCH.TD24 TD SCH (08:57)
[2019-08-19] MEDS: Apixaban 2.5 MG TABLET PO SCH (08:57)
[2019-08-19] MEDS: cefTRIAXone 1,000 MG in Water for inj. (sterile) 10 ML IVP SCH (09:02)
[2019-08-19 11:47] VITALS: BP 153/76
== END 2019-08-19 15:13 | disposition hospice, home (50) | DRG 871 ==
LOC: 3BNU 18:38 → EMEROOARM 18:38 → SUATTDRO 21:45 → 3BNU 22:14
PROVIDERS: ADMIT Family Medicine; ATTEND Internal Medicine